=== PATIENT | male | born 1930 | race Caucasian/White ===

== ENCOUNTER 2016-07-05 11:30 | Inpatient (IN) | payer OTHER ==
[~2016-07-05] VITALS: Ht 190.5 cm; Wt 74.8 kg
[~2016-07-05 11:30] MED LIST: AMIODARONE HCL200 M1 PO; AMIODARONE200 MG PO; ASPIRIN EC81 M1 PO; AUGMENTIN 875875 MG PO; CALCIUM/VITAMIN1 TA1 PO; CEFPODOXIME PR200 M2 PO; CIPRO 500MG TA500 MG PO; COUMADIN 2.5 M2.5 MG PO; COUMADIN1 M1 PO; COUMADIN2 M1 PO; FLAG500 PO; FLOMAX0.4 M1 PO; GABAPENTIN300 M2 PO; HYDROXYUREA500 M1 PO; HYDROXYUREA500 MG PO; LIPITOR20 M2 PO; LISINOPRIL10 M1 PO; LISINOPRIL10 MG PO; LISINOPRIL20 MG PO; LISINOPRIL30 MG PO; LOPRESSOR 25MG25 MG PO; LOPRESSOR50 MG PO; METOPROLOL TART25 M1 PO; NORCO 325 MG-51 TAB PO; OXYCODONE5 MG PO; PRINIVIL 5MG5 MG PO; REMERON30 M1 PO; SALINE MIST 4545 ML NAS; SENNA LAX8.6 M1 PO; SIMVASTATIN80 MG PO; SLO NIACIN500 MG PO; VITAMIN B121000 MC2 PO; VITAMIN C100 MG PO
--- NOTE | 2016-07-05 11:42 | NUR ---
PER SON UTI X 2 WEEKS THIS AM SCHEDULED FOR RECHECK WITH DR SEVERINO, BUT THIS AM ALTERED, SHAKY AND WEAK. SIMILIAR TO INFECTION NOT CLEARED.
--- NOTE | 2016-07-05 11:55 | NUR ---
DR LAINEZ AT BEDSIDE FOR EVAL AT THIS TIME.
--- NOTE | 2016-07-05 12:08 | NUR ---
XRAY AT BEDSIDE
--- NOTE | 2016-07-05 12:16 | ED AMS/SEIZURE/WEAK/DIZZY ---
History of Present Illness General Chief Complaint: Altered Mental Status Stated Complaint: AMS, CONFUSED, PER SON Source: patient, family, old records Exam Limitations: clinical condition Vital Signs & Intake/Output Vital Signs & Intake/Output Vital Signs Date Time Temp Pulse Resp B/P Pulse O2 O2 Flow FiO2 Ox Delivery Rate 07/05 1443 97.7 50 18 138/72 92 Room Air 07/05 1400 Room Air 07/05 1145 97.1 52 22 165/71 98 Room Air Allergies Coded Allergies: niacin (EXTREME FLUSHING FROM IMMEDIATE RELEASE 04/18/16) PT TOLERATES SLOW RELEASE Reconcile Medications Amiodarone HCl 200 MG TABLET 1 TAB PO DAILY AFIB (Reported) Aspirin (Ecotrin*) 81 MG TABLET.DR 1 TAB PO DAILY HEART HEALTH (Reported) Atorvastatin Calcium (Lipitor) 20 MG TABLET 1 TAB PO DAILY CHOLESTEROL ( Reported) Cranberry Conc/Ascorbic Acid (Cranberry Plus Vitamin C Sftgl) 4,200 MG-20 MG CAPSULE 1 CAP PO BID SUPPLEMENT (Reported) Gabapentin 300 MG CAPSULE 1 CAP PO QPM NEUROPATHY (Reported) Hydroxyurea 500 MG CAPSULE 2 CAP PO DAILY POLYCYTHEMIA VERA (Reported) Lisinopril 10 MG TABLET 0.5 TAB PO QPM BP (Reported) Metoprolol Tartrate 25 MG TABLET 0.5 TAB PO BID HEART (Reported) Sennosides (Senna Lax) 8.6 MG TABLET 1 TAB PO QPM CONSTIPATION (Reported) Tamsulosin HCl (Flomax) 0.4 MG CAP.ER.24H 1 CAP PO QPM PROSTATE (Reported) Warfarin Sodium (Coumadin) 2 MG TABLET 0.5 TAB PO 1700 BLOOD THINNER ( Reported) Core Measure Meds Pre-Hospital antibiotics, coumadin Triage Note: PER SON UTI X 2 WEEKS THIS AM SCHEDULED FOR RECHECK WITH DR SEVERINO, BUT THIS AM ALTERED, SHAKY AND WEAK. SIMILIAR TO INFECTION NOT CLEARED. Triage Nurses Notes Reviewed? yes Onset: Just prior to arrival Duration: hour(s):, better, intermittent Timing: recent history Injury Environment: home Severity: moderate No Modifying Factors: none HPI: 2 weeks prior to admission patient was treated for urinary tract infection with Cipro. Prior to admission he was noted to have generalized shaking increased weakness and confusion. There has been no fever nausea vomiting diarrhea abdominal pain dysuria rash chest pain cough shortness of breath headache bleeding. Past History Travel History Traveled to [place] past 21 day No Medical History Any Pertinent Medical History? 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 No Review of Systems Review of Systems Constitutional: Reports: see HPI, chills, weakness. EENTM: Reports: no symptoms. Respiratory: Reports: no symptoms. Cardiovascular: Reports: no symptoms. GI: Reports: no symptoms. Genitourinary: Reports: no symptoms. Musculoskeletal: Reports: no symptoms. Skin: Reports: no symptoms. Neurological/Psychological: Reports: see HPI, confusion. Hematologic/Endocrine: Reports: no symptoms. Immunologic/Allergic: Reports: no symptoms. All Other Systems: Reviewed and Negative Physical Exam Physical Exam General Appearance: well developed/nourished, alert, awake, anxious, mild distress Head: atraumatic, normal appearance Eyes: Bilateral: normal appearance, PERRL, EOMI. Ears, Nose, Throat: normal pharynx, normal ENT inspection Neck: normal inspection, supple, full range of motion, no midline tenderness Respiratory: chest non-tender, no respiratory distress, quiet respiration, decreased breath sounds Cardiovascular: regular rate/rhythm, systolic murmur, norml femoral pulses equa Peripheral Pulses: 4+ carotid (R), 4+ carotid (L) Gastrointestinal: normal bowel sounds, soft, non-tender, no organomegaly Back: normal inspection, normal range of motion Extremities: BLE amputations Neurologic/Psych: awake, alert, cvt tech II-XII nml as tested, motor weakness Reflexes: 2+: bicep (R), bicep (L). Skin: intact, normal color Lymphatic: no anterior cervical janessa Core Measures ACS in differential dx? No CVA/TIA Diagnosis: No Severe Sepsis Present: No Septic Shock Present: No Progress Differential Diagnosis: arrythmia, dehydration, electrolyte imbalance, hypoxia, pneumonia, UTI/pyelo Plan of Care: Orders Procedure Date/time Status Regular Diet 07/05 L Active Patient Data 07/05 1437 Active OXYGEN SETUP (GEN) 07/05 1306 Active Saline Lock 07/05 1306 Active Admit to inpatient 07/05 1306 Active Vital Signs 07/05 1306 Active Activity/Ambulation 07/05 1306 Active BLOOD CULTURE 07/05 1306 Active Code Status 07/05 1306 Active URINALYSIS 07/05 1200 Complete TROPONIN LEVEL 07/05 1200 Complete PROTHROMBIN TIME 07/05 1200 Complete COMPREHENSIVE METABOLIC PANEL 07/05 1200 Complete CBC WITHOUT DIFFERENTIAL 07/05 1200 Complete EKG 07/05 1200 Active Laboratory Tests 07/05/16 1430: Urinalysis LIGHT H, Urine Color YEL, Urine Clarity HAZY H, Urine pH 6.0, Ur Specific Stephen 1.025, Urine Protein 100 H, Urine Ketones NEG, Urine Nitrite NEG, Urine Bilirubin NEG, Urine Urobilinogen 1.0, Ur Leukocyte Esterase NEG, Ur Microscopic SEDIMENT EXAMINED, Urine RBC RARE, Urine WBC 10-15 H, Ur Epithelial Cells RARE, Urine Hemoglobin TRACE-INTACT H, Urine Glucose NEG 07/05/16 1230: Anion Gap 7, Estimated GFR > 60, BUN/Creatinine Ratio 15.7, Glucose 86, Calcium 8.5, Total Bilirubin 0.8, AST 24, ALT 27, Alkaline Phosphatase 127 H, Troponin I 0.02, Total Protein 5.7 L, Albumin 2.6 L, Globulin 3.1, Albumin/Globulin Ratio 0.8 L, PT 14.5 H, INR 1.39 H, CBC w Diff NO MAN DIFF REQ, RBC 3.96 L, MCV 101.5 H, MCH 33.0 H, RDW 18.9 H, MPV 8.1, Gran % 84.7 H, Lymphocytes % 9.2 L, Monocytes % 3.9, Eosinophils % 2.1, Basophils % 0.1, Absolute Granulocytes 8.0 H, Absolute Lymphocytes 0.9 L, Absolute Monocytes 0.4, Absolute Eosinophils 0.2, Absolute Basophils 0, PUBS MCHC 32.5 L Microbiology 07/05 1352 BLOOD: Blood Culture - RECD 07/05 1335 BLOOD: Blood Culture - RECD Diagnostic Imaging: Viewed by Me: Radiology Read. Discussed w/RAD: Radiology Read. CXR Impression: Airspace disease in the left lung base which may correspond to aspiration or early pneumonia. There is a probable small left pleural effusion. Initial ED EKG: normal axis, normal intervals, normal p-waves, normal QRS complex, normal sinus rhythm, nonspecific ST T wave chg Prior EKG: unchanged Rhythm Strip: normal sinus rhythm Departure Departure Time of Disposition: 1437 Disposition: STILL A PATIENT Condition: Stable Clinical Impression Primary Impression: Pneumonia Secondary Impressions: Altered mental status, UTI (urinary tract infection) Referrals: MERE APPLE,YUSUF (PCP/Family) Departure Forms: Customer Survey General Discharge Information Admission Note Spoke With: ALAN COYNE MD Documentation of Exam: Documentation of any treatments & extenuating circumstances including Concerns Regarding Discharge (functional status, medication knowledge or non-compliance, living conditions, etc.) that warrant an admission rather than observation: IV antibiotics medication adjustment serial lab exam urology evaluation continuing care discharge planning
--- NOTE | 2016-07-05 12:29 | NUR ---
BLOOD WORK COLLECTED AND SENT TO LAB HAMIDA BLUE LAV PINK NOLEN TUBES SENT TO LAB
--- NOTE | 2016-07-05 12:30 | NUR ---
PT CHANGE INTO HOSPITAL ATTIRE AND FAMILY PLACE PT INTO BED. SON AT BEDSIDE.
[2016-07-05 12:37] LABS: ABSOLUTE BASOPHIL COUNT 0 /CUMM (0.0-0.2); ABSOLUTE EOSINOPHIL COUNT 0.2 /CUMM (0.0-0.7); ABSOLUTE LYMPH COUNT 0.9 /CUMM (1.2-3.4); ABSOLUTE MONOCYTE COUNT 0.4 /CUMM (0.10-0.60); BASOPHIL % 0.1 % (0.0-2.0); EOSINOPHIL % 2.1 % (0-5); GRANULOCYTE % 84.7 % (42.2-75.2); HEMATOCRIT 40.2 % (42-52); MEAN CORPUSCULAR HGB CONC 32.5 G/DL (33.0-37.0); MEAN CORPUSCULAR VOLUME 101.5 FL (80.0-94.0); MEAN PLATELET VOLUME 8.1 FL (7.4-10.4); PLATELET COUNT 291 /CUMM (130-400); RBC DISTRIBUTION WIDTH 18.9 % (11.5-14.5); RED BLOOD CELL CT 3.96 /CUMM (4.70-6.10); WHITE BLOOD CELL COUNT 9.4 /CUMM (4.8-10.8)
[2016-07-05 12:45] LABS: PT 14.5 SEC (9.4-12.5)
--- NOTE | 2016-07-05 13:03 | RADIOLOGY REPORT ---
EXAMINATION: XR PORTABLE CHEST CLINICAL INFORMATION: Chills. Weakness. History of aspiration. COMPARISON: 04/18/2016 TECHNIQUE: AP portable upright view of the chest FINDINGS: Airspace disease in the probable left-sided effusion are present at the left lung base. Examination is somewhat limited by kyphotic patient positioning. The patient's chin overlies the right lung apex. Sternal wires and surgical clips overlie the mediastinum. Cardiac and mediastinal contours are unchanged. Pulmonary vascularity is within normal limits given the technique. No acute osseous findings. IMPRESSION: Airspace disease in the left lung base which may correspond to aspiration or early pneumonia. There is a probable small left pleural effusion. Examination is somewhat limited due to positioning. Consider follow-up nonportable PA and lateral chest radiographs if warranted.
--- NOTE | 2016-07-05 14:02 | NUR ---
PT MEDICATED WITH ROCEPHIN AND VIBRAMYCIN INFUSING PER EMAR.
--- NOTE | 2016-07-05 14:31 | NUR ---
PT STRAIGHT CATH BY MARYAM UREÑA, STERILE TECHNIQUE MAINTAINED, 200ML OF DARK YELLOW URINE OBTAINED AND SENT TO LAB.
[2016-07-05] MEDS ORDERED: CRANBERRY PLUS1 EAC1 PO (15:07)
--- NOTE | 2016-07-05 15:58 | NUR ---
HOUSE STAFF TO BEDSIDE FOR PT EVAL.
--- NOTE | 2016-07-05 17:11 | NUR ---
PT RESTING ON STRETCHER, FAMILY AT BEDSIDE. 02SAT 90% ON RA, PT PLACED ON O2 2.5L NC WITH O2SAT IMPROVEMENT 93% FOOD TRAY ORDERED FOR PT.
--- NOTE | 2016-07-05 18:01 | NUR ---
BED ASSIGNMENT [phone]
--- NOTE | 2016-07-05 18:41 | History & Physical ---
CORKY APPLE,[facility] 07/05/16 0450: General Information and HPI Statement: I have seen and personally examined EDITA ROSARIO and documented this H&P. The patient is a 86 year old M who presented with a patient stated chief complaint of urinary symptoms. Source of Information: patient, family Exam Limitations: no limitations History of Present Illness: This is a 86-year-old pleasant gentleman with past medical history of A. fib on Coumadin, CAD s/p CABG more than 20 years ago, stent placement in 2000, COPD, polycythemia vera treated with hydroxyurea, and a history of multiple UTIs every year, is presented to [facility] by his son and caregiver for evaluation of a possible urinary tract infection. Most of the history was given by his son who is the POA. Patient son reports that for the past 2 days, patient has been experiencing mild chills and his urine has been noticed to be darker than normal and described as iced tea- colored. Patient son reports that he is used to having his father experiencing multiple episodes of UTI to the point where he can recognize early signs, and therefore having seen the urine discoloration and mild chills, he decided that the patient should be seen at the emergency department. Associated symptoms include generalized shaking, confusion, mild decrease in appetite, and some lethargy. Pt denies any shortness of breath, chest pain, palpitation, fever, nausea, vomiting, abdominal pain, dysuria or increased urinary frequency. Of note, patient finished an outpatient antibiotic course of ciprofloxacin for a UTI episode in May. Patient's son also report that in April patient was admitted for UTI and possible pneumonia at [facility] and after deterioration of his condition, based on the advise of the medical staff, was discharged to home hospice. However, patient condition did not deteriorate further and actually improved and home hospice was discontinued and his home medications were restarted. Allergies/Medications Allergies: Coded Allergies: niacin (EXTREME FLUSHING FROM IMMEDIATE RELEASE 04/18/16) PT TOLERATES SLOW RELEASE Home Med list Amiodarone HCl 200 MG TABLET 1 TAB PO DAILY AFIB (Reported) Aspirin (Ecotrin*) 81 MG TABLET.DR 1 TAB PO DAILY HEART HEALTH (Reported) Atorvastatin Calcium (Lipitor) 20 MG TABLET 1 TAB PO DAILY CHOLESTEROL ( Reported) Cranberry Conc/Ascorbic Acid (Cranberry Plus Vitamin C Sftgl) 4,200 MG-20 MG CAPSULE 1 CAP PO BID SUPPLEMENT (Reported) Gabapentin 300 MG CAPSULE 1 CAP PO QPM NEUROPATHY (Reported) Hydroxyurea 500 MG CAPSULE 2 CAP PO DAILY POLYCYTHEMIA VERA (Reported) Lisinopril 10 MG TABLET 0.5 TAB PO QPM BP (Reported) Metoprolol Tartrate 25 MG TABLET 0.5 TAB PO BID HEART (Reported) Sennosides (Senna Lax) 8.6 MG TABLET 1 TAB PO QPM CONSTIPATION (Reported) Tamsulosin HCl (Flomax) 0.4 MG CAP.ER.24H 1 CAP PO QPM PROSTATE (Reported) Warfarin Sodium (Coumadin) 2 MG TABLET 0.5 TAB PO 1700 BLOOD THINNER ( Reported) Past History Travel History Traveled to [place] past 21 day No Medical History Neurological: peripheral neuropathy EENT: NONE Cardiovascular: AFIB, aortic stenosis, CAD, hypertension, hyperlipidemia Respiratory: pulmonary embolism Gastrointestinal: constipation, diverticulitis Hepatic: NONE Renal: benign prost hyperplasia Musculoskeletal: NONE Psychiatric: NONE Endocrine: NONE Blood Disorders: DVT, PE, POLYCYTHEMIA Cancer(s): NONE PSYCHIATRIC NURSE PRACTITIONER/Reproductive: NONE History of MRSA: No History of VRE: No History of CDIFF: No Pneumonia Vaccine: 02/27/10 Influenza Vaccine: 03/21/16 Surgical History Surgical History: non-contributory Past Family/Social History Psychosocial History Who Do You Live With? child Services at Home: Home Health Aide Primary Language: Barbadian Review of Systems Review of Systems Constitutional: Reports: chills. EENTM: Denies: blurred vision, double vision, eye pain. Cardiovascular: Denies: edema, orthopena, palpitations, peripheral edema, syncope. Respiratory: Denies: hemoptysis, orthopnea, short of breath, sputum production. GI: Denies: bloating, constipation, diarrhea, distention, melena, bloody stool, changes in stool, vomiting. Genitourinary: Denies: dysuria, hematuria. Musculoskeletal: Denies: joint pain, joint swelling, muscle pain. Skin: Denies: change in skin color, change in hair/nails, erythema. Neurological/Psychological: Reports: confusion. Denies: anxiety, ataxia, cognitive dysfunction. Hematologic/Endocrine: Reports: no symptoms. Immunologic/Allergic: Reports: no symptoms. All Other Systems: Reviewed and Negative Exam & Diagnostic Data Last 24 Hrs of Vital Signs/I&O Vital Signs Date Time Temp Pulse Resp B/P Pulse O2 O2 Flow FiO2 Ox Delivery Rate 07/05 2101 54 178/54 07/05 2100 54 178/54 07/05 2057 54 178/54 07/05 2040 54 178/58 07/05 1999 Nasal 2.5L Cannula 07/05 1958 97.9 51 20 190/60 96 Nasal 2.5L Cannula 07/05 1827 97.4 55 18 158/67 96 Nasal 2.5L Cannula 07/05 1713 97.3 50 18 186/79 93 Nasal 2.5L Cannula 07/05 1443 97.7 50 18 138/72 92 Room Air 07/05 1400 Room Air 07/05 1145 97.1 52 22 165/71 98 Room Air Intake & Output 07/05 1600 07/05 0800 07/05 0000 Intake Total 110 Output Total 200 Balance -90 Intake, IV 110 Output, Urine 200 Physical Exam General Appearance Alert, Oriented X3, Cooperative Skin No Significant Lesion HEENT EOMI, bilateral indentation noted on the left and right side of scalp ( previous neurosurgical procedure shunt placement) Neck Supple, No thryomegaly Lymphatic Cervical nl Cardiovascular Regular Rate, very mild systolic murmur 1/6. Lungs decreased breath sounds bilaterally Abdomen Soft, No Tenderness, no CVA Neurological Normal Speech, Strength at 5/5 X4 Ext, Sensation Intact Extremities bilateral amputation below the knee Vascular Normal Pulses Last 24 Hrs of Labs/Addy: Laboratory Tests 07/05/162039: Troponin I < 0.01 07/05/16 1430: Urinalysis LIGHT H, Urine Color YEL, Urine Clarity HAZY H, Urine pH 6.0, Ur Specific [place] 1.025, Urine Protein 100 H, Urine Ketones NEG, Urine Nitrite NEG, Urine Bilirubin NEG, Urine Urobilinogen 1.0, Ur Leukocyte Esterase NEG, Ur Microscopic SEDIMENT EXAMINED, Urine RBC RARE, Urine WBC 10-15 H, Ur Epithelial Cells RARE, Urine Hemoglobin TRACE-INTACT H, Urine Glucose NEG 07/05/16 1230: Anion Gap 7, Estimated GFR > 60, BUN/Creatinine Ratio 15.7, Glucose 86, Calcium 8.5, Total Bilirubin 0.8, AST 24, ALT 27, Alkaline Phosphatase 127 H, Troponin I 0.02, Total Protein 5.7 L, Albumin 2.6 L, Globulin 3.1, Albumin/Globulin Ratio 0.8 L, Vitamin B12 884, Folate 5.1, PT 14.5 H, INR 1.39 H, CBC w Diff NO MAN DIFF REQ, RBC 3.96 L, MCV 101.5 H, MCH 33.0 H, RDW 18.9 H, MPV 8.1, Gran % 84.7 H, Lymphocytes % 9.2 L, Monocytes % 3.9, Eosinophils % 2.1, Basophils % 0.1, Absolute Granulocytes 8.0 H, Absolute Lymphocytes 0.9 L, Absolute Monocytes 0.4, Absolute Eosinophils 0.2, Absolute Basophils 0, PUBS MCHC 32.5 L Microbiology 07/05 1352 BLOOD: Blood Culture - RECD 07/05 1335 BLOOD: Blood Culture - RECD Assessment/Plan Assessment: This is a 86-year-old gentleman with a past medical history of recurrent UTIs, including one episode in April 2016 that required hospitalization, and a recent one in May treated on outpatient basis with ciprofloxacin, is presented for evaluation of UTI after developing 2 day onset of urine discoloration,some mild chills and confusion. Assessment and plan #Urinary tract infection Even though UA is not remarkable for UTI, his urine discoloration is concerning and with a history of recurrent UTIs which his son reports to always start with urine discoloration, altered mental status, and with positive chills, patient possibly has a UTI. Plan * Admit to GEN med floor * Will start ceftriaxone IV * Will follow up on urine cultures * if urine cultures are negative and patient remains afebrile with no leukocytosis, we might consider stopping antibiotic treatment. #Acute encephalopathy Patient is reported to be confused within the past few days, which is not his baseline. Likely secondary to urinary tract infection. Plan * Will avoid delirium triggers #Bradycardia Possibly secondary to AV anjali effect of patient's Lopressor medication. Plan * Will monitor heart rate #Subtherapeutic INR Patient A. fib coagulation goal should be 2-3, however his INR is 1.39. Plan * Pt's normal dose is1 mg daily, will dose Coumadin 2 mg today * Will trend INR tomorrow and dose accordingly targeting a goal of 2-3 #History of A. 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 * Continue gabapentin #History of BPH Continue Flomax As Ranked By This Provider Problem List: 1. Urinary tract infection 2. Altered mental status Core Measures/Miscellaneous Acute Coronary Syndrome ACS Diagnosis: No Cerebrovascular Accident CVA/TIA Diagnosis: No Congestive Heart Failure CHF Diagnosis: No Venous Thromboembolism VTE Risk Factors: Acute medical illness, Age > 40 VTE Prophylaxis Ordered Inpt: Pharm- Warfarin No Mech VTE prophylaxis d/t: Amputee No VTE Pharm Prophylaxis d/t: No contraindications VTE Diagnosis: No VTE Type: NONE VTE Confirmed by (Test): NONE Severe Sepsis Severe Sepsis Present: No Septic Shock Septic Shock Present: No Miscellaneous Documentation Attending Case Discussed With: MD EDITA JOSEPH. Primary Care Physician: MERE APPLE,[facility] Patient sees these Specialists SSIS ARCHITECT Level of Patient Care: General Surgical SHASTA MURPHY 07/05/16 6578: Resident Review Statement Resident Statement: examined this patient, discussed with internal corrosion specialist, agreed with internal corrosion specialist, discussed with family, reviewed EMR data (avail), discussed with nursing , reviewed images Other Findings: 86-year-old gentleman with a PMH of A. fib on Coumadin, polycythemia vera on hydroxyzine, COPD and diverticulitis brought in with concerns for UTI. Information obtained from the patient's son who is also POA: The symptoms started 2 days ago with noticeable darker urine (iced tea-colored) along with low temperature last night of 94F and some mild chills. He was initially diagnosed with a UTI and pneumonia around [place], admitted for 6 days at [facility] and discharged on [facility] on home hospice due to progressive deterioration. However, while at home he continued to progressively improve and was started back on his previous medications. Mid-May this year family noticed his urine becoming cloudy again, followed up with his PCP and was prescribed a 10 day course of Cipro for which he completed at the end of May with planned follow up today to repeat his cultures. However, due to the most recent 2 day dark colored urine the family opted to bring him into the ED for evaluation. ROS: (+) slight decrease in appetite, mild lethargy. He denied any fevers, nausea, abdominal pain, discomfort with urination/frequency. VS on admission: BP 165/71, HR 52, RR 22, SPO2 98% on RA, T 97.1 PE: AAO 3, no acute distress. Lungs CTA BL, diminished breath sounds the basal regions. RRR, normal S1/S2. Normal bowel sounds. Lower extremity amputee Pertinent labs: WBC 9.4, H&H 13.1/40.2, MCV 101.5, BUN/CR 11/0.7, glucose 86, potassium 3.9, sodium 139, albumin 2.6, alkaline phosphatase 127 INR: 1.39 CXR: Left lung base airspace disease Problem list: 1. UTI 2. Bradycardia 3. Subtherapeutic INR 4. Delirium Plan: * Admit to general medicine * Follow-up urine cultures and will continue him on ceftriaxone. Will obtain previous cultures from PCP to assess the sensitivities. Current records indicate prior bacteriuria with resistance to amoxicillin. * Patient's son indicates ?? Left lung base pneumonia during his previous admission to [facility] in April. Will obtain records to compare. At this time DDX of pneumonia less likely. Will defer starting azithromycin for now * Will follow urine strep, Legionella. Rapid influenza * Bradycardia: Patient is on Lopressor 12.5 mg BID. Denies any chest pain at this time. Echo 2015: EF 60%. Will check a set of troponin and EKG, hold evening dose of Lopressor if bradycardic. Consider half dose if hypertensive. Orthostatics in the a.m. * Blood sugar 86: Accu-Cheks overnight to rule out hypoglycemic episode * Subtherapeutic INR: Dose 2 mg Coumadin today and follow-up INR in the a.m. * Elevated MCV: Follow-up vitamin B12 and folate levels * PT in the a.m * DVT prophylaxis: Coumadin * Regular diet * CODE STATUS: DNR/DNI EDITA JOSEPH MD 07/05/16 2147: Attending MD Review Statement Attending Statement Attending MD Statement: examined this patient, discuss w/resident/PA/SKIN DIVER, agreed w/resident/PA/SKIN DIVER, discussed with family, reviewed EMR data (avail), discussed with nursing, reviewed images, amended to note Attending Assessment/Plan: The patient is an 86 yo male with h/o afib (on Coumadin), CAD (s/p prior CABG/ stent 2000), polycythemia vera, PVD, and h/o multiple UTI's who presented on the day of admission for evaluation of possible recurrent UTI. The patient was recently treated in May with Cipro for a UTI by his PCP (Dr. Ramos) and was doing better, however last 2 days noted chills, change in urine coloration, increased confusion, decreased appetite and lethargy. He denied any chest pain, dyspnea, palpitations, abdominal or back pain, or dysuria. Details of history as per resident. Physical Exam: VS: T 97.1, P 52, R 22, BP 165/71, PO 98% RA HEENT: Eyes- PERRLA, EOMI [place]- dry mucosa Neck: no JVD or bruits Chest: clear Cor: RRR, nl S1, S2, +1/6 sys murm at LSB Abd: BS+, softly distended, non-tender, - CVAT Ext: s/p bilat amputations Neuro: alert, non-focal exam, + dementia w/o change Labs/Tests- as above Impression/Plan: #UTI- patient notes urine discoloration similar to prior UTI. No fever but describes some chills. Plan: Will admit to gen med floor. Roach culture. Empiric Ceftriaxone- will obtain records regarding prior UTI/culture results. #Altered Mental Status- acute delirium- ? toxic metabolic encephalopathy secondary to infection. Has had this in past. Was on course of Cipro in May which may cause confusion (however had improved post treatment). Neuro exam is non-focal. Plan: Will monitor mental status with above treatment. #Atrial Fibrillation- INR is subtherapeutic. On Amiodarone. Plan: Dose Coumadin as above. Continue Amiodarone. #H/O Polycythemia Vera- on hydroxyurea. Plan: Continue hydroxyurea. #CAD- no c/o chest pain. Plan: Continue ASA, Metoprolol, Atorvastatin. #Hyperlipidemia- on Atorvastatin. Plan: Continue Atorvastatin. #BPH- on Flomax. Plan: Continue Flomax.
--- NOTE | 2016-07-05 18:47 | NUR ---
REPORT GIVEN TO MARYAM HWANG IN [facility], [facility] CALLED FOR TRANSPORTATION.
[2016-07-05 19:59] VITALS: BP 190/60
--- NOTE | 2016-07-05 20:35 | NUR ---
PT ARRIVED TO FLOOR FROM ER WITH [facility]. PT AWAKE, A/OX3, ON 2.5L NC WITH LUNG SOUNDS DIMINISHED, IV SITE INTACT, BLANCHABLE REDNESS NOTED TO COCCYX WITH SMALL AREAS OF SKIN BREAKDOWN ALSO NOTED, WOUND CARE EVAL PLACED, PT HAS L BKA AND R AKA, SMALL INDENTED AREA NOTED TO CHEST WITH BANDAID IN PLACE PER PT "THAT'S WHERE A STITCH NEVER DISSOLVED"; SON AND PT'S LIVE-IN CAREGIVER AT BEDSIDE, PT ORIENTED TO ROOM AND CALL GARCIA WITHIN REACH. WILL CONTINUE TO MONITOR.
[2016-07-05 20:41] VITALS: BP 178/58
--- NOTE | 2016-07-05 22:05 | Admission Certification ---
Admission Certification Certification Statement - As attending physician, I certify that at the time of - admission, based on clinical presentation, severity of - symptoms, need for further diagnostic testing and - therapeutic interventions, and risk of adverse outcomes - without in-hospital treatment, in my clinical assessment, - this patient requires an acute hospital stay for a minimum - of two nights or longer. I have also considered psychsocial - factors such as support system, advanced age, financial - issues, cognitive issues, and failed out-patient treatments, - past re-admission history, safety of patient, and lack of - compliance as applicable. Specific rationale supporting this admission is: The patient presents with UTI and alterered mental status (metabolic encephalopathy). Needs cultures and IV antibiotics (Ceftriaxone).
[2016-07-05 22:49] VITALS: BP 180/60
[2016-07-06] VITALS (7 sets, daily range): BP systolic 144–220; BP diastolic 58–82
[2016-07-06 08:17] LABS: PT 13.4 SEC (9.4-12.5)
[2016-07-06 08:22] LABS: ABSOLUTE BASOPHIL COUNT 0.1 /CUMM (0.0-0.2); ABSOLUTE EOSINOPHIL COUNT 0.3 /CUMM (0.0-0.7); ABSOLUTE GRANULOCYTE CT 7.1 /CUMM (1.4-6.5); ABSOLUTE LYMPH COUNT 0.9 /CUMM (1.2-3.4); ABSOLUTE MONOCYTE COUNT 0.4 /CUMM (0.10-0.60); BASOPHIL % 0.7 % (0.0-2.0); EOSINOPHIL % 3.4 % (0-5); GRANULOCYTE % 80.4 % (42.2-75.2); HEMATOCRIT 38.1 % (42-52); MEAN CORPUSCULAR HGB 33.7 PG (27.0-31.0); MEAN CORPUSCULAR HGB CONC 33.1 G/DL (33.0-37.0); MEAN CORPUSCULAR VOLUME 101.9 FL (80.0-94.0); MEAN PLATELET VOLUME 7.9 FL (7.4-10.4); PLATELET COUNT 230 /CUMM (130-400); RBC DISTRIBUTION WIDTH 19.3 % (11.5-14.5); RED BLOOD CELL CT 3.74 /CUMM (4.70-6.10); WHITE BLOOD CELL COUNT 8.8 /CUMM (4.8-10.8)
--- NOTE | 2016-07-06 12:45 | NUR ---
WOUND CARE: REQUESTED BY [facility] TO EVALUATE PT FOR SKIN ALTERATIONS PRESENT ON ADMISSION - CHART REVIEWED - HX OBTAINED FROM PT AND CAREGIVER WHOM WAS PRESENT AT TIME OF ASSESSMENT - SUPPORT [employer]CH[employer]IS[employer] REPORTS PT HAS HAD BREAKDOWN ONGOING SINCE PRIOR TO ADMISSION, IN WHICH HE WAS "PUTTING A WOUND PATCH" ON IT TO TREAT IT - ALSO REPORTS PT HAS AN AIR MATTRESS HE USES AT HOME UPON ASSESSMENT, PT IS NOTED WITH AN EVOLVING DEEP TISSUE INJURY TO THE BILATERAL BUTTOCKS 7 X 6 CM AND 3X4 CM LIGHT PURPLE DISCOLORED HUE WITH AREAS OF EXCORIATION THROUGHOUT WOUND BASE AND SUPERFICIAL BREAKDOWN - NO DRNG, ALTHOUGH WOUND BED MACERATED - NO EVIDENCE OF INFECTION OR INDURATION - CURRENTLY ON ALTERNATING PRESSURE MATTRESS IMPRESSION: DTI POA RECOMMENDATION: IF FAILURE TO IMPROVE IN 3 DAYS ON SIZE HAN MATTRESS, PLEASE CONSIDER CLINITRON MATTRESS - APPLY DESITIN OINTMENT QS AFTER INC EPISODES TO MONSTER BUTTOCKS - STRICT SIDELYING POSITION WIB (MAY BE ON BACK FOR MEALS) - INITIATE SKIN PROTOCOL PER STAGE 3 GUIDELINES - MONITOR QS
--- NOTE | 2016-07-06 13:23 | PN- Housestaff ---
Subjective Follow-up For: UTI Subjective: Patient is seen and examined bedside. Patient is moderately verbal. He is awake ,alert and oriented. He does not endorse any acute complain of dysuria, abdominal pain, fever, chills, nausea, vomiting, chest pain, palpitation, shortness of breath. No acute overnight event reported by nursing staff Review of Systems Constitutional: Reports: no symptoms. Objective Last 24 Hrs of Vital Signs/I&O Vital Signs Date Time Temp Pulse Resp B/P Pulse O2 O2 Flow FiO2 Ox Delivery Rate 07/06 1344 97.5 56 20 150/60 94 Nasal 2.5L Cannula 07/06 0908 52 122/60 07/06 0834 50 144/80 07/06 0800 Nasal 2.5L Cannula 07/06 0628 97.9 50 20 144/80 94 Nasal Cannula 07/06 0015 54 148/58 07/05 2249 97.5 52 20 180/60 97 Nasal 2.5L Cannula 07/05 2102 54 178/54 07/05 2101 54 178/54 07/05 2058 54 178/54 07/05 2041 54 178/58 07/05 2000 Nasal 2.5L Cannula 07/05 1959 97.9 51 20 190/60 96 Nasal 2.5L Cannula 07/05 1827 97.4 55 18 158/67 96 Nasal 2.5L Cannula 07/05 1713 97.3 50 18 186/79 93 Nasal 2.5L Cannula Intake & Output 07/06 1600 07/06 0800 07/06 0000 Intake Total 600 480 Output Total Balance 600 480 Intake, Oral 600 480 Number 0 0 Bowel Movements Patient 74.843 kg Weight Physical Exam General Appearance: Alert, Cooperative Other Physical Findings: eneral Appearance Alert, Oriented X3, Cooperative Skin No Significant Lesion HEENT EOMI, bilateral indentation noted on the left and right side of scalp ( previous neurosurgical procedure shunt placement) Neck Supple, No thryomegaly Lymphatic Cervical nl Cardiovascular Regular Rate, very mild systolic murmur 1/6. Lungs decreased breath sounds bilaterally Abdomen Soft, No Tenderness, no CVA Neurological Normal Speech, Strength at 5/5 X4 Ext, Sensation Intact Extremities bilateral amputation below the knee Vascular Normal Pulses Current Medications: Current Medications Sig/Caroline Start time Last Medication Dose Route Stop Time Status Admin Acetaminophen 650 MG Q6P PRN 07/05 1900 AC PO Amiodarone HCl 200 MG DAILY 07/06 1000 AC 07/06 PO 0908 Aspirin Buffered 81 MG DAILY 07/06 1000 AC 07/06 PO 0908 Atorvastatin Calcium 20 MG DAILY 07/05 1827 AC 07/06 PO 0908 Ceftriaxone Sodium 1,000 MG DAILY 07/06 1000 AC 07/06 IV 0907 Gabapentin 300 MG QPM 07/05 2200 AC 07/05 PO 2101 Hydroxyurea 1,000 MG DAILY 07/06 1000 AC 07/06 PO 0907 Lisinopril 5 MG QPM 07/05 2200 DC PO Lisinopril 5 MG QPM 07/05 2200 AC 07/05 PO 2058 Metoprolol Tartrate 12.5 MG BID 07/05 2200 DC PO Metoprolol Tartrate 12.5 MG BID 07/05 2200 DC 07/05 PO 2101 Nystatin 1 TUSHAR BID 07/06 1000 AC 07/06 TOP 0908 Oxycodone/ 1 TAB Q6P PRN 07/05 1900 AC Acetaminophen PO Oxycodone/ 2 TAB Q6P PRN 07/05 1900 AC Acetaminophen PO Senna 187 MG AT BEDTIME PRN 07/05 1830 AC PO Tamsulosin HCl 0.4 MG QPM 07/05 2200 AC 07/05 PO 2102 Warfarin Sodium 4 MG COUMADIN 1700 ONE 07/06 1700 AC PO 07/06 1701 Warfarin Sodium 2 MG ONCE ONE 07/05 1900 DC 07/05 PO 07/05 190 2205 Last 24 Hrs of Lab/Addy Results Last 24 Hrs of Labs/Mics: Laboratory Tests 07/06/1615: PT 13.4 H, INR 1.28 H, CBC w Diff NO MAN DIFF REQ, RBC 3.74 L, MCV 101.9 H, MCH 33.7 H, RDW 19.3 H, MPV 7.9, Gran % 80.4 H, Lymphocytes % 10.6 L, Monocytes % 4.9, Eosinophils % 3.4, Basophils % 0.7, Absolute Granulocytes 7.1 H, Absolute Lymphocytes 0.9 L, Absolute Monocytes 0.4, Absolute Eosinophils 0.3 , Absolute Basophils 0.1, PUBS MCHC 33.1 07/05/160: Troponin I < 0.01 Assessment/Plan Assessment: This is a 86-year-old gentleman with a past medical history of recurrent UTIs, including one episode in April 2016 that required hospitalization, and a recent one in May treated on outpatient basis with ciprofloxacin, is presented for evaluation of UTI after developing 2 day onset of urine discoloration,some mild chills and confusion. Assessment and plan #Urinary tract infection Even though UA is not remarkable for UTI, his urine discoloration is concerning and with a history of recurrent UTIs which his son reports to always start with urine discoloration, altered mental status, and with positive chills, patient possibly has a UTI. Plan * Continue ceftriaxone IV * Will follow up on urine cultures #Acute encephalopathy Currently resolving .Patient is reported to be confused within the past few days , which is not his baseline. Likely secondary to urinary tract infection. Plan * Will avoid delirium triggers #Bradycardia Possibly secondary to AV anjali effect of patient's Lopressor medication. Plan * Will monitor heart rate #Subtherapeutic INR Patient A. fib coagulation goal should be 2-3. Plan * Pt's normal dose is1 mg daily, will dose Coumadin 4 mg today * Will trend INR tomorrow and dose accordingly targeting a goal of 2-3 #History of A. 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 * Continue gabapentin Problem List: 1. Urinary tract infection Pain Ratin Pain Location: none Pain Goal: Remain pain free Pain Plan: pain pathway Tomorrow's Labs & Rationales: CBC-UTI
--- NOTE | 2016-07-06 15:07 | PN- Att Addend ---
Attending MD Review Statement Attending Statement Attending MD Statement: examined this patient, discuss w/resident/PA/FUEL MANAGER, agreed w/resident/PA/FUEL MANAGER, reviewed EMR data (avail), discussed w/nursing Attending Assessment/Plan: Laboratory Tests 07/06/16614: PT 13.4 H, INR 1.28 H, CBC w Diff NO MAN DIFF REQ, RBC 3.74 L, MCV 101.9 H, MCH 33.7 H, RDW 19.3 H, MPV 7.9, Gran % 80.4 H, Lymphocytes % 10.6 L, Monocytes % 4.9, Eosinophils % 3.4, Basophils % 0.7, Absolute Granulocytes 7.1 H, Absolute Lymphocytes 0.9 L, Absolute Monocytes 0.4, Absolute Eosinophils 0.3 , Absolute Basophils 0.1, PUBS MCHC 33.1 07/05/160: Troponin I < 0.01 Vital Signs Date Time Temp Pulse Resp B/P Pulse O2 O2 Flow FiO2 Ox Delivery Rate 07/06 1344 97.5 56 20 150/60 94 Nasal 2.5L Cannula 07/06 0908 52 122/60 07/06 0834 50 144/80 07/06 0800 Nasal 2.5L Cannula 07/06 0628 97.9 50 20 144/80 94 Nasal Cannula 07/06 0015 54 148/58 07/05 2249 97.5 52 20 180/60 97 Nasal 2.5L Cannula 07/05 2102 54 178/54 07/05 2101 54 178/54 07/05 2058 54 178/54 07/05 2041 54 178/58 07/05 1999 Nasal 2.5L Cannula 07/05 1958 97.9 51 20 190/60 96 Nasal 2.5L Cannula 07/05 1827 97.4 55 18 158/67 96 Nasal 2.5L Cannula 07/05 1713 97.3 50 18 186/79 93 Nasal 2.5L Cannula Pt seen and examined at bedside 86-yr old male with past medical history of A. fib on Coumadin, CAD s/p CABG more than 20 years ago, stent placement in 2000, COPD, polycythemia vera on hydroxyurea, and a history of recurrent UTIs every year with last being in end of may when he was treated with po cipro presented to [place] for evaluation of a possible urinary tract infection. A/p- Recurrent UTI- cont with ceftriaxone. previous cultures reviewed and bacteria were senstive to ceftriaxone. Bradycardia in pt with h/o afib on metoprolo- HR low 50s and 40s - will dc metoprolol and will f/u on HR. D/w pt the care plan.
--- NOTE | 2016-07-06 17:07 | NUR ---
BP 200/82, PT DENIES CP, SOB, DR MURPHY MADE AWARE AND AT BEDSIDE. NEW ORDER FOR LISINOPRIL 10MG PO PROVIDED. CONTINUE TO CHECK BP Q 3 HOURS PER ORDER. FAMILY AND PT EDUCATED AND VERBALIZED UNDERSTANDING.
--- NOTE | 2016-07-06 22:48 | NUR ---
PT BP STILL HIGH AT 220/80, HR 51. DR HOBBS AWARE AT TO BEDSIDE. NEW MED ORDERS RECEIVED AND PROVIDED PER EMAR. BP RECHECKED 2 HR LATER AT 200/78, HR 56. DR HOBBS MADE AWARE AND TO GO TO BS FOR EVAL. PT ASYMPTOMATIC, DENIES CP, SOB.
[2016-07-07] VITALS (10 sets, daily range): BP systolic 138–180; BP diastolic 70–84
--- NOTE | 2016-07-07 06:23 | Discharge Summary ---
Visit Information Visit Dates Admission Date: 07/05/16 Discharge Date: 07/08/2016 Hospital Course Course Attending Physician: JEAN CLAUDE APPLE,JOSE GUADALUPE Camarena Primary Care Physician: MERE APPLE,[facility] Course: 86-year-old gentleman with PMH A. fib on Coumadin, polycythemia vera on hydroxyzine, COPD and diverticulitis who was brought in to [place] by family members with concerns for UTI. Information was primarily obtained from the patient's son who is also the POA. He reported 2 day duration of noticeable darkened urine (ice tea-colored) cysts along with low-grade temperature 94F and noticeable chills. Recent medical history includes diagnosis of UTI pneumonia mid April 2016 for which she was admitted to [facility] for 6 days, discharged home on home hospice due to progressive decline. However, he progressively improved at home and was restarted on all his previous medications. Most recently in May his urine became cloudy again for which he followed up with his PCP and completed a 10 day course of ciprofloxacin. ROS: (+) slight decrease in appetite, mild lethargy. He denied any fevers, nausea, abdominal pain, discomfort with urination/frequency. VS on admission: BP 165/71, HR 52, RR 22, SPO2 98% on RA, T 97.1 PE: AAO 3, no acute distress. Lungs CTA BL, diminished breath sounds the basal regions. RRR, normal S1/S2. Normal bowel sounds. Lower extremity amputee Pertinent labs: WBC 9.4, H&H 13.1/40.2, MCV 101.5, BUN/CR 11/0.7, glucose 86, potassium 3.9, sodium 139, albumin 2.6, alkaline phosphatase 127 INR: 1.39 CXR: Left lung base airspace disease The patient was admitted to the general medicine floor for management of the following problems. 1. UTI 2. Bradycardia 3. Intermittent episodes of Hypertensive emergency 4. Subtherapeutic INR 5. Delirium Hospital course: 1. UTI * Urine cultures pending at this time * Started the patient on ceftriaxone 1 g IV daily. * Previous Urine culture results from May pending at this time * We'll plan to discharge the patient on ciprofloxacin to complete 14 day therapy * Outpatient referral for urology will be provided at discharge. 2. Bradycardia * Patient's heart rate ranged from the 40s to low 50s throughout the hospital course. Previously on Lopressor 12.5 mg BID. We discontinued this medication, increased his lisinopril and started him on amlodipine with noticeable better control BP * Advised patient to have vitals checked once a day for the next week and contact PCP with results 3. Intermittent episodes of Hypertensive emergency * Once Lopressor was discontinued noticeable increase and SBP into the 200s. The patient remained asymptomatic during this time * Blood pressure was well-controlled with increasing lisinopril dose along with adding Norvasc 4. Subtherapeutic INR * INR on admission: 1.39. Increased dosage of Coumadin for target INR >2.0 5. Delirium * Noticeable improvement in mentation while on ceftriaxone. Stable at this time Allergies: Coded Allergies: amlodipine (Severe, ANAPHYLAXIS 07/29/16) niacin (EXTREME FLUSHING FROM IMMEDIATE RELEASE 07/18/16) PT TOLERATES SLOW RELEASE Disposition Summary Disposition Principal Diagnosis: UTI Additional Diagnosis: Bradycardia Hypertensive emergency Delirium Discharge Disposition: home or self care Discharge Instructions General Discharge Information Code Status: Do Not Resucitate/Intubat Patient's Diet: Heart healthy Patient's Activity: As tolerated Follow-Up Instructions/Appts: Please follow-up with your PCP within 1-2 weeks after discharge. Due to slow heart rate Lopressor was discontinued. Monitor blood pressure daily and if elevated contact PCP. Medications at Discharge Discharge Medications: Stop taking the following medications: Metoprolol Tartrate (Metoprolol Tartrate) 25 MG TABLET ORAL TWICE DAILY Warfarin Sodium (Coumadin) 2 MG TABLET ORAL DAILY Continue taking these medications: Tamsulosin HCl (Flomax) 0.4 MG CAP.ER.24H 1 Capsule ORAL Every night Comments: Last Taken: 07/21/16 Time: 2200 Aspirin (Ecotrin*) 81 MG TABLET.DR 1 Tablet ORAL DAILY Comments: Last Taken: 07/22/16 Time: 1000 Amiodarone HCl (Amiodarone HCl) 200 MG TABLET 1 Tablet ORAL Every Morning Comments: Last Taken: Time:PER PT MED LIST Last Taken: 07/22/16 Time: 1000 Atorvastatin Calcium (Lipitor) 20 MG TABLET 1 Tablet ORAL Every night Comments: PER PT MED LIST Last Taken: 07/08/16 Time: 0900 Sennosides (Senna Lax) 8.6 MG TABLET 2 Tablet ORAL Every night Comments: PER PT MED LIST Last Taken: 07/21/16 Time: 10:00AM Gabapentin (Gabapentin) 300 MG CAPSULE 1 Capsule ORAL Every night Comments: Last Taken: 06/23/16 Time: 9:44PM Hydroxyurea (Hydroxyurea) 500 MG CAPSULE 2 Capsule ORAL Every Morning Comments: PER PT MED LIST Last Taken: 07/22/16 Time: 10:00AM Cranberry Conc/Ascorbic Acid (Cranberry Plus Vitamin C Sftgl) 4,200 MG-20 MG CAPSULE 1 Capsule ORAL TWICE DAILY Comments: NOT GIVEN IN HOSPITAL Copies To: MERE APPLE,YUSUF Attending MD Review Statement Documenting Attending: JOSE GUADALUPE SILVERIO MD Other Findings: Agree with the above discharge plan.
[2016-07-07 08:57] LABS: PT 17.4 SEC (9.4-12.5)
--- NOTE | 2016-07-07 09:10 | PN- Housestaff ---
Subjective Follow-up For: UTI Subjective: Patient is seen and examined at bedside. Overnight event of development blood pressure and episode of nausea vomiting noted. Last night Patient received amlodipine 10 mg in addition to lisinopril 10 which led to normalizing of his blood pressure. Patient personally does not endorse any acute complaints including chest pain, palpitation, shortness of breath, fever, chills, abdominal pain, or dysuria. Review of Systems Constitutional: Denies: see HPI. Objective Last 24 Hrs of Vital Signs/I&O Vital Signs Date Time Temp Pulse Resp B/P Pulse O2 O2 Flow FiO2 Ox Delivery Rate 07/07 1651 55 180/82 07/07 1651 55 180/82 07/07 1620 55 180/80 07/07 1318 97.5 60 18 142/80 97 Nasal 2.5L Cannula 07/07 1034 52 138/70 07/07 0842 97.5 60 20 142/80 97 Nasal 2.5L Cannula 07/07 0800 Nasal 2.5L Cannula 07/07 0623 97.6 52 20 138/70 94 Nasal Cannula 07/07 0256 56 22 146/78 94 Nasal Cannula 07/07 0116 56 20 172/84 95 Nasal Cannula 07/07 0000 98 Nasal 2.5L Cannula 07/06 2242 56 200/78 07/06 2115 51 220/80 07/067 220/80 07/06 2056 80 220/80 07/069 96.0 51 20 220/80 98 Nasal 2.5L Cannula Intake & Output 07/07 1600 07/07 0800 07/07 0000 Intake Total 600 100 450 Output Total Balance 600 100 450 Intake, Oral 600 100 450 Number 0 0 Bowel Movements Physical Exam General Appearance: Alert, Oriented X3, Cooperative Other Physical Findings: General Appearance: Alert, Cooperative Other Physical Findings: eneral Appearance Alert, Oriented X3, Cooperative Skin : Pressure ulcer bilaterally on buttocks, which was present on admission. HEENT EOMI, bilateral indentation noted on the left and right side of scalp ( previous neurosurgical procedure shunt placement) Neck Supple, No thryomegaly Lymphatic Cervical nl Cardiovascular Regular Rate, very mild systolic murmur 1/6. Lungs decreased breath sounds bilaterally Abdomen Soft, No Tenderness, no CVA Neurological Normal Speech, Strength at 5/5 X4 Ext, Sensation Intact Extremities bilateral amputation below the knee Vascular Normal Pulses Current Medications: Current Medications Sig/Caroline Start time Last Medication Dose Route Stop Time Status Admin Acetaminophen 650 MG .STK-MED ONE 07/07 0254 DC PO 07/07 0255 Acetaminophen 650 MG Q6P PRN 07/05 1900 AC 07/07 PO 0258 Amiodarone HCl 200 MG DAILY 07/06 1000 AC 07/07 PO 1034 Amlodipine Besylate 5 MG DAILY 07/08 1000 CAN PO Amlodipine Besylate 5 MG DAILY 07/07 1700 AC 07/07 PO 1651 Amlodipine Besylate 10 MG ONCE ONE 07/06 2100 DC 07/06 PO 07/06 210 205 Amlodipine Besylate 10 MG .STK-MED ONE 07/06 2052 DC PO 07/06 205 Amlodipine Besylate 5 MG .STK-MED ONE 07/06 2043 DC PO 07/06 204 Aspirin Buffered 81 MG DAILY 07/06 1000 AC 07/07 PO 1033 Atorvastatin Calcium 20 MG DAILY 07/05 1827 AC 07/07 PO 1033 Ceftriaxone Sodium 1,000 MG DAILY 07/06 1000 AC 07/07 IV 1034 Docusate Sodium 100 MG DAILY 07/07 1011 AC 07/07 PO 1327 Gabapentin 300 MG QPM 07/05 2200 AC 07/06 PO 2056 Hydroxyurea 1,000 MG DAILY 07/06 1000 AC 07/07 PO 1034 Lisinopril 10 MG DAILY 07/08 1000 CAN PO Lisinopril 10 MG DAILY 07/07 1700 AC 07/07 PO 1651 Lisinopril 5 MG QPM 07/05 2200 DC 07/06 PO 2115 Nystatin 1 TUSHAR BID 07/06 1000 AC 07/07 TOP 1034 Oxycodone/ 1 TAB Q6P PRN 07/05 1900 AC Acetaminophen PO Oxycodone/ 2 TAB Q6P PRN 07/05 1900 AC Acetaminophen PO Patient Medication 1 UNIT ONE NR 07/[address] Teaching ED 07/07 1730 Patient Medication 1 UNIT ONE NR 07/[address] Teaching ED 07/07 1730 Polyethylene Glycol 17 GM ONCE ONE 07/07 1015 DC 07/07 PO 07/07 1016 1328 Senna 187 MG AT BEDTIME PRN 07/05 1830 AC PO Tamsulosin HCl 0.4 MG QPM 07/05 2200 AC 07/06 PO 2057 Warfarin Sodium 3 MG COUMADIN 1700 ONE 07/07 1700 DC 07/07 PO 07/07 1701 1651 Zinc Oxide 1 TUSHAR TID 07/06 1825 AC 07/07 TOP 1651 Last 24 Hrs of Lab/Addy Results Last 24 Hrs of Labs/Mics: Laboratory Tests 07/07/16 0655: PT 17.4 H, INR 1.67 H Assessment/Plan Assessment: This is a 86-year-old gentleman with a past medical history of recurrent UTIs, including one episode in April 2016 that required hospitalization, and a recent one in May treated on outpatient basis with ciprofloxacin, is presented for evaluation of UTI after developing 2 day onset of urine discoloration,some mild chills and confusion. Assessment and plan #Urinary tract infection Even though UA is not remarkable for UTI, his urine discoloration is concerning and with a history of recurrent UTIs which his son reports to always start with urine discoloration, altered mental status, and with positive chills, patient possibly has a UTI. Plan * Continue ceftriaxone IV * Cultures are negative after day 1. #Acute encephalopathy Currently resolving .Patient is reported to be confused within the past few days , which is not his baseline. Likely secondary to urinary tract infection. Plan * Will avoid delirium triggers #Bradycardia Possibly secondary to AV anjali effect of patient's Lopressor medication. Plan * Will monitor heart rate #Subtherapeutic INR Patient A. fib coagulation goal should be 2-3. Plan * Administered 3 mg of Coumadin today/ * Will trend INR tomorrow and dose accordingly targeting a goal of 2-3 #History of A. fib * Continue amiodarone #History of hypertension Elevated pressure levels systolic 200 last evening. 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 * Continue gabapentin Problem List: 1. Urinary tract infection Pain Ratin Pain Location: none Pain Goal: Remain pain free Pain Plan: Pain pathway Tomorrow's Labs & Rationales: INR-Coumadin dose
--- NOTE | 2016-07-07 14:53 | PN- Att Addend ---
Attending MD Review Statement Attending Statement Attending MD Statement: examined this patient, discuss w/resident/PA/LOFT WORKER APPRENTICE, agreed w/resident/PA/LOFT WORKER APPRENTICE, reviewed EMR data (avail), discussed w/nursing, discussed w/ case mgmt Attending Assessment/Plan: Laboratory Tests 07/07/16 0655: PT 17.4 H, INR 1.67 H Vital Signs Date Time Temp Pulse Resp B/P Pulse O2 O2 Flow FiO2 Ox Delivery Rate 07/07 1318 97.5 60 18 142/80 97 Nasal 2.5L Cannula 07/07 1034 52 138/70 07/07 0842 97.5 60 20 142/80 97 Nasal 2.5L Cannula 07/07 0800 Nasal 2.5L Cannula 07/07 0623 97.6 52 20 138/70 94 Nasal Cannula 07/07 0256 56 22 146/78 94 Nasal Cannula 07/07 0116 56 20 172/84 95 Nasal Cannula 07/07 0000 98 Nasal 2.5L Cannula 07/06 2242 56 200/78 07/06 2115 51 220/80 07/06 2057 220/80 07/06 2056 80 220/80 07/06 2039 96.0 51 20 220/80 98 Nasal 2.5L Cannula 07/06 1654 50 200/82 07/06 1646 97.3 50 20 200/82 97 Nasal 2.5L Cannula 07/06 1600 Nasal 2.5L Cannula Pt seen and examined at bedside 86-yr old male with past medical history of A. fib on Coumadin, CAD s/p CABG more than 20 years ago, stent placement in 2000, COPD, polycythemia vera on hydroxyurea, and a history of recurrent UTIs every year with last being in end of may when he was treated with po cipro presented to [place] for evaluation of a possible urinary tract infection. A/p- Recurrent UTI- cont with ceftriaxone. previous cultures reviewed and bacteria were senstive to ceftriaxone. Trying to get urine culture results from PCP office to review . Plan is to dc him on augmentin for 7 more days tomorrow. Bradycardia in pt with h/o afib on metoprolo- HR low 50s and 40s - dced metoprolol on 07/06 and HR is better now. Uncontrolled HTN- pts lisinopril was increased to 10mg and norvasc 5mg was added. F/u on bp . if stable dc tomorrow. D/w pt the care plan.
--- NOTE | 2016-07-07 17:10 | NUR ---
PT BP 180/82, MD RAMON NOTIFIED, ADMINISTERED SCHEDULED LISINOPRIL AND AMLODIPINE. MAINTAIN BP CHECK Q 3 HRS. WILL CONTINUE TO MONITOR.
--- NOTE | 2016-07-07 17:17 | Event Note ---
Event Note Event Note: Situation: Wanted to know patient's previous results of urine culture and sensitivity during his May UTI and results of previous CXR. Contacted Dr. Ramos's office to obtain results. Brief assessment: Received a call back from Dr. Ramos, who communicated that urine cultures in May grew Klebsiella and Escherichia coli that was sensitive to ciprofloxacin and Bactrim. Dr. Ramos initially recommended ciprofloxacin, however I informed her about the new EKG changes of QT prolongation and the fact that the patient is also on amiodarone. Dr. Ramos recommended that we should consider discharging patient on Bactrim DS for 7 day outpatient course and she will follow-up with the patient next week. Regarding the chest x-ray, Dr. Ramos communicated that she did not have the previous chest x-ray at hand. However, she recommended that if the patient does not have any clinical signs of pneumonia, we should continue with our plan of care of no ABX treatment for PNA. Assessment and plan Pending any acute overnight events, will discharge patient on Bactrim DS for 7 days.
[2016-07-08 02:35] VITALS: BP 210/80
[2016-07-08 04:26] VITALS: BP 210/86
[2016-07-08 06:25] VITALS: BP 214/82
[2016-07-08 07:38] VITALS: BP 182/90
--- NOTE | 2016-07-08 07:55 | PN- Housestaff ---
BRIAN APPLE,[facility] 07/08/16 0754: Subjective Follow-up For: UTI elevated BP bradycardia suptherapeutic INR Subjective: Patient is seen and examined at bedside. Patient had elevated BP overnight. Patient does not report any complaints including chest pain, palpitation, shortness of breath, fever, chills, abdominal pain, or dysuria. Review of Systems Constitutional: Denies: chills, fever. Cardiovascular: Reports: no symptoms. Respiratory: Reports: no symptoms. Gastrointestinal: Reports: no symptoms. Genitourinary: Reports: no symptoms. Musculoskeletal: Reports: no symptoms. Skin: Reports: no symptoms. Objective Last 24 Hrs of Vital Signs/I&O Vital Signs Date Time Temp Pulse Resp B/P Pulse O2 O2 Flow FiO2 Ox Delivery Rate 07/08 1041 62 164/64 07/08 0848 62 182/90 07/08 0848 62 182/90 07/08 0847 62 182/90 07/08 0800 Nasal 1.0L Cannula 07/08 0738 96.2 62 20 182/90 92 Nasal 2.5L Cannula 07/08 0655 96.6 20 94 Nasal 1.0L Cannula 07/08 0645 62 214/82 07/08 0625 62 214/82 07/08 0457 60 210/84 07/08 0426 60 210/86 07/08 0307 60 210/80 07/08 0235 60 210/80 07/08 0000 94 Nasal 1.0L Cannula 07/07 2308 55 172/80 07/07 2215 55 170/80 07/07 2203 55 170/80 07/07 2156 97.5 55 18 170/80 94 Nasal 1.0L Cannula 07/07 2010 Nasal 1.0L Cannula 07/07 1930 55 160/80 07/07 1915 55 160/80 Intake & Output 07/08 1600 07/08 0800 07/08 0000 Intake Total 200 120 Output Total Balance 200 120 Intake, Oral 200 120 Number 0 Bowel Movements Physical Exam General Appearance: Alert, Oriented X3, Cooperative, No Acute Distress Skin: pressure ulcer b/l buttocks, present on admission HEENT: scar and indentation noted on the scalp b/l due to a previous shunt placement. Neck: Supple Cardiovascular: Regular Rate, Normal S1, Normal S2 Lungs: decreased breath sounds b/l Abdomen: Normal Bowel Sounds, No Tenderness Neurological: Normal Speech, Strength at 5/5 X4 Ext, Normal Tone, Sensation Intact Extremities: b/l amputation below the knee Vascular: Normal Pulses Current Medications: Current Medications Sig/Caroline Start time Last Medication Dose Route Stop Time Status Admin Acetaminophen 650 MG .STK-MED ONE 07/08 0641 DC PO 07/08 0642 Acetaminophen 650 MG Q6P PRN 07/05 1900 DCD 07/08 PO 0646 Amiodarone HCl 200 MG DAILY 07/06 1000 DCD 07/08 PO 0847 Amlodipine Besylate 5 MG ONCE ONE 07/08 0300 DC 07/08 PO 07/08 0301 0307 Amlodipine Besylate 5 MG ONCE ONE 07/07 2245 DC 07/07 PO 07/07 2246 2308 Amlodipine Besylate 5 MG DAILY 07/07 1700 DCD 07/08 PO 0848 Aspirin Buffered 81 MG DAILY 07/06 1000 DCD 07/08 PO 0847 Atorvastatin Calcium 20 MG DAILY 07/05 1827 DCD 07/08 PO 0847 Ceftriaxone Sodium 1,000 MG DAILY 07/06 1000 DCD 07/08 IV 0848 Docusate Sodium 100 MG DAILY 07/07 1011 DCD 07/08 PO 0847 Gabapentin 300 MG QPM 07/05 2200 DCD 07/07 PO 2128 Hydroxyurea 1,000 MG DAILY 07/06 1000 DCD 07/08 PO 0848 Lisinopril 10 MG DAILY 07/07 1700 DCD 07/08 PO 0848 Metoprolol Tartrate 12.5 MG ONCE ONE 07/08 0630 DC 07/08 PO 07/08 0631 0645 Metoprolol Tartrate 12.5 MG ONCE ONE 07/08 0430 DC 07/08 PO 07/08 0431 0457 Nystatin 1 TUSHAR BID 07/06 1000 DCD 07/08 TOP 0848 Oxycodone/ 1 TAB Q6P PRN 07/05 1900 DCD Acetaminophen PO Oxycodone/ 2 TAB Q6P PRN 07/05 1900 DCD Acetaminophen PO Patient Medication 1 UNIT ONE NR 07/07 1715 [place] Teaching ED 07/07 1730 Patient Medication 1 UNIT ONE NR 07/07 1700 MI Teaching ED 07/07 1730 Senna 187 MG AT BEDTIME PRN 07/05 1830 DCD 07/08 PO 0848 Tamsulosin HCl 0.4 MG QPM 07/05 2200 DCD 07/07 PO 2203 Zinc Oxide 1 TUSHAR TID 07/06 1825 DCD 07/08 TOP 0848 Last 24 Hrs of Lab/Addy Results Last 24 Hrs of Labs/Mics: Laboratory Tests 07/08/16 0620: PT 22.9 H, INR 2.20 H, CBC w Diff NO MAN DIFF REQ, RBC 4.07 L, MCV 102.0 H, MCH 33.3 H, RDW 19.0 H, MPV 8.1, Gran % 81.7 H, Lymphocytes % 8.9 L, Monocytes % 5.0, Eosinophils % 4.1, Basophils % 0.3, Absolute Granulocytes 6.8 H, Absolute Lymphocytes 0.7 L, Absolute Monocytes 0.4, Absolute Eosinophils 0.3 , Absolute Basophils 0, PUBS MCHC 32.7 L Assessment/Plan Assessment: This is a 86-year-old gentleman with a past medical history of recurrent UTIs, including one episode in April 2016 that required hospitalization, and a recent one in May treated on outpatient basis with ciprofloxacin, is presented for evaluation of UTI after developing 2 day onset of urine discoloration,some mild chills and confusion. Assessment and plan #Urinary tract infection Even though UA is not remarkable for UTI, his urine discoloration is concerning and with a history of recurrent UTIs which his son reports to always start with urine discoloration, altered mental status, and with positive chills, patient possibly has a UTI. Plan * switched to oral Bactrim for 1 week and follow up with PCP in a week * Cultures are negative after day 1. #Acute encephalopathy Currently resolving .Patient is reported to be confused within the past few days , which is not his baseline. Likely secondary to urinary tract infection. Plan * Will avoid delirium triggers #Bradycardia Possibly secondary to AV anjali effect of patient's Lopressor medication. Plan * Will monitor heart rate * stopped lopressor for bradycardia #Subtherapeutic INR Patient A. fib coagulation goal should be 2-3. Plan * Administered 2 mg of Coumadin today, will discharge on 2 mg * Will check INR on sunday outpatient and copy PCP #History of A. fib * Continue amiodarone #History of hypertension Elevated pressure levels systolic 200 last evening. 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 * Continue gabapentin Problem List: 1. Fever 2. Altered mental status 3. UTI (urinary tract infection) Pain Ratin Pain Location: no pain Pain Goal: Pain 4 or less Pain Plan: mild pp Tomorrow's Labs & Rationales: none AZEEM RAZA MD 07/08/16 1612: Attending MD Review Statement Attending Statement Attending MD Statement: examined this patient, discuss w/resident/PA/CELL ATTENDANT, agreed w/resident/PA/CELL ATTENDANT, reviewed EMR data (avail) Attending Assessment/Plan: Patient stable for discharge. Will continue Augmentin as outpatient. Discontinue Metoprolol due to bradycardia. Continue Lisinopril 10mg and Amlodipine for hypertension.
[2016-07-08 08:16] LABS: PT 22.9 SEC (9.4-12.5)
[2016-07-08 08:28] LABS: ABSOLUTE BASOPHIL COUNT 0 /CUMM (0.0-0.2); ABSOLUTE EOSINOPHIL COUNT 0.3 /CUMM (0.0-0.7); ABSOLUTE GRANULOCYTE CT 6.8 /CUMM (1.4-6.5); ABSOLUTE LYMPH COUNT 0.7 /CUMM (1.2-3.4); ABSOLUTE MONOCYTE COUNT 0.4 /CUMM (0.10-0.60); BASOPHIL % 0.3 % (0.0-2.0); EOSINOPHIL % 4.1 % (0-5); GRANULOCYTE % 81.7 % (42.2-75.2); HEMATOCRIT 41.5 % (42-52); MEAN CORPUSCULAR HGB 33.3 PG (27.0-31.0); MEAN CORPUSCULAR HGB CONC 32.7 G/DL (33.0-37.0); MEAN PLATELET VOLUME 8.1 FL (7.4-10.4); PLATELET COUNT 229 /CUMM (130-400); RED BLOOD CELL CT 4.07 /CUMM (4.70-6.10); WHITE BLOOD CELL COUNT 8.3 /CUMM (4.8-10.8)
[2016-07-08 10:41] VITALS: BP 164/64
[2016-07-08] MEDS ORDERED: BACTRIM DS TAB1 EACH PO (10:54)
--- NOTE | 2016-07-08 11:22 | Patient Discharge Instructions ---
Discharge Instructions General Discharge Information You were seen/treated for: UTI ACUTE ENCEPHALOPATHY BRADYCARDIA SUBTHERAPEUTIC INR Special Instructions: PLEASE: 1. TAKE 2 MG COUMADIN TODAY AND CONTINUE COUMADIN DAILY 2 MG AFTERWARDS, CHECK INR ON 07/10/16 AND COPY PCP, DR. SEVERINO. FOLLOW UP WITH PCP WITHIN A WEEK. 2. TAKE BACTRIM INSTRUCTED FOR 1 WEEK AND FOLLOW UP WITH PCP WITHIN 1 WEEK 3. FOLLOW UP WITH DR GUAMAN WITHIN 1-2 WEEKS OF DISCHARGE Acute Coronary Syndrome Inclusion Criteria At DC or during hospital stay patient has or had the following: ACS DIAGNOSIS No Discharge Core Measures Meds if any: Prescribed or Continued at Discharge Meds if any: NOT Prescribed or Continued at Discharge Congestive Heart Failure Inclusion Criteria At DC or during hospital stay patient has or had the following: CHF DIAGNOSIS No Discharge Core Measures Meds if any: Prescribed or Continued at Discharge Meds if any: NOT Prescribed or Continued at Discharge Cerebrovascular accident Inclusion Criteria At DC or during hospital stay patient has or had the following: CVA/TIA Diagnosis No Discharge Core Measures Meds if any: Prescribed or Continued at Discharge Meds if any: NOT Prescribed or Continued at Discharge Venous thromboembolism Inclusion Criteria VTE Diagnosis No VTE Type NONE VTE Confirmed by (Test) NONE Discharge Core Measures - Per Current guidelines, there needs to be overlap - treatment for the first 5 days of Warfarin therapy. - If discharged on Warfarin prior to 5 days of - overlap therapy, the patient will need to be - assessed for post discharge needs including - *Post discharge parental anticoagulation - *Warfarin and/or parental anticoagulation education - *Follow up date to check INR post discharge At least 5 days overlap therapy as Inpatient No Meds if any: Prescribed or Continued at Discharge Note: Overlap Therapy is Warfarin and Anticoagulant Meds if any: NOT Prescribed or Continued at Discharge
[2016-07-08] MEDS ORDERED: AMLODIPINE BESYL5 M1 PO ×2 (11:49→12:29)
[2016-07-08] MEDS ORDERED: LISINOPRIL10 M1 PO (11:51)
[2016-07-08] MEDS ORDERED: COUMADIN2 M1 PO ×5 (11:58→12:07)
== END 2016-07-08 13:30 | disposition home health service (06) | DRG 689 ==
LOC: ENRESERVTM → ENRESERVDT → ERH 11:30 → ENPENDDIS 13:06 → 2NA 13:06 → ERHI 13:06 → 2NA 18:57
PROVIDERS: Emergency Medicine; Internal Medicine; Student in an Organized Health Care Education/Training Program; ADMIT Internal Medicine
DX: N39.0 Urinary tract infection, site not specified (principal); G93.40 Encephalopathy, unspecified; L89.320 Pressure ulcer of left buttock, unstageable; L89.310 Pressure ulcer of right buttock, unstageable; J44.9 Chronic obstructive pulmonary disease, unspecified; D45 Polycythemia vera; R00.1 Bradycardia, unspecified; I48.91 Unspecified atrial fibrillation; R41.82 Altered mental status, unspecified; Z95.1 Presence of aortocoronary bypass graft; Z79.01 Long term (current) use of anticoagulants; I35.0 Nonrheumatic aortic (valve) stenosis; I10 Essential (primary) hypertension; E78.5 Hyperlipidemia, unspecified; N40.0 Benign prostatic hyperplasia without lower urinary tract symptoms
CPT/HCPCS: 2NAP; 36415; 81001; 87040; 87086; 93005; 93010; 96374; 96375; J0696

== ENCOUNTER 2016-07-15 13:43 | Emergency (ER) | payer OTHER ==
[~2016-07-15] VITALS: Ht 190.5 cm; Wt 72.6 kg
[~2016-07-15 13:43] MED LIST changes: +AMLODIPINE BESYL5 M1 PO; +BACTRIM DS TAB1 EACH PO; +CRANBERRY PLUS1 EAC1 PO
--- NOTE | 2016-07-15 15:19 | ED GI/GU/ABDOMINAL COMPLAINT ---
History of Present Illness General Chief Complaint: General Adult Stated Complaint: NO BM X 1WEEK Source: patient, family Exam Limitations: dementia Vital Signs & Intake/Output Vital Signs & Intake/Output Vital Signs Date Time Temp Pulse Resp B/P Pulse O2 O2 Flow FiO2 Ox Delivery Rate 07/15 1634 98.3 68 18 115/56 92 Room Air 07/15 1346 98.1 70 22 120/69 94 Room Air Allergies Coded Allergies: niacin (EXTREME FLUSHING FROM IMMEDIATE RELEASE 07/15/16) PT TOLERATES SLOW RELEASE Reconcile Medications Amiodarone HCl 200 MG TABLET 1 TAB PO DAILY AFIB (Reported) Amlodipine Besylate 5 MG TABLET 1 TAB PO DAILY HIGH BLOOD PRESSURE Aspirin (Ecotrin*) 81 MG TABLET.DR 1 TAB PO DAILY HEART HEALTH (Reported) Atorvastatin Calcium (Lipitor) 20 MG TABLET 1 TAB PO DAILY CHOLESTEROL ( Reported) Bisacodyl (Dulcolax) 10 MG SUPP.RECT 1 SUP RC DAILY PRN CONSTIPATION Cranberry Conc/Ascorbic Acid (Cranberry Plus Vitamin C Sftgl) 4,200 MG-20 MG CAPSULE 1 CAP PO BID SUPPLEMENT (Reported) Gabapentin 300 MG CAPSULE 1 CAP PO QPM NEUROPATHY (Reported) Hydroxyurea 500 MG CAPSULE 2 CAP PO DAILY POLYCYTHEMIA VERA (Reported) Lisinopril 10 MG TABLET 1 TAB PO DAILY HIGH BLOOD PRESSURE Sennosides (Senna Lax) 8.6 MG TABLET 1 TAB PO QPM CONSTIPATION (Reported) Sulfamethoxazole/Trimethoprim (Bactrim Ds Tablet) 800 MG-160 MG TABLET 1 TAB PO BID UTI Tamsulosin HCl (Flomax) 0.4 MG CAP.ER.24H 1 CAP PO QPM PROSTATE (Reported) Warfarin Sodium (Coumadin) 2 MG TABLET 1 TAB PO DAILY BLOOD THINNER Triage Note: TRIAGE: PT TO ER WITH SON (WHO IS ALSO POA) C/C CONSTIPATION. STATES HAD VERY SMALL/HARD BM SUNDAY BUT OTHERWISE NOTHING IN A WEEK. STARTED VOMITING LAST NIGHT. HAS TRIED MULTIPLE TREATMENTS INCLUDING MILK OF MAG, DOUBLING DOSE OF SENNA AND ENEMAS WITH NO SUCCESS. PMHX INCLUDES R AKA AND L BKA. PT W/C BOUND AT BASELINE, IN OWN W/C AT TRIAGE. Triage Nurses Notes Reviewed? yes HPI: 86-year-old male with constipation, has not had a bowel movement in one week, has passed very small hard stool a few times over the week but no significant bowel movements. He has mild abdominal distention per family, son is the primary historian as patient has dementia. He was recently admitted here one week ago for altered mental status and fever. He usually has constipation however has never gone longer than 3 days without having a bowel movement. He is on Colace and Senokot and tried an enema at home as well without relief. Son states he vomited once last night and once again this morning after drinking coffee. He was able to tolerate liquids after. He has no change in mental status or worsening confusion or dementia. There is mild abdominal discomfort (LAYNE OVIEDO) Past History Travel History Traveled to [place] past 21 day No Medical History Any Pertinent Medical History? see below for history Neurological: peripheral neuropathy, BRAIN BLEED EENT: NONE Cardiovascular: AFIB, aortic stenosis, CAD, hypertension, hyperlipidemia Respiratory: pulmonary embolism Gastrointestinal: constipation, diverticulitis Hepatic: NONE Renal: benign prost hyperplasia Musculoskeletal: NONE Psychiatric: NONE Endocrine: NONE Blood Disorders: DVT, PE, POLYCYTHEMIA Cancer(s): NONE SUMMER CLERK/Reproductive: NONE History of MRSA: No History of VRE: No History of CDIFF: No Influenza Vaccine: 03/21/16 Surgical History Surgical History: CABG, STENTS PROSTATE SURGERY Psychosocial History Who do you live with Son Services at Home Home Health Aide What is your primary language Nepalese Tobacco Use: Quit >30 days ago ETOH Use: occasional use Illicit Drug Use: denies illicit drug use Family History Hx Contributory? No (LAYNE OVIEDO) Review of Systems Review of Systems Constitutional: Reports: see HPI. EENTM: Reports: no symptoms. Respiratory: Reports: no symptoms. Cardiovascular: Reports: no symptoms. GI: Reports: see HPI. Genitourinary: Reports: no symptoms. Musculoskeletal: Reports: no symptoms. Skin: Reports: no symptoms. Neurological/Psychological: Reports: no symptoms. Hematologic/Endocrine: Reports: no symptoms. Immunologic/Allergic: Reports: no symptoms. All Other Systems: Reviewed and Negative (LAYNE OVIEDO) Physical Exam Physical Exam Respiratory: normal breath sounds, chest non-tender, no respiratory distress Cardiovascular: irregularly irregular Gastrointestinal: OBESE, MILDLY DIFFUSELY DISTENDED, HYPERACTIVE BOWEL SOUNDS. hARD, FIRM STOOL PALPATED IN THE SUPRAPUBIC AND LEFT LOWER QUADRANT REGION. ABDOMEN IS NONTENDER Comments: Well-developed well-nourished no apparent distress. Elderly male looks stated age HEENT: Atraumatic, extraocular motion intact Neck: Supple, no lymphadenopathy Back: Nontender Respiratory: No respiratory distress Extremities: Bilateral lower extremity amputee Neuro: Alert , confused at baseline Psych: At baseline per son . Skin: Warm and dry, no rash on exposed skin Core Measures ACS in differential dx? No Severe Sepsis Present: No Septic Shock Present: No (EULOGIO RAE,LAYNE) Progress Differential Diagnosis: AAA, AMI, appendicitis, biliary colic, bowel obstruction , colon cancer, cholecystitis, diverticulitis, epididymitis, esophageal varices, gastritis, hepatitis, hernia, hemorrhoids, ischemic bowel, inflamm bowel dis, Claudine-Edison tear, orchitis, pancreatitis, prostatitis, peptic ulcer, PUD/GERD, perforated viscous, pyelonephritis, SBO, STD, testicular torsion, ureterolithiasis, urinary retention, urethritis, UTI/pyelo Plan of Care: Orders Procedure Date/time Status [id number] VIEWS 07/15 1502 Active Diagnostic Imaging: Viewed by Me: Radiology Read. Discussed w/RAD: Radiology Read. Radiology Impression: PATIENT: EDITA ROSARIO PRESENT AGE: 86 PATIENT ACCOUNT NO: [id number] : 31 LOCATION: [facility] ORDERING PHYSICIAN: LAYNE RAE SERVICE DATE: 07/15/16-1502 EXAM TYPE : RAD - WON-VXMLABH-BEVAVOEN VIEWS EXAMINATION: XR ABDOMEN MULTIPLE VIEWS CLINICAL INDICATION: No bowel movement in one week. Vomiting. Evaluate for constipation. COMPARISON: CT abdomen and pelvis 05/05/2015. TECHNIQUE: Supine and erect views of the abdomen and pelvis. FINDINGS: Multiple views of the abdomen and pelvis demonstrate retained stool within the rectum which is visualized measuring approximately 7.9 x 8.9 cm in sagittal and transverse dimensions respectively. There is a minimal amount of retained stool within the descending colon. There are multiple air-filled loops of small and large bowel throughout the abdomen and pelvis with air-fluid levels identified on upright view of the abdomen. No free air is identified beneath bilateral hemidiaphragms. IMPRESSION: A moderate amount of retained stool within the rectal vault. Stool is also identified within the descending colon. There are multiple air-filled loops of small and large bowel within the abdomen and pelvis with associated air -fluid levels. This may represent mechanical obstruction secondary to fecal impaction. A CT of the abdomen and pelvis may be obtained for further evaluation , as clinically indicated. DICTATED BY: EUSEBIO DUTTON MD DATE/TIME DICTATED: Initial ED EKG: none Comments: Fleet enema without any relief. Discussed with patient and his son, we'll perform a manual disimpaction due to fecal impaction. Manual disimpaction performed without difficulty. Large amount of moderately soft formed stool was removed from the rectal area. . By the end of the disimpaction patient was passing stool on his own. He tolerated well without complications. Patient is stable for discharge home (LAYNE OVIEDO) Departure Departure Disposition: HOME OR SELF CARE Condition: Stable Clinical Impression Primary Impression: Fecal impaction in rectum Referrals: MERE APPLE,YUSUF (PCP/Family) Additional Instructions: Take Metamucil daily [id number], continue the Senokot stool softener. Use Dulcolax suppositories as needed for constipation. Follow-up with your doctor next week if regular bowel movements do not occur. Return to the ER with worsening abdominal pain nausea vomiting or fever Departure Forms: Customer Survey General Discharge Information Prescriptions: Current Visit Scripts Bisacodyl (Dulcolax) 1 SUP RC DAILY PRN CONSTIPATION #10 SUP (LAYNE OVIEDO) PA/DIRECTOR SCRIPT Co-Sign Statement Statement: ED Attending supervision documentation- [X] I saw and evaluated the patient. I have also reviewed all the pertinent lab results and diagnostic results. I agree with the findings and the plan of care as documented in the PA's/DIRECTOR SCRIPT's documentation. [X] I have reviewed the ED Record and agree with the PA's/DIRECTOR SCRIPT's documentation. [] Additions or exceptions (if any) to the PAs/DIRECTOR SCRIPT's note and plan are summarized below: [] (JAQUELIN APPLE,KIANA Oswald)
--- NOTE | 2016-07-15 15:57 | RADIOLOGY REPORT ---
EXAMINATION: XR ABDOMEN MULTIPLE VIEWS CLINICAL INDICATION: No bowel movement in one week. Vomiting. Evaluate for constipation. COMPARISON: CT abdomen and pelvis 05/05/2015. TECHNIQUE: Supine and erect views of the abdomen and pelvis. FINDINGS: Multiple views of the abdomen and pelvis demonstrate retained stool within the rectum which is visualized measuring approximately 7.9 x 8.9 cm in sagittal and transverse dimensions respectively. There is a minimal amount of retained stool within the descending colon. There are multiple air-filled loops of small and large bowel throughout the abdomen and pelvis with air-fluid levels identified on upright view of the abdomen. No free air is identified beneath bilateral hemidiaphragms. IMPRESSION: A moderate amount of retained stool within the rectal vault. Stool is also identified within the descending colon. There are multiple air-filled loops of small and large bowel within the abdomen and pelvis with associated air-fluid levels. This may represent mechanical obstruction secondary to fecal impaction. A CT of the abdomen and pelvis may be obtained for further evaluation, as clinically indicated.
[2016-07-15 16:34] VITALS: BP 115/56
[2016-07-15] MEDS ORDERED: DULCOLAX10 M1 RC (17:19)
== END 2016-07-15 17:50 ==
LOC: ERH 13:43
DX: K56.41 Fecal impaction (principal)
CPT/HCPCS: 74020

== ENCOUNTER 2016-07-18 17:50 | Inpatient (IN) | payer OTHER ==
[~2016-07-18] VITALS: Ht 190.5 cm; Wt 72.6 kg
[~2016-07-18 17:50] MED LIST changes: +DULCOLAX10 M1 RC
--- NOTE | 2016-07-18 18:00 | NUR ---
TRIAGE: PT TO ER WITH SON C/C AMS. SON STATES HE WAS D/C'D 2 WEEKS AGO FOR TREATMENT OF PNEUMONIA AND ON D/C HAD "HOSPITAL INDUCED DELERIUM", HAD BEEN IMPROVING BUT IN THE LAST 24-36 HOURS HAS WORSENING CONFUSION. STATES HE DOESN'T KNOW WHERE HE IS, THAT HE HAS TRIED TO CLIMB OUT OF BED. REPORTS HE SUSTAINED SOME SCRATCHES TO TRUNK/STOMACH AREA FROM ATTEMPTING TO CLIMB OOB. PT ALERT AT TRIAGE, +TREMORS, ANSWERS SIMPLE QUESTIONS REGARDING PAIN APPROPRIATELY.
--- NOTE | 2016-07-18 18:01 | NUR ---
Informed waiting has been performed.
--- NOTE | 2016-07-18 19:15 | ED GENERAL ADULT ---
History of Present Illness General Chief Complaint: General Adult Stated Complaint: PER SON "HIS MENTAL STATE ISNT RIGHT" Source: patient, family, old records Exam Limitations: no limitations Vital Signs & Intake/Output Vital Signs & Intake/Output Vital Signs Date Time Temp Pulse Resp B/P Pulse O2 O2 Flow FiO2 Ox Delivery Rate 07/18 1935 Room Air 07/18 1754 97.8 82 20 105/46 95 Room Air ED Intake and Output 07/19 0000 07/18 1200 Intake Total Output Total Balance Patient 170 lb Weight Allergies Coded Allergies: niacin (EXTREME FLUSHING FROM IMMEDIATE RELEASE 07/18/16) PT TOLERATES SLOW RELEASE Reconcile Medications Amiodarone HCl 200 MG TABLET 1 TAB PO QAM AFIB (Reported) Amlodipine Besylate 5 MG TABLET 1 TAB PO DAILY BP (Reported) Aspirin (Ecotrin*) 81 MG TABLET.DR 1 TAB PO DAILY HEART HEALTH (Reported) Atorvastatin Calcium (Lipitor) 20 MG TABLET 1 TAB PO QPM CHOLESTEROL ( Reported) Cranberry Conc/Ascorbic Acid (Cranberry Plus Vitamin C Sftgl) 4,200 MG-20 MG CAPSULE 1 CAP PO BID SUPPLEMENT (Reported) Gabapentin 300 MG CAPSULE 1 CAP PO QPM NEUROPATHY (Reported) Hydroxyurea 500 MG CAPSULE 2 CAP PO QAM POLYCYTHEMIA VERA (Reported) Lisinopril (Prinivil) 10 MG TABLET 1 TAB PO QPM BP (Reported) Sennosides (Senna Lax) 8.6 MG TABLET 2 TAB PO QPM CONSTIPATION (Reported) Sulfamethoxazole/Trimethoprim (Bactrim Ds Tablet) 800 MG-160 MG TABLET 1 TAB PO BID UTI Tamsulosin HCl (Flomax) 0.4 MG CAP.ER.24H 1 CAP PO QPM PROSTATE (Reported) Warfarin Sodium 2 MG TABLET 0.5 TAB PO QPM BLOOD THINNER (Reported) Triage Note: TRIAGE: PT TO ER WITH SON C/C AMS. SON STATES HE WAS D/C'D 2 WEEKS AGO FOR TREATMENT OF PNEUMONIA AND ON D/C HAD "HOSPITAL INDUCED DELERIUM", HAD BEEN IMPROVING BUT IN THE LAST 24-36 HOURS HAS WORSENING CONFUSION. STATES HE DOESN'T KNOW WHERE HE IS, THAT HE HAS TRIED TO CLIMB OUT OF BED. REPORTS HE SUSTAINED SOME SCRATCHES TO TRUNK/STOMACH AREA FROM ATTEMPTING TO CLIMB OOB. PT ALERT AT TRIAGE, +TREMORS, ANSWERS SIMPLE QUESTIONS REGARDING PAIN APPROPRIATELY. Triage Nurses Notes Reviewed? yes HPI: Patient brought in by his son for increased confusion. The patient had a recent hospitalization for pneumonia and then came back to the emergency room on Sunday for constipation. Patient was disimpacted in the emergency department and sent home. Patient is having increased episodes of confusion and delirium. Patient did have intermittent wall admitted to the hospital. Patient has had a decreased appetite. There is been no vomiting. Patient denies any pain. Past History Travel History Traveled to [place] past 21 day No Medical History Any Pertinent Medical History? 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 No Review of Systems Review of Systems Constitutional: Reports: no symptoms. EENTM: Reports: no symptoms. Respiratory: Reports: no symptoms. Cardiovascular: Reports: no symptoms. GI: Reports: no symptoms. Genitourinary: Reports: no symptoms. Musculoskeletal: Reports: no symptoms. Skin: Reports: no symptoms. Neurological/Psychological: Reports: see HPI, confusion. Hematologic/Endocrine: Reports: no symptoms. Immunologic/Allergic: Reports: no symptoms. All Other Systems: Reviewed and Negative Physical Exam Physical Exam General Appearance: well developed/nourished, alert, awake Head: atraumatic, normal appearance Eyes: Bilateral: PERRL, EOMI. Ears, Nose, Throat: normal pharynx, normal ENT inspection, DRY MUCOUS MEMBRANES Neck: normal inspection, supple, full range of motion Respiratory: normal breath sounds, chest non-tender, no respiratory distress, lungs clear Cardiovascular: regular rate/rhythm, normal peripheral pulses Gastrointestinal: normal bowel sounds, soft, non-tender, no organomegaly Back: TWO STAGE TO 1 SACRAL DECUBITI, NO EVIDENCE OF INFECTION Extremities: normal inspection Neurologic/Psych: awake, alert, ALERT AND ORIENTED 2 Skin: intact, normal color Lymphatic: no anterior cervical janessa Core Measures ACS in differential dx? No CVA/TIA Diagnosis: No Severe Sepsis Present: No Septic Shock Present: No Progress Differential Diagnoses I considered the following diagnoses in my evaluation of the patient: [UTI, pneumonia, electrolyte abnormality, dehydration] Plan of Care: Orders Procedure Date/time Status Vital Signs 07/18 2345 Active Teach/Educate 07/18 2345 Active Nutritional Intake, Monitor 07/18 2345 Active Isolation 07/18 2345 Active Intake & Output 07/18 2345 Active Patient Care Conference 07/18 2345 Active Activity/Ambulation 07/18 2345 Active Intake & Output 07/18 2325 Active EKG 07/18 2315 Active Patient Data 07/18 2205 Active Admit to inpatient 07/18 2149 Active Add-on Test (ER Only) 07/18 2140 Active CULTURE,URINE 07/18 1999 Active URINALYSIS 07/18 1916 Complete PARTIAL THROMBOPLASTIN TIME 07/18 1916 Complete PROTHROMBIN TIME 07/18 1916 Complete COMPREHENSIVE METABOLIC PANEL 07/18 1916 Complete CBC WITHOUT DIFFERENTIAL 07/18 1916 Complete Laboratory Tests 07/18/162149: PT 27.5 H, INR 2.64 H, APTT 45 H 07/18/161999: Urine Color YEL, Urine Clarity HAZY H, Urine pH 6.5, Ur Specific [place] 1.015, Urine Protein TRACE H, Urine Ketones NEG, Urine Nitrite NEG, Urine Bilirubin NEG, Urine Urobilinogen 0.2, Ur Leukocyte Esterase SMALL H, Ur Microscopic SEDIMENT EXAMINED, Urine RBC 1-3, Urine WBC 15-25 H, Ur Epithelial Cells MOD H , Urine Bacteria FEW H, Urine Mucus FEW, Urine Hemoglobin SMALL H, Urine Glucose NEG 07/18/161924: Anion Gap 12, Estimated GFR 41 L, BUN/Creatinine Ratio 17.5, Glucose 97, Calcium 9.4, Total Bilirubin 0.6, AST 20, ALT 27, Alkaline Phosphatase 146 H, Total Protein 7.1, Albumin 3.7, Globulin 3.4, Albumin/Globulin Ratio 1.1, CBC w Diff NO MAN DIFF REQ, RBC 4.39 L, MCV 101.3 H, MCH 32.3 H, RDW 18.2 H, MPV 7.8, Gran % 86.6 H, Lymphocytes % 5.9 L, Monocytes % 4.5, Eosinophils % 2.2, Basophils % 0.8, Absolute Granulocytes 11.1 H, Absolute Lymphocytes 0.8 L, Absolute Monocytes 0.6, Absolute Eosinophils 0.3, Absolute Basophils 0.1, PUBS MCHC 31.9 L Microbiology 07/18 1999 URINE ROUT: Urine Culture - RECD Diagnostic Imaging: Viewed by Me: Radiology Read. Discussed w/RAD: Radiology Read. CXR Impression: PATIENT: EDITA ROSARIO PRESENT AGE : 86 PATIENT ACCOUNT NO: [id number] : 31 LOCATION: [facility] ORDERING PHYSICIAN: KIANA HAMMER MD SERVICE DATE: 07/18/16 EXAM TYPE: RAD - XRY-PORTABLE CHEST XRAY EXAMINATION: XR PORTABLE CHEST CLINICAL INFORMATION: Pneumonia COMPARISON: 07/05/2016 TECHNIQUE: Portable AP view of the chest was obtained. FINDINGS: Cardiac leads overlie the chest. Median sternotomy wires appear intact. Evaluation of the left base is limited. The left hemidiaphragm is not well visualized. No additional evidence of consolidation, edema, or effusion. No pneumothorax. The cardiomediastinal silhouette is within normal limits. No acute osseous abnormality. IMPRESSION: Limited evaluation at the left lung base which could be secondary to technique or associated with an airspace process. Consider PA and lateral radiographs for complete evaluation. DICTATED BY: SHELIA CAZARES MD DATE/TIME DICTATED:07/18/162002 MARKETING SERVICES SPECIALIST: ELFEGO DATE/TIME TRANSCRIBED:07/18/162002 CONFIDENTIAL, DO NOT COPY WITHOUT APPROPRIATE AUTHORIZATION. <Electronically signed in Other Vendor System> SIGNED BY: SHELIA CAZARES MD 07/18/162010 Initial ED EKG: NSR, nonspecific ST T wave chg Prior EKG: unchanged Departure Departure Disposition: STILL A PATIENT Condition: Guarded Clinical Impression Primary Impression: Acute renal failure Secondary Impressions: Acute delirium, UTI (urinary tract infection) Referrals: MERE APPLE,YUSUF (PCP/Family) Departure Forms: Customer Survey General Discharge Information Admission Note Spoke With: MARY ANNE HULL MD Documentation of Exam: Documentation of any treatments & extenuating circumstances including Concerns Regarding Discharge (functional status, medication knowledge or non-compliance, living conditions, etc.) that warrant an admission rather than observation: [ Patient will require aggressive hydration. He renal failure. IV antibiotics for UTI. Patient may require renal consultation. Follow his INR closely given that he is going on antibiotics.] Critical Care Note Critical Care Note Critical Care Time: non-applicable
--- NOTE | 2016-07-18 19:15 | NUR ---
PT TRANSFERED TO STRETCHER PLACED IN GOWN
--- NOTE | 2016-07-18 19:20 | NUR ---
IV EST #22 RH
--- NOTE | 2016-07-18 19:25 | NUR ---
LABS DRAWN AND SENT TO THE LAB
[2016-07-18] MEDS ORDERED: AMLODIPINE BESYL5 M1 PO (19:32)
[2016-07-18] MEDS ORDERED: PRINIVIL10 M1 PO (19:33)
[2016-07-18] MEDS ORDERED: WARFARIN SODIUM2 M1 PO (19:35)
[2016-07-18 19:40] LABS: ABSOLUTE BASOPHIL COUNT 0.1 /CUMM (0.0-0.2); ABSOLUTE EOSINOPHIL COUNT 0.3 /CUMM (0.0-0.7); ABSOLUTE GRANULOCYTE CT 11.1 /CUMM (1.4-6.5); ABSOLUTE LYMPH COUNT 0.8 /CUMM (1.2-3.4); ABSOLUTE MONOCYTE COUNT 0.6 /CUMM (0.10-0.60); BASOPHIL % 0.8 % (0.0-2.0); EOSINOPHIL % 2.2 % (0-5); HEMATOCRIT 44.5 % (42-52); MEAN CORPUSCULAR HGB 32.3 PG (27.0-31.0); MEAN CORPUSCULAR HGB CONC 31.9 G/DL (33.0-37.0); MEAN CORPUSCULAR VOLUME 101.3 FL (80.0-94.0); MEAN PLATELET VOLUME 7.8 FL (7.4-10.4); PLATELET COUNT 422 /CUMM (130-400); RBC DISTRIBUTION WIDTH 18.2 % (11.5-14.5); RED BLOOD CELL CT 4.39 /CUMM (4.70-6.10); WHITE BLOOD CELL COUNT 12.8 /CUMM (4.8-10.8)
--- NOTE | 2016-07-18 19:40 | NUR ---
FAMILY AT BEDSIDE, PT IS ALERT AND UNDERSTANDS THAT HE IS IN THE ER. P0T IS NOT ORIENTED TO THE TIME AND DATE.. PT WAS PLACED ON MONITOR. PT SKIN IS CLEAN AND INTACT. PT DOES HAVE SCRATCHES TO THE ABD AREA AND BRUISING TO LEFT ARM. PER FAMILY PT TRIED TO GET OUT OF BED TODAY AND THATS WHEN IT HAPPENED. PER PT FAMILY THIS BEHAVIOR IS NOT AT BASELINE FOR THE PT.
--- NOTE | 2016-07-18 19:43 | NUR ---
PT BOTTOM IS RED AND BANDAGED. PER FAMILY IT IS ONLY THE FIRST LAYER OF SKIN. IT IS RED AROUND THE BANDAGE. THIS RN DID NOT TAKE THE BANDAGE OFF FOR EVALUATION
[2016-07-18 20:01] LABS: GRANULOCYTE % 86.6 % (42.2-75.2)
--- NOTE | 2016-07-18 20:09 | NUR ---
URINE TRIO SENT TO THE LAB
--- NOTE | 2016-07-18 20:11 | RADIOLOGY REPORT ---
EXAMINATION: XR PORTABLE CHEST CLINICAL INFORMATION: Pneumonia COMPARISON: 07/05/2016 TECHNIQUE: Portable AP view of the chest was obtained. FINDINGS: Cardiac leads overlie the chest. Median sternotomy wires appear intact. Evaluation of the left base is limited. The left hemidiaphragm is not well visualized. No additional evidence of consolidation, edema, or effusion. No pneumothorax. The cardiomediastinal silhouette is within normal limits. No acute osseous abnormality. IMPRESSION: Limited evaluation at the left lung base which could be secondary to technique or associated with an airspace process. Consider PA and lateral radiographs for complete evaluation.
--- NOTE | 2016-07-18 20:24 | NUR ---
DR HAMMER WITH THIS RN AT BEDSIDE TO EVALUATE PT SORE ON BOTTOM. PT BANDAGE AND CLEAN DRY AND INTACT. LEFT SIDE IS DARK PURPLE AND NON BLANCHABLE. RIGHT SIDE IS BLANCHABLE AND RED. RIGHT SIDE HEALING WELL. BOTH HAS OPEN SORE. PT DOES HAD HOME NURSES TO CARE FOR WOUNDS
--- NOTE | 2016-07-18 21:55 | NUR ---
KRISTOPHER BLUE TOP WITH 23 GA AND SENT TO LAB
[2016-07-18 22:08] LABS: PT 27.5 SEC (9.4-12.5); PTT 45 SEC (25-37)
--- NOTE | 2016-07-19 00:51 | NUR ---
HOUSE STAFF IN TO SEE PATIENT
--- NOTE | 2016-07-19 04:40 | History & Physical ---
SUDHIR PETERSEN 07/19/16 0426: General Information and HPI Source of Information: family, old records Exam Limitations: poor historian History of Present Illness: 86-year-old gentleman with PMH A. fib on Coumadin, polycythemia vera on hydroxyzine, coronary artery disease status post stents, history of recurrent UTIs and pneumonia brought in to [place] ER by son with complaint of worsening dementia, agitation and climbing out of bed. Patient was recently discharged from [facility] on July 08 after getting treatment for UTI. He was discharged on Bactrim. Last urine culture grew Klebsiella. Patient was again here on July 15 for severe constipation and manual fecal disimpaction was done in ER. Currently patient offers no complaints. He has 24 hours caregiver. Lives with his family. According to son since hospital discharge patient has not been at his baseline. Allergies/Medications Allergies: Coded Allergies: niacin (EXTREME FLUSHING FROM IMMEDIATE RELEASE 07/18/16) PT TOLERATES SLOW RELEASE Home Med list Amiodarone HCl 200 MG TABLET 1 TAB PO QAM AFIB (Reported) Amlodipine Besylate 5 MG TABLET 1 TAB PO DAILY BP (Reported) Aspirin (Ecotrin*) 81 MG TABLET.DR 1 TAB PO DAILY HEART HEALTH (Reported) Atorvastatin Calcium (Lipitor) 20 MG TABLET 1 TAB PO QPM CHOLESTEROL ( Reported) Cranberry Conc/Ascorbic Acid (Cranberry Plus Vitamin C Sftgl) 4,200 MG-20 MG CAPSULE 1 CAP PO BID SUPPLEMENT (Reported) Gabapentin 300 MG CAPSULE 1 CAP PO QPM NEUROPATHY (Reported) Hydroxyurea 500 MG CAPSULE 2 CAP PO QAM POLYCYTHEMIA VERA (Reported) Lisinopril (Prinivil) 10 MG TABLET 1 TAB PO QPM BP (Reported) Sennosides (Senna Lax) 8.6 MG TABLET 2 TAB PO QPM CONSTIPATION (Reported) Tamsulosin HCl (Flomax) 0.4 MG CAP.ER.24H 1 CAP PO QPM PROSTATE (Reported) Warfarin Sodium 2 MG TABLET 0.5 TAB PO QPM BLOOD THINNER (Reported) Compliance With Home Meds: GOOD Past History Travel History Traveled to [place] past 21 day No Medical History Blood Transfusion Hx: No Neurological: peripheral neuropathy, BRAIN BLEED EENT: NONE Cardiovascular: AFIB, aortic stenosis, CAD, hypertension, hyperlipidemia Respiratory: pulmonary embolism Gastrointestinal: constipation, diverticulitis Hepatic: NONE Renal: benign prost hyperplasia Musculoskeletal: NONE Psychiatric: NONE Endocrine: NONE Blood Disorders: DVT, PE, POLYCYTHEMIA Cancer(s): NONE 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 Home Who Do You Live With? child Services at Home: Home Health Aide, Nursing Primary Language: Greenlandic Smoking Status: Former Smoker ETOH Use: denies use Illicit Drug Use: denies illicit drug use Review of Systems Review of Systems Constitutional: Reports: see HPI. Exam & Diagnostic Data Last 24 Hrs of Vital Signs/I&O Vital Signs Date Time Temp Pulse Resp B/P Pulse O2 O2 Flow FiO2 Ox Delivery Rate 07/19 0045 97.9 69 18 141/64 94 Room Air 07/18 1935 Room Air 07/18 1754 97.8 82 20 105/46 95 Room Air Intake & Output 07/19 0800 07/19 0000 07/18 1600 Intake Total Output Total Balance Patient 170 lb Weight Physical Exam General Appearance Alert, Cooperative, No Acute Distress Skin bruises on both hands and arms. Scratches to her trunk and stomach area, sacral stage I decubitus ulcers HEENT dry mucous membranes Cardiovascular Regular Rate, No Murmurs Lungs Clear to Auscultation Abdomen Normal Bowel Sounds, Soft, No Tenderness Extremities amputation bilateral lower extremities Last 24 Hrs of Labs/Addy: Laboratory Tests 07/18/160: PT 27.5 H, INR 2.64 H, APTT 45 H 07/18/161999: Urine Color YEL, Urine Clarity HAZY H, Urine pH 6.5, Ur Specific [place] 1.015, Urine Protein TRACE H, Urine Ketones NEG, Urine Nitrite NEG, Urine Bilirubin NEG, Urine Urobilinogen 0.2, Ur Leukocyte Esterase SMALL H, Ur Microscopic SEDIMENT EXAMINED, Urine RBC 1-3, Urine WBC 15-25 H, Ur Epithelial Cells MOD H , Urine Bacteria FEW H, Urine Mucus FEW, Urine Hemoglobin SMALL H, Urine Glucose NEG 07/18/161924: Anion Gap 12, Estimated GFR 41 L, BUN/Creatinine Ratio 17.5, Glucose 97, Calcium 9.4, Total Bilirubin 0.6, AST 20, ALT 27, Alkaline Phosphatase 146 H, Total Protein 7.1, Albumin 3.7, Globulin 3.4, Albumin/Globulin Ratio 1.1, Vitamin B12 Pending, Folate Pending, TSH Pending, Free T4 2.04 H, CBC w Diff NO MAN DIFF REQ, RBC 4.39 L, MCV 101.3 H, MCH 32.3 H, RDW 18.2 H, MPV 7.8, Gran % 86.6 H, Lymphocytes % 5.9 L, Monocytes % 4.5, Eosinophils % 2.2, Basophils % 0.8, Absolute Granulocytes 11.1 H, Absolute Lymphocytes 0.8 L, Absolute Monocytes 0.6, Absolute Eosinophils 0.3, Absolute Basophils 0.1, PUBS MCHC 31.9 L Microbiology 07/18 1999 URINE ROUT: Urine Culture - RECD Diagnostic Data EKG Results Normal sinus rhythm with heart rate 71. No acute ST-T wave changes. QTc 474 CXR Results Cardiac leads overlie the chest. Median sternotomy wires appear intact. Evaluation of the left base is limited. The left hemidiaphragm is not well visualized. No additional evidence of consolidation, edema, or effusion. No pneumothorax. The cardiomediastinal silhouette is within normal limits. No acute osseous abnormality. Assessment/Plan Assessment: 86-year-old gentleman with PMH A. fib on Coumadin, polycythemia vera on hydroxyzine, coronary artery disease status post stents, history of recurrent UTIs and pneumonia. Problem list 1. Worsening confusion and agitation most likely secondary to ongoing urinary infection, dehydration and constipation 2. Severe constipation status post manual fecal disimpaction 4 days ago in ER 3. Acute kidney injury secondary to dehydration and poor oral intake 4. History of A. fib on Coumadin Plan We will admit patient under general medicine floor. Vitals every shift. We will continue IV ceftriaxone for UTI. Continue gentle hydration. Follow-up urine cultures. Repeat kidney functions in a.m. Avoid nephrotoxins. We will do CT abdomen/pelvis with urinary tract stone protocol as patient has history of recurrent UTIs. We will give patient Dulcolax suppository and start him on bowel regimen. We will do CT head per patient's son request. We will check B12 , folate and thyroid function test. Avoid delirium triggers like dehydration, constipation. Frequent reorientations. Pain management pathway. Regular diet. DVT prophylaxis. Patient is on Coumadin. He is DNR/DNI. As Ranked By This Provider Problem List: 1. Altered mental status 2. UTI (urinary tract infection) Core Measures/Miscellaneous Acute Coronary Syndrome ACS Diagnosis: No Cerebrovascular Accident CVA/TIA Diagnosis: No Congestive Heart Failure CHF Diagnosis: No Venous Thromboembolism VTE Risk Factors: Acute medical illness, Age > 40 VTE Prophylaxis Ordered Inpt: Pharm- Warfarin No Mech VTE prophylaxis d/t: Amputee No VTE Pharm Prophylaxis d/t: No contraindications VTE Diagnosis: No VTE Type: NONE VTE Confirmed by (Test): NONE Severe Sepsis Severe Sepsis Present: No Septic Shock Septic Shock Present: No Miscellaneous Documentation Attending Case Discussed With: MARY ANNE HULL MD Primary Care Physician: MERE APPLE,[facility] Patient sees these Specialists Dr. Rosario Level of Patient Care: General Medicine MARY ANNE HULL 07/19/16 0550: Attending Review Statement Attending Statement Attending MD Statement: examined this patient, discuss w/resident/PA/UPHOLSTERER LIMOUSINE AND HEARSE, agreed w/resident/PA/UPHOLSTERER LIMOUSINE AND HEARSE, discussed with family, reviewed EMR data (avail), reviewed images, amended to note Attending Assessment/Plan: CC: Agitation, jerky movements, confusion PMH: A. fib, CAD, HTN, HLD, PE/DVT, BPH, polycythemia vera Patient is brought in by son for worsening confusion since last 4-5 days and more so in last 24 hours patient has been shouting, agitated, more jerky movements. According to son patient is very functional and sharp at baseline but was recently admitted for UTI and pneumonia and hand hospital related delirium and never came to baseline and then progressively worsened as mentioned above. No fever at home, no increased cough or sputum production, patient was not complaining of any pain or any urinary frequency or burning. Vitals: BP max 97.9, pulse, RR, blood pressure, oxygen saturation within acceptable range. 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 Has stage I decubitus bilateral buttocks, noninfected, no obvious rashes or inflammations. CVS: S1-S2, irregular. RS: Clear to auscultate bilaterally. Abdomen: Soft, NT, ND, bowel sounds present, no CVA tenderness. No Ohara's sign. Labs: WBC 12.8 with neutrophils 86%, hemoglobin 14.2, MCV 101.3, platelet 422,, sodium 136, creatinine 1.6 increased from 0.7 from July 05, alkaline phosphatase 146, INR 2.6, UA positive for small leukocyte esterase, 25 WBC but moderate epithelial cells. CXR:Limited evaluation at the left lung base which could be secondary to technique or associated with an airspace process. A and P #1 encephalopathy: probably metabolic secondary to infection, patient has some leukocytosis along with evidence of UTI. Patient does not complain much but is not at his baseline according to family. Previous urine culture had Klebsiella and Enterobacter sensitive to ceftriaxone. At this point I will suggest to continue ceftriaxone, obtain blood culture, urine culture. Given his recurrent UTI, obtain CT-urinary track stone protocol. Also obtain CT head, B12, folic acid, thyroid function test for his worsening encephalopathy. #2 constipation : Dulcolax suppository, enema if that does not work #3 acute kidney injury: Probably secondary to volume contraction and current infection, continue gentle hydration, avoid nephrotoxins hold lisinopril #4 continue on some medications for his chronic stable conditions for A. fib, CAD, HTN, HLD, polycythemia vera: With amiodarone, amlodipine, aspirin, atorvastatin, gabapentin, hydroxyurea, tamsulosin and warfarin. #5 DVT prophylaxis patient is on warfarin. Avoid opiates to avoid delirium. #6 oral thrush: Nystatin swish and swallow.
--- NOTE | 2016-07-19 05:51 | Admission Certification ---
Admission Certification Certification Statement - As attending physician, I certify that at the time of - admission, based on clinical presentation, severity of - symptoms, need for further diagnostic testing and - therapeutic interventions, and risk of adverse outcomes - without in-hospital treatment, in my clinical assessment, - this patient requires an acute hospital stay for a minimum - of two nights or longer. I have also considered psychsocial - factors such as support system, advanced age, financial - issues, cognitive issues, and failed out-patient treatments, - past re-admission history, safety of patient, and lack of - compliance as applicable. Specific rationale supporting this admission is: Metabolic encephalopathy, suspected UTI
--- NOTE | 2016-07-19 06:07 | NUR ---
AM LABS DRAWN AND SENT. URINAL PROPPED IN PLACE--VOIDING VERY SM AMTS FREQ
[2016-07-19 06:12] LABS: ABSOLUTE BASOPHIL COUNT 0.1 /CUMM (0.0-0.2); ABSOLUTE EOSINOPHIL COUNT 0.5 /CUMM (0.0-0.7); ABSOLUTE GRANULOCYTE CT 9.6 /CUMM (1.4-6.5); ABSOLUTE LYMPH COUNT 1.1 /CUMM (1.2-3.4); ABSOLUTE MONOCYTE COUNT 0.6 /CUMM (0.10-0.60); BASOPHIL % 0.8 % (0.0-2.0); EOSINOPHIL % 3.9 % (0-5); GRANULOCYTE % 81.2 % (42.2-75.2); HEMATOCRIT 40.4 % (42-52); MEAN CORPUSCULAR HGB 32.2 PG (27.0-31.0); MEAN CORPUSCULAR HGB CONC 31.8 G/DL (33.0-37.0); MEAN CORPUSCULAR VOLUME 101.1 FL (80.0-94.0); MEAN PLATELET VOLUME 7.6 FL (7.4-10.4); PLATELET COUNT 385 /CUMM (130-400); RBC DISTRIBUTION WIDTH 17.9 % (11.5-14.5); WHITE BLOOD CELL COUNT 11.8 /CUMM (4.8-10.8)
[2016-07-19 06:29] LABS: PT 24.4 SEC (9.4-12.5)
[2016-07-19 06:47] VITALS: BP 136/52
[2016-07-19 08:02] VITALS: BP 130/86
--- NOTE | 2016-07-19 08:05 | NUR ---
PT INC OF URINE. [facility] CARE PROVIDED. URINAL PROPPED IN PLACE BETWEEN LEGS. PT FED BREAKFAST, ONLY ATE SMALL AMOUNT. Informed waiting has been performed. AWAITING BED ASSIGNMENT ON GEN iCharts.
--- NOTE | 2016-07-19 08:35 | NUR ---
PT NOTED WITH CONSTANT TREMORS. APPEARS ANXIOUS, PULLING AT IV LINE. ALERT TO SELF ONLY. RE-ORIENTED TO PLACE AND TIME. MEDICATED WITH IV ATIVAN PER EMAR.
--- NOTE | 2016-07-19 09:37 | NUR ---
HOUSESTAFF AT BEDSIDE.
--- NOTE | 2016-07-19 10:00 | NUR ---
PT STRAIGHT CATHED PER HOUSE STAFF REQUEST. 300ML URINE OUT. PT HAD LARGE BM ALSO, SADIQ CARE PROVIDED. PT CONTINUES TO BE AGITATED AND INVOLUNTARY TWITCHING/THRASHING IN BED. PT NOTED WITH NEW SKIN TEARS TO B/L HANDS FROM CONSTANT MOVEMENT IN BED AND HITTING HANDS ON SIDE RAILS OF BED. HOUSESTAFF ORDERED IM ZYPREXA AND SOFT WRIST RESTRAINTS. PT MEDICATED PER EMAR, PLACED IN SOFT WRIST RESTRAINTS FOR PATIENTS OWN SAFETY. Informed waiting has been performed. FINGERSTICK 97. IVF CHANGED TO D5 1/2 NS @ 75.
[2016-07-19 10:40] VITALS: BP 127/58
--- NOTE | 2016-07-19 11:35 | NUR ---
HOUSESTAFF AT BEDSIDE WITH FAMILY.
--- NOTE | 2016-07-19 12:00 | NUR ---
PT MOVED TO STRETCHER, TAKEN TO CAT SCAN.
--- NOTE | 2016-07-19 12:20 | NUR ---
BACK FROM CAT SCAN. PT INC OF URINE AND STOOL. SADIQ CARE PROVIDED. GAUZE AND COBAN APPLIED TO PT'S SELF INFLICTED SKIN TEARS, RIGHT HAND, LFA. Informed waiting has been performed.
--- NOTE | 2016-07-19 12:39 | CT SCAN REPORT ---
EXAMINATION: CT HEAD WITHOUT CONTRAST CLINICAL INFORMATION: Evaluate for intracranial pathology. Worsening confusion. COMPARISON: None TECHNIQUE: Contiguous axial imaging was performed from the skull base to vertex without intravenous administration of contrast. DLP: 1624.11 mGy-cm FINDINGS: There is no evidence of acute intracranial hemorrhage or territorial infarction. No abnormal mass effect or midline shift is seen. Otero to white matter differentiation is well preserved. No extra-axial fluid collections are identified. There are arnav hole defects and calvarium bilaterally. There is no hydrocephalus. Moderate diffuse parenchymal volume loss is noted. There are chronic lacunar infarcts basal ganglia, external capsules, and thalami. Mild chronic white matter microangiopathic changes are noted. The osseous structures and soft tissues are otherwise normal. The mastoid air cells and visualized portions of the paranasal sinuses are well aerated. IMPRESSION: No acute intracranial hemorrhage or territorial infarction. Mild chronic white matter microangiopathy scattered deep otero matter lacunar infarcts. Moderate parenchymal volume loss.
--- NOTE | 2016-07-19 13:00 | CT SCAN REPORT ---
EXAMINATION: CT ABDOMEN AND PELVIS WITHOUT CONTRAST CLINICAL INFORMATION: Recurrent UTIs. Presumptive diagnosis of kidney stones. Worsening confusion. COMPARISON: Renal ultrasound dated 12/14/2015. CT scan of the abdomen and pelvis dated 05/05/2015 and 11/13/2014. TECHNIQUE: Multidetector volumetric imaging was performed from the superior aspect of the liver through the pubic symphysis. Sagittal and coronal reformatted images were obtained on the technologist workstation. DLP: 1170.17 mGy-cm. FINDINGS: Evaluation is significantly limited due to motion artifact. LUNG BASES: Mild dependent atelectasis is seen in both lower lobes. LIVER, GALLBLADDER, AND BILIARY TREE: The liver is normal in size, shape, and attenuation. No focal hepatic lesion on noncontrast imaging. No biliary ductal dilatation is present. Small amount of pneumobilia is seen within the right and left lobes, likely related to prior papillotomy. Post cholecystectomy angelita are seen in the gallbladder fossa with no focal mass. PANCREAS, SPLEEN, ADRENAL GLANDS: Mild fatty infiltration of the pancreatic head is seen. Pancreas is otherwise unremarkable. Spleen and adrenal glands are unremarkable on noncontrast imaging. KIDNEYS AND URETERS: The kidneys are normal in size, shape, and attenuation. The known bilateral renal cysts are suboptimally assessed due to motion. No hydronephrosis, hydroureter, or calculi seen. No perinephric stranding. BLADDER: Well-distended with small bladder diverticula again seen arising from the posterior lateral left margin. GASTROINTESTINAL TRACT: There is a small hiatal hernia. Moderate colonic diverticulosis is seen with no evidence of acute diverticulitis. Appendix is not visualized. Small bowel loops are decompressed and grossly unremarkable. ABDOMINAL WALL: No significant hernia is appreciated. LYMPH NODES, VASCULAR: Severe atherosclerotic calcifications of the coronary arteries and mild to moderate moderate atherosclerotic calcifications of the visceral arteries noted. PELVIC VISCERA: Unremarkable. OSSEOUS STRUCTURES: Median sternotomy wires are partially included. Moderate vertebral spondylosis is seen throughout the imaged thoracolumbar spine with moderate facet arthropathy in the mid and lower lumbar spine. Moderate degenerative changes are also seen in both hip joints. IMPRESSION: 1. No evidence of nephrolithiasis or obstructive uropathy. 2. Bladder well distended and unremarkable except for 2 left-sided bladder diverticula, unchanged. 3. No focal acute intra-abdominal process seen. 4. Status post cholecystectomy with small amount of pneumobilia seen within the liver, likely reflective of prior papillotomy. 5. Prominent atherosclerotic vascular disease. 6. Renal cysts suboptimally assessed. 7. Colonic diverticulosis with no evidence of acute diverticulitis. 8. Small hiatal hernia.
--- NOTE | 2016-07-19 13:39 | PN- Att Addend ---
Attending Addendum Attending Brief Note Patient seen and examined, he is sleepy and lethargic. Difficult to arouse. He has received diazepam in the emergency room. Family including his son, daughter -in-law as well as a caregiver present at bedside. Vital Signs Date Time Temp Pulse Resp B/P Pulse O2 O2 Flow FiO2 Ox Delivery Rate 07/19 1040 99.4 85 20 127/58 94 Room Air 07/19 1000 99.4 85 20 127/58 07/19 1000 99.4 85 20 127/58 07/19 0802 98.6 84 20 130/86 94 Room Air 07/19 0647 97.6 88 20 136/52 94 Room Air Room Air 07/19 0625 97.6 88 20 136/52 94 Room Air Room Air 07/19 0045 97.9 69 18 141/64 94 Room Air 07/18 1935 Room Air 07/18 1754 97.8 82 20 105/46 95 Room Air on exam; sleepy and lethargic, difficult to arouse. cv; s1,s2, rrr. resp; clear. abd; soft, nt, bs+ ext; b/l amputation. Laboratory Tests 07/19 07/19 07/18 1155 0600 2150 Blood Gas pH (7.35 - 7.45 PH) 7.44 pCO2 (35 - 45 TORR) 28 L pO2 (80 - 100 TORR) 62 L HCO3 (21 - 28 MEQ/L) 18 L ABG O2 Sat (Measured) (>96.0 %) 91.0 L P-50 (Temp Corrected) N Carboxyhemoglobin (1.5 - 5.0 %) 1.4 L O2 Concentration % .21 Temperature (97.0 - 100.0 FARH) 99.4 O2 Delivery Method RA Chemistry Sodium (137 - 145 mmol/L) 136 L Potassium (3.5 - 5.1 mmol/L) 5.0 Chloride (98 - 107 mmol/L) 105 Carbon Dioxide (22 - 30 mmol/L) 22 Anion Gap (5 - 16) 9 BUN (9 - 20 mg/dL) 26 H Creatinine (0.7 - 1.2 mg/dL) 1.4 H Estimated GFR (>60 ml/min) 48 L BUN/Creatinine Ratio (7 - 25 %) 18.6 Coagulation PT (9.4 - 12.5 SEC) 24.4 H 27.5 H INR (0.90 - 1.17) 2.34 H 2.64 H APTT (25 - 37 SEC) 45 H Hematology CBC w Diff NO MAN DIFF REQ WBC (4.8 - 10.8 /CUMM) 11.8 H RBC (4.70 - 6.10 /CUMM) 4.00 L Hgb (14.0 - 18.0 G/DL) 12.9 L Hct (42 - 52 %) 40.4 L MCV (80.0 - 94.0 FL) 101.1 H MCH (27.0 - 31.0 PG) 32.2 H RDW (11.5 - 14.5 %) 17.9 H Plt Count (130 - 400 /CUMM) 385 MPV (7.4 - 10.4 FL) 7.6 Gran % (42.2 - 75.2 %) 81.2 H Lymphocytes % (20.5 - 51.1 %) 9.0 L Monocytes % (1.7 - 9.3 %) 5.1 Eosinophils % (0 - 5 %) 3.9 Basophils % (0.0 - 2.0 %) 0.8 Absolute Granulocytes (1.4 - 6.5 /CUMM) 9.6 H Absolute Lymphocytes (1.2 - 3.4 /CUMM) 1.1 L Absolute Monocytes (0.10 - 0.60 /CUMM) 0.6 Absolute Eosinophils (0.0 - 0.7 /CUMM) 0.5 Absolute Basophils (0.0 - 0.2 /CUMM) 0.1 PUBS MCHC (33.0 - 37.0 G/DL) 31.8 L Miscellaneous Phlebotomy Draw Site LEFT RADIAL 07/18 192 Chemistry Sodium (137 - 145 mmol/L) 136 L Potassium (3.5 - 5.1 mmol/L) 5.1 Chloride (98 - 107 mmol/L) 101 Carbon Dioxide (22 - 30 mmol/L) 23 Anion Gap (5 - 16) 12 BUN (9 - 20 mg/dL) 28 H Creatinine (0.7 - 1.2 mg/dL) 1.6 H Estimated GFR (>60 ml/min) 41 L BUN/Creatinine Ratio (7 - 25 %) 17.5 Glucose (65 - 99 mg/dL) 97 Calcium (8.4 - 10.2 mg/dL) 9.4 Total Bilirubin (0.2 - 1.3 mg/dL) 0.6 AST (17 - 59 U/L) 20 ALT (21 - 72 U/L) 27 Alkaline Phosphatase (< 127 U/L) 146 H Total Protein (6.3 - 8.2 g/dL) 7.1 Albumin (3.5 - 5.0 g/dL) 3.7 Globulin (1.9 - 4.2 gm/dL) 3.4 Albumin/Globulin Ratio (1.1 - 2.2 %) 1.1 Vitamin B12 (239 - 931 pg/mL) 977 H Folate (2.76 - 20.0 ng/mL) 5.2 TSH (0.270 - 4.200 uIU/mL) 1.020 Free T4 (0.85 - 1.93 ng/dL) 2.04 H Hematology CBC w Diff NO MAN DIFF REQ WBC (4.8 - 10.8 /CUMM) 12.8 H RBC (4.70 - 6.10 /CUMM) 4.39 L Hgb (14.0 - 18.0 G/DL) 14.2 Hct (42 - 52 %) 44.5 MCV (80.0 - 94.0 FL) 101.3 H MCH (27.0 - 31.0 PG) 32.3 H RDW (11.5 - 14.5 %) 18.2 H Plt Count (130 - 400 /CUMM) 422 H MPV (7.4 - 10.4 FL) 7.8 Gran % (42.2 - 75.2 %) 86.6 H Lymphocytes % (20.5 - 51.1 %) 5.9 L Monocytes % (1.7 - 9.3 %) 4.5 Eosinophils % (0 - 5 %) 2.2 Basophils % (0.0 - 2.0 %) 0.8 Absolute Granulocytes (1.4 - 6.5 /CUMM) 11.1 H Absolute Lymphocytes (1.2 - 3.4 /CUMM) 0.8 L Absolute Monocytes (0.10 - 0.60 /CUMM) 0.6 Absolute Eosinophils (0.0 - 0.7 /CUMM) 0.3 Absolute Basophils (0.0 - 0.2 /CUMM) 0.1 PUBS MCHC (33.0 - 37.0 G/DL) 31.9 L Urines Urine Color (YEL,AMB,STR) YEL Urine Clarity (CLEAR) HAZY H Urine pH (5.0 - 8.0) 6.5 Ur Specific [place] (1.001 - 1.035) 1.015 Urine Protein (NEG,<30 MG/DL) TRACE H Urine Ketones (NEG) NEG Urine Nitrite (NEG) NEG Urine Bilirubin (NEG) NEG Urine Urobilinogen (0.1 - 1.0 EU/dl) 0.2 Ur Leukocyte Esterase (NEG) SMALL H Ur Microscopic SEDIMENT EXAMINED Urine RBC (0 - 5 /HPF) 1-3 Urine WBC (0 - 2 /HPF) 15-25 H Ur Epithelial Cells (NONE,FEW) MOD H Urine Bacteria (NEG/NONE) FEW H Urine Mucus (FEW,NONE) FEW Urine Hemoglobin (NEG) SMALL H Urine Glucose (N MG/DL) NEG A/P: 86 y/o M with pmh sig for A. fib on Coumadin, polycythemia vera on hydroxyzine, coronary artery disease status post stents, history of recurrent UTIs and pneumonia recent admission for UTI as well as recent ER visit for stool disimpaction who is now admitted with altered mental status likely secondary to her work encephalopathy from a UTI. Currently getting treated with ceftriaxone. Will continue that and follow-up on the cultures. CT head is negative. Please avoid benzodiazepines. Continue on other current medications. INR is therapeutic, please dose Coumadin according to home dose. DVT plexus: INR therapeutic. Discussed with patient's son and other family members at length at bedside.
--- NOTE | 2016-07-19 14:50 | NUR ---
PT'S FAMILY EXPRESSING CONCERNS ABOUT PT'S CONSTANT MOVING,MENTAL STATUS AND POC. HOUSESTAFF IN TO SEE PT'S FAMILY.
--- NOTE | 2016-07-19 15:39 | NUR ---
PT CARE ASSUMED BY THIS RN AT THIS TIME. PT INCONTINENT OF LARGE AMOUNT OF URINE AND SMALL AMOUNT OF STOOL. PERICARE PROVIDED AND BARRIER CREAM APPLIED TO UNSTAGEABLE PRESSURE ULCERS ON COCCYX. PT NOTED TO HAVE A RECTAL TEMPERATURE OF 101.5, LUKE PARKERD AT 372 AT THIS TIME. PT CONTINUES IN BILATERAL UPPER EXTREMETY SOFT RESTRAINTS FOR PT SAFETY WITH SPASTIC MOVEMENTS.
--- NOTE | 2016-07-19 16:27 | NUR ---
PT ASSIGNED TO 216-2
--- NOTE | 2016-07-19 16:34 | NUR ---
UNABLE TO PLACE WALL CATHETER AT THIS TIME. URETHRA CAN NOT BE VISUALIZED FROM CATHETER PLACEMENT. LUKE PAGED AT [phone] AT THIS TIME FOR UPDATE.
--- NOTE | 2016-07-19 17:02 | NUR ---
PT UNABLE TO SWALLOW PO MEDICATIONS AT THIS TIME, PO COUMADIN NOT GIVEN DUE TO PT INABILITY TO SWALLOW SAFETLY OR FOLLOW COMMANDS. ATTEMPT X1 FOR BLOOD CULTURES BUT UNABLE TO OBTAIN DUE TO EXCESSIVE PATIENT MOVEMENT. LUKE PAGED AT [phone] TO REPORT CONCERNS, NO ANSWER FROM PREVIOUS PAGE.
--- NOTE | 2016-07-19 18:16 | NUR ---
GREEN TUBE SENT ON ICE TO LAB
--- NOTE | 2016-07-19 18:19 | NUR ---
BOTH SET OF BLOOD CULTURES AND AMMONIA OBTAINED AND SENT. FAMILY SPEAKING WITH DR. YEH AT THIS TIME REGARDING CONCERNS WITH SEVERE REACTION TO AMLODIPINE. PT NOTED TO EXTREMELY DIAPHORETIC AT THIS TIME. PILLOW CASE CHANGED AND SADIQ CARE PROVIDED WITH LINEN CHANGE. RECTAL TEMP 100.5 AT THIS TIME. D5 1/2 NS CONTINUES TO RUN AT 75ML/HR WITH NO DIFFICULTY PER ORDER.
--- NOTE | 2016-07-19 18:45 | NUR ---
REPORT GIVEN TO MARYAM GUTIERREZ. PT WILL BE TRANSFERRED AFTER 1929 PER FLOOR REQUEST.
--- NOTE | 2016-07-19 19:38 | NUR ---
MEDICATED WITH FORTAZ AND VANCO PER EMAR. PT TRANSFERRED TO [facility] AT THIS TIME.
[2016-07-19 20:16] VITALS: BP 114/62
--- NOTE | 2016-07-20 00:11 | Event Note ---
Event Note Event Note: I was called by house staff that the patient's family was really aggravated as patient's mental condition is not improving. I went to speak to them, I had a long discussion. Patient spiked fever around 3.45 p.m.. He was still in ER at that time, he was aggressive and agitated, and looked uncomfortable according to family. When I went to see the patient patient was on medical floor, more calm according to family. Patient's 2 sons, one of them POA, wanted to know prognosis of patient as he appeared to be deteriorating. Given his fever spike even on ceftriaxone, we changed antibiotics to Vanco and ceftaz. To me patient was cooperative, oriented x2 but having jerky ataxic movements as yesterday. Abdominal examination mild right epigastric tenderness, but no Ohara sign. His alkaline phosphatase was mildly elevated yesterday, so repeated LFT, ordered ultrasound for tomorrow morning (he has history of cholecystectomy just to rule out CBD stone), inserted Holder catheter, patient also had 2 bowel movements. Patient got a dose of Zyprexa in morning, may have had paradoxical reaction or AMS probably secondary to high-grade fever. Suggested to avoid any benzos, antipsychotics, opiates. Family wants to see how he does over 24-48 hours or they will consider comfort measures only.
--- NOTE | 2016-07-20 06:41 | PN- Housestaff ---
ESCOBAR APPLE,CLINTON 07/20/16 0641: Subjective Follow-up For: Altered Mental status Urinary retention Subjective: I saw and examined the patient today morning. He is sitll altered, jerky movements evident. family at bedside explained in detail regarding the plan of care. Review of Systems Constitutional: Reports: see HPI. Comments: ROS cannot be appreciated as per the patients clinical condition. Objective Last 24 Hrs of Vital Signs/I&O Vital Signs Date Time Temp Pulse Resp B/P Pulse O2 O2 Flow FiO2 Ox Delivery Rate 07/20 0000 Nasal 2.0L Cannula 07/19 212 82 114/62 07/20 2015 98.4 82 16 114/62 95 Nasal 2.0L Cannula 07/19 1938 100.0 88 20 110/60 98 Nasal 2.0L Cannula 07/19 1818 100.4 86 20 112/60 95 Nasal 2.0L Cannula 07/19 1615 101.5 07/19 1546 101.5 07/19 1440 99.0 80 20 120/60 95 Room Air 07/19 1230 99.1 78 20 124/64 94 Room Air 07/19 1040 99.4 85 20 127/58 94 Room Air 07/19 1000 99.4 85 20 127/58 03/01 1000 99.4 85 20 127/58 03/ 0802 98.6 84 20 130/86 94 Room Air 07/19 0647 97.6 88 20 136/52 94 Room Air Room Air Intake & Output 07/20 0800 07/20 0000 07/19 1600 Intake Total 570 Output Total 625 Balance -55 Intake, IV 450 Intake, Oral 120 Number 2 Bowel Movements Output, Urine 625 Physical Exam General Appearance: Alert, not oriented Skin: No Rashes, No Breakdown HEENT: Atraumatic, PERRLA Neck: Supple Cardiovascular: Normal S1, Normal S2 Lungs: Clear to Auscultation, Normal Air Movement Abdomen: Normal Bowel Sounds, No Tenderness, tender in the left lower quadrant Neurological: Normal Tone Extremities: No Cyanosis, No Edema, 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 Vascular: Normal Pulses, Pulses Symmetrical Current Medications: Current Medications Sig/Caroline Start time Last Medication Dose Route Stop Time Status Admin Acetaminophen 0 .STK-MED ONE 07/19 1614 DC IV Acetaminophen 1,000 MG ONCE ONE 07/19 1600 DC 07/19 N/A 1 UNIT IV 07/19 1614 1615 Acetaminophen 650 MG Q6P PRN 07/19 0100 AC PO Amiodarone HCl 200 MG QAM 07/19 1000 AC PO Amlodipine Besylate 5 MG DAILY 07/19 1000 DC PO Aspirin Buffered 81 MG DAILY 07/19 1000 AC PO Atorvastatin Calcium 20 MG QPM 07/19 2200 AC 07/19 PO 2125 Ceftazidime 1,000 MG Q24 07/20 1000 AC IV Ceftazidime 0 .STK-MED ONE 07/19 1922 DC .ROUTE Ceftazidime 1,000 MG IQ8 07/19 191 DC 07/19 IV 1937 Ceftriaxone Sodium 1,000 MG 2200 07/19 2200 CAN IV Dextrose/Sodium 1,000 ML Q13H 07/19 1000 AC 07/20 Chloride IV 0050 Diazepam 0 .STK-MED ONE 07/19 1118 DC .ROUTE Diazepam 5 MG ONCE ONE 07/19 1115 DC 07/19 IV 07/19 1116 1120 Gabapentin 300 MG QPM 07/19 2200 DC PO Gabapentin 100 MG QPM 07/19 2200 AC 07/19 PO 2126 Hydroxyurea 1,000 MG QAM 07/19 1000 AC PO Lorazepam 0.5 MG ONCE ONE 07/19 0845 DC 07/19 IV 07/19 0846 0835 Lorazepam 0 .STK-MED ONE 07/19 0835 DC .ROUTE Nystatin 5 ML 4 TIMES/DAY 07/19 1000 AC 07/19 PO 2126 Olanzapine 0 .STK-MED ONE 07/19 1001 DC IM Olanzapine 2.5 MG ONCE ONE 07/19 1000 DC 07/19 IM 07/19 1001 1000 Polyethylene Glycol 17 GM DAILY NEEDED PRN 07/19 0100 AC PO Senna/Docusate Sodium 1 TAB BID PRN 07/19 0100 AC PO Sodium Chloride 1,000 ML .[id number] 07/19 0045 DC 07/19 IV 07/20 0324 0053 Tamsulosin HCl 0.4 MG QPM 07/19 2200 AC 07/19 PO 2125 Vancomycin HCl 1,000 MG ONCE ONE 07/19 191 DC 07/19 Dextrose/Water 250 ML IV 07/19 Warfarin Sodium 1 MG ONCE ONE 07/19 1700 DC PO 07/19 1701 Last 24 Hrs of Lab/Addy Results Last 24 Hrs of Labs/Mics: Laboratory Tests 07/20/16 0700: Anion Gap 9, Estimated GFR 52 L, BUN/Creatinine Ratio 17.7, PT 23.3 H, INR 2.24 H, CBC w Diff NO MAN DIFF REQ, RBC 3.87 L, MCV 101.4 H, MCH 32.9 H, RDW 18.5 H, MPV 7.9, Gran % 78.7 H, Lymphocytes % 8.6 L, Monocytes % 7.5, Eosinophils % 4.3, Basophils % 0.9, Absolute Granulocytes 7.7 H, Absolute Lymphocytes 0.8 L, Absolute Monocytes 0.7 H, Absolute Eosinophils 0.4, Absolute Basophils 0.1, PUBS MCHC 32.4 L 07/20/16 0030: Lactic Acid 1.1 Lines/Diet/Fluids Catheters/Tubes: alexander Lines: peripheral lines Assessment/Plan Assessment: 86-year-old gentleman with PMH A. fib on Coumadin, polycythemia vera on hydroxyzine, coronary artery disease status post stents, history of recurrent UTIs and pneumonia brought in to [facility] ER by son with complaint of worsening dementia, agitation and climbing out of bed. At admission had white count of 12, Cr of 1.6, ALP of 146, UA positive for leukocyte esterase. He was initially placed on IV ceftriaxone and placed in ER for one whole day as no beds are available in general medicine floor, however he was given one dose of IM valium in ER. His course in ER is complicated with agitatation and fever of 101.5 in the evening. He was eventually converted to Ceftaz and received a single dose of vanco. Brought upstairs in the evening on 07/19/16. Plan Delirium in the setting of suspected UTI * On ceftaz for now * follow up with cultures * Avoid benzos and narcotics * Urinary retention secondary to BPH - urology consulted. Advised alexander - inserted. Constipation * CT scan shows stercolitis at admission * He had 2 bowel movements yesterday * resolved. ERICKA * Cr of 1.6 at admission - today Cr 1.3 * on D51/2NS @ 75ml/hr * will recheck BEP Polycytemia vera * On hydroxyurea 1000mg every day * H&H today is 12.7/39.3 Paroxysmal A.fib * On warfarin 1mg dialy and amiodarone 200mg at home * will dose according to INR daily CAD s/p stents * on asprin and atorvastatin - will continue them DVT prophylaxis * on warfarin Code status * DNR/DNI Problem List: 1. CAD (coronary artery disease) 2. Polycythemia vera 3. Fever 4. Urinary tract infection 5. Weakness 6. BPH (benign prostatic hyperplasia) Pain Ratin Pain Location: n/a Pain Goal: Pain 4 or less Pain Plan: Tyelnol PRN Tomorrow's Labs & Rationales: BEP to monitro kidney function in ERICKA patient CBC in polycythemia patient ANGELA APPLE,PJ 07/20/16 1324: Attending MD Review Statement Attending Statement Attending MD Statement: examined this patient, discuss w/resident/PA/PLUMBER MAINTENANCE, agreed w/resident/PA/PLUMBER MAINTENANCE, discussed with family, reviewed EMR data (avail), discussed with nursing, discussed with case mgmt, reviewed images, amended to note Attending Assessment/Plan: patient seen and examined, he was sleepy again this am. Difficult to arouse as he was in deep sleep. Prior to our visit, patient was awake and was getting washed with the nursing staff. There is no fever spike overnight or this morning. [id number] as well as animal caretaker supervisor sitting at the bedside. Vital Signs Date Time Temp Pulse Resp B/P Pulse O2 O2 Flow FiO2 Ox Delivery Rate 07/20 0800 Nasal 2.0L Cannula 07/20 0716 98.9 76 20 112/70 94 Nasal 2.0L Cannula 07/20 0000 Nasal 2.0L Cannula 07/19 2125 82 114/62 07/20 2015 98.4 82 16 114/62 95 Nasal 2.0L Cannula 07/19 1938 100.0 88 20 110/60 98 Nasal 2.0L Cannula 07/19 1818 100.4 86 20 112/60 95 Nasal 2.0L Cannula 07/19 1615 101.5 07/19 1546 101.5 07/19 1440 99.0 80 20 120/60 95 Room Air on exam; sleepy, difficult to arouse. cv; s1,s2, rrr. resp; clear. abd; soft, nt, bs+ ext; b/l amputation. Laboratory Tests 07/20 07/20 07/19 0700 0030 1908 Chemistry Sodium (137 - 145 mmol/L) 136 L Potassium (3.5 - 5.1 mmol/L) 4.9 Chloride (98 - 107 mmol/L) 108 H Carbon Dioxide (22 - 30 mmol/L) 19 L Anion Gap (5 - 16) 9 BUN (9 - 20 mg/dL) 23 H Creatinine (0.7 - 1.2 mg/dL) 1.3 H Estimated GFR (>60 ml/min) 52 L BUN/Creatinine Ratio (7 - 25 %) 17.7 Lactic Acid (0.7 - 2.1 mmol/L) 1.1 Cancelled Coagulation PT (9.4 - 12.5 SEC) 23.3 H INR (0.90 - 1.17) 2.24 H Hematology CBC w Diff NO MAN DIFF REQ WBC (4.8 - 10.8 /CUMM) 9.7 RBC (4.70 - 6.10 /CUMM) 3.87 L Hgb (14.0 - 18.0 G/DL) 12.7 L Hct (42 - 52 %) 39.3 L MCV (80.0 - 94.0 FL) 101.4 H MCH (27.0 - 31.0 PG) 32.9 H RDW (11.5 - 14.5 %) 18.5 H Plt Count (130 - 400 /CUMM) 352 MPV (7.4 - 10.4 FL) 7.9 Gran % (42.2 - 75.2 %) 78.7 H Lymphocytes % (20.5 - 51.1 %) 8.6 L Monocytes % (1.7 - 9.3 %) 7.5 Eosinophils % (0 - 5 %) 4.3 Basophils % (0.0 - 2.0 %) 0.9 Absolute Granulocytes (1.4 - 6.5 /CUMM) 7.7 H Absolute Lymphocytes (1.2 - 3.4 /CUMM) 0.8 L Absolute Monocytes (0.10 - 0.60 /CUMM) 0.7 H Absolute Eosinophils (0.0 - 0.7 /CUMM) 0.4 Absolute Basophils (0.0 - 0.2 /CUMM) 0.1 PUBS MCHC (33.0 - 37.0 G/DL) 32.4 L 03/01 1800 Chemistry Ammonia (9 - 30 umol/L) < 9 L A/P; 86 y/o M with pmh sig for A. fib on Coumadin, polycythemia vera on hydroxyzine, coronary artery disease status post stents, history of recurrent UTIs and pneumonia recent admission for UTI as well as recent ER visit for stool disimpaction who is now admitted with altered mental status likely secondary to metabolic encephalopathy from a UTI. Urine cultures so far has not grown anything. There was some concern about high alkaline phosphatase therefore abdominal ultrasound was obtained which does not show any evidence of obstruction. Patient is asymptomatic and has no abdominal tenderness or Ohara sign. Patient's antibiotic coverage was broadened yesterday secondary to him developing fever. At this point we can continue him on ceftaz and wait for the cultures. We will adjust antibiotics accordingly. Will follow-up on the final cultures of the urine. Patient had a Alexander inserted secondary to developing urinary retention and now his creatinine is slightly improving. Please resume diet and if patient is eating diet well then we'll stop the IV fluids. DVT prophylaxis: INR therapeutic, will dose Coumadin accordingly. Discussed with patient's family at length at bedside.
[2016-07-20 07:16] VITALS: BP 112/70
[2016-07-20 08:05] LABS: ABSOLUTE BASOPHIL COUNT 0.1 /CUMM (0.0-0.2); ABSOLUTE EOSINOPHIL COUNT 0.4 /CUMM (0.0-0.7); ABSOLUTE GRANULOCYTE CT 7.7 /CUMM (1.4-6.5); ABSOLUTE LYMPH COUNT 0.8 /CUMM (1.2-3.4); ABSOLUTE MONOCYTE COUNT 0.7 /CUMM (0.10-0.60); BASOPHIL % 0.9 % (0.0-2.0); EOSINOPHIL % 4.3 % (0-5); GRANULOCYTE % 78.7 % (42.2-75.2); HEMATOCRIT 39.3 % (42-52); MEAN CORPUSCULAR HGB 32.9 PG (27.0-31.0); MEAN CORPUSCULAR HGB CONC 32.4 G/DL (33.0-37.0); MEAN CORPUSCULAR VOLUME 101.4 FL (80.0-94.0); MEAN PLATELET VOLUME 7.9 FL (7.4-10.4); PLATELET COUNT 352 /CUMM (130-400); RBC DISTRIBUTION WIDTH 18.5 % (11.5-14.5); RED BLOOD CELL CT 3.87 /CUMM (4.70-6.10); WHITE BLOOD CELL COUNT 9.7 /CUMM (4.8-10.8)
[2016-07-20 08:19] LABS: PT 23.3 SEC (9.4-12.5)
--- NOTE | 2016-07-20 08:43 | ULTRASOUND REPORT ---
EXAMINATION: US ABDOMEN LIMITED CLINICAL INFORMATION: Right upper quadrant pain and fever. Rule out cholangitis.. COMPARISON: CT abdomen and pelvis without contrast 07/19/2016. TECHNIQUE: Real-time imaging of the right upper quadrant abdominal viscera. FINDINGS: PANCREAS: Normal. LIVER: Normal. The liver demonstrates normal size, contour and echogenicity. No focal lesion or intrahepatic biliary duct dilatation. GALLBLADDER: The gallbladder has been surgically removed COMMON BILE DUCT: Normal in caliber measuring 0.6 cm in diameter. RIGHT KIDNEY: There is anechoic cyst in the upper pole measuring 2.6 x 2.6 x 2.3 cm. Partially exophytic smaller cyst in upper pole measures 1.1 x 1.2 x 0.8 cm. There is no hydronephrosis. No renal calculi or focal parenchymal lesions seen. The kidney measures 11.6 cm in maximum dimension. FREE FLUID: None. IMPRESSION: 2 cysts left kidney. No echogenic stones or hydronephrosis in either kidney. The gallbladder is out. Common bile duct is normal caliber.
[2016-07-20 14:22] VITALS: BP 140/62
--- NOTE | 2016-07-20 15:34 | Cons- Urology ---
General Information and HPI Consulting Request Date of Consult: 07/20/16 Requested By: MARY ANNE HULL MD Reason for Consult: urinary retention with UTI Source of Information: patient, old records Exam Limitations: clinical condition History of Present Illness: 86 year old admitted with MS change and signs of urinary sepsis. Alexander catheter required due to retention. Pt. with long hx of BPH symptoms-now in retention. Allergies/Medications Allergies: Coded Allergies: niacin (EXTREME FLUSHING FROM IMMEDIATE RELEASE 07/18/16) PT TOLERATES SLOW RELEASE Home Med List: Amiodarone HCl 200 MG TABLET 1 TAB PO QAM AFIB (Reported) Amlodipine Besylate 5 MG TABLET 1 TAB PO DAILY BP (Reported) Aspirin (Ecotrin*) 81 MG TABLET.DR 1 TAB PO DAILY HEART HEALTH (Reported) Atorvastatin Calcium (Lipitor) 20 MG TABLET 1 TAB PO QPM CHOLESTEROL ( Reported) Cranberry Conc/Ascorbic Acid (Cranberry Plus Vitamin C Sftgl) 4,200 MG-20 MG CAPSULE 1 CAP PO BID SUPPLEMENT (Reported) Gabapentin 300 MG CAPSULE 1 CAP PO QPM NEUROPATHY (Reported) Hydroxyurea 500 MG CAPSULE 2 CAP PO QAM POLYCYTHEMIA VERA (Reported) Lisinopril (Prinivil) 10 MG TABLET 1 TAB PO QPM BP (Reported) Sennosides (Senna Lax) 8.6 MG TABLET 2 TAB PO QPM CONSTIPATION (Reported) Tamsulosin HCl (Flomax) 0.4 MG CAP.ER.24H 1 CAP PO QPM PROSTATE (Reported) Warfarin Sodium 2 MG TABLET 0.5 TAB PO QPM BLOOD THINNER (Reported) Current Medications: Current Medications Sig/Caroline Start time Last Medication Dose Route Stop Time Status Admin Acetaminophen 0 .STK-MED ONE 07/19 1614 DC IV Acetaminophen 1,000 MG ONCE ONE 07/19 1600 DC 07/19 N/A 1 UNIT IV 07/19 1614 1615 Acetaminophen 650 MG Q6P PRN 07/19 0100 AC PO Amiodarone HCl 200 MG QAM 07/19 1000 AC PO Amlodipine Besylate 5 MG DAILY 07/19 1000 DC PO Aspirin Buffered 81 MG DAILY 07/19 1000 AC PO Atorvastatin Calcium 20 MG QPM 07/19 2200 AC 07/19 PO 2125 Ceftazidime 1,000 MG Q24 07/20 1000 AC 07/20 IV 1228 Ceftazidime 0 .STK-MED ONE 07/19 192 DC .ROUTE Ceftazidime 1,000 MG IQ8 07/19 1915 DC 07/19 IV 1937 Ceftriaxone Sodium 1,000 MG 2200 07/19 2199 CAN IV Dextrose/Sodium 1,000 ML Q13H 07/19 1000 AC 07/20 Chloride IV 1229 Finasteride 5 MG DAILY 07/20 1422 AC PO Gabapentin 300 MG QPM 07/19 2200 DC PO Gabapentin 100 MG QPM 07/19 2200 AC 07/19 PO 2126 Hydroxyurea 1,000 MG QAM 07/19 1000 AC PO Nystatin 5 ML 4 TIMES/DAY 07/19 1000 AC 07/19 PO 2126 Polyethylene Glycol 17 GM DAILY NEEDED PRN 07/19 0100 AC PO Senna/Docusate Sodium 1 TAB BID PRN 07/19 010 AC PO Tamsulosin HCl 0.4 MG QPM 07/19 2200 AC 07/19 PO 2125 Vancomycin HCl 1,000 MG ONCE ONE 07/19 1914 DC 07/19 Dextrose/Water 250 ML IV 07/19 Warfarin Sodium 1 MG ONCE ONE 07/19 170 DC PO 07/19 170 Past History Medical History Blood Transfusion Hx: No Neurological: peripheral neuropathy, BRAIN BLEED EENT: NONE Cardiovascular: AFIB, aortic stenosis, CAD, hypertension, hyperlipidemia Respiratory: pulmonary embolism Gastrointestinal: constipation, diverticulitis Hepatic: NONE Renal: benign prost hyperplasia Musculoskeletal: NONE Psychiatric: NONE Endocrine: NONE Blood Disorders: DVT, PE, POLYCYTHEMIA Cancer(s): NONE ENTERPRISE SYSTEMS ENGINEER/Reproductive: NONE Surgical History Pertinent Surgical History: CABG, STENTS PROSTATE SURGERY R AKA L BKA TRIPLE BIPASS Psychosocial History Where Do You Live? Home Who Do You Live With? child Services at Home: Home Health Aide, Nursing Primary Language: Lao Smoking Status: Former Smoker ETOH Use: denies use Illicit Drug Use: denies illicit drug use Employment History Retired? yes Review of Systems Review of Systems Constitutional: Reports: malaise, weakness. EENTM: Denies: no symptoms. Cardiovascular: Denies: no symptoms. Respiratory: Denies: no symptoms. Genitourinary: Reports: frequency, hesitation. Musculoskeletal: Denies: no symptoms. Skin: Denies: no symptoms. Exam & Diagnostic Data Vital Signs and I&O Vital Signs Date Time Temp Pulse Resp B/P Pulse O2 O2 Flow FiO2 Ox Delivery Rate 07/20 1422 97.5 70 20 140/62 98 Room Air 07/20 0800 Nasal 2.0L Cannula 07/20 0716 98.9 76 20 112/70 94 Nasal 2.0L Cannula 07/20 0000 Nasal 2.0L Cannula 07/19 2125 82 114/62 07/20 2015 98.4 82 16 114/62 95 Nasal 2.0L Cannula 07/19 1938 100.0 88 20 110/60 98 Nasal 2.0L Cannula 07/19 1818 100.4 86 20 112/60 95 Nasal 2.0L Cannula 07/19 1615 101.5 07/19 1546 101.5 Intake & Output 07/20 1600 07/20 0800 07/20 0000 07/19 1600 07/19 0807/19 0000 Intake Total 600 570 300 Output Total 200 300 625 60 Balance -200 300 -55 240 Intake, IV 600 450 300 Intake, Oral 0 120 Number 2 Bowel Movements Output, Urine 200 300 625 60 Patient 170 lb Weight Physical Exam General Appearance: well developed/nourished Head: atraumatic Respiratory: normal breath sounds Cardiovascular: regular rate/rhythm Gastrointestinal: normal bowel sounds, soft, non-tender Rectal: 50 gram prostate Back: no vertebral tenderness Extremities: bilat. BKA Reproductive: Normal male genitalia Last 24 Hours of Labs: Laboratory Tests 07/20 07/20 07/19 0700 0030 1908 Chemistry Sodium (137 - 145 mmol/L) 136 L Potassium (3.5 - 5.1 mmol/L) 4.9 Chloride (98 - 107 mmol/L) 108 H Carbon Dioxide (22 - 30 mmol/L) 19 L Anion Gap (5 - 16) 9 BUN (9 - 20 mg/dL) 23 H Creatinine (0.7 - 1.2 mg/dL) 1.3 H Estimated GFR (>60 ml/min) 52 L BUN/Creatinine Ratio (7 - 25 %) 17.7 Lactic Acid (0.7 - 2.1 mmol/L) 1.1 Cancelled Coagulation PT (9.4 - 12.5 SEC) 23.3 H INR (0.90 - 1.17) 2.24 H Hematology CBC w Diff NO MAN DIFF REQ WBC (4.8 - 10.8 /CUMM) 9.7 RBC (4.70 - 6.10 /CUMM) 3.87 L Hgb (14.0 - 18.0 G/DL) 12.7 L Hct (42 - 52 %) 39.3 L MCV (80.0 - 94.0 FL) 101.4 H MCH (27.0 - 31.0 PG) 32.9 H RDW (11.5 - 14.5 %) 18.5 H Plt Count (130 - 400 /CUMM) 352 MPV (7.4 - 10.4 FL) 7.9 Gran % (42.2 - 75.2 %) 78.7 H Lymphocytes % (20.5 - 51.1 %) 8.6 L Monocytes % (1.7 - 9.3 %) 7.5 Eosinophils % (0 - 5 %) 4.3 Basophils % (0.0 - 2.0 %) 0.9 Absolute Granulocytes (1.4 - 6.5 /CUMM) 7.7 H Absolute Lymphocytes (1.2 - 3.4 /CUMM) 0.8 L Absolute Monocytes (0.10 - 0.60 /CUMM) 0.7 H Absolute Eosinophils (0.0 - 0.7 /CUMM) 0.4 Absolute Basophils (0.0 - 0.2 /CUMM) 0.1 PUBS MCHC (33.0 - 37.0 G/DL) 32.4 L 07/19 1800 Chemistry Ammonia (9 - 30 umol/L) < 9 L Imaging Results: PATIENT: EDITA ROSARIO PRESENT AGE: 86 PATIENT ACCOUNT NO: [id number] : 31 LOCATION: [facility] ORDERING PHYSICIAN: SUDHIR PETERSEN MD SERVICE DATE: 07/19/16 EXAM TYPE: CAT - CT ABD & PELVIS W/O IV CONTRAS EXAMINATION: CT ABDOMEN AND PELVIS WITHOUT CONTRAST CLINICAL INFORMATION: Recurrent UTIs. Presumptive diagnosis of kidney stones. Worsening confusion. COMPARISON: Renal ultrasound dated 12/14/2015. CT scan of the abdomen and pelvis dated 05/05/2015 and 11/13/2014. TECHNIQUE: Multidetector volumetric imaging was performed from the superior aspect of the liver through the pubic symphysis. Sagittal and coronal reformatted images were obtained on the technologist workstation. DLP: 1170.17 mGy-cm. FINDINGS: Evaluation is significantly limited due to motion artifact. LUNG BASES: Mild dependent atelectasis is seen in both lower lobes. LIVER, GALLBLADDER, AND BILIARY TREE: The liver is normal in size, shape, and attenuation. No focal hepatic lesion on noncontrast imaging. No biliary ductal dilatation is present. Small amount of pneumobilia is seen within the right and left lobes, likely related to prior papillotomy. Post cholecystectomy angelita are seen in the gallbladder fossa with no focal mass. PANCREAS, SPLEEN, ADRENAL GLANDS: Mild fatty infiltration of the pancreatic head is seen. Pancreas is otherwise unremarkable. Spleen and adrenal glands are unremarkable on noncontrast imaging. KIDNEYS AND URETERS: The kidneys are normal in size, shape, and attenuation. The known bilateral renal cysts are suboptimally assessed due to motion. No hydronephrosis, hydroureter, or calculi seen. No perinephric stranding. BLADDER: Well-distended with small bladder diverticula again seen arising from the posterior lateral left margin. GASTROINTESTINAL TRACT: There is a small hiatal hernia. Moderate colonic diverticulosis is seen with no evidence of acute diverticulitis. Appendix is not visualized. Small bowel loops are decompressed and grossly unremarkable. ABDOMINAL WALL: No significant hernia is appreciated. LYMPH NODES, VASCULAR: Severe atherosclerotic calcifications of the coronary arteries and mild to moderate moderate atherosclerotic calcifications of the visceral arteries noted. PELVIC VISCERA: Unremarkable. OSSEOUS STRUCTURES: Median sternotomy wires are partially included. Moderate vertebral spondylosis is seen throughout the imaged thoracolumbar spine with moderate facet arthropathy in the mid and lower lumbar spine. Moderate degenerative changes are also seen in both hip joints. IMPRESSION: 1. No evidence of nephrolithiasis or obstructive uropathy. 2. Bladder well distended and unremarkable except for 2 left-sided bladder diverticula, unchanged. 3. No focal acute intra-abdominal process seen. 4. Status post cholecystectomy with small amount of pneumobilia seen within the liver, likely reflective of prior papillotomy. 5. Prominent atherosclerotic vascular disease. 6. Renal cysts suboptimally assessed. 7. Colonic diverticulosis with no evidence of acute diverticulitis. 8. Small hiatal hernia. Assessment/Plan Assessment/Plan urinary retention with uti/keep alexander in place-added proscar 5mg/day to meds. Copies To: HESHAM GUAMAN MD Acknowledgment - Thank you for your consult request. Attending MD Review Statement Attending Statement Attending MD Statement: examined this patient, discuss w/resident/PA/WIRE REPAIRER Attending Assessment/Plan: pt with BPH residential now in retention. keep alexander for drainage. add proscar 5mg/day. will need urodynamics-cystoscopy in office as outpt to determine if TURP may be helpful to pt.
[2016-07-20 22:41] VITALS: BP 140/70
--- NOTE | 2016-07-21 06:57 | PN- Housestaff ---
ESCOBAR APPLE,CLINTON 07/21/16 0657: Subjective Follow-up For: Altered mental status Subjective: I saw and examined the patient today morning. He is lying in the bed. Arousable with sternal rub, not oriented, decreased jerky movements. Alexander in place. Review of Systems Constitutional: Reports: see HPI. EENTM: Reports: see HPI. Comments: ROS cannot be appreciated as per the patient condition Objective Last 24 Hrs of Vital Signs/I&O Vital Signs Date Time Temp Pulse Resp B/P Pulse O2 O2 Flow FiO2 Ox Delivery Rate 07/21 0000 Nasal 2.0L Cannula 07/20 2241 97.9 72 20 140/70 94 07/20 1600 Nasal 2.0L Cannula 07/20 1422 97.5 70 20 140/62 98 Room Air 07/20 0800 Nasal 2.0L Cannula 07/20 0716 98.9 76 20 112/70 94 Nasal 2.0L Cannula Intake & Output 07/21 0800 07/21 0000 07/20 1600 Intake Total 1100 Output Total 300 200 Balance 800 -200 Intake, IV 900 Intake, Oral 200 Output, Urine 300 200 Physical Exam General Appearance: Alert, lethargic Skin: No Rashes, No Breakdown HEENT: Atraumatic, PERRLA, EOMI Neck: Supple, No JVD Cardiovascular: Normal S1, Normal S2, irregular Lungs: Clear to Auscultation, Normal Air Movement Abdomen: Normal Bowel Sounds, Soft, No Tenderness Neurological: Normal Tone Current Medications: Current Medications Sig/Caroline Start time Last Medication Dose Route Stop Time Status Admin Acetaminophen 650 MG Q6P PRN 07/19 0100 AC 07/21 PO 0456 Amiodarone HCl 200 MG QAM 07/19 1000 AC 07/20 PO 1703 Aspirin Buffered 81 MG DAILY 07/19 1000 AC 07/20 PO 1703 Atorvastatin Calcium 20 MG QPM 07/19 2200 AC 07/20 PO 2208 Ceftazidime 1,000 MG Q24 07/20 1000 AC 07/20 IV 1228 Dextrose/Sodium 1,000 ML Q13H 07/19 1000 AC 07/20 Chloride IV 2209 Finasteride 5 MG DAILY 07/20 1422 AC 07/20 PO 2208 Gabapentin 100 MG QPM 07/19 2200 AC 07/19 PO 2126 Hydroxyurea 1,000 MG QAM 07/19 1000 AC 07/20 PO 1703 Nystatin 5 ML 4 TIMES/DAY 07/19 1000 AC 07/19 PO 2126 Polyethylene Glycol 17 GM DAILY NEEDED PRN 07/19 010 AC PO Senna/Docusate Sodium 1 TAB BID PRN 07/19 0100 AC PO Tamsulosin HCl 0.4 MG QPM 07/190 AC 07/20 PO 2208 Warfarin Sodium 1 MG COUMADIN 1700 ONE 07/20 1700 DC 07/20 PO 07/20 1701 1702 Assessment/Plan Assessment: 86-year-old gentleman with PMH A. fib on Coumadin, polycythemia vera on hydroxyzine, coronary artery disease status post stents, history of recurrent UTIs and pneumonia brought in to [place] ER by son with complaint of worsening dementia, agitation and climbing out of bed. At admission had white count of 12, Cr of 1.6, ALP of 146, UA positive for leukocyte esterase. He was initially placed on IV ceftriaxone and placed in ER for one whole day as no beds are available in general medicine floor, however he was given one dose of IM valium in ER. His course in ER is complicated with agitatation and fever of 101.5 in the evening. He was eventually converted to Ceftaz and received a single dose of vanco. Brought upstairs in the evening on 07/19/16. Plan Delirium in the setting of suspected UTI * Discontinued on ceftaz and started on oral ciprofloxacin 500mg BID * Cultures are negative so far. * Avoid benzos and narcotics * Urinary retention secondary to BPH - urology consulted. Advised alexander - inserted. * Needs outpatient follow up for cystoscopy studies, to evaluate for eventual TURP Swallow evaluation * Passed swallow evaluation and started on Pureed & honey thick diet. Constipation * CT scan shows stercolitis at admission * He had 2 bowel movements yesterday * resolved. ERICKA * Cr of 1.6 at admission - today Cr 1.1 * Discontinued on fluids * will recheck BEP Polycytemia vera * On hydroxyurea 1000mg every day * H&H in acceptable range 12.7/39.3 Paroxysmal A.fib * On warfarin 1mg dialy and amiodarone 200mg at home * will dose according to INR daily CAD s/p stents * on asprin and atorvastatin - will continue them DVT prophylaxis * on warfarin Code status * DNR/DNI Problem List: 1. Acute delirium 2. Fecal impaction in rectum 3. UTI (urinary tract infection) 4. Altered mental status Pain Ratin Pain Location: n/a Pain Goal: Pain 4 or less Pain Plan: tylenol prn Tomorrow's Labs & Rationales: bep to monitor renal function and electrolytes in ericka patient PT as on coumadin for A.Dalia MILLER MD,[facility] 07/21/16 1335: Attending MD Review Statement Attending Statement Attending MD Statement: examined this patient, discuss w/resident/PA/U.S. REPRESENTATIVE, agreed w/resident/PA/U.S. REPRESENTATIVE, reviewed EMR data (avail), discussed with nursing, discussed with case mgmt, amended to note Attending Assessment/Plan: Patient seen and examined, he was better today compared to before. He was still sleepy but was arousable on command. He is hemodynamically stable. Leukocytosis has improved. His urine cultures so far remained negative therefore we have switch him to Cipro according to his previous urine culture results. His abdominal ultrasound does not show any evidence of any bile duct obstruction or hydronephrosis. He is awaiting swallow evaluation. His INR is therapeutic. Will dose Coumadin accordingly. He ultimately will be discharged home hopefully within the next 24 hours if his mental state continued to improve and he passes swallow evaluation.
[2016-07-21 07:22] LABS: PT 23.3 SEC (9.4-12.5)
[2016-07-21 07:48] VITALS: BP 130/50
--- NOTE | 2016-07-21 09:14 | Patient Discharge Instructions ---
Discharge Instructions General Discharge Information You were seen/treated for: Altered mental status UTI Special Instructions: Please follow up with in a week Please follow up with your PCP in a week Diet Continue normal diet: Yes Activity Full Activity/No Limits: No Activity Self Limited: Yes Acute Coronary Syndrome Inclusion Criteria At DC or during hospital stay patient has or had the following: ACS DIAGNOSIS No Discharge Core Measures Meds if any: Prescribed or Continued at Discharge Meds if any: NOT Prescribed or Continued at Discharge Congestive Heart Failure Inclusion Criteria At DC or during hospital stay patient has or had the following: CHF DIAGNOSIS No Discharge Core Measures Meds if any: Prescribed or Continued at Discharge Meds if any: NOT Prescribed or Continued at Discharge Cerebrovascular accident Inclusion Criteria At DC or during hospital stay patient has or had the following: CVA/TIA Diagnosis No Discharge Core Measures Meds if any: Prescribed or Continued at Discharge Meds if any: NOT Prescribed or Continued at Discharge Venous thromboembolism Inclusion Criteria VTE Diagnosis No VTE Type NONE VTE Confirmed by (Test) NONE Discharge Core Measures - Per Current guidelines, there needs to be overlap - treatment for the first 5 days of Warfarin therapy. - If discharged on Warfarin prior to 5 days of - overlap therapy, the patient will need to be - assessed for post discharge needs including - *Post discharge parental anticoagulation - *Warfarin and/or parental anticoagulation education - *Follow up date to check INR post discharge At least 5 days overlap therapy as Inpatient No Meds if any: Prescribed or Continued at Discharge Note: Overlap Therapy is Warfarin and Anticoagulant Meds if any: NOT Prescribed or Continued at Discharge
[2016-07-21 14:51] VITALS: BP 122/60
[2016-07-21] MEDS ORDERED: CIPRO500 M1 PO (18:01)
[2016-07-21 22:07] VITALS: BP 128/60
[2016-07-22 06:55] VITALS: BP 134/66
--- NOTE | 2016-07-22 07:48 | PN- Housestaff ---
ESCOBAR APPLE,CLINTON 07/22/16 0747: Subjective Follow-up For: Altered mentation Suspected UTI Subjective: I saw and examined the patient today morning He is feeling much better. Able to communicate well, eating well. He didn't have a bowel movement for the past [address] He received MiraLAX , docusate suppository and senna today morning we will wait for the bowel movement. Review of Systems Constitutional: Reports: see HPI. Comments: ROS negative except the above. Objective Last 24 Hrs of Vital Signs/I&O Vital Signs Date Time Temp Pulse Resp B/P Pulse O2 O2 Flow FiO2 Ox Delivery Rate 07/22 0655 96.2 69 20 134/66 96 07/22 0030 94 Nasal 2.0L Cannula 07/21 2207 97.6 60 16 128/60 94 Nasal Cannula 07/21 2144 60 128/60 07/21 1600 99 Nasal 2.0L Cannula 07/21 1451 62 16 122/60 99 Nasal 2.0L Cannula 07/21 1140 64 108/58 07/21 0800 98 Nasal 2.0L Cannula 07/21 0748 98.7 65 20 130/50 98 Nasal 2.0L Cannula Intake & Output 07/22 0800 / 0000 07/21 1600 Intake Total 440 1050 Output Total 700 375 450 Balance -700 65 600 Intake, IV 450 Intake, Oral 440 600 Number 1 Bowel Movements Output, Urine 700 375 450 Patient 72.575 kg Weight Physical Exam General Appearance: Alert, Oriented X3, Cooperative Skin: No Rashes, No Breakdown HEENT: Atraumatic, PERRLA Neck: Supple Cardiovascular: Normal S1, Normal S2 Lungs: Clear to Auscultation, Normal Air Movement Abdomen: Normal Bowel Sounds, Soft, No Tenderness Neurological: Strength at 5/5 X4 Ext, Normal Tone, Sensation Intact Reproductive (MALE) alexander in place Current Medications: Current Medications Sig/Caroline Start time Last Medication Dose Route Stop Time Status Admin Acetaminophen 650 MG Q6P PRN 07/19 0100 AC 07/21 PO 0456 Amiodarone HCl 200 MG QAM 07/19 1000 AC 07/21 PO 1140 Aspirin Buffered 81 MG DAILY 07/19 1000 AC 07/21 PO 1140 Atorvastatin Calcium 20 MG QPM 07/19 2200 AC 07/21 PO 2143 Ceftazidime 1,000 MG Q24 07/20 1000 DC 07/20 IV 1228 Ciprofloxacin 500 MG BID 07/21 1008 AC 07/21 PO 07/25 1007 2144 Dextrose/Sodium 1,000 ML Q13H 07/19 1000 DC 07/20 Chloride IV 2209 Finasteride 5 MG DAILY 07/20 1422 AC 07/21 PO 1140 Gabapentin 100 MG QPM 07/19 2200 AC 07/21 PO 2144 Hydroxyurea 1,000 MG QAM 07/19 1000 AC 07/21 PO 1140 Nystatin 5 ML 4 TIMES/DAY 07/19 1000 AC 07/21 PO 2144 Patient Medication 1 ED .STK-MED ONE 07/21 1344 DC Teaching ED 07/21 1345 Polyethylene Glycol 17 GM DAILY NEEDED PRN 07/19 0100 AC PO Senna/Docusate Sodium 1 TAB BID PRN 07/19 0100 AC PO Tamsulosin HCl 0.4 MG QPM 07/19 2200 AC 07/21 PO 2144 Warfarin Sodium 1 MG COUMADIN 1700 ONE 07/21 1700 DC 07/21 PO 07/21 1701 1718 Last 24 Hrs of Lab/Addy Results Last 24 Hrs of Labs/Mics: Laboratory Tests 07/22/16 0630: Sodium Pending, Potassium Pending, Chloride Pending, Carbon Dioxide Pending, Anion Gap Pending, BUN Pending, Creatinine Pending, BUN/Creatinine Ratio Pending , PT Pending, INR Pending Lines/Diet/Fluids Lines: peripheral lines Assessment/Plan Assessment: 86-year-old gentleman with PMH A. fib on Coumadin, polycythemia vera on hydroxyzine, coronary artery disease status post stents, history of recurrent UTIs and pneumonia brought in to [place] ER by son with complaint of worsening dementia, agitation and climbing out of bed. At admission had white count of 12, Cr of 1.6, ALP of 146, UA positive for leukocyte esterase. He was initially placed on IV ceftriaxone and placed in ER for one whole day as no beds are available in general medicine floor, however he was given one dose of IM valium in ER. His course in ER is complicated with agitatation and fever of 101.5 in the evening. He was eventually converted to Ceftaz and received a single dose of vanco. Brought upstairs in the evening on 07/19/16. Plan Delirium in the setting of suspected UTI * on oral ciprofloxacin 500mg BID * Cultures are negative so far. * Avoid benzos and narcotics * Urinary retention secondary to BPH - urology consulted. Advised alexander - inserted. * Needs outpatient follow up for cystoscopy studies, to evaluate for eventual TURP * Today patient is discharged on alexander, his son had lot of questions and concern that this was not informed earlier. The care instructions are reinforced - if not able to take care asked to stay one more day for voiding trails * Family is not interested in staying one more day and got disharged with alexander. Swallow evaluation * Passed swallow evaluation and started on Pureed & honey thick diet. Constipation * CT scan shows stercolitis at admission * He had a bowel movement today. * resolved. ERICKA * Cr of 1.6 at admission - today Cr 1.1 * Discontinued on fluids * will recheck BEP Polycytemia vera * On hydroxyurea 1000mg every day * H&H in acceptable range 12.7/39.3 Paroxysmal A.fib * On warfarin 1mg dialy and amiodarone 200mg at home * will dose according to INR daily CAD s/p stents * on asprin and atorvastatin - will continue them DVT prophylaxis * on warfarin Code status * DNR/DNI Problem List: 1. Acute renal failure 2. Fecal impaction in rectum 3. UTI (urinary tract infection) 4. Altered mental status 5. Acute delirium Pain Ratin Pain Location: n/a Pain Goal: Pain 4 or less Pain Plan: tylenol PRN Tomorrow's Labs & Rationales: NONE PJ MILLER MD 07/22/16 1358: Attending MD Review Statement Attending Statement Attending MD Statement: examined this patient, discuss w/resident/PA/WINDOW SHADE RING SEWER, agreed w/resident/PA/WINDOW SHADE RING SEWER, discussed with family, reviewed EMR data (avail), discussed with nursing, discussed with case mgmt, reviewed images, amended to note Attending Assessment/Plan: Patient seen and examined, much improved. He is awake alert and talking. He denies any complaints. Son is concerned about patient developing constipation again. We will give him a suppository and then after the bowel movement he can be discharged home today on oral antibiotics. Via holding his amlodipine and lisinopril. This was discussed with patient's son to keep an eye on the blood pressure. If patient's blood pressure starts to creep up then he should follow- up with the primary care doctor to resume anti-hypertensives.
[2016-07-22 08:42] LABS: PT 26.9 SEC (9.4-12.5)
[2016-07-22] MEDS ORDERED: FINASTERIDE5 M1 PO (11:01)
[2016-07-22] MEDS ORDERED: GABAPENTIN100 M2 PO (11:01)
[2016-07-22] MEDS ORDERED: MIRALAX119 GM PO (11:15)
[2016-07-22] MEDS ORDERED: COLACE100 M1 PO (11:15)
--- NOTE | 2016-07-22 14:11 | Discharge Summary ---
Visit Information Visit Dates Admission Date: 07/18/16 Discharge Date: 07/22/16 Hospital Course Course Attending Physician: KURTIS APPLE,MARY ANNE Primary Care Physician: MERE APPLE,[facility] Hospital Course: 86 YO M with PMH A. fib on Coumadin, polycythemia vera on hydroxyzine, coronary artery disease status post stents, history of recurrent UTIs and pneumonia brought in to [place] ER by son with complaint of worsening dementia, agitation and climbing out of bed. At admission had white count of 12, Cr of 1.6, ALP of 146, UA positive for leukocyte esterase. He was initially placed on IV ceftriaxone and placed in ER for one whole day as no beds are available in general medicine floor, however he was given one dose of IM valium in ER. His course in ER is complicated with agitatation and fever of 101.5 in the evening. He was eventually converted to Ceftaz and received a single dose of vanco. Brought to general medicine floor on 07/19/16 evening and the following issues are addressed Delirium in the setting of urinary retention, constipation and suspected UTI UA is postive but Urine cultures are negative. He had acute retention which is acting as a nidus for recurrent infections, once in floor started on ceftaz and later converted to oral Cipro BID for a total of 14days. He also had a bowel movement in the ER. His mentation improved slowly everyday, by 07/22/16 - he is back to baseline. Urinary retention secondary to BPH appears to be cause of recurrent UTI and he had repeated admissions in apr 2016, may 2016, jun 2016. So urology consulted, Alexander inserted as per their advise and he needs outpatient follow up for cystoscopy studies, to evaluate for eventual TURP On 07/23/16 he is discharged on alexander, his son had lot of questions and concern that this was not informed earlier. The care instructions are reinforced - if not able to take care asked to stay one more day for voiding trails. But apparently Family is not interested in staying one more day and got disharged with alexander. Swallow evaluation * Passed swallow evaluation and started on Pureed & honey thick diet. Constipation CT scan shows stercolitis at admission. He had a bowel movement. ERICKA Cr of 1.6 at admission, started on fluids could be postrenal. Renal ultrasound is negative for nephrolithiasis. He responded well to fluids - stopped fluids. By the time of discharge his Cr is 0.9. Polycytemia vera On hydroxyurea 1000mg every day which was continued during his hospital course. H&H in acceptable range. Paroxysmal A.fib On warfarin 1mg dialy and amiodarone 200mg at home which were continued during his hospital stay and INR is checked every day which is therapeutic. 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 Bed bound. Follow-Up Instructions/Appts: Please follow up with in a week Please follow up with your PCP in a week Medications at Discharge Discharge Medications: Stop taking the following medications: Gabapentin (Gabapentin) 300 MG CAPSULE ORAL Every night Amlodipine Besylate (Amlodipine Besylate) 5 MG TABLET ORAL DAILY Lisinopril (Prinivil) 10 MG TABLET ORAL Every night Continue taking these medications: Tamsulosin HCl (Flomax) 0.4 MG CAP.ER.24H 1 Capsule ORAL Every night Comments: Last Taken: 07/21/16 Time: 2200 Aspirin (Ecotrin*) 81 MG TABLET.DR 1 Tablet ORAL DAILY Comments: Last Taken: 07/22/16 Time: 1000 Amiodarone HCl (Amiodarone HCl) 200 MG TABLET 1 Tablet ORAL Every Morning Comments: Last Taken: Time:PER PT MED LIST Last Taken: 07/22/16 Time: 1000 Atorvastatin Calcium (Lipitor) 20 MG TABLET 1 Tablet ORAL Every night Comments: PER PT MED LIST Last Taken: 07/08/16 Time: 0900 Sennosides (Senna Lax) 8.6 MG TABLET 2 Tablet ORAL Every night Comments: PER PT MED LIST Last Taken: 07/21/16 Time: 10:00AM Hydroxyurea (Hydroxyurea) 500 MG CAPSULE 2 Capsule ORAL Every Morning Comments: PER PT MED LIST Last Taken: 07/22/16 Time: 10:00AM Cranberry Conc/Ascorbic Acid (Cranberry Plus Vitamin C Sftgl) 4,200 MG-20 MG CAPSULE 1 Capsule ORAL TWICE DAILY Comments: NOT GIVEN IN HOSPITAL Warfarin Sodium (Warfarin Sodium) 2 MG TABLET 0.5 Tablet ORAL Every night Comments: Last Taken:07/21/16 Time:5:18PM Start taking the following new medications: Gabapentin (Gabapentin) 100 MG CAPSULE 100 Milligram ORAL Every night Qty = 30 No Refills Finasteride (Finasteride) 5 MG TABLET 5 Milligram ORAL DAILY Qty = 30 No Refills Polyethylene Glycol 3350 (Miralax) 17 GRAM/DOSE POWDER 17 Gram ORAL DAILY NEEDED as needed for CONSTIPATION Qty = 30 No Refills Ciprofloxacin HCl (Cipro) 500 MG TABLET 1 Tablet ORAL TWICE DAILY Qty = 24 No Refills Docusate Sodium (Colace) 100 MG CAPSULE 1 Capsule ORAL TWICE DAILY as needed for CONSTIPATION Qty = 30 No Refills Copies To: MERE APPLE,YUSUF; DENIZ APPLE,HESHAM Dockery MD Review Statement Documenting Attending: ANGELA APPLE,PJ
[2016-07-22 15:15] VITALS: BP 112/70
== END 2016-07-22 17:15 | disposition home health service (06) | DRG 682 ==
LOC: ENRESERVTM → ENRESERVDT → ERH 17:50 → ENPENDDIS 21:50 → 2NB 21:50 → ERHI 21:50 → 2NB 07-19 19:40
PROVIDERS: Emergency Medicine; Internal Medicine; ADMIT Internal Medicine
DX: N17.9 Acute kidney failure, unspecified (principal); G93.41 Metabolic encephalopathy; L89.151 Pressure ulcer of sacral region, stage 1; B37.0 Candidal stomatitis; D45 Polycythemia vera; F03.90 Unspecified dementia, unspecified severity, without behavioral disturbance, psychotic disturbance, mood disturbance, and anxiety; G62.9 Polyneuropathy, unspecified; F05 Delirium due to known physiological condition; I48.0 Paroxysmal atrial fibrillation; N39.0 Urinary tract infection, site not specified; Z79.01 Long term (current) use of anticoagulants; I25.10 Atherosclerotic heart disease of native coronary artery without angina pectoris; I10 Essential (primary) hypertension; Z95.5 Presence of coronary angioplasty implant and graft; E78.5 Hyperlipidemia, unspecified; N40.1 Benign prostatic hyperplasia with lower urinary tract symptoms; R33.8 Other retention of urine; Z95.1 Presence of aortocoronary bypass graft; Z89.512 Acquired absence of left leg below knee; Z89.611 Acquired absence of right leg above knee; Z87.891 Personal history of nicotine dependence
CPT/HCPCS: 2NBSP; ERO; 74176; 81001; 82436; 87040; 87086; 87804; 87804-59; 93005; 93010; J0131; J0696; J0713; J3370; J3490; J7042; J7060

== ENCOUNTER 2016-07-29 07:43 | Emergency (ER) | payer OTHER ==
[~2016-07-29] VITALS: Ht 190.5 cm; Wt 72.6 kg
[~2016-07-29 07:43] MED LIST changes: +CIPRO500 M1 PO; +COLACE100 M1 PO; +FINASTERIDE5 M1 PO; +GABAPENTIN100 M2 PO; +MIRALAX119 GM PO; +PRINIVIL10 M1 PO; +WARFARIN SODIUM2 M1 PO
--- NOTE | 2016-07-29 07:59 | ED GI/GU/ABDOMINAL COMPLAINT ---
History of Present Illness General Chief Complaint: Male Genitourinary Problems Stated Complaint: URINARY RETENTION Source: patient, family, old records Exam Limitations: no limitations Vital Signs & Intake/Output Vital Signs & Intake/Output Vital Signs Date Time Temp Pulse Resp B/P Pulse O2 O2 Flow FiO2 Ox Delivery Rate 07/29 1043 96.0 71 16 163/71 99 Room Air 07/29 0800 74 16 158/74 98 Room Air Allergies Coded Allergies: amlodipine (Severe, ANAPHYLAXIS 07/29/16) niacin (EXTREME FLUSHING FROM IMMEDIATE RELEASE 07/18/16) PT TOLERATES SLOW RELEASE Reconcile Medications Amiodarone HCl 200 MG TABLET 1 TAB PO QAM AFIB (Reported) Aspirin (Ecotrin*) 81 MG TABLET.DR 1 TAB PO DAILY HEART HEALTH (Reported) Atorvastatin Calcium (Lipitor) 20 MG TABLET 1 TAB PO QPM CHOLESTEROL ( Reported) Ciprofloxacin HCl (Cipro) 500 MG TABLET 1 TAB PO BID urine infection Cranberry Conc/Ascorbic Acid (Cranberry Plus Vitamin C Sftgl) 4,200 MG-20 MG CAPSULE 1 CAP PO BID SUPPLEMENT (Reported) Docusate Sodium (Colace) 100 MG CAPSULE 1 CAP PO BID PRN CONSTIPATION Finasteride 5 MG TABLET 5 MG PO DAILY urinary retention Gabapentin 100 MG CAPSULE 100 MG PO QPM nerve pain Hydroxyurea 500 MG CAPSULE 2 CAP PO QAM POLYCYTHEMIA VERA (Reported) Polyethylene Glycol 3350 (Miralax) 17 GRAM/DOSE POWDER 17 GM PO DAILY NEEDED PRN CONSTIPATION Sennosides (Senna Lax) 8.6 MG TABLET 2 TAB PO QPM CONSTIPATION (Reported) Tamsulosin HCl (Flomax) 0.4 MG CAP.ER.24H 1 CAP PO QPM PROSTATE (Reported) Warfarin Sodium 2 MG TABLET 0.5 TAB PO QPM BLOOD THINNER (Reported) Triage Note: PT TO ED FOR LOWER ABD PAIN AND "CLOGGED WALL" PER SON WALL HAS BEEN DRAINING WELL BUT SINCE LAST NIGHT IT HAS NOT BEEN DRAINING. PT C/O PRESSURE AND TIGHTNESS OVER BLADDER. DENIES NAUSEA, VOMITING, FEVER, WORSENING WEAKNESS. Triage Nurses Notes Reviewed? yes Onset: Abrupt Duration: hour(s): (FEW) Timing: single episode today Quality/Severity: fullness, moderate Location: suprapubic Radiation: no radiation No Modifying Factors: none Associated Symptoms: NO URINARY OUTPUT HPI: This is an 86-year-old male with history of multiple medical problems including A. fib on Coumadin, recent hospitalization requiring Wall catheter replacement who presents to the ER with chief complaint of no urine output since this morning from the Wall bag. Patient endroses abdominal pain and distention. According to the son the wall catheter was placed last Sunday while in the hospital and is due to follow up with Dr. Marie this following Sunday. He was told that if the wall catheter stop draining that he needed to come here for evaluation. No fever, chills or vomiting. No blood in the wall bag that they noticed. No previous issues with Wall catheter. Past History Travel History Traveled to [facility] past 21 day No Medical History Any Pertinent Medical History? 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 No Review of Systems Review of Systems Constitutional: Denies: chills, fever. EENTM: Reports: no symptoms. Respiratory: Denies: cough, short of breath. Cardiovascular: Denies: chest pain. GI: Reports: abdominal pain, distention. Denies: nausea, vomiting. Genitourinary: Reports: no symptoms. Musculoskeletal: Reports: no symptoms. Skin: Reports: no symptoms. Neurological/Psychological: Reports: no symptoms. Hematologic/Endocrine: Denies: bruising, bleeding, polyuria, polydipsia. Immunologic/Allergic: Denies: splenectomy. All Other Systems: Reviewed and Negative Physical Exam Physical Exam General Appearance: alert, awake, mild distress Head: atraumatic, normal appearance Eyes: Bilateral: PERRL, EOMI. Ears, Nose, Throat, Mouth: hearing grossly normal, moist mucous membrane Neck: normal inspection, supple, full range of motion Respiratory: normal breath sounds, chest non-tender Cardiovascular: regular rate/rhythm Gastrointestinal: soft, distention (PALPABLE ABOVE UMBILICUS), tenderness Male Genitals: normal genitalia Back: normal inspection, normal range of motion Extremities: normal range of motion Neurologic/Psych: no motor/sensory deficits, awake, alert, oriented x 3 Skin: intact, normal color, warm/dry Core Measures ACS in differential dx? No Severe Sepsis Present: No Septic Shock Present: No Progress Differential Diagnosis: urinary retention, UTI/pyelo, urinary retention, renal failure, anemia, ANEMIA, COAGULOPATHY Plan of Care: Orders Procedure Date/time Status Continuous Bladder Irrigation 07/29 848 Active PARTIAL THROMBOPLASTIN TIME 07/29 848 Complete PROTHROMBIN TIME 07/29 848 Complete COMPREHENSIVE METABOLIC PANEL 07/29 848 Complete CBC WITHOUT DIFFERENTIAL 07/29 848 Complete Wall, Insertion/Removal/Asses 07/29 809 Active CULTURE,URINE 07/29 809 Active URINALYSIS 07/29 08 Complete Laboratory Tests 07/29/16 0948: CBC w Diff MAN DIFF ORDERED, RBC 4.22 L, MCV 99.9 H, MCH 31.6 H, RDW 18.2 H, MPV 8.4, Gran % 88.3 H, Lymphocytes % 5.1 L, Monocytes % 4.2, Eosinophils % 1.6, Basophils % 0.8, Absolute Granulocytes 11.6 H, Absolute Lymphocytes 0.7 L , Absolute Monocytes 0.5, Absolute Eosinophils 0.2, Absolute Basophils 0.1, Platelet Estimate ADEQUATE, Anisocytosis 1+, PUBS MCHC 31.7 L 07/29/16 0911: Anion Gap 11, Estimated GFR > 60, BUN/Creatinine Ratio 16.7, Glucose 110 H, Calcium 9.1, Total Bilirubin 0.6, AST 20, ALT 24, Alkaline Phosphatase 119, Total Protein 6.1 L, Albumin 2.9 L, Globulin 3.2, Albumin/Globulin Ratio 0.9 L 07/29/16 0900: Urine Color BLDY H, Urine Clarity CLDY H, Urine pH 6.5, Ur Specific [place] 1.020, Urine Protein 100 H, Urine Ketones TRACE H, Urine Nitrite POS H, Urine Bilirubin NEG@ICTO, Urine Urobilinogen 0.2, Ur Leukocyte Esterase MOD H, Ur Microscopic SEDIMENT EXAMINED, Urine RBC PACKD H, Urine WBC 50-75 H, Urine Bacteria FEW H, Micro UA Comment , Urine Hemoglobin LARGE H, Urine Glucose NEG 07/29/16 0849: PT 21.4 H, INR 2.05 H, APTT 27 Microbiology 07/29 0900 URINE ROUT: Urine Culture - RECD 11:00 AM Wall catheter unable to be irrigated and was replaced. Urine is starting to drain clear at this time. Still blood-tinged. Hemoglobin and hematocrit is stable. WBC is SLIGHTLY ELEVATED AND URINE APPEARS TO BE INFECTED. CURRENTLY STILL ON CIPROFLOXACIN 500 TWICE A DAY UNTIL SUNDAY. LAST URINE SAMPLE SENT THE CULTURE WAS NEGATIVE. HISTORY OF ORGANISMS THAT ARE RESPONSIVE TO CIPRO. PATIENT FEELING MUCH BETTER AT THIS TIME. HE WILL LIKELY BE STABLE FOR DISCHARGE TO FOLLOW-UP WITH DR. MARIE IN THE OFFICE ON SUNDAY. 11:12 LAB CALLED - INR STILL PENDING (RANGEL APPLE,[place]ARD[place]) Initial ED EKG: none Departure Departure Time of Disposition: 1130 Disposition: HOME OR SELF CARE Condition: Stable Clinical Impression Primary Impression: Urinary retention Secondary Impressions: Hematuria, On warfarin therapy Referrals: MERE APPLE,YUSUF (PCP/Family) HESHAM MARIE MD Additional Instructions: Continue with your Cipro until Sunday and follow-up with Dr. Marie on Sunday. Return for any Wall catheter related problems, fever, chills nausea or vomiting. Departure Forms: Customer Survey General Discharge Information
[2016-07-29 10:05] LABS: ABSOLUTE BASOPHIL COUNT 0.1 /CUMM (0.0-0.2); ABSOLUTE EOSINOPHIL COUNT 0.2 /CUMM (0.0-0.7); ABSOLUTE GRANULOCYTE CT 11.6 /CUMM (1.4-6.5); ABSOLUTE LYMPH COUNT 0.7 /CUMM (1.2-3.4); ABSOLUTE MONOCYTE COUNT 0.5 /CUMM (0.10-0.60); BASOPHIL % 0.8 % (0.0-2.0); EOSINOPHIL % 1.6 % (0-5); GRANULOCYTE % 88.3 % (42.2-75.2); HEMATOCRIT 42.1 % (42-52); MEAN CORPUSCULAR HGB 31.6 PG (27.0-31.0); MEAN CORPUSCULAR HGB CONC 31.7 G/DL (33.0-37.0); MEAN CORPUSCULAR VOLUME 99.9 FL (80.0-94.0); MEAN PLATELET VOLUME 8.4 FL (7.4-10.4); PLATELET COUNT 297 /CUMM (130-400); RBC DISTRIBUTION WIDTH 18.2 % (11.5-14.5); RED BLOOD CELL CT 4.22 /CUMM (4.70-6.10); WHITE BLOOD CELL COUNT 13.1 /CUMM (4.8-10.8)
[2016-07-29 10:17] LABS: PT 21.4 SEC (9.4-12.5); PTT 27 SEC (25-37)
[2016-07-29 10:43] VITALS: BP 163/71
== END 2016-07-29 12:30 ==
LOC: ERH 07:43
PROVIDERS: Emergency Medicine
DX: R33.9 Retention of urine, unspecified (principal); Z79.01 Long term (current) use of anticoagulants
CPT/HCPCS: 81001; 87086

== ENCOUNTER 2016-10-11 13:39 | Inpatient (IN) | payer OTHER ==
[~2016-10-11] VITALS: Ht 172.7 cm; Wt 72.6 kg
--- NOTE | 2016-10-11 13:45 | NUR ---
PT TO ED FOR 2 EPISODES OF BLACK STOOLS LAST NIGHT AND A LOOSE BLACK STOOL THIS AM. FAMILY TOOK PT TO PCP WHO ATTEMPTED TO GET BLOODWORK TO CHECK INR, WAS UNABLE TO DO SO AND FELT PT IS DEHYDRATED SO SENT TO ED FOR FURTHER EVAL. PT DENIES ANY COMPLAINTS CURRENTLY - STATES HE HAD ONE EPISODE OF "SLIGHT" ABDOMINAL PAIN LAST NIGHT. PT HAS WALL IN PLACE, WALL CHANGED BY DENIZ ON SUNDAY.
--- NOTE | 2016-10-11 13:54 | ED GENERAL ADULT ---
History of Present Illness General Chief Complaint: General Adult Stated Complaint: BLACK STOOLS Source: patient, family, old records Exam Limitations: no limitations Allergies Coded Allergies: amlodipine (Severe, ANAPHYLAXIS 07/29/16) niacin (EXTREME FLUSHING FROM IMMEDIATE RELEASE 07/18/16) PT TOLERATES SLOW RELEASE Reconcile Medications Amiodarone HCl 200 MG TABLET 1 TAB PO QAM AFIB (Reported) Aspirin (Ecotrin*) 81 MG TABLET.DR 1 TAB PO DAILY HEART HEALTH (Reported) Atorvastatin Calcium (Lipitor) 20 MG TABLET 1 TAB PO QPM CHOLESTEROL ( Reported) Cranberry Conc/Ascorbic Acid (Cranberry Plus Vitamin C Sftgl) 4,200 MG-20 MG CAPSULE 1 CAP PO BID SUPPLEMENT (Reported) Docusate Sodium (Colace) 100 MG CAPSULE 1 CAP PO BID PRN CONSTIPATION Finasteride 5 MG TABLET 5 MG PO DAILY urinary retention Gabapentin 100 MG CAPSULE 100 MG PO QPM nerve pain Hydroxyurea 500 MG CAPSULE 2 CAP PO QAM POLYCYTHEMIA VERA (Reported) Lisinopril 10 MG TABLET 1 TAB PO DAILY HEART (Reported) Pantoprazole Sodium (Protonix) 40 MG TABLET.DR 1 TAB PO DAILY Acid Polyethylene Glycol 3350 (Miralax) 17 GRAM/DOSE POWDER 17 GM PO DAILY NEEDED PRN CONSTIPATION Sennosides (Senna Lax) 8.6 MG TABLET 2 TAB PO QPM CONSTIPATION (Reported) Sulfamethoxazole/Trimethoprim (Sulfamethoxazole-Tmp Ds Tablet) 800 MG-160 MG TABLET 1 TAB PO BID Urine infection Tamsulosin HCl (Flomax) 0.4 MG CAP.ER.24H 1 CAP PO QPM PROSTATE (Reported) Warfarin Sodium 2 MG TABLET 0.5 TAB PO QPM BLOOD THINNER (Reported) Triage Note: PT TO ED FOR 2 EPISODES OF BLACK STOOLS LAST NIGHT AND A LOOSE BLACK STOOL THIS AM. FAMILY TOOK PT TO PCP WHO ATTEMPTED TO GET BLOODWORK TO CHECK INR, WAS UNABLE TO DO SO AND FELT PT IS DEHYDRATED SO SENT TO ED FOR FURTHER EVAL. PT DENIES ANY COMPLAINTS CURRENTLY - STATES HE HAD ONE EPISODE OF "SLIGHT" ABDOMINAL PAIN LAST NIGHT. PT HAS WALL IN PLACE, WALL CHANGED BY DENIZ ON SUNDAY. Triage Nurses Notes Reviewed? yes HPI: Mr Muñoz is an 86 year old M with PMH A. 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 Son of the patient Gutierrez states that yesterday in the early evening 10/10/2016 Mr. Muñoz had one episode of black stool. He states the stool was well-formed. This morning the patient had another episode of black stool however was loose. Subsequently to above the patient was taken to the office of his primary care physician Dr. Ramos where they attempted to do blood work. His INR was found to be 1.96. Over the last few days the patient endorses no additional complaints. He denies any fever, chills, nausea, vomiting. Patient does not follow up with a GI physician. He has not had a colonoscopy in over 10 years. Patient's who has a chronic Wall recently underwent Wall change under the care of Dr. Marie. This was done on Sunday10/09/2016. Dr. Marie additionally started the patient on ciprofloxacin 500 mg twice a day as prophylaxis Patient normally takes 1 mg of Coumadin on a daily basis. The office of Dr. Ramos helps him manage his INRs. (KAYLEE APPLE,[facility]) Vital Signs & Intake/Output Vital Signs & Intake/Output Vital Signs Date Time Temp Pulse Resp B/P B/P Pulse O2 O2 Flow FiO2 Mean Ox Delivery Rate 10/13 0953 60 124/60 10/13 0618 99.3 60 20 124/60 95 Room Air 10/12 2206 96 126/62 10/12 2142 98.4 63 20 124/60 93 Room Air 10/12 1706 98.1 61 18 166/60 97 Room Air ED Intake and Output 10/13 0000 10/12 1200 Intake Total 300 1000 Output Total 700 1000 Balance -400 0 Intake, IV 300 1000 Output, Urine 700 1000 Patient 72.575 kg Weight Past History Travel History Traveled to [place] past 21 day No Medical History Any Pertinent Medical History? 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 No (YADIRA LAINEZ MD) Review of Systems Review of Systems Constitutional: Denies: chills, diaphoresis, fever, malaise, weakness. Respiratory: Denies: cough, hemoptysis, orthopnea, short of breath. Cardiovascular: Denies: chest pain, edema. GI: Denies: abdominal pain, bloating, constipation, diarrhea, distention, bowel incontinence, melena. Genitourinary: Denies: discharge, dysuria, frequency, hematuria, hesitation. Musculoskeletal: Denies: back pain, gout, joint pain, joint swelling. (SISSY PAGE MD) Review of Systems EENTM: Reports: no symptoms. Skin: Reports: no symptoms. Neurological/Psychological: Reports: no symptoms. Hematologic/Endocrine: Reports: no symptoms. Immunologic/Allergic: Reports: no symptoms. All Other Systems: Reviewed and Negative (YADIRA LAINEZ MD) Physical Exam Physical Exam General Appearance: well developed/nourished, no apparent distress, alert, awake , comfortable Head: atraumatic, normal appearance Ears, Nose, Throat: normal pharynx, Oral Thrush Neck: normal inspection, supple Respiratory: normal breath sounds Cardiovascular: irregularly irregular Gastrointestinal: normal bowel sounds, soft, non-tender Rectal: normal exam, heme positive stool Back: normal inspection Extremities: normal inspection, Bandage in Lumbar Area Neurologic/Psych: awake, alert, oriented x 3 (SISSY PAGE MD) Physical Exam Eyes: Bilateral: normal appearance, PERRL, EOMI. Peripheral Pulses: 4+ carotid (R), 4+ carotid (L) Reflexes: 2+: bicep (R), bicep (L). Skin: intact, normal color, warm/dry Lymphatic: no anterior cervical janessa Core Measures ACS in differential dx? No CVA/TIA Diagnosis: No Severe Sepsis Present: No Septic Shock Present: No (YADIRA LAINEZ MD) Progress Differential Diagnoses I considered the following diagnoses in my evaluation of the patient: Supratherapeutic INR, lower GI bleed, UTI, (KAYLEE APPLE,SISSY) Differential Diagnoses I considered the following diagnoses in my evaluation of the patient: Plan of Care: Orders Procedure Date/time Status Wall, Insertion/Removal/Asses 10/13 0141 Complete Discharge Patient 10/13 UNK Active Wound Care/Dressing 10/13 UNK Active Laboratory Tests 10/13/16 0605: Anion Gap 8, Estimated GFR > 60, BUN/Creatinine Ratio 21.3, PT 25.7 H, INR 2.47 H, CBC w Diff MAN DIFF ORDERED, RBC 3.53 L, MCV 86.8, MCH 27.4, RDW 18.8 H, MPV 7.9, Gran % 88.4 H, Lymphocytes % 5.8 L, Monocytes % 1.8, Eosinophils % 3.4, Basophils % 0.6, Absolute Granulocytes 12.9 H, Absolute Lymphocytes 0.8 L , Absolute Monocytes 0.3, Absolute Eosinophils 0.5, Absolute Basophils 0.1, Platelet Estimate VERIFIED BY SMEAR, Polychromasia 1+, Poikilocytosis 1+, Anisocytosis 1+, Ovalocytes 1+, PUBS MCHC 31.5 L 10/12/16 1855: CBC w Diff NO MAN DIFF REQ, RBC 3.60 L, MCV 86.9, MCH 27.2, RDW 18.3 H, MPV 7.9, Gran % 88.6 H, Lymphocytes % 4.9 L, Monocytes % 2.7, Eosinophils % 3.1, Basophils % 0.7, Absolute Granulocytes 13.9 H, Absolute Lymphocytes 0.8 L, Absolute Monocytes 0.4, Absolute Eosinophils 0.5, Absolute Basophils 0.1, PUBS MCHC 31.3 L Initial ED EKG: AFIB, nonspecific ST T wave chg Prior EKG: unchanged Rhythm Strip: atrial fibrillation (YADIRA LAINEZ MD) Departure Departure Condition: Stable Referrals: MERE APPLE,YUSUF (PCP/Family) Departure Forms: Customer Survey General Discharge Information Prescriptions: Current Visit Scripts Sulfamethoxazole/Trimethoprim (Sulfamethoxazole-Tmp Ds Tablet) 1 TAB PO BID #11 Pantoprazole Sodium (Protonix) 1 TAB PO DAILY #30 TAB Ref 2 Admission Note Documentation of Exam: Documentation of any treatments & extenuating circumstances including Concerns Regarding Discharge (functional status, medication knowledge or non-compliance, living conditions, etc.) that warrant an admission rather than observation: Patient will need to be admitted for serial blood tests to ensure no rapid drop in H&H because. Need to be monitored for an occult occasion from atrial fibrillation. Patient will also need to be started on broad-spectrum antibiotics. He will also need fluid resuscitation owing to being hypotensive. Failure to the above-mentioned result in hemodynamic instability and result in potential arrhythmias and or . (KAYLEE APPLE,SISSY) Departure Time of Disposition: 1516 Disposition: STILL A PATIENT Clinical Impression Primary Impression: Upper GI bleeding Admission Note Spoke With: LUZ MARINA APPLE,AZEEM Resident Co-Sign Statement Statement: ED Attending supervision documentation- x I saw and evaluated the patient. I have also reviewed all the pertinent lab results and diagnostic results. I agree with the findings and the plan of care as documented in the Resident's documentation. [] I have reviewed the ED Record and agree with the Resident's documentation. [] Additions or exceptions (if any) to the Resident's note and plan are summarized below: [] (FATOU APPLE,YADIRA) Critical Care Note Critical Care Note Critical Care Time: non-applicable (YADIRA LAINEZ MD) Laboratory Tests 10/12/16 1855: CBC w Diff NO MAN DIFF REQ, RBC 3.60 L, MCV 86.9, MCH 27.2, RDW 18.3 H, MPV 7.9, Gran % 88.6 H, Lymphocytes % 4.9 L, Monocytes % 2.7, Eosinophils % 3.1, Basophils % 0.7, Absolute Granulocytes 13.9 H, Absolute Lymphocytes 0.8 L, Absolute Monocytes 0.4, Absolute Eosinophils 0.5, Absolute Basophils 0.1, PUBS MCHC 31.3 L 10/12/16 0520: Anion Gap 8, Estimated GFR > 60, BUN/Creatinine Ratio 25.6 H, PT 22.3 H, INR 2.14 H, CBC w Diff NO MAN DIFF REQ, RBC 3.54 L, MCV 87.1, MCH 27.4, RDW 19.1 H, MPV 7.6, Gran % 87.0 H, Lymphocytes % 6.2 L, Monocytes % 2.4, Eosinophils % 3.6, Basophils % 0.8, Absolute Granulocytes 15.0 H, Absolute Lymphocytes 1.1 L , Absolute Monocytes 0.4, Absolute Eosinophils 0.6, Absolute Basophils 0.1, PUBS MCHC 31.5 L 10/11/16 2350: CBC w Diff MAN DIFF ORDERED, RBC 3.51 L, MCV 86.3, MCH 26.9 L, RDW 19.0 H, MPV 7.6, Gran % 85.8 H, Lymphocytes % 7.1 L, Monocytes % 3.4, Eosinophils % 3.1, Basophils % 0.6, Absolute Granulocytes 16.2 H, Segmented Neutrophils 89 H , Absolute Lymphocytes 1.4, Lymphocytes 4 L, Monocytes 4, Absolute Monocytes 0.6, Eosinophils 2, Absolute Eosinophils 0.6, Basophils 1, Absolute Basophils 0.1, Platelet Estimate INCREASED, Polychromasia 1+, Hypochromic-Microcytic 1+, Poikilocytosis 1+, Basophilic Stippling SLIGHT, Ovalocytes 1+, PUBS MCHC 31.1 L , Fld Total RBCs Counted 100 Differential Diagnoses I considered the following diagnoses in my evaluation of the patient: Initial ED EKG: AFIB, nonspecific ST T wave chg Prior EKG: unchanged Rhythm Strip: atrial fibrillation (YADIRA LAINEZ MD) Departure Departure Condition: Stable Referrals: MERE APPLE,YUSUF (PCP/Family) Departure Forms: Customer Survey General Discharge Information Admission Note Documentation of Exam: Documentation of any treatments & extenuating circumstances including Concerns Regarding Discharge (functional status, medication knowledge or non-compliance, living conditions, etc.) that warrant an admission rather than observation: Patient will need to be admitted for serial blood tests to ensure no rapid drop in H&H because. Need to be monitored for an occult occasion from atrial fibrillation. Patient will also need to be started on broad-spectrum antibiotics. He will also need fluid resuscitation owing to being hypotensive. Failure to the above-mentioned result in hemodynamic instability and result in potential arrhythmias and or . (KAYLEE APPLE,SISSY) Departure Time of Disposition: 1516 Disposition: STILL A PATIENT Clinical Impression Primary Impression: Upper GI bleeding Prescriptions: Current Visit Scripts Pantoprazole Sodium (Protonix) 1 TAB PO DAILY #30 TAB Ref 2 Admission Note Spoke With: LUZ MARINA APPLE,AZEEM Resident Co-Sign Statement Statement: ED Attending supervision documentation- x I saw and evaluated the patient. I have also reviewed all the pertinent lab results and diagnostic results. I agree with the findings and the plan of care as documented in the Resident's documentation. [] I have reviewed the ED Record and agree with the Resident's documentation. [] Additions or exceptions (if any) to the Resident's note and plan are summarized below: [] (YADIRA LAINEZ MD) Critical Care Note Critical Care Note Critical Care Time: non-applicable (YADIRA LAINEZ MD)
[2016-10-11 14:29] LABS: ABSOLUTE BASOPHIL COUNT 0.1 /CUMM (0.0-0.2); ABSOLUTE EOSINOPHIL COUNT 0.5 /CUMM (0.0-0.7); ABSOLUTE GRANULOCYTE CT 18.2 /CUMM (1.4-6.5); ABSOLUTE LYMPH COUNT 0.9 /CUMM (1.2-3.4); ABSOLUTE MONOCYTE COUNT 0.9 /CUMM (0.10-0.60); BASOPHIL % 0.5 % (0.0-2.0); EOSINOPHIL % 2.2 % (0-5); GRANULOCYTE % 88.7 % (42.2-75.2); HEMATOCRIT 32.5 % (42-52); MEAN CORPUSCULAR HGB 27.1 PG (27.0-31.0); MEAN CORPUSCULAR HGB CONC 31.4 G/DL (33.0-37.0); MEAN CORPUSCULAR VOLUME 86.4 FL (80.0-94.0); PLATELET COUNT 463 /CUMM (130-400); RBC DISTRIBUTION WIDTH 18.3 % (11.5-14.5); RED BLOOD CELL CT 3.76 /CUMM (4.70-6.10); WHITE BLOOD CELL COUNT 20.5 /CUMM (4.8-10.8)
--- NOTE | 2016-10-11 14:32 | NUR ---
URINE SENT TO LAB
[2016-10-11] MEDS ORDERED: LISINOPRIL10 M1 PO (14:57)
[2016-10-11 15:00] LABS: PT 20.9 SEC (9.4-12.5)
--- NOTE | 2016-10-11 15:31 | RADIOLOGY REPORT ---
EXAMINATION: XR PORTABLE CHEST CLINICAL INFORMATION: Rule out consolidation versus pneumonia. Aspiration risk. Increased white blood cell count. COMPARISON: Chest radiograph 07/10/2016. TECHNIQUE: Portable frontal view of the chest was obtained. FINDINGS: There is an ill-defined retrocardiac opacity that may represent atelectasis or consolidative disease. The right lung is clear and well expanded. There is no large pleural effusion. No pneumothorax. The cardiac silhouette and upper mediastinal contours are normal. No acute osseous finding. IMPRESSION: There is an ill-defined retrocardiac opacity that may represent a manifestation of subsegmental atelectasis or consolidative disease. The possibility of pneumonia cannot be definitively excluded on the basis of this examination.
--- NOTE | 2016-10-11 16:06 | NUR ---
ASSUMED CARE OF PT, PT NOTED TO BE HYPOTENSIVE AT 83/45, DR RAZA AT BEDSIDE TO PRAVEEN MATSON HUNG A BOLUS.
--- NOTE | 2016-10-11 16:11 | NUR ---
PER DR RAZA, NOTIFY HIM ON PAGER #[phone] OF BP AFTER LITER BOLUS
--- NOTE | 2016-10-11 16:22 | NUR ---
PT NOTED TO HAVE A SMALL SKIN TEAR TO LEFT LATERAL ELBOW, PT STATING HE BUMPED IT ON THE STRETCHER RAILING, MINIMAL BLEEDING NOTED, BACITRACIN APPLIED WITH GAUZE AND COBAN.
--- NOTE | 2016-10-11 16:24 | NUR ---
EDU APPLE AT BEDSIDE TO HUYEN
--- NOTE | 2016-10-11 17:14 | NUR ---
PT'S BP IMPROVED TO 140/64, PT TO BE GEN MED ADMIT, GEN MED TEAM AT BEDSIDE FOR EVAL.
--- NOTE | 2016-10-11 17:15 | NUR ---
PT'S SON CALLED THIS RN TO PT'S BEDSIDE AND STATED THAT HE IS EXTREMELY UNCOMFORTABLY WITH THE GEN MED TEAM WHO CAME TO EVALUATE HIS FATHER, PT'S SON REQUESTING NEW TEAM OF DOCTORS. DR RAZA PAGED AND SITUATION EXPLAINED, DR RAZA STATING HE WILL BE IN TO EVAL PATIENT ON FLOOR FIRST THING TOMORROW MORNING AND WILL GET A NEW TEAM ESTABLISHED FOR PATIENT'S CARE. PATIENT AND SON AGREEABLE TO THIS PLAN
--- NOTE | 2016-10-11 18:15 | History & Physical ---
ESCOBAR APPLE,CLINTON 10/11/161813: General Information and HPI MD Statement: I have seen and personally examined EDITA ROSARIO and documented this H&P. The patient is a 86 year old M who presented with a patient stated chief complaint of [black tarry stools]. Source of Information: patient, family Exam Limitations: no limitations History of Present Illness: Patient is a 86 YO M with PMH A. 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 Patient is in his normal health last week then he started being little lethargic. On Sunday he went to Dr. Marie's office via his Holder catheter was changed (usually every 6 weeks), started on Cipro 500 mg twice a day for 5 days. Yesterday evening he had formed black stool preceded by abdominal discomfort. Today morning he had an episode of loose black stool. Eventually went for an appointment with Dr. Severino for INR check (usually once a month), where she found that he is very dehydrated and sent to ER. Initially in the ER patient was very dehydrated with blood pressure of 93/56 mmHg. He was resuscitated with 2 L of [place] [address] [place]. Last colonoscopy 15 years ago and was normal. History of diverticulitis 2 years ago requiring IV antibiotics. He never followed up with any GI doctor after that episode. He is nonambulatory at baseline, had a home health aide. His son is involved in his care. Previously admitted for delirium secondary to UTI, also had previous admissions resulting in hospice evaluation at some point --but eventually changed their mind as patient got better. Of note : Son believes amlodipine has significant effect on patient developing delirium in the past. Allergies/Medications Allergies: Coded Allergies: amlodipine (Severe, ANAPHYLAXIS 07/29/16) niacin (EXTREME FLUSHING FROM IMMEDIATE RELEASE 07/18/16) PT TOLERATES SLOW RELEASE Home Med list Amiodarone HCl 200 MG TABLET 1 TAB PO QAM AFIB (Reported) Aspirin (Ecotrin*) 81 MG TABLET.DR 1 TAB PO DAILY HEART HEALTH (Reported) Atorvastatin Calcium (Lipitor) 20 MG TABLET 1 TAB PO QPM CHOLESTEROL ( Reported) Ciprofloxacin HCl (Cipro) 500 MG TABLET 1 TAB PO BID urine infection Cranberry Conc/Ascorbic Acid (Cranberry Plus Vitamin C Sftgl) 4,200 MG-20 MG CAPSULE 1 CAP PO BID SUPPLEMENT (Reported) Docusate Sodium (Colace) 100 MG CAPSULE 1 CAP PO BID PRN CONSTIPATION Finasteride 5 MG TABLET 5 MG PO DAILY urinary retention Gabapentin 100 MG CAPSULE 100 MG PO QPM nerve pain Hydroxyurea 500 MG CAPSULE 2 CAP PO QAM POLYCYTHEMIA VERA (Reported) Lisinopril 10 MG TABLET 1 TAB PO DAILY HEART (Reported) Polyethylene Glycol 3350 (Miralax) 17 GRAM/DOSE POWDER 17 GM PO DAILY NEEDED PRN CONSTIPATION Sennosides (Senna Lax) 8.6 MG TABLET 2 TAB PO QPM CONSTIPATION (Reported) Tamsulosin HCl (Flomax) 0.4 MG CAP.ER.24H 1 CAP PO QPM PROSTATE (Reported) Warfarin Sodium 2 MG TABLET 0.5 TAB PO QPM BLOOD THINNER (Reported) Compliance With Home Meds: GOOD Past History Travel History Traveled to [place] past 21 day No Medical History Neurological: peripheral neuropathy, BRAIN BLEED EENT: NONE Cardiovascular: AFIB, aortic stenosis, CAD, hypertension, hyperlipidemia Respiratory: pulmonary embolism Gastrointestinal: constipation, diverticulitis Hepatic: NONE Renal: benign prost hyperplasia Musculoskeletal: NONE Psychiatric: NONE Endocrine: NONE Blood Disorders: DVT, PE, POLYCYTHEMIA Cancer(s): NONE HOSPITAL SALES REPRESENTATIVE/Reproductive: NONE History of MRSA: No History of VRE: No History of CDIFF: No Surgical History Surgical History: CABG, STENTS PROSTATE SURGERY R AKA L BKA Past Family/Social History Psychosocial History Where do you live? Home Who Do You Live With? child Services at Home: Home Health Aide, Nursing Primary Language: Estonian ETOH Use: denies use Illicit Drug Use: denies illicit drug use Functional Ability ADLs Needs Assist: dressing, eating, toileting, bathing. Ambulation: non-ambulatory IADLs Needs Assist: shopping, housework, finances, food prep, telephone, transportation, medication admin. Review of Systems Review of Systems Constitutional: Reports: see HPI. Respiratory: Reports: cough. Comments Last colonoscopy 15 years ago - normal Exam & Diagnostic Data Last 24 Hrs of Vital Signs/I&O Vital Signs Date Time Temp Pulse Resp B/P B/P Pulse O2 O2 Flow FiO2 Mean Ox Delivery Rate 10/11 2010 97.3 58 16 127/60 93 Room Air 10/11 1644 140/64 10/11 1607 97.4 80 18 83/45 94 Nasal 2.0L Cannula 10/11 1421 97 Nasal 2.0L Cannula 10/11 1345 98.4 66 15 96/53 100 Room Air Intake & Output 10/11 1600 10/11 0800 10/11 0000 Intake Total Output Total Balance Patient 81.647 kg Weight Weight Reported by Patient Measurement Method Physical Exam General Appearance Alert, Oriented X3, Cooperative, No Acute Distress Skin No Rashes, No Breakdown HEENT Atraumatic, PERRLA, EOMI Neck Supple, No JVD Cardiovascular Normal S1, Normal S2 Lungs Clear to Auscultation, Normal Air Movement Abdomen Normal Bowel Sounds, Soft, No Tenderness Neurological Normal Speech, Normal Tone, Sensation Intact, right leg AKA and left leg BKA Extremities No Clubbing, No Cyanosis Vascular Normal Pulses Rectal guaiac positive, erythema in the anal region Body Front and Back (Adult) 1) Hypogastric discomfort Last 24 Hrs of Labs/Addy: Laboratory Tests 10/11/16 1820: Urine Color YEL, Urine Clarity CLEAR, Urine pH 5.5, Ur Specific [place] 1.025, Urine Protein TRACE H, Urine Ketones NEG, Urine Nitrite NEG, Urine Bilirubin NEG, Urine Urobilinogen 0.2, Ur Leukocyte Esterase SMALL H, Ur Microscopic SEDIMENT EXAMINED, Urine RBC 3-5, Urine WBC 10-15 H, Ur Epithelial Cells FEW, Urine Bacteria FEW H, Urine Mucus FEW, Urine Hemoglobin TRACE-LYSED H, Urine Glucose NEG 10/11/16 1415: Anion Gap 10, Estimated GFR > 60, BUN/Creatinine Ratio 29.0 H, Glucose 86, Calcium 7.9 L, Total Bilirubin 0.4, AST 14 L, ALT 34, Alkaline Phosphatase 116 , Troponin I < 0.01, Total Protein 5.4 L, Albumin 2.6 L, Globulin 2.8, Albumin /Globulin Ratio 0.9 L, PT 20.9 H, INR 2.00 H, CBC w Diff MAN DIFF ORDERED, RBC 3.76 L, MCV 86.4, MCH 27.1, RDW 18.3 H, MPV 8.0, Gran % 88.7 H, Lymphocytes % 4.4 L, Monocytes % 4.2, Eosinophils % 2.2, Basophils % 0.5, Absolute Granulocytes 18.2 H, Absolute Lymphocytes 0.9 L, Absolute Monocytes 0.9 H, Absolute Eosinophils 0.5, Absolute Basophils 0.1, Platelet Estimate VERIFIED BY SMEAR, Polychromasia 1+, Poikilocytosis 1+, Anisocytosis 1+, Ovalocytes 1+, PUBS MCHC 31.4 L Microbiology 10/11 1435 URINE ROUT: Urine Culture - RECD Assessment/Plan Assessment: 86 YO M with PMH A. fib on Coumadin, polycythemia vera on hydroxyzine, coronary artery disease status post stents, history of recurrent UTIs sent to [place] [facility] by for further evaluation of black tarry stools and dehydration. ER course Vital signs Afebrile, blood pressure 96/53 mmHg--> 140/80 mmHg after 2 L normal saline, on room air Significant labs White count of 20, H&H 10.2/32.5 from 13.3/42 (last according to records), platelet count 463 Creatinine 1.0, INR 2.0 Imaging chest x-ray Ill-defined retrocardiac opacity present Assessment and plan Melena in the setting of warfarin and aspirin intake History of diverticulitis 2 years ago, takes aspirin daily. Denies any previous episodes of melena. Currently takes warfarin for atrial fibrillation, hydroxyurea for polycythemia vera. * Stools are guaiac positive in the ER * Start on IV PPI, nothing by mouth after midnight for possible EGD * GI consulted, Dr. Flores. * IV hydration with normal saline * We will hold aspirin/warfarin for now * Holding antihypertensives and symptomatic of hypotension Recurrent UTIs with indwelling Holder catheter Patient had urinary retention secondary to benign prostatic hypertrophy, was placed on indwelling Holder catheter which was renewed every 6 weeks. On 10/09/16 - this Sunday went to Dr. Marie's office, catheter was changed. His UA was positive and he was started on Cipro 500 twice a day for 5 days pending cultures. * White count of 20 with cultures being positive for staph aureus * Has been on Cipro for the past 2 days * Consider Vanco for suspected MRSA * Continue tamsulosin 0.4 mg and finasteride 5 mg Chronic stable conditions Polycythemia vera: Hydroxyurea 500 mg Atrial fibrillation: Amiodarone 200 mg and warfarin 1 mg daily (currently on hold) CAD: Aspirin 81 mg (holding), atorvastatin 20 mg DVT prophylaxis Alps CODE STATUS DNR/DNI As Ranked By This Provider Problem List: 1. UTI (urinary tract infection) 2. Upper GI bleeding 3. On warfarin therapy 4. Polycythemia vera Core Measures/Miscellaneous Acute Coronary Syndrome ACS Diagnosis: No Cerebrovascular Accident CVA/TIA Diagnosis: No Congestive Heart Failure CHF Diagnosis: No Venous Thromboembolism VTE Risk Factors: Immobility, paresis [facility] prophylaxis d/t: No contraindications No VTE Pharm Prophylaxis d/t: No contraindications VTE Diagnosis: No VTE Type: NONE VTE Confirmed by (Test): NONE Severe Sepsis Severe Sepsis Present: No Septic Shock Septic Shock Present: No Miscellaneous Documentation Attending Case Discussed With: AZEEM RAZA MD Primary Care Physician: YUSUF SEVERINO MD Patient sees these Specialists Dr. Marie Level of Patient Care: General Medicine AZEEM RAZA MD 10/11/16 9045: Attending MD Review Statement Attending Statement Attending MD Statement: examined this patient, discuss w/resident/PA/PATIENT SUPPORT SPECIALIST, agreed w/resident/PA/PATIENT SUPPORT SPECIALIST, reviewed EMR data (avail) Attending Assessment/Plan: 86M PMH atrial fibrillation on Coumadin, recurrent UTI with chronic Holder, dementia (which gets easily exacerbated by Amlodipine and UTIs), CAD s/p PCI, polycythemia vera, being admitted for GI bleed. Patient was in usual state of health, had black stool last night and again this morning with some weakness. He is otherwise asymptomatic. Hypotensive 83/45 on admission but went up to 140/64 after 1L normal saline. Hgb was 13 in July, 10.9 today. WBC 20.9. Currently stable however Hgb level drop is concerning. 1. Acute GI bleed 2. Acute blood loss anemia 3. Leukocytosis 4. Chronic atrial fibrillation 5. Chronic Holder catheter 6. Recurrent UTI Plan - Admit to general medicine. If hypotensive or unstable may upgrade to ICU overnight. - CBC q6h - IV Protonix - GI consult - Urology consult - Holder catheter replacement with urine culture - Follow up UA - IV hydration - NPO - Hold Coumadin. If signs of acute bleeding may require reversal with FFP - Send type and screen - Continue home medications - DVT PPx with AYSHA SALEH MD,LUKE 10/11/161928: Resident Review Statement Other Findings: 86-year-old male with past medical history of atrial fibrillation on Coumadin, polycythemia vera on hydroxyurea, CAD status post stents, recurrent UTI with history of urinary retention status post indwelling Holder placement was brought in by his son to the ED after 2 episodes of black stools. Patient has been having regular bowel movements once a day. Son noticed black stools yesterday and also this morning which was soft stools black in color. No blood noticed. He was recently started on ciprofloxacin by Dr. Marie after having a catheter change about 3 days ago. He went to see his primary care physician this morning Dr. main, a blood work was attempted (son felt that his coccyx area was more hyperemic and hence decided to go for blood work) Patient never had endoscopy or colonoscopy in the past. Guaiac was positive in the ED. Denies fever, chills, abdominal pain, nausea, vomiting, diarrhea, NSAID use. On admission patient blood pressure was 90 which improved with IV fluids. On examination patient alert awake oriented 3, no acute distress Pupils equal and reactive to light, mucosa moist Cardiovascular: S1, S2 regular no murmurs Respiratory: Bilateral breath sounds equal, no wheezes Abdomen: Soft, nontender, bowel since present Extremities: Right leg above-knee amputation, left leg below-knee amputation. Stumps clean. Please look into H&P for labs and imaging Assessment and plan 1. Melena with guaiac positive stools secondary to questionable upper GI bleed in the setting of patient on Coumadin and aspirin: - Admit patient to general medical floor -Discussed with GI. We'll start him on IV PPI, keep him nothing by mouth after midnight for EGD in a.m. -Repeat CBCs in morning unless that is no active bleeding seen. - We will hold the Coumadin and follow-up INR in a.m. - Holding of aspirin. - We will hold off lisinopril in the setting of hypertension on admission and GI bleed. If blood pressure remains stable can restart lisinopril in a.m. 2. Leukocytosis secondary to urinary tract infection - Urine culture on 10/09/2016 is positive for staph aureus with sensitivities pending -recently catheter replaced about 3 days ago and started on ciprofloxacin 500 BID - Will hold off on antibiotics until sensitivities are back as patient is not septic - Urology consult in a.m. 3. History of urinary retention with chronic indwelling Holder 4. History of PE/A. fib on Coumadin: INR therapeutic today. Will hold off on Coumadin today. -No need for reversal of INR as per GI -We will repeat INR in a.m. 5. CAD/CABG -We'll hold off aspirin and continue statins - Restart aspirin after GI clearance 6. Polycythemia -We'll continue hydroxyurea 7. BPH continue Flomax DNR/DNI
--- NOTE | 2016-10-11 18:43 | NUR ---
PATIENT RESTING COMFORTABLY. OFFERS NO C/O. SON REMAINS AT BEDSIDE AND IS VERY THANKFUL FOR THE NURSING CARE. PATIENT CONTINUES TO AWAIT BED PLACEMENT.
--- NOTE | 2016-10-11 18:55 | Admission Certification ---
Admission Certification Certification Statement - As attending physician, I certify that at the time of - admission, based on clinical presentation, severity of - symptoms, need for further diagnostic testing and - therapeutic interventions, and risk of adverse outcomes - without in-hospital treatment, in my clinical assessment, - this patient requires an acute hospital stay for a minimum - of two nights or longer. I have also considered psychsocial - factors such as support system, advanced age, financial - issues, cognitive issues, and failed out-patient treatments, - past re-admission history, safety of patient, and lack of - compliance as applicable. Specific rationale supporting this admission is: Acute upper GI bleed
--- NOTE | 2016-10-11 19:14 | NUR ---
PT RESTING COMFORTABLY WITH FAMILY AT BEDSIDE. OFFERING NO COMPLAINTS AT THIS TIME.
--- NOTE | 2016-10-11 20:30 | NUR ---
HOUSE STAFF AT BEDSIDE FOR PT EVAL
--- NOTE | 2016-10-11 20:54 | NUR ---
[facility] [phone]
[2016-10-12 00:13] LABS: ABSOLUTE BASOPHIL COUNT 0.1 /CUMM (0.0-0.2); ABSOLUTE EOSINOPHIL COUNT 0.6 /CUMM (0.0-0.7); ABSOLUTE GRANULOCYTE CT 16.2 /CUMM (1.4-6.5); ABSOLUTE LYMPH COUNT 1.4 /CUMM (1.2-3.4); ABSOLUTE MONOCYTE COUNT 0.6 /CUMM (0.10-0.60); BASOPHIL % 0.6 % (0.0-2.0); EOSINOPHIL % 3.1 % (0-5); GRANULOCYTE % 85.8 % (42.2-75.2); HEMATOCRIT 30.3 % (42-52); MEAN CORPUSCULAR HGB 26.9 PG (27.0-31.0); MEAN CORPUSCULAR HGB CONC 31.1 G/DL (33.0-37.0); MEAN CORPUSCULAR VOLUME 86.3 FL (80.0-94.0); MEAN PLATELET VOLUME 7.6 FL (7.4-10.4); PLATELET COUNT 450 /CUMM (130-400); RED BLOOD CELL CT 3.51 /CUMM (4.70-6.10); WHITE BLOOD CELL COUNT 18.9 /CUMM (4.8-10.8)
[2016-10-12 01:25] VITALS: BP 140/68
--- NOTE | 2016-10-12 02:51 | NUR ---
PT ALERT AND ORIENTED X 3. RA. DUKE IN PLACE. LCTA. NPO. FLUIDS RUNNING. VSS. SKIN TEAR TO LUE, AND OPEN AREA TO BOTTOM. DENIES PAIN. WILL CONTINUE TO MONITOR.
[2016-10-12 05:45] LABS: ABSOLUTE BASOPHIL COUNT 0.1 /CUMM (0.0-0.2); ABSOLUTE EOSINOPHIL COUNT 0.6 /CUMM (0.0-0.7); ABSOLUTE LYMPH COUNT 1.1 /CUMM (1.2-3.4); ABSOLUTE MONOCYTE COUNT 0.4 /CUMM (0.10-0.60); BASOPHIL % 0.8 % (0.0-2.0); EOSINOPHIL % 3.6 % (0-5); HEMATOCRIT 30.9 % (42-52); MEAN CORPUSCULAR HGB 27.4 PG (27.0-31.0); MEAN CORPUSCULAR HGB CONC 31.5 G/DL (33.0-37.0); MEAN CORPUSCULAR VOLUME 87.1 FL (80.0-94.0); MEAN PLATELET VOLUME 7.6 FL (7.4-10.4); PLATELET COUNT 409 /CUMM (130-400); RBC DISTRIBUTION WIDTH 19.1 % (11.5-14.5); RED BLOOD CELL CT 3.54 /CUMM (4.70-6.10); WHITE BLOOD CELL COUNT 17.2 /CUMM (4.8-10.8)
[2016-10-12 05:51] LABS: PT 22.3 SEC (9.4-12.5)
[2016-10-12 08:07] VITALS: BP 177/77
--- NOTE | 2016-10-12 09:37 | PN- Housestaff ---
MILANA SCHULTE 10/12/16 0922: Subjective Follow-up For: Melena Subjective: Offers no complaints. States sleeping well, no appetite. Denies heart burn. Unsure if he has had further episodes of black stools. No abdominal pain, no fevers or chills. Review of Systems Constitutional: Reports: see HPI. Objective Last 24 Hrs of Vital Signs/I&O Vital Signs Date Time Temp Pulse Resp B/P B/P Pulse O2 O2 Flow FiO2 Mean Ox Delivery Rate 10/12 0807 96.3 65 18 177/77 97 Room Air 10/12 0125 97.6 65 20 140/68 96 Room Air 10/11 2343 65 160/68 10/11 2010 97.3 58 16 127/60 93 Room Air 10/11 1644 140/64 10/11 1607 97.4 80 18 83/45 94 Nasal 2.0L Cannula 10/11 1421 97 Nasal 2.0L Cannula 10/11 1345 98.4 66 15 96/53 100 Room Air Intake & Output 10/12 1600 10/12 0800 10/12 0000 Intake Total 1000 Output Total 1000 Balance 0 Intake, IV 1000 Output, Urine 1000 Patient 160 lb Weight Physical Exam General Appearance: Alert, Oriented X3, Cooperative HEENT: Atraumatic Cardiovascular: Regular Rate, Normal S1, Normal S2 Lungs: Clear to Auscultation, Normal Air Movement Abdomen: Normal Bowel Sounds, Soft, No Tenderness Extremities: No Clubbing, No Cyanosis, No Edema Current Medications: Current Medications Sig/Caroline Start time Last Medication Dose Route Stop Time Status Admin Acetaminophen 650 MG Q8P PRN 10/11 1845 AC PO Acetaminophen 1,000 MG Q8P PRN 10/11 1845 AC IV Amiodarone HCl 200 MG QAM 10/12 1000 AC PO Ampicillin Sodium/ 0 .STK-MED ONE 10/11 1502 DC Sulbactam Sodium .ROUTE Ampicillin Sodium/ 3,000 MG ONCE ONE 10/11 1500 DC 10/11 Sulbactam Sodium IV 10/11 1529 1513 Sodium Chloride 100 ML Atorvastatin Calcium 20 MG QPM 10/11 2200 AC 10/11 PO 2343 Ciprofloxacin 500 MG BID 10/11 2199 CAN PO 10/15 2158 Finasteride 5 MG DAILY 10/12 1000 AC PO Gabapentin 100 MG QPM 10/11 2200 AC 10/11 PO 2343 Heparin Sodium 0 .STK-MED ONE 10/12 0646 DC (Porcine) .ROUTE Hydroxyurea 1,000 MG QAM 10/12 1000 AC PO Oxycodone/ 1 TAB Q8P PRN 10/11 1845 AC Acetaminophen PO Pantoprazole Sodium 0 .STK-MED ONE 10/11 1850 DC IV Pantoprazole Sodium 40 MG DAILY 10/11 1845 AC IV Sodium Chloride 1,000 ML BOLUS ONE 10/11 1615 DC 10/11 IV 10/11 1714 1616 Sodium Chloride 1,000 ML ONCE ONE 10/11 1500 DC 10/11 IV 10/11 2139 1513 Tamsulosin HCl 0.4 MG QPM 10/11 2200 AC 10/11 PO 2343 Last 24 Hrs of Lab/Addy Results Last 24 Hrs of Labs/Mics: Laboratory Tests 10/12/16 0520: Anion Gap 8, Estimated GFR > 60, BUN/Creatinine Ratio 25.6 H, PT 22.3 H, INR 2.14 H, CBC w Diff NO MAN DIFF REQ, RBC 3.54 L, MCV 87.1, MCH 27.4, RDW 19.1 H, MPV 7.6, Gran % 87.0 H, Lymphocytes % 6.2 L, Monocytes % 2.4, Eosinophils % 3.6, Basophils % 0.8, Absolute Granulocytes 15.0 H, Absolute Lymphocytes 1.1 L , Absolute Monocytes 0.4, Absolute Eosinophils 0.6, Absolute Basophils 0.1, PUBS MCHC 31.5 L 10/11/16 2350: CBC w Diff MAN DIFF ORDERED, RBC 3.51 L, MCV 86.3, MCH 26.9 L, RDW 19.0 H, MPV 7.6, Gran % 85.8 H, Lymphocytes % 7.1 L, Monocytes % 3.4, Eosinophils % 3.1, Basophils % 0.6, Absolute Granulocytes 16.2 H, Segmented Neutrophils 89 H , Absolute Lymphocytes 1.4, Lymphocytes 4 L, Monocytes 4, Absolute Monocytes 0.6, Eosinophils 2, Absolute Eosinophils 0.6, Basophils 1, Absolute Basophils 0.1, Platelet Estimate INCREASED, Polychromasia 1+, Hypochromic-Microcytic 1+, Poikilocytosis 1+, Basophilic Stippling SLIGHT, Ovalocytes 1+, PUBS MCHC 31.1 L , Fld Total RBCs Counted 100 10/11/16 1820: Urine Color YEL, Urine Clarity CLEAR, Urine pH 5.5, Ur Specific [place] 1.025, Urine Protein TRACE H, Urine Ketones NEG, Urine Nitrite NEG, Urine Bilirubin NEG, Urine Urobilinogen 0.2, Ur Leukocyte Esterase SMALL H, Ur Microscopic SEDIMENT EXAMINED, Urine RBC 3-5, Urine WBC 10-15 H, Ur Epithelial Cells FEW, Urine Bacteria FEW H, Urine Mucus FEW, Urine Hemoglobin TRACE-LYSED H, Urine Glucose NEG 10/11/16 1415: Anion Gap 10, Estimated GFR > 60, BUN/Creatinine Ratio 29.0 H, Glucose 86, Calcium 7.9 L, Total Bilirubin 0.4, AST 14 L, ALT 34, Alkaline Phosphatase 116 , Troponin I < 0.01, Total Protein 5.4 L, Albumin 2.6 L, Globulin 2.8, Albumin /Globulin Ratio 0.9 L, PT 20.9 H, INR 2.00 H, CBC w Diff MAN DIFF ORDERED, RBC 3.76 L, MCV 86.4, MCH 27.1, RDW 18.3 H, MPV 8.0, Gran % 88.7 H, Lymphocytes % 4.4 L, Monocytes % 4.2, Eosinophils % 2.2, Basophils % 0.5, Absolute Granulocytes 18.2 H, Absolute Lymphocytes 0.9 L, Absolute Monocytes 0.9 H, Absolute Eosinophils 0.5, Absolute Basophils 0.1, Platelet Estimate VERIFIED BY SMEAR, Polychromasia 1+, Poikilocytosis 1+, Anisocytosis 1+, Ovalocytes 1+, PUBS MCHC 31.4 L Microbiology 10/11 1435 URINE ROUT: Urine Culture - RECD Assessment/Plan Assessment: 86 year old gentleman with A. Fib on Coumadin, recurrent UTI with chronic alexander, CAD, PV on hydroxyurea, admitted for suspected GI bleed. 1. Suspected GI bleed: On coumadin, therapeutic INR. Scheduled for EGD at 1.30 PM. Close hemodynamic and hemoglobin monitoring. IV protonix started. GI consult placed. NPO till procedure. Coumadin held, check INR tomorrow. 2. Leukocytosis: Recent Alexander placement by urology, culture from 10/09 revealing of Staph Aureus. No other systemic signs of infection. No bandemia, did have high seg neutros. Other possible etiologies being, Generalized bone marrow stimulation from blood loss or Hydroxyurea use. Continue to monitor. Will contact urology. 3. Continue other medications. NPO DVT prophylaxis: therapeutic INR DNR/DNI Problem List: 1. Upper GI bleeding Pain Ratin Pain Location: N/A Pain Goal: Remain pain free Pain Plan: Tylenol Tomorrow's Labs & Rationales: Acute blood loss Kidney function AZEEM RAZA MD 10/12/16 1328: Attending MD Review Statement Attending Statement Attending MD Statement: examined this patient, discuss w/resident/PA/DOOR TO DOOR SELLING AGENT, agreed w/resident/PA/DOOR TO DOOR SELLING AGENT, reviewed EMR data (avail) Attending Assessment/Plan: 86M PMH atrial fibrillation on Coumadin, recurrent UTI with chronic Alexander, dementia (which gets easily exacerbated by Amlodipine and UTIs), CAD s/p PCI, polycythemia vera, being admitted for GI bleed. Patient was in usual state of health, had black stool last night and again this morning with some weakness. He is otherwise asymptomatic. Hypotensive 83/45 on admission but went up to 140/64 after 1L normal saline. Hgb was 13 in July, 10.9 today. WBC 20.9. Currently stable however Hgb level drop is concerning. 1. Acute GI bleed 2. Acute blood loss anemia 3. Leukocytosis 4. Chronic atrial fibrillation 5. Chronic Alexander catheter 6. Recurrent UTI Plan - Continue on general medicine - Recheck CBC post-procedure and again tomorrow morning - IV Protonix - GI consult - Urology consult - Alexander catheter replacement with urine culture - Follow up UA - IV hydration - NPO - Hold Coumadin. If signs of acute bleeding may require reversal with FFP - Send type and screen - Continue home medications - DVT PPx with ALPS - Potential discharge tomorrow pending endoscopy results and stable CBC
[2016-10-12 12:28] VITALS: BP 172/62
--- NOTE | 2016-10-12 12:56 | NUR ---
PT SENT TO GI SUITE. ALL V.S.S.
[2016-10-12] MEDS ORDERED: PROTONIX40 M3 PO (13:02)
--- NOTE | 2016-10-12 13:05 | Patient Discharge Instructions ---
Discharge Instructions General Discharge Information You were seen/treated for: Upper GI bleed Special Instructions: Watch for blood in vomitus or stools. Watch for lightheadness/ dizziness/ falls. Avoid NSAIDs. Follow up with PCP and GI as an outpatient in 1-2 weeks of discharge. Diet Continue normal diet: Yes Activity Full Activity/No Limits: Yes Acute Coronary Syndrome Inclusion Criteria At DC or during hospital stay patient has or had the following: ACS DIAGNOSIS No Discharge Core Measures Meds if any: Prescribed or Continued at Discharge Meds if any: NOT Prescribed or Continued at Discharge Congestive Heart Failure Inclusion Criteria At DC or during hospital stay patient has or had the following: CHF DIAGNOSIS No Discharge Core Measures Meds if any: Prescribed or Continued at Discharge Meds if any: NOT Prescribed or Continued at Discharge Cerebrovascular accident Inclusion Criteria At DC or during hospital stay patient has or had the following: CVA/TIA Diagnosis No Discharge Core Measures Meds if any: Prescribed or Continued at Discharge Meds if any: NOT Prescribed or Continued at Discharge Venous thromboembolism Inclusion Criteria VTE Diagnosis No VTE Type NONE VTE Confirmed by (Test) NONE Discharge Core Measures - Per Current guidelines, there needs to be overlap - treatment for the first 5 days of Warfarin therapy. - If discharged on Warfarin prior to 5 days of - overlap therapy, the patient will need to be - assessed for post discharge needs including - *Post discharge parental anticoagulation - *Warfarin and/or parental anticoagulation education - *Follow up date to check INR post discharge At least 5 days overlap therapy as Inpatient No Meds if any: Prescribed or Continued at Discharge Note: Overlap Therapy is Warfarin and Anticoagulant Meds if any: NOT Prescribed or Continued at Discharge
--- NOTE | 2016-10-12 13:27 | Proc Note Endoscopy ---
Endoscopy Procedure Medical History: unchanged (see [facility] consult ) Mental Status: alert/oriented Heart/Lung Eval Prior to Sedation: within normal limits Candidate for Sedation? Yes Procedure Date: 10/12/16 Procedure Type: EGD w/biopsy Yard Pilot: Damien Flores MD ASA Classification: III Indications: Melena. Instrument: diagnostic gastroscope Meds Received: MAC Patient's Tolerance: good Complications: none Extent Reached: second part of duodenum Procedure: After getting written informed consent the patient was placed in the left lateral decubitus position with pulse oximetry, cardiac monitoring, and supplemental oxygen given. A bite block was inserted and IV sedation was given until the desired effect was achieved. A high definition upper Olympus endoscope was then inserted into the mouth and advanced to the second portion of the duodenum with little difficulty. Retroflexed views and photodocumentation was obtained. Findings: Esophagus: The esophageal mucosa was grossly normal in appearance. There was a nonobstructing Schatzki's ring at the Z line at 45 cm from the incisors which was otherwise normal in appearance. There were no esophageal strictures, ulcers , erosions, or varices appreciated. Stomach: The gastric mucosa was diffusely atrophic in appearance, but there were no ulcers, erosions, or masses appreciated. Distention and peristalsis of the stomach appeared normal. Retroflexed views revealed a small hiatal hernia. Duodenum: The duodenal bulb was minimally erythematous, but there were no ulcers or erosions appreciated. The duodenal sweep and folds are grossly normal in appearance and there was bile appreciated throughout to the second portion of the duodenum. Impression: 1. Atrophic gastritis. 2. Small hiatal hernia. 3. Nonobstructing Schatzki's ring. 4. No active bleeding or stigmata of recent hemorrhage appreciated. Recommendations: 1. His diet should be advanced as tolerated. 2. IV Protonix should be discontinued. 3. There are no absolute GI consultation indications to continuing his anticoagulation. 4. Follow CBCs and transfuse as needed to keep his hemoglobin and 8. 5. If patient remains without evidence of ongoing overt GI bleeding would recommend discharging the patient home to give consideration for an outpatient colonoscopy for the occult blood noted in his stool. CC: MERE APPLE,ANAI Blackwood
--- NOTE | 2016-10-12 13:34 | Cons- Gastroenterology ---
General Information and HPI Consulting Request Date of Consult: 10/12/16 Requested By: AZEEM RAZA MD Reason for Consult: Melena, decreased hemoglobin. Source of Information: patient, old records Exam Limitations: no limitations History of Present Illness: Patient is a 86 YO M with PMH A. 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 The patient notes that he had some black stool for the past two days, but he was unable to quantify how much he has been having. The stools are described as loose, but not necessarily foul smelling or sticky. He also denies any bright red blood per rectum. He has been without any associated abdominal pain, heartburn, dysphagia or vomiting. Prior to the dark stool he had been having normal bowel movements. In the ED he was hemodynamically stable and he was noted to have dark guaiac positive stool. He was kept NPO, and started on IV protonix and his coumadin and hydroxyurea have been held, but his INR was not reversed. He has not had any further bowel movements since presenting to the ER. Allergies/Medications Allergies: Coded Allergies: amlodipine (Severe, ANAPHYLAXIS 07/29/16) niacin (EXTREME FLUSHING FROM IMMEDIATE RELEASE 07/18/16) PT TOLERATES SLOW RELEASE Home Med List: Amiodarone HCl 200 MG TABLET 1 TAB PO QAM AFIB (Reported) Aspirin (Ecotrin*) 81 MG TABLET.DR 1 TAB PO DAILY HEART HEALTH (Reported) Atorvastatin Calcium (Lipitor) 20 MG TABLET 1 TAB PO QPM CHOLESTEROL ( Reported) Cranberry Conc/Ascorbic Acid (Cranberry Plus Vitamin C Sftgl) 4,200 MG-20 MG CAPSULE 1 CAP PO BID SUPPLEMENT (Reported) Docusate Sodium (Colace) 100 MG CAPSULE 1 CAP PO BID PRN CONSTIPATION Finasteride 5 MG TABLET 5 MG PO DAILY urinary retention Gabapentin 100 MG CAPSULE 100 MG PO QPM nerve pain Hydroxyurea 500 MG CAPSULE 2 CAP PO QAM POLYCYTHEMIA VERA (Reported) Lisinopril 10 MG TABLET 1 TAB PO DAILY HEART (Reported) Pantoprazole Sodium (Protonix) 40 MG TABLET.DR 1 TAB PO DAILY Acid Polyethylene Glycol 3350 (Miralax) 17 GRAM/DOSE POWDER 17 GM PO DAILY NEEDED PRN CONSTIPATION Sennosides (Senna Lax) 8.6 MG TABLET 2 TAB PO QPM CONSTIPATION (Reported) Sulfamethoxazole/Trimethoprim (Sulfamethoxazole-Tmp Ds Tablet) 800 MG-160 MG TABLET 1 TAB PO BID Urine infection Tamsulosin HCl (Flomax) 0.4 MG CAP.ER.24H 1 CAP PO QPM PROSTATE (Reported) Warfarin Sodium 2 MG TABLET 0.5 TAB PO QPM BLOOD THINNER (Reported) Current Medications: Current Medications Sig/Caroline Start time Last Medication Dose Route Stop Time Status Admin Acetaminophen 650 MG Q8P PRN 10/11 184 AC PO Acetaminophen 1,000 MG Q8P PRN 10/11 184 AC IV Amiodarone HCl 200 MG QAM 10/12 1000 AC 10/12 PO 1046 Ampicillin Sodium/ 0 .STK-MED ONE 10/11 1502 DC Sulbactam Sodium .ROUTE Ampicillin Sodium/ 3,000 MG ONCE ONE 10/11 1500 DC 10/11 Sulbactam Sodium IV 10/11 1529 1513 Sodium Chloride 100 ML Atorvastatin Calcium 20 MG QPM 10/11 2200 AC 10/11 PO 2343 Ciprofloxacin 500 MG BID 10/11 2200 CAN PO 10/15 2159 Finasteride 5 MG DAILY 10/12 1000 AC 10/12 PO 1046 Gabapentin 100 MG QPM 10/11 2200 AC 10/11 PO 2343 Heparin Sodium 0 .STK-MED ONE 10/12 0646 DC (Porcine) .ROUTE Hydroxyurea 1,000 MG QAM 10/12 1000 AC 10/12 PO 1046 Oxycodone/ 1 TAB Q8P PRN 10/11 184 AC Acetaminophen PO Pantoprazole Sodium 0 .STK-MED ONE 10/11 1850 DC IV Pantoprazole Sodium 40 MG DAILY 10/11 1845 AC 10/12 IV 1046 Sodium Chloride 1,000 ML BOLUS ONE 10/11 1615 DC 10/11 IV 10/11 1714 1616 Sodium Chloride 1,000 ML ONCE ONE 10/11 1500 DC 10/11 IV 10/11 2139 1513 Tamsulosin HCl 0.4 MG QPM 10/11 2200 AC 10/11 PO 2343 Past History Travel History Traveled to [place] past 21 day No Medical History Neurological: peripheral neuropathy, BRAIN BLEED EENT: NONE Cardiovascular: AFIB, aortic stenosis, CAD, hypertension, hyperlipidemia Respiratory: pulmonary embolism Gastrointestinal: constipation, diverticulitis Hepatic: NONE Renal: benign prost hyperplasia Musculoskeletal: NONE Psychiatric: NONE Endocrine: NONE Blood Disorders: DVT, PE, POLYCYTHEMIA Cancer(s): NONE CLOUD OPERATIONS ENGINEER/Reproductive: NONE Surgical History Surgical History: CABG, STENTS PROSTATE SURGERY R AKA L BKA Psychosocial History Where Do You Live? Home Who Do You Live With? child Services at Home: Home Health Aide, Nursing Primary Language: Maltese Smoking Status: Never Smoked ETOH Use: denies use Illicit Drug Use: denies illicit drug use Functional Ability ADLs Needs Assist: dressing, eating, toileting, bathing. Ambulation: non-ambulatory IADLs Needs Assist: shopping, housework, finances, food prep, telephone, transportation, medication admin. Review of Systems Review of Systems Constitutional: Reports: malaise, weakness. Denies: diaphoresis, fever. EENTM: Reports: blurred vision. Cardiovascular: Denies: no symptoms. Respiratory: Denies: no symptoms. Genitourinary: Denies: no symptoms. Musculoskeletal: Reports: joint pain, muscle pain. Skin: Denies: no symptoms. Neurological/Psychological: Denies: no symptoms. Hematologic/Endocrine: Reports: bleeding. Immunologic/Allergic: Denies: no symptoms. All Other Systems: Reviewed and Negative Exam & Diagnostic Data Vital Signs and I&O Vital Signs Date Time Temp Pulse Resp B/P B/P Pulse O2 O2 Flow FiO2 Mean Ox Delivery Rate 10/12 1228 97.3 63 18 172/62 96 Room Air 10/12 1046 65 198/70 10/12 0807 96.3 65 18 177/77 97 Room Air 10/12 0125 97.6 65 20 140/68 96 Room Air 10/11 2343 65 160/68 10/11 2010 97.3 58 16 127/60 93 Room Air 10/11 1644 140/64 10/11 1607 97.4 80 18 83/45 94 Nasal 2.0L Cannula 10/11 1421 97 Nasal 2.0L Cannula 10/11 1345 98.4 66 15 96/53 100 Room Air Intake & Output 10/12 1600 10/12 0400 10/11 1600 10/11 0400 10/10 1600 10/10 0400 Intake Total 1000 Output Total 1000 Balance 0 Intake, IV 1000 Output, Urine 1000 Patient 160 lb 180 lb Weight Weight Reported by Patient Measurement Method Physical Exam General Appearance: no apparent distress, comfortable Head: atraumatic, normal appearance Eyes: Bilateral: normal appearance. Ears, Nose, Throat: normal pharynx, normal ENT inspection Neck: normal inspection, supple, full range of motion Respiratory: normal breath sounds, chest non-tender Cardiovascular: irregularly irregular Gastrointestinal: normal bowel sounds, soft, non-tender, no organomegaly Rectal: deferred Back: normal inspection Extremities: b/l amputations Neurologic/Psych: no motor/sensory deficits, awake, alert, oriented x 3 Skin: intact, normal color, warm/dry Results Pertinent Lab Results: Laboratory Tests 10/12 10/11 0520 2350 Chemistry Sodium (137 - 145 mmol/L) 139 Potassium (3.5 - 5.1 mmol/L) 4.5 Chloride (98 - 107 mmol/L) 110 H Carbon Dioxide (22 - 30 mmol/L) 20 L Anion Gap (5 - 16) 8 BUN (9 - 20 mg/dL) 23 H Creatinine (0.7 - 1.2 mg/dL) 0.9 Estimated GFR (>60 ml/min) > 60 BUN/Creatinine Ratio (7 - 25 %) 25.6 H Coagulation PT (9.4 - 12.5 SEC) 22.3 H INR (0.90 - 1.17) 2.14 H Hematology CBC w Diff NO MAN DIFF REQ MAN DIFF ORDERED WBC (4.8 - 10.8 /CUMM) 17.2 H 18.9 H RBC (4.70 - 6.10 /CUMM) 3.54 L 3.51 L Hgb (14.0 - 18.0 G/DL) 9.7 L 9.4 L Hct (42 - 52 %) 30.9 L 30.3 L MCV (80.0 - 94.0 FL) 87.1 86.3 MCH (27.0 - 31.0 PG) 27.4 26.9 L RDW (11.5 - 14.5 %) 19.1 H 19.0 H Plt Count (130 - 400 /CUMM) 409 H 450 H MPV (7.4 - 10.4 FL) 7.6 7.6 Gran % (42.2 - 75.2 %) 87.0 H 85.8 H Lymphocytes % (20.5 - 51.1 %) 6.2 L 7.1 L Monocytes % (1.7 - 9.3 %) 2.4 3.4 Eosinophils % (0 - 5 %) 3.6 3.1 Basophils % (0.0 - 2.0 %) 0.8 0.6 Absolute Granulocytes (1.4 - 6.5 /CUMM) 15.0 H 16.2 H Segmented Neutrophils (42.2 - 75.2 %) 89 H Absolute Lymphocytes (1.2 - 3.4 /CUMM) 1.1 L 1.4 Lymphocytes (20.5 - 51.1 %) 4 L Monocytes (1.7 - 9.3 %) 4 Absolute Monocytes (0.10 - 0.60 /CUMM) 0.4 0.6 Eosinophils (0 - 5.0 %) 2 Absolute Eosinophils (0.0 - 0.7 /CUMM) 0.6 0.6 Basophils (0.0 - 2.0 %) 1 Absolute Basophils (0.0 - 0.2 /CUMM) 0.1 0.1 Platelet Estimate (ADEQUATE) INCREASED Polychromasia 1+ Hypochromic-Microcytic 1+ Poikilocytosis 1+ Basophilic Stippling SLIGHT Ovalocytes 1+ PUBS MCHC (33.0 - 37.0 G/DL) 31.5 L 31.1 L Other Body Source Fld Total RBCs Counted (%) 100 10/11 1820 Urines Urine Color (YEL,AMB,STR) YEL Urine Clarity (CLEAR) CLEAR Urine pH (5.0 - 8.0) 5.5 Ur Specific [place] (1.001 - 1.035) 1.025 Urine Protein (NEG,<30 MG/DL) TRACE H Urine Ketones (NEG) NEG Urine Nitrite (NEG) NEG Urine Bilirubin (NEG) NEG Urine Urobilinogen (0.1 - 1.0 EU/dl) 0.2 Ur Leukocyte Esterase (NEG) SMALL H Ur Microscopic SEDIMENT EXAMINED Urine RBC (0 - 5 /HPF) 3-5 Urine WBC (0 - 2 /HPF) 10-15 H Ur Epithelial Cells (NONE,FEW) FEW Urine Bacteria (NEG/NONE) FEW H Urine Mucus (FEW,NONE) FEW Urine Hemoglobin (NEG) TRACE-LYSED H Urine Glucose (N MG/DL) NEG 10/11 1415 Chemistry Sodium (137 - 145 mmol/L) 135 L Potassium (3.5 - 5.1 mmol/L) 4.3 Chloride (98 - 107 mmol/L) 105 Carbon Dioxide (22 - 30 mmol/L) 19 L Anion Gap (5 - 16) 10 BUN (9 - 20 mg/dL) 29 H Creatinine (0.7 - 1.2 mg/dL) 1.0 Estimated GFR (>60 ml/min) > 60 BUN/Creatinine Ratio (7 - 25 %) 29.0 H Glucose (65 - 99 mg/dL) 86 Calcium (8.4 - 10.2 mg/dL) 7.9 L Total Bilirubin (0.2 - 1.3 mg/dL) 0.4 AST (17 - 59 U/L) 14 L ALT (21 - 72 U/L) 34 Alkaline Phosphatase (< 127 U/L) 116 Troponin I (<0.11 ng/ml) < 0.01 Total Protein (6.3 - 8.2 g/dL) 5.4 L Albumin (3.5 - 5.0 g/dL) 2.6 L Globulin (1.9 - 4.2 gm/dL) 2.8 Albumin/Globulin Ratio (1.1 - 2.2 %) 0.9 L Coagulation PT (9.4 - 12.5 SEC) 20.9 H INR (0.90 - 1.17) 2.00 H Hematology CBC w Diff MAN DIFF ORDERED WBC (4.8 - 10.8 /CUMM) 20.5 H RBC (4.70 - 6.10 /CUMM) 3.76 L Hgb (14.0 - 18.0 G/DL) 10.2 L Hct (42 - 52 %) 32.5 L MCV (80.0 - 94.0 FL) 86.4 MCH (27.0 - 31.0 PG) 27.1 RDW (11.5 - 14.5 %) 18.3 H Plt Count (130 - 400 /CUMM) 463 H MPV (7.4 - 10.4 FL) 8.0 Gran % (42.2 - 75.2 %) 88.7 H Lymphocytes % (20.5 - 51.1 %) 4.4 L Monocytes % (1.7 - 9.3 %) 4.2 Eosinophils % (0 - 5 %) 2.2 Basophils % (0.0 - 2.0 %) 0.5 Absolute Granulocytes (1.4 - 6.5 /CUMM) 18.2 H Absolute Lymphocytes (1.2 - 3.4 /CUMM) 0.9 L Absolute Monocytes (0.10 - 0.60 /CUMM) 0.9 H Absolute Eosinophils (0.0 - 0.7 /CUMM) 0.5 Absolute Basophils (0.0 - 0.2 /CUMM) 0.1 Platelet Estimate (ADEQUATE) VERIFIED BY SMEAR Polychromasia 1+ Poikilocytosis 1+ Anisocytosis 1+ Ovalocytes 1+ PUBS MCHC (33.0 - 37.0 G/DL) 31.4 L Assessment/Plan Assessment/Recommendations: Assessment: Mr. Muñoz is a 86-year-old male with multiple medical problems including atrial fibrillation on Coumadin and polycythemia vera on hydroxyurea who presented to [facility] yesterday after being sent in by his PCP for reports of melena, but he was only noted to have guaiac positive stool on admission, his BUN/Cr ratio is not significantly elevated and he hasn't continued to have melena so ongoing GI bleeding is less likely. He has had a fall in his hgb of a few grams from blood work done a few monts ago, but his hgb has been stable here since admission. As he is on anticoagulation for afib I will plan to perform a diagnostic/therapeutic upper endoscopy now to assess for any active bleeding, high risk lesions (ie. ulcer with a vissible vessel) or any source of blood loss from his upper GI tractand also to help determime if it will be appropriate to continue his anticoagulation. If this is negative it may then be reasonable to pursue a diagnostic colonoscopy, however this is not urgent and can likely be pursued as an outpatient if the patient and family are willing. Recommendations: 1. Keep nothing by mouth for now. 2. Continue IV Protonix for now. 3. Hold Coumadin and hydroxyurea for now, but I do not feel that his INR needs to be actively reversed. 4. Maintain 2 large-bore IVs at all times. 5. GI should be notified for any signs of hemodynamically significant overt GI bleeding. 6. Will plan for a diagnostic/therapeutic upper endoscopy performed later today. 7. If the EGD is negative will tentatively consider pursuing an outpatient colonoscopy based on the patient's wishes and taking into account his age and other comorbidities. I will continue to follow this patient and make further recommendations based on his clinical course and results of the upper endoscopy performed later today. Problem List: 1. Polycythemia vera 2. Anemia 3. Upper GI bleeding Copies To: MERE APPLE,ANAI Blackwood Consult Acknowledgment - Thank you for your consult request.
--- NOTE | 2016-10-12 13:53 | NUR ---
PT ADMITTED TO ROOM 216-1
--- NOTE | 2016-10-12 15:08 | NUR ---
PT RETURNED TO ROOM FROM GI SUITE.
[2016-10-12 17:06] VITALS: BP 166/60
--- NOTE | 2016-10-12 17:14 | NUR ---
PT ADMITTED TO ROOM # 216-1. ORAL REPORT GIVEN TO ASIF FRANCIS[employer]ION BOOKED THROUGH BEDBOARD
[2016-10-12 19:45] LABS: ABSOLUTE BASOPHIL COUNT 0.1 /CUMM (0.0-0.2); ABSOLUTE EOSINOPHIL COUNT 0.5 /CUMM (0.0-0.7); ABSOLUTE GRANULOCYTE CT 13.9 /CUMM (1.4-6.5); ABSOLUTE LYMPH COUNT 0.8 /CUMM (1.2-3.4); ABSOLUTE MONOCYTE COUNT 0.4 /CUMM (0.10-0.60); BASOPHIL % 0.7 % (0.0-2.0); EOSINOPHIL % 3.1 % (0-5); HEMATOCRIT 31.3 % (42-52); MEAN CORPUSCULAR HGB 27.2 PG (27.0-31.0); MEAN CORPUSCULAR HGB CONC 31.3 G/DL (33.0-37.0); MEAN CORPUSCULAR VOLUME 86.9 FL (80.0-94.0); MEAN PLATELET VOLUME 7.9 FL (7.4-10.4); PLATELET COUNT 458 /CUMM (130-400); RBC DISTRIBUTION WIDTH 18.3 % (11.5-14.5); WHITE BLOOD CELL COUNT 15.7 /CUMM (4.8-10.8)
[2016-10-12 19:47] LABS: GRANULOCYTE % 88.6 % (42.2-75.2)
--- NOTE | 2016-10-12 20:19 | NUR ---
ADMISSION NOTE: PT ARRIVED ON FLOOR AT 1730 FROM ER. PT A&OX3, VSS, AFEBRILE, PT PAIN FREE AT THIS TIME. NO DISTRESS. PT HAS COMPROMISED SKIN INTEGRITY TO BUTTOCKS/COCCYX. NOTED ON SKIN MAN - EDITED BY THIS RN. WOUND CARE CONSULT REQUESTED. BARRIER CREAM APPLIED. PT DENIES ANY PAIN TO AREA. FAMILY AWARE OF SKIN ISSUES. WILL FOLLOW UP WITH WOUND CARE IN AM.
[2016-10-12 21:42] VITALS: BP 124/60
[2016-10-13 06:18] VITALS: BP 124/60
[2016-10-13 07:54] LABS: ABSOLUTE BASOPHIL COUNT 0.1 /CUMM (0.0-0.2); ABSOLUTE EOSINOPHIL COUNT 0.5 /CUMM (0.0-0.7); ABSOLUTE GRANULOCYTE CT 12.9 /CUMM (1.4-6.5); ABSOLUTE LYMPH COUNT 0.8 /CUMM (1.2-3.4); ABSOLUTE MONOCYTE COUNT 0.3 /CUMM (0.10-0.60); BASOPHIL % 0.6 % (0.0-2.0); EOSINOPHIL % 3.4 % (0-5); GRANULOCYTE % 88.4 % (42.2-75.2); HEMATOCRIT 30.6 % (42-52); MEAN CORPUSCULAR HGB 27.4 PG (27.0-31.0); MEAN CORPUSCULAR HGB CONC 31.5 G/DL (33.0-37.0); MEAN CORPUSCULAR VOLUME 86.8 FL (80.0-94.0); MEAN PLATELET VOLUME 7.9 FL (7.4-10.4); PLATELET COUNT 439 /CUMM (130-400); RBC DISTRIBUTION WIDTH 18.8 % (11.5-14.5); RED BLOOD CELL CT 3.53 /CUMM (4.70-6.10); WHITE BLOOD CELL COUNT 14.6 /CUMM (4.8-10.8)
[2016-10-13 08:17] LABS: PT 25.7 SEC (9.4-12.5)
[2016-10-13 09:53] VITALS: BP 124/60
--- NOTE | 2016-10-13 09:59 | PN- Att Addend ---
Attending Addendum Attending Brief Note 86M PMH atrial fibrillation on Coumadin, recurrent UTI with chronic Holder, dementia (which gets easily exacerbated by Amlodipine and UTIs), CAD s/p PCI, polycythemia vera, being admitted for GI bleed. Patient was in usual state of health, had black stool last night and again this morning with some weakness. He is otherwise asymptomatic. Hypotensive 83/45 on admission but went up to 140/64 after 1L normal saline. Hgb was 13 in July, 10.9 on admission. WBC 20.9 initially. Patient feels well today and has had no complaints. No further episodes of melena. Endoscopy performed on 10/12 revealed on atrophic gastritis with no evidence of bleeding. Hgb has been stable. Urine culture drawn by urologist as outpatient growing mRSA. Started on Bactrim yesterday with improvement in leukocytosis. AFVSS NAD NCAT Supple RRR CTAB Soft, NTND No c/c/e Pulses intact A&Ox3 no focal deficits Current Medications Sig/Caroline Start time Last Medication Dose Route Stop Time Status Admin Acetaminophen 650 MG Q8P PRN 10/11 184 AC PO Acetaminophen 1,000 MG Q8P PRN 10/11 184 AC IV Amiodarone HCl 200 MG QAM 10/12 1000 AC 10/13 PO 0953 Atorvastatin Calcium 20 MG QPM 10/11 2199 AC 10/12 PO 220 Chlorhexidine 1 GM .STK-MED ONE 10/12 1414 DC Gluconate TOP 10/12 1415 Finasteride 5 MG DAILY 10/12 1000 AC 10/13 PO 0954 Gabapentin 100 MG QPM 10/11 220 AC 10/12 PO 2207 Hydroxyurea 1,000 MG QAM 10/12 1000 AC 10/12 PO 1046 Oxycodone/ 1 TAB Q8P PRN 10/11 184 AC Acetaminophen PO Pantoprazole Sodium 40 MG DAILY 10/11 184 DC 10/12 IV 1046 Tamsulosin HCl 0.4 MG QPM 10/11 220 AC 10/12 PO 2206 Trimethoprim/ 1 TAB BID 10/12 1431 AC 10/13 Sulfamethoxazole PO 0952 Warfarin Sodium 1 MG COUMADIN 1700 ONE 10/12 1700 CAN PO 10/12 1701 Laboratory Tests 10/13 10/12 0605 1855 Chemistry Sodium (137 - 145 mmol/L) 138 Potassium (3.5 - 5.1 mmol/L) 4.2 Chloride (98 - 107 mmol/L) 112 H Carbon Dioxide (22 - 30 mmol/L) 18 L Anion Gap (5 - 16) 8 BUN (9 - 20 mg/dL) 17 Creatinine (0.7 - 1.2 mg/dL) 0.8 Estimated GFR (>60 ml/min) > 60 BUN/Creatinine Ratio (7 - 25 %) 21.3 Coagulation PT (9.4 - 12.5 SEC) 25.7 H INR (0.90 - 1.17) 2.47 H Hematology CBC w Diff MAN DIFF ORDERED NO MAN DIFF REQ WBC (4.8 - 10.8 /CUMM) 14.6 H 15.7 H RBC (4.70 - 6.10 /CUMM) 3.53 L 3.60 L Hgb (14.0 - 18.0 G/DL) 9.6 L 9.8 L Hct (42 - 52 %) 30.6 L 31.3 L MCV (80.0 - 94.0 FL) 86.8 86.9 MCH (27.0 - 31.0 PG) 27.4 27.2 RDW (11.5 - 14.5 %) 18.8 H 18.3 H Plt Count (130 - 400 /CUMM) 439 H 458 H MPV (7.4 - 10.4 FL) 7.9 7.9 Gran % (42.2 - 75.2 %) 88.4 H 88.6 H Lymphocytes % (20.5 - 51.1 %) 5.8 L 4.9 L Monocytes % (1.7 - 9.3 %) 1.8 2.7 Eosinophils % (0 - 5 %) 3.4 3.1 Basophils % (0.0 - 2.0 %) 0.6 0.7 Absolute Granulocytes (1.4 - 6.5 /CUMM) 12.9 H 13.9 H Absolute Lymphocytes (1.2 - 3.4 /CUMM) 0.8 L 0.8 L Absolute Monocytes (0.10 - 0.60 /CUMM) 0.3 0.4 Absolute Eosinophils (0.0 - 0.7 /CUMM) 0.5 0.5 Absolute Basophils (0.0 - 0.2 /CUMM) 0.1 0.1 Platelet Estimate (ADEQUATE) VERIFIED BY SMEAR Polychromasia 1+ Poikilocytosis 1+ Anisocytosis 1+ Ovalocytes 1+ PUBS MCHC (33.0 - 37.0 G/DL) 31.5 L 31.3 L 1. Acute GI bleed 2. Acute blood loss anemia 3. Leukocytosis 4. Chronic atrial fibrillation 5. Chronic Holder catheter 6. mRSA UTI 7. Atrophic gastritis Plan - Stable for discharge home - Recheck CBC in 1 week - Continue PPI - Follow up with GI as outpatient for possible colonoscopy - Outpatient urology follow up as scheduled - Chronic Holder catheter in place - Complete 7 day course of Bactrim - May continue Coumadin - Continue home medications - If any further signs of bleeding as outpatient should seek immediate GI outpatient follow up, or return to ED if necessary
[2016-10-13] MEDS ORDERED: SULFAMETHOXAZO1 EAC1 PO (10:53)
--- NOTE | 2016-10-13 11:36 | PN- Housestaff ---
Subjective Follow-up For: GI bleed UTI Subjective: Offers no complaints. No further bleeding episodes. No urinary complaints. Review of Systems Constitutional: Reports: see HPI. Objective Last 24 Hrs of Vital Signs/I&O Vital Signs Date Time Temp Pulse Resp B/P B/P Pulse O2 O2 Flow FiO2 Mean Ox Delivery Rate 10/13 0953 60 124/60 10/13 0618 99.3 60 20 124/60 95 Room Air 10/12 2206 96 126/62 10/12 2142 98.4 63 20 124/60 93 Room Air 10/12 1706 98.1 61 18 166/60 97 Room Air 10/12 1228 97.3 63 18 172/62 96 Room Air Intake & Output 10/13 1600 10/13 0800 10/13 0000 Intake Total 120 300 Output Total 600 700 Balance -480 -400 Intake, IV 300 Intake, Oral 120 Number 1 Bowel Movements Output, Urine 600 700 Physical Exam General Appearance: Alert, Oriented X3, Cooperative Cardiovascular: Regular Rate, Normal S1 Lungs: Clear to Auscultation, Normal Air Movement Abdomen: Normal Bowel Sounds, Soft, No Tenderness Extremities: No Clubbing, No Cyanosis, No Edema Assessment/Plan Assessment: 86 year old gentleman with A. Fib on Coumadin, recurrent UTI with chronic alexander, CAD, PV on hydroxyurea, admitted for suspected GI bleed. 1. Suspected GI bleed: On coumadin, therapeutic INR. EGD showed atrophic gastritis. Follow up with GI as an outpatient for colonoscopy. 2. Leukocytosis: UTI due to chronic indwelling alexander (positive cultures - MRSA form 10/09), Basctrim DS for 7 days. Follow up with urology. Stable for discharge with home services. 3. Continue other medications. NPO DVT prophylaxis: therapeutic INR DNR/DNI Problem List: 1. Urinary tract infection Pain Ratin Pain Location: None Pain Goal: Remain pain free Pain Plan: Tylenol PRN Tomorrow's Labs & Rationales: Not needed
--- NOTE | 2016-10-13 12:22 | NUR ---
PT HERE FOR LOWER GI BLEED. PT ASYMPTOMATIC. VSS. ENDOSCOPY YESTERDAY NEGATIVE. WAS GUIAC POSITIVE PER RN REPORT THIS AM. PT TO BE DISCHARGED TODAY. ASA AND COUMADIN TO CONTINUE PER CURRENT CMR. DR. SCHULTE CONTACTED FOR VERIFICATION. PENDING CALL BACK. WILL CONT TO MONITOR.
--- NOTE | 2016-10-13 12:52 | NUR ---
PER DR. SCHULTE, PT TO CONTINUE HOME MEDS LISTED ON CURRENT CMR. WILL UPDATE PT'S FAMILY AND DISCHARGE PT PLANNED.
--- NOTE | 2016-10-13 15:04 | Discharge Summary ---
See Addendum Visit Information Visit Dates Admission Date: 10/11/16 Discharge Date: 10/13/16 Hospital Course Course Attending Physician: AZEEM RAZA MD Primary Care Physician: MERE APPLE,[facility] Course: Mr. Muñoz 86-year-old gentleman with past medical history of atrial fibrillation on Coumadin, polycythemia vera on hydroxyurea, coronary artery disease status post stents, history of recurrent UTIs with chronic indwelling Holder catheter presented to [facility] ED on 10/11/2016 for evaluation of black eye stools. The patient and his family described stools as loose. ED patient remained hemodynamically stable and was noted to have dark guaiac positive stools. Upper GI bleed: The patient was Nothing by mouth, started on IV Protonix and fluid started for suspected upper GI bleed. Upper endoscopy was performed by gastroenterology, patient was found to have atrophic gastritis, small hiatal hernia and nonobstructing Schatzki's ring. There was no active bleeding or stigmata of recent hemorrhage during endoscopy. Patient's Coumadin was held in anticipation of the procedure, which was resumed after the procedure. She will follow-up with GI as an outpatient for colonoscopy. Urinary tract infection in the setting of chronic indwelling Holder: Patient had his Holder catheter replaced recently on 10/09/[address] Marie's office. The urine culture obtained at the time grew MRSA. Subsequently, the patient was started on Bactrim DS to complete a course of 7 days. During the visit patient remained afebrile, and his white count rounded down during the visit. Patient will follow-up with Dr. Marie, his urologist as an outpatient. Patient was deemed stable for discharge on 10/13/2016 with instructions to follow-up with GI, urology and have a CBC rechecked in one week. Allergies: Coded Allergies: amlodipine (Severe, ANAPHYLAXIS 07/29/16) niacin (EXTREME FLUSHING FROM IMMEDIATE RELEASE 07/18/16) PT TOLERATES SLOW RELEASE Disposition Summary Disposition Principal Diagnosis: Acute GI bleed UTI secondary to chronic Holder catheter Additional Diagnosis: Atrophic gastritis Discharge Disposition: home health services Discharge Instructions General Discharge Information Code Status: Do Not Resucitate/Intubat Patient's Diet: Regular Patient's Activity: As tolerated. Follow-Up Instructions/Appts: Follow-up with Gastoenterology in 1 week of discharge. Follow-up with urology in 1-2 weeks of discharge. Follow-up with primary care physician in one weeks of discharge. Medications at Discharge Discharge Medications: Stop taking the following medications: Ciprofloxacin HCl (Cipro) 500 MG TABLET ORAL TWICE DAILY Qty = 24 Continue taking these medications: Tamsulosin HCl (Flomax) 0.4 MG CAP.ER.24H 1 Capsule ORAL Every night Comments: Last Taken: 10/12/16 Time: 10 PM Aspirin (Ecotrin*) 81 MG TABLET.DR 1 Tablet ORAL DAILY Comments: NOT GIVEN Amiodarone HCl (Amiodarone HCl) 200 MG TABLET 1 Tablet ORAL Every Morning Comments: PER PT MED LIST Last Taken: 10/13/16 Time: 1000 Atorvastatin Calcium (Lipitor) 20 MG TABLET 1 Tablet ORAL Every night Comments: PER PT MED LIST Last Taken: 10/12/16 Time: 10 PM Sennosides (Senna Lax) 8.6 MG TABLET 2 Tablet ORAL Every night Comments: PER PT MED LIST NOT GIVEN Hydroxyurea (Hydroxyurea) 500 MG CAPSULE 2 Capsule ORAL Every Morning Comments: PER PT MED LIST Last Taken: 10/13/16 Time: 10 AM Cranberry Conc/Ascorbic Acid (Cranberry Plus Vitamin C Sftgl) 4,200 MG-20 MG CAPSULE 1 Capsule ORAL TWICE DAILY Comments: NOT GIVEN IN HOSPITAL Warfarin Sodium (Warfarin Sodium) 2 MG TABLET 0.5 Tablet ORAL Every night Comments: NOT GIVEN Gabapentin (Gabapentin) 100 MG CAPSULE 100 Milligram ORAL Every night Qty = 30 Comments: Last Taken: 10/12/16 Time: 10 PM Finasteride (Finasteride) 5 MG TABLET 5 Milligram ORAL DAILY Qty = 30 Comments: Last Taken: 10/13/16 Time: 10 AM Polyethylene Glycol 3350 (Miralax) 17 GRAM/DOSE POWDER 17 Gram ORAL DAILY NEEDED as needed for CONSTIPATION Qty = 30 Comments: NOT GIVEN Docusate Sodium (Colace) 100 MG CAPSULE 1 Capsule ORAL TWICE DAILY as needed for CONSTIPATION Qty = 30 Comments: NOT GIVEN Lisinopril (Lisinopril) 10 MG TABLET 1 Tablet ORAL DAILY Comments: NOT GIVEN Start taking the following new medications: Sulfamethoxazole/Trimethoprim (Sulfamethoxazole-Tmp Ds Tablet) 800 MG-160 MG TABLET 1 Tablet ORAL TWICE DAILY Qty = 11 No Refills Comments: Continue till 10/18/2016 Last Taken: 10/13/16 Time: 10 AM Pantoprazole Sodium (Protonix) 40 MG TABLET.DR 1 Tablet ORAL DAILY Qty = 30 Refills = 2 Comments: Last Taken: 10/12/16 Time: 10:45 AM Copies To: AZEEM RAZA MD; MERE APPLE,YUSUF; HESHAM MARIE MD; CRISTOPHER APPLE,XENIA Attending MD Review Statement Documenting Attending: AZEEM RAZA MD
== END 2016-10-13 13:10 | disposition home health service (06) | DRG 378 ==
LOC: ERH 13:39 → ERHI 15:18 → EDBEDREQ 16:25 → ERHI 16:46 → EDBEDREQ 17:00 → ERHI 17:05 → ENRESERV 10-12 13:18 → ENTRNSPT 10-12 17:13 → 2NB 10-12 17:38 → CMPTRNSPT 10-13 07:27 → ENPENDDIS 10-13 11:38 → 2NB 10-13 13:10
PROVIDERS: Internal Medicine; Internal Medicine Hematology & Oncology; Radiology Diagnostic Radiology; Student in an Organized Health Care Education/Training Program; ADMIT Internal Medicine
PROC: 0DJ08ZZ Inspection of Upper Intestinal Tract, Via Natural or Artificial Opening Endoscopic (ICD-10-PCS; principal; 2016-10-11)
DX: K92.2 Gastrointestinal hemorrhage, unspecified (principal); D62 Acute posthemorrhagic anemia; I48.2 Chronic atrial fibrillation; E86.0 Dehydration; D45 Polycythemia vera; Z89.611 Acquired absence of right leg above knee; T83.511A Infection and inflammatory reaction due to indwelling urethral catheter, initial encounter; B95.62 Methicillin resistant Staphylococcus aureus infection as the cause of diseases classified elsewhere; I35.0 Nonrheumatic aortic (valve) stenosis; I10 Essential (primary) hypertension; E78.5 Hyperlipidemia, unspecified; Z79.01 Long term (current) use of anticoagulants; I25.10 Atherosclerotic heart disease of native coronary artery without angina pectoris; Z89.512 Acquired absence of left leg below knee; Y84.6 Urinary catheterization as the cause of abnormal reaction of the patient, or of later complication, without mention of misadventure at the time of the procedure; K29.40 Chronic atrophic gastritis without bleeding; K44.9 Diaphragmatic hernia without obstruction or gangrene; N40.0 Benign prostatic hyperplasia without lower urinary tract symptoms; Z86.718 Personal history of other venous thrombosis and embolism; Z86.711 Personal history of pulmonary embolism
CPT/HCPCS: 2NBSP; ERO; 36415; 81001; 82436; 87086; 93005; 93010; 96365; J1644

== ENCOUNTER 2016-10-24 12:51 | Observation (INO) | payer OTHER ==
[~2016-10-24] VITALS: Ht 190.5 cm; Wt 72.6 kg
[~2016-10-24 12:51] MED LIST changes: +PROTONIX40 M3 PO; +SULFAMETHOXAZO1 EAC1 PO
--- NOTE | 2016-10-24 13:31 | NUR ---
PT TO ER WITH HIS SON , PT ALERT AND ORIENTED , SON STATES THAT PT WAS ADMITTED HERE LAST MONTH X 3 DAYS FOR POSSIBLE GI BLEED, PT HAD ENDOCOPY AND THEY FOUND NOTHING, PT AT THAT TIME ALSO HAD DARK STOOL THAT GUIAC POSITIVE , THEY WERE TOLD TO KEEP AN EYE ON IT, PT HAS BEEN HAVING INCREASED WEAKNESS , DENIES SOB. PT ALSO HAS HAD WALL IN PLACE FOR THE PAST 90 DAYS AND THAT TODAY THAT HE STARTED WITH LOW ABD PAIN THAT RADIATES INTO HIS GROIN, WALL HAS BEEN DRAINING FINE
--- NOTE | 2016-10-24 13:48 | ED GI/GU/ABDOMINAL COMPLAINT ---
History of Present Illness General Chief Complaint: General Adult Stated Complaint: DARK STOOL, CHILLS, WEAKNESS Source: patient, family, old records Exam Limitations: clinical condition, confusion Vital Signs & Intake/Output Vital Signs & Intake/Output Vital Signs Date Time Temp Pulse Resp B/P B/P Pulse O2 O2 Flow FiO2 Mean Ox Delivery Rate 10/24 1324 97.5 64 18 125/57 97 Room Air Allergies Coded Allergies: amlodipine (Severe, ANAPHYLAXIS 07/29/16) niacin (EXTREME FLUSHING FROM IMMEDIATE RELEASE 07/18/16) PT TOLERATES SLOW RELEASE Reconcile Medications Amiodarone HCl 200 MG TABLET 1 TAB PO QAM AFIB (Reported) Aspirin (Ecotrin*) 81 MG TABLET.DR 1 TAB PO QPM HEART HEALTH (Reported) Atorvastatin Calcium (Lipitor) 20 MG TABLET 1 TAB PO QPM CHOLESTEROL ( Reported) Cranberry Conc/Ascorbic Acid (Cranberry Plus Vitamin C Sftgl) 4,200 MG-20 MG CAPSULE 1 CAP PO BID SUPPLEMENT (Reported) Finasteride 5 MG TABLET 5 MG PO DAILY urinary retention Gabapentin 100 MG CAPSULE 100 MG PO QPM nerve pain Hydroxyurea 500 MG CAPSULE 2 CAP PO QAM POLYCYTHEMIA VERA (Reported) Lactobacillus Acidophilus (Probiotic) 10 BILLION CELL CAPSULE 1 CAP PO DAILY GI (Reported) Lisinopril 10 MG TABLET 1 TAB PO DAILY HEART (Reported) Pantoprazole Sodium (Protonix) 40 MG TABLET.DR 1 TAB PO DAILY Acid Polyethylene Glycol 3350 (Miralax) 17 GRAM/DOSE POWDER 17 GM PO DAILY NEEDED PRN CONSTIPATION Sennosides (Senna Lax) 8.6 MG TABLET 2 TAB PO QPM CONSTIPATION (Reported) Tamsulosin HCl (Flomax) 0.4 MG CAP.ER.24H 1 CAP PO QPM PROSTATE (Reported) Warfarin Sodium 2 MG TABLET 0.5 TAB PO QPM BLOOD THINNER (Reported) Triage Note: PT TO ER WITH HIS SON , PT ALERT AND ORIENTED , SON STATES THAT PT WAS ADMITTED HERE LAST MONTH X 3 DAYS FOR POSSIBLE GI BLEED, PT HAD ENDOCOPY AND THEY FOUND NOTHING, PT AT THAT TIME ALSO HAD DARK STOOL THAT GUIAC POSITIVE , THEY WERE TOLD TO KEEP AN EYE ON IT, PT HAS BEEN HAVING INCREASED WEAKNESS , DENIES SOB. PT ALSO HAS HAD WALL IN PLACE FOR THE PAST 90 DAYS AND THAT TODAY THAT HE STARTED WITH LOW ABD PAIN THAT RADIATES INTO HIS GROIN, WALL HAS BEEN DRAINING FINE Triage Nurses Notes Reviewed? yes Onset: Abrupt Duration: day(s):, getting worse Timing: recent history No Modifying Factors: none HPI: 86-year-old male comes into emergency room for further evaluation of increased confusion. Son reports that the patient was admitted here on 10/09 and discharged on 10/13 for a possible upper GI bleed. Patient had dark black stools. Patient is on Coumadin. Patient had an upper endoscopy performed that showed no signs of bleeding. Patient was discharged and the dark stools persistent since discharge. Son reports acute confusion over last 24 hours. Patient is usually alert and oriented. Persistent black stools. He is also complaining of some lower abdominal pain today. Denies any chest pain shortness of breath cough fever chills. Son reports that this is a change from his normal baseline. (AYESHA BARTHOLOMEW) Past History Travel History Traveled to [place] past 21 day No Medical History Any Pertinent Medical History? 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 No (AYESHA BARTHOLOMEW) Review of Systems Review of Systems Constitutional: Reports: see HPI. EENTM: Reports: no symptoms. Respiratory: Reports: no symptoms. Cardiovascular: Reports: no symptoms. GI: Reports: see HPI. Genitourinary: Reports: no symptoms. Musculoskeletal: Reports: no symptoms. Skin: Reports: no symptoms. Neurological/Psychological: Reports: no symptoms. Hematologic/Endocrine: Reports: see HPI. Immunologic/Allergic: Reports: no symptoms. All Other Systems: Reviewed and Negative (AYESHA BARTHOLOMEW) Physical Exam Physical Exam General Appearance: alert Head: atraumatic Eyes: Bilateral: normal appearance, EOMI. Ears, Nose, Throat, Mouth: hearing grossly normal, moist mucous membrane Neck: normal inspection, full range of motion Respiratory: normal breath sounds, no respiratory distress Cardiovascular: regular rate/rhythm Gastrointestinal: soft, tenderness Rectal: heme positive stool, brown stool Back: normal inspection Extremities: normal range of motion Neurologic/Psych: awake, alert, oriented x 3, normal gait, normal mood/affect Skin: intact, normal color Core Measures ACS in differential dx? No Severe Sepsis Present: No Septic Shock Present: No (CHUCK RAE,AYESHA) Progress Differential Diagnosis: AMI, appendicitis, biliary colic, bowel obstruction, colon cancer, cholecystitis, diverticulitis, epididymitis, gastritis, hepatitis, hemorrhoids, ischemic bowel, inflamm bowel dis, pancreatitis, PUD/GERD, urinary retention, urethritis, UTI/pyelo Plan of Care: Orders Procedure Date/time Status Add-on Test (ER Only) 10/24 1645 Active LACTIC ACID 10/24 1432 Active URINALYSIS 10/24 1348 Complete TROPONIN LEVEL 10/24 1348 Active PARTIAL THROMBOPLASTIN TIME 10/24 1348 Complete PROTHROMBIN TIME 10/24 1348 Complete COMPREHENSIVE METABOLIC PANEL 10/24 1348 Active CBC WITHOUT DIFFERENTIAL 10/24 1348 Complete EKG 10/24 1348 Active TYPE & SCREEN (NOT X-MATCH) 10/24 1348 Complete Laboratory Tests 10/24/16 1442: Urine Color YEL, Urine Clarity HAZY H, Urine pH 6.0, Ur Specific [place] 1.020, Urine Protein TRACE H, Urine Ketones NEG, Urine Nitrite NEG, Urine Bilirubin NEG, Urine Urobilinogen 0.2, Ur Leukocyte Esterase MOD H, Ur Microscopic SEDIMENT EXAMINED, Urine RBC 1-3, Urine WBC 25-50 H, Ur Epithelial Cells FEW, Urine Bacteria FEW H, Urine Mucus FEW, Micro UA Comment BUDDING YEAST H, Urine Hemoglobin TRACE-INTACT H, Urine Glucose NEG 10/24/16 1432: Anion Gap 9, Estimated GFR > 60, BUN/Creatinine Ratio 20.0, Glucose 82, Lactic Acid Pending, Calcium 8.4, Total Bilirubin 0.4, AST 24, ALT 44, Alkaline Phosphatase 127 H, Troponin I < 0.01, Total Protein 6.2 L, Albumin 3.0 L, Globulin 3.2, Albumin/Globulin Ratio 0.9 L, PT 26.2 H, INR 2.52 H, APTT 39 H , CBC w Diff MAN DIFF ORDERED, RBC 3.87 L, MCV 84.7, MCH 26.6 L, RDW 18.5 H, MPV 7.9, Gran % 85.8 H, Lymphocytes % 7.8 L, Monocytes % 1.9, Eosinophils % 3.6, Basophils % 0.9, Absolute Granulocytes 10.9 H, Segmented Neutrophils 81 H , Band Neutrophils 4, Absolute Lymphocytes 1.0 L, Lymphocytes 12 L, Monocytes 1 L, Absolute Monocytes 0.2, Eosinophils 2, Absolute Eosinophils 0.5, Absolute Basophils 0.1, Platelet Estimate INCREASED, Polychromasia 1+, Hypochromic- Microcytic 2+, Poikilocytosis 1+, Anisocytosis 1+, [place] Cells RARE, PUBS MCHC 31.4 L, Fld Total RBCs Counted 100 Diagnostic Imaging: Viewed by Me: CT Scan. Discussed w/RAD: CT Scan. Radiology Impression: SERVICE DATE: 10/24/16 EXAM TYPE: CAT - CT ABD & PELVIS W/O IV CONTRAS EXAMINATION: CT ABDOMEN AND PELVIS WITHOUT CONTRAST CLINICAL INFORMATION: Lower abdominal pain. COMPARISON: CT abdomen and pelvis without contrast 07/19/2016. TECHNIQUE: Multidetector volumetric imaging was performed from the superior aspect of the liver through the pubic symphysis. Sagittal and coronal reformatted images were obtained on the technologist's workstation. DLP: 602 mGy-cm FINDINGS: Limited evaluation of the solid abdominal viscera in the absence of intravenous contrast. LUNG BASES: Evaluation of the included lung bases is notable for a 1.1 cm rounded opacity along the periphery of the right lower lobe (series 2, image 13). No pleural or pericardial effusions are identified. There are scattered coronary artery calcifications and scattered atherosclerosis of the imaged descending thoracic aorta. LIVER, GALLBLADDER, AND BILIARY TREE: The liver is normal in size, shape, and attenuation. No contour deforming hepatic lesions are identified. There is a moderate amount of pneumobilia within the intrahepatic bile ducts, notably within the left hepatic lobe, slightly increased relative to the prior exam. Pneumobilia is not unexpected following cholecystectomy. The gallbladder is surgically absent. The distal common bile duct is normal in caliber. PANCREAS: Unremarkable. SPLEEN: Unremarkable. ADRENAL GLANDS: Unremarkable. KIDNEYS AND URETERS: Redemonstrated are bilateral simple renal cortical cysts visualized measuring approximately 4.5 cm within the mid to lower pole of the left kidney and 2.1 cm along the lower pole of the right kidney. There are additional simple renal cortical cysts within the right kidney including a 3.0 cm cyst within the midpole of the right kidney as well as a 1.1 cm cyst within the upper to midpole of the right kidney. No renal or ureteral stones are identified and there is no hydroureteronephrosis of either kidney or renal collecting system. BLADDER: The urinary bladder is decompressed by an indwelling Wall catheter, limiting evaluation. GASTROINTESTINAL TRACT: Evaluation of the gastrointestinal system is again notable for extensive pancolonic diverticulosis, notably involving the descending and rectosigmoid colon. There are very subtle pericolonic inflammatory changes surrounding a short segment of the descending colon at the level of the junction between the descending and sigmoid colon. This may represent a developing acute diverticulitis. No extraluminal foci of air to suggest perforation and no pericolonic fluid collections. Normal anatomic orientation of the stomach relative to the duodenum. Normal caliber of abdominal and pelvic bowel loops, without evidence of obstruction or ileus. No circumferential bowel wall thickening with surrounding inflammatory changes to suggest an underlying infectious or inflammatory enterocolitis. Normal-appearing appendix within the right lower quadrant of the abdomen. No organizing intra- abdominal fluid collections or free intraperitoneal air. ABDOMINAL WALL: No significant hernia is appreciated. LYMPH NODES: No significant abdominal or pelvic adenopathy. VASCULAR: Extensive atherosclerosis of the imaged abdominal aorta and its branching vessels, without aneurysmal dilatation. Limited evaluation for vascular patency in the absence of intravenous contrast. PELVIC VISCERA: Unremarkable. OSSEOUS STRUCTURES: No acute osseous abnormality. Mild degenerative changes of the bilateral hip joints. No visible destructive osseous lesions. IMPRESSION: 1. Extensive pancolonic diverticulosis, notably involving the descending and rectosigmoid colon. Subtle pericolonic inflammatory changes surrounding a short segment of the descending colon at the level of the junction between the descending and sigmoid colon. This could reflect a developing acute diverticulitis. No extraluminal foci of air and no pericolonic fluid collections. 2. Bilateral simple renal cortical cysts. 3. A moderate amount of pneumobilia within the left hepatic lobe as well as within the distal common bile duct, not unexpected following cholecystectomy. 4. A 1.1 cm rounded opacity within the right lung base, corresponding to a previously identified region of focal atelectasis within the right lung base. 5. The urinary bladder is decompressed by an indwelling Wall catheter, which limits evaluation. DICTATED BY: EUSEBIO DUTTON MD DATE/TIME DICTATED:10/24/161452 SALES BRANCH MANAGER: ELFEGO DATE/TIME TRANSCRIBED:10/24/161452 Initial ED EKG: normal intervals, normal p-waves, normal sinus rhythm, rate (59) (AYESHA BARTHOLOMEW) Departure Departure Disposition: STILL A PATIENT Condition: Stable Clinical Impression Primary Impression: Diverticulitis large intestine Secondary Impressions: Altered mental status, Lower GI bleed Referrals: YUSUF SEVERINO MD (PCP/Family) Departure Forms: Customer Survey General Discharge Information Observation Note Spoke With: AZEEM RAZA MD Physician Advisor Notified: EVELIA APPLE,GAMALIEL Oswald Place Patient In: Non-ED OBS Care Area Rationale for Observation: My rational for observation is as follows . Patient will require IV antibiotics. GI consultation. Serial blood work. Frequent vital sign checks. Patient would do poorly as an outpatient. Patient will need to be further observed here in the hospital. (AYESHA BARTHOLOMEW) PA/REGIONAL CLINICAL RESEARCH ASSOCIATE Co-Sign Statement Statement: ED Attending supervision documentation- x I saw and evaluated the patient. I have also reviewed all the pertinent lab results and diagnostic results. I agree with the findings and the plan of care as documented in the PA's/REGIONAL CLINICAL RESEARCH ASSOCIATE's documentation. [] I have reviewed the ED Record and agree with the PA's/REGIONAL CLINICAL RESEARCH ASSOCIATE's documentation. [] Additions or exceptions (if any) to the PAs/REGIONAL CLINICAL RESEARCH ASSOCIATE's note and plan are summarized below: [] (YADIRA LAINEZ MD)
--- NOTE | 2016-10-24 14:15 | NUR ---
PT TO CT SCAN NOW. PER SON, LAST AND ONLY TIME PT HAS HAD THESE SYMPTOMS WAS WHEN HE HAD DIVERTICULITIS.
[2016-10-24] MEDS ORDERED: PROBIOTIC1 EACH PO (14:45)
[2016-10-24 14:46] LABS: ABSOLUTE BASOPHIL COUNT 0.1 /CUMM (0.0-0.2); ABSOLUTE EOSINOPHIL COUNT 0.5 /CUMM (0.0-0.7); ABSOLUTE GRANULOCYTE CT 10.9 /CUMM (1.4-6.5); ABSOLUTE MONOCYTE COUNT 0.2 /CUMM (0.10-0.60); BASOPHIL % 0.9 % (0.0-2.0); EOSINOPHIL % 3.6 % (0-5); GRANULOCYTE % 85.8 % (42.2-75.2); HEMATOCRIT 32.8 % (42-52); MEAN CORPUSCULAR HGB 26.6 PG (27.0-31.0); MEAN CORPUSCULAR HGB CONC 31.4 G/DL (33.0-37.0); MEAN CORPUSCULAR VOLUME 84.7 FL (80.0-94.0); MEAN PLATELET VOLUME 7.9 FL (7.4-10.4); PLATELET COUNT 453 /CUMM (130-400); RBC DISTRIBUTION WIDTH 18.5 % (11.5-14.5); RED BLOOD CELL CT 3.87 /CUMM (4.70-6.10); WHITE BLOOD CELL COUNT 12.7 /CUMM (4.8-10.8)
[2016-10-24 14:52] LABS: PT 26.2 SEC (9.4-12.5); PTT 39 SEC (25-37)
--- NOTE | 2016-10-24 15:15 | CT SCAN REPORT ---
EXAMINATION: CT ABDOMEN AND PELVIS WITHOUT CONTRAST CLINICAL INFORMATION: Lower abdominal pain. COMPARISON: CT abdomen and pelvis without contrast 07/19/2016. TECHNIQUE: Multidetector volumetric imaging was performed from the superior aspect of the liver through the pubic symphysis. Sagittal and coronal reformatted images were obtained on the technologist's workstation. DLP: 602 mGy-cm FINDINGS: Limited evaluation of the solid abdominal viscera in the absence of intravenous contrast. LUNG BASES: Evaluation of the included lung bases is notable for a 1.1 cm rounded opacity along the periphery of the right lower lobe (series 2, image 13). No pleural or pericardial effusions are identified. There are scattered coronary artery calcifications and scattered atherosclerosis of the imaged descending thoracic aorta. LIVER, GALLBLADDER, AND BILIARY TREE: The liver is normal in size, shape, and attenuation. No contour deforming hepatic lesions are identified. There is a moderate amount of pneumobilia within the intrahepatic bile ducts, notably within the left hepatic lobe, slightly increased relative to the prior exam. Pneumobilia is not unexpected following cholecystectomy. The gallbladder is surgically absent. The distal common bile duct is normal in caliber. PANCREAS: Unremarkable. SPLEEN: Unremarkable. ADRENAL GLANDS: Unremarkable. KIDNEYS AND URETERS: Redemonstrated are bilateral simple renal cortical cysts visualized measuring approximately 4.5 cm within the mid to lower pole of the left kidney and 2.1 cm along the lower pole of the right kidney. There are additional simple renal cortical cysts within the right kidney including a 3.0 cm cyst within the midpole of the right kidney as well as a 1.1 cm cyst within the upper to midpole of the right kidney. No renal or ureteral stones are identified and there is no hydroureteronephrosis of either kidney or renal collecting system. BLADDER: The urinary bladder is decompressed by an indwelling Holder catheter, limiting evaluation. GASTROINTESTINAL TRACT: Evaluation of the gastrointestinal system is again notable for extensive pancolonic diverticulosis, notably involving the descending and rectosigmoid colon. There are very subtle pericolonic inflammatory changes surrounding a short segment of the descending colon at the level of the junction between the descending and sigmoid colon. This may represent a developing acute diverticulitis. No extraluminal foci of air to suggest perforation and no pericolonic fluid collections. Normal anatomic orientation of the stomach relative to the duodenum. Normal caliber of abdominal and pelvic bowel loops, without evidence of obstruction or ileus. No circumferential bowel wall thickening with surrounding inflammatory changes to suggest an underlying infectious or inflammatory enterocolitis. Normal-appearing appendix within the right lower quadrant of the abdomen. No organizing intra-abdominal fluid collections or free intraperitoneal air. ABDOMINAL WALL: No significant hernia is appreciated. LYMPH NODES: No significant abdominal or pelvic adenopathy. VASCULAR: Extensive atherosclerosis of the imaged abdominal aorta and its branching vessels, without aneurysmal dilatation. Limited evaluation for vascular patency in the absence of intravenous contrast. PELVIC VISCERA: Unremarkable. OSSEOUS STRUCTURES: No acute osseous abnormality. Mild degenerative changes of the bilateral hip joints. No visible destructive osseous lesions. IMPRESSION: 1. Extensive pancolonic diverticulosis, notably involving the descending and rectosigmoid colon. Subtle pericolonic inflammatory changes surrounding a short segment of the descending colon at the level of the junction between the descending and sigmoid colon. This could reflect a developing acute diverticulitis. No extraluminal foci of air and no pericolonic fluid collections. 2. Bilateral simple renal cortical cysts. 3. A moderate amount of pneumobilia within the left hepatic lobe as well as within the distal common bile duct, not unexpected following cholecystectomy. 4. A 1.1 cm rounded opacity within the right lung base, corresponding to a previously identified region of focal atelectasis within the right lung base. 5. The urinary bladder is decompressed by an indwelling Holder catheter, which limits evaluation.
--- NOTE | 2016-10-24 16:00 | NUR ---
PT INFORMED OF CT RESULTS BY PA AND OF PLAN FOR ADMIT. SON AND CAREGIVER REMAIN REMAIN AT BEDSIDE AND IN AGREEMENT. PT STATING ABD PAIN HAS IMPROVED AND HE HAS NO COMPLAINTS AT THIS TIME, FAMILY/CAREGIVER VERY ATTENTIVE TO LONG-TERM CARE NEEDS.
--- NOTE | 2016-10-24 17:30 | NUR ---
UNASYN INFUSING (IV PLACEMENT/LAB DRAWS VERY DIFFICULT). PT PROVIDED WITH PO FLUIDS PER REGULAR DIET ORDER, MEAL TRAY ORDERED TO HOLD ALTHOUGH PT REPORTS NO APPETITE. NO OTHER CONCERNS.
--- NOTE | 2016-10-24 18:45 | NUR ---
PT SEEN BY HOUSE STAFF AND PT/FAMILY INFORMED PT IS NOW NPO. PT/FAMILY COOPERATIVE, PT HAS ONLY HAD 1 CUP JUICE HE HAS NO APPETITE. CONTS TO REPORT MINIMAL ABD PAIN AND NO OTHER COMPLAINTS.
--- NOTE | 2016-10-24 18:47 | History & Physical ---
SERGIOMARTINEZ 10/24/16 1846: General Information and HPI MD Statement: I have seen and personally examined EDITA ROSARIO and documented this H&P. The patient is a 86 year old M who presented with a patient stated chief complaint of [Lethargy, abdominal pain, dark stool]. Source of Information: patient, family, old records Exam Limitations: no limitations History of Present Illness: 86-year-old male with PMH of A. fib on Coumadin, polycythemia vera on hydroxyzine, coronary artery disease status post stents, history of recurrent UTIs, AKA on right leg and BKA left legcomes into emergency room for further evaluation of increased confusion. Patient recently admitted to hospital for special care on 10/09 and discharged on 10/13 for UTI and a possible upper GI bleed. History was obtained from family at bedside and patient himself. Patient report that today in the morning she developed lower abdominal pain, severe nectar 7/10 in severity, no radiation, not related to food, constant pain , no aggravating or relieving factor. Caregiver noticed that the patient had dark black stools with no vinny blood or clots. Per patient's son the dark stools persistent since his recent discharge. Son reports acute confusion over last 24 hours. Persistent black stools. Denies any chest pain shortness of breath cough fever chills. Son reports that this is a change from his normal baseline. Allergies/Medications Allergies: Coded Allergies: amlodipine (Severe, ANAPHYLAXIS 07/29/16) niacin (EXTREME FLUSHING FROM IMMEDIATE RELEASE 07/18/16) PT TOLERATES SLOW RELEASE Home Med list Amiodarone HCl 200 MG TABLET 1 TAB PO QAM AFIB (Reported) Aspirin (Ecotrin*) 81 MG TABLET.DR 1 TAB PO QPM HEART HEALTH (Reported) Atorvastatin Calcium (Lipitor) 20 MG TABLET 1 TAB PO QPM CHOLESTEROL ( Reported) Cranberry Conc/Ascorbic Acid (Cranberry Plus Vitamin C Sftgl) 4,200 MG-20 MG CAPSULE 1 CAP PO BID SUPPLEMENT (Reported) Finasteride 5 MG TABLET 5 MG PO DAILY urinary retention Gabapentin 100 MG CAPSULE 100 MG PO QPM nerve pain Hydroxyurea 500 MG CAPSULE 2 CAP PO QAM POLYCYTHEMIA VERA (Reported) Lactobacillus Acidophilus (Probiotic) 10 BILLION CELL CAPSULE 1 CAP PO DAILY GI (Reported) Lisinopril 10 MG TABLET 1 TAB PO DAILY HEART (Reported) Pantoprazole Sodium (Protonix) 40 MG TABLET.DR 1 TAB PO DAILY Acid Polyethylene Glycol 3350 (Miralax) 17 GRAM/DOSE POWDER 17 GM PO DAILY NEEDED PRN CONSTIPATION Sennosides (Senna Lax) 8.6 MG TABLET 2 TAB PO QPM CONSTIPATION (Reported) Tamsulosin HCl (Flomax) 0.4 MG CAP.ER.24H 1 CAP PO QPM PROSTATE (Reported) Warfarin Sodium 2 MG TABLET 0.5 TAB PO QPM BLOOD THINNER (Reported) Past History Travel History Traveled to [place] past 21 day No Medical History Neurological: peripheral neuropathy, BRAIN BLEED EENT: NONE Cardiovascular: AFIB, aortic stenosis, CAD, hypertension, hyperlipidemia Respiratory: pulmonary embolism Gastrointestinal: constipation, diverticulitis Hepatic: NONE Renal: benign prost hyperplasia Musculoskeletal: NONE Psychiatric: NONE Endocrine: NONE Blood Disorders: DVT, PE, POLYCYTHEMIA Cancer(s): NONE 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 child Services at Home: Home Health Aide, Nursing Primary Language: Jordanian ETOH Use: denies use Illicit Drug Use: denies illicit drug use Functional Ability ADLs Needs Assist: dressing, eating, toileting, bathing. Ambulation: non-ambulatory IADLs Needs Assist: shopping, housework, finances, food prep, telephone, transportation, medication admin. Review of Systems Review of Systems Constitutional: Reports: no symptoms. EENTM: Reports: no symptoms. Cardiovascular: Reports: no symptoms. Respiratory: Reports: no symptoms. GI: Reports: abdominal pain. Genitourinary: Reports: see HPI. Musculoskeletal: Reports: no symptoms. Skin: Reports: no symptoms. Neurological/Psychological: Reports: confusion. Hematologic/Endocrine: Reports: no symptoms. All Other Systems: Reviewed and Negative Exam & Diagnostic Data Last 24 Hrs of Vital Signs/I&O Vital Signs Date Time Temp Pulse Resp B/P B/P Pulse O2 O2 Flow FiO2 Mean Ox Delivery Rate 10/24 1740 96.8 55 16 122/58 98 Room Air 10/24 1700 98 10/24 1545 97.5 61 16 108/56 98 Room Air 10/24 1324 97.5 64 18 125/57 97 Room Air Intake & Output 10/24 1600 10/24 0800 10/24 0000 Intake Total Output Total Balance Patient 160 lb Weight Physical Exam General Appearance Alert, Oriented X3, Cooperative, No Acute Distress Skin No Rashes, No Breakdown, No Significant Lesion Cardiovascular Normal S1, Normal S2, No Murmurs Lungs Clear to Auscultation, Normal Air Movement Abdomen Tenderness mainly on the rt. lower quadrant Last 24 Hrs of Labs/Addy: Laboratory Tests 10/24/16 1442: Urine Color YEL, Urine Clarity HAZY H, Urine pH 6.0, Ur Specific [place] 1.020, Urine Protein TRACE H, Urine Ketones NEG, Urine Nitrite NEG, Urine Bilirubin NEG, Urine Urobilinogen 0.2, Ur Leukocyte Esterase MOD H, Ur Microscopic SEDIMENT EXAMINED, Urine RBC 1-3, Urine WBC 25-50 H, Ur Epithelial Cells FEW, Urine Bacteria FEW H, Urine Mucus FEW, Micro UA Comment BUDDING YEAST H, Urine Hemoglobin TRACE-INTACT H, Urine Glucose NEG 10/24/16 1432: Anion Gap 9, Estimated GFR > 60, BUN/Creatinine Ratio 20.0, Glucose 82, Lactic Acid 1.6, Calcium 8.4, Total Bilirubin 0.4, AST 24, ALT 44, Alkaline Phosphatase 127 H, Troponin I < 0.01, Total Protein 6.2 L, Albumin 3.0 L, Globulin 3.2, Albumin/Globulin Ratio 0.9 L, PT 26.2 H, INR 2.52 H, APTT 39 H, CBC w Diff MAN DIFF ORDERED, RBC 3.87 L, MCV 84.7, MCH 26.6 L, RDW 18.5 H, MPV 7.9, Gran % 85.8 H, Lymphocytes % 7.8 L, Monocytes % 1.9, Eosinophils % 3.6, Basophils % 0.9, Absolute Granulocytes 10.9 H, Segmented Neutrophils 81 H, Band Neutrophils 4, Absolute Lymphocytes 1.0 L, Lymphocytes 12 L, Monocytes 1 L, Absolute Monocytes 0.2, Eosinophils 2, Absolute Eosinophils 0.5, Absolute Basophils 0.1, Platelet Estimate INCREASED, Polychromasia 1+, Hypochromic- Microcytic 2+, Poikilocytosis 1+, Anisocytosis 1+, Pettigrew Cells RARE, PUBS MCHC 31.4 L, Fld Total RBCs Counted 100 Microbiology 10/25 2039 URINE ROUT: Urine Culture - RECD 10/24 1852 BLOOD: Blood Culture - COLB 10/24 1852 BLOOD: Blood Culture - COLB Diagnostic Data EKG Results Sinus rhythm, 59, no changes from the previous EKG Other Results Abdomen/pelvis CT: IMPRESSION: 1. Extensive pancolonic diverticulosis, notably involving the descending and rectosigmoid colon. Subtle pericolonic inflammatory changes surrounding a short segment of the descending colon at the level of the junction between the descending and sigmoid colon. This could reflect a developing acute diverticulitis. No extraluminal foci of air and no pericolonic fluid collections. 2. Bilateral simple renal cortical cysts. 3. A moderate amount of pneumobilia within the left hepatic lobe as well as within the distal common bile duct, not unexpected following cholecystectomy. 4. A 1.1 cm rounded opacity within the right lung base, corresponding to a previously identified region of focal atelectasis within the right lung base. 5. The urinary bladder is decompressed by an indwelling Holdre catheter, which limits evaluation. Assessment/Plan Assessment: is a 86 YO M with PMH A. 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 Assessment #Acute Diverticulitis #Lower GI bleed #Recurrent UTI in the setting of chronic indwelling Holder #History of polycythemia vera Plan: -Patient is going to be placed under observation at general medicine floor -He was giving IV Unasyn at ED, WILL continue IV Unasyn -Non urgent GI consult for ?lower GI bleed -IV Protonix -Urology consult with Dr. Marie -We'll keep the patient nothing by mouth for now -We'll hydrate with IV normal saline at 75 per hour -We'll continue all of his home medications, except for Coumadin -We'll check CBC, BEP and INR tomorrow at am -Blood type and screen -Close monitoring for any GI bleed, or hemodynamic instability -Stool guaiac -Blood culture and urine culture was sent please follow-up. DVT prophylaxis: Alps DNR/DNI As Ranked By This Provider Problem List: 1. Urinary tract infection 2. Lower GI bleed Core Measures/Miscellaneous Acute Coronary Syndrome ACS Diagnosis: No Cerebrovascular Accident CVA/TIA Diagnosis: No Congestive Heart Failure CHF Diagnosis: No VTE (View Protocol) VTE Risk Factors: Acute medical illness, Age > 40 No Mech VTE prophylaxis d/t: No contraindications No VTE Pharm Prophylaxis d/t: Active bleeding VTE Diagnosis: No VTE Type: NONE VTE Confirmed by (Test): NONE Sepsis (View Protocol) Severe Sepsis Present: No Septic Shock Septic Shock Present: No Miscellaneous Documentation Attending Case Discussed With: AZEEM RAZA MD Primary Care Physician: MERE APPLE,YUSUF Patient sees these Specialists - Level of Patient Care: General Medicine AZEEM RAZA MD 10/24/16 7665: Attending MD Review Statement Attending Statement Attending MD Statement: examined this patient, discuss w/resident/PA/PANEL EDGE SEALER, agreed w/resident/PA/PANEL EDGE SEALER, reviewed EMR data (avail) Attending Assessment/Plan: 86M PMH atrial fibrillation on Coumadin, recurrent UTI with chronic Holder, dementia (which gets easily exacerbated by Amlodipine and UTIs), CAD s/p PCI, polycythemia vera, presenting with 3 days of lethargy, generalized weakness, 1 day of dark stools, and 1 day of suprapubic pain. UA suggestive of UTI. Recently treated with 7 day course of Bactrim for mRSA UTI. Patient reports pain is improved since coming to ED, though he is weak and tired. Rectal exam in ED shows brown hemoccult positive stool. Hgb stable since last admission. WBC 12.4 but on discharge 2 weeks ago was 14. Afebrile, stable vitals, exam benign. CT abdomen shows diverticulosis with possible diverticulitis. 1. Acute GI bleed 2. Acute blood loss anemia 3. Leukocytosis 4. Chronic atrial fibrillation 5. Chronic Holder catheter 6. mRSA UTI 7. Atrophic gastritis Plan - Observation in general medicine - Continue PPI - GI and urology consults - Follow urine cultures - May start Vancomycin for history of mRSA UTI - Start Unasyn for possible diverticulitis - Chronic Holder catheter in place - May continue Coumadin - Monitor CBC
--- NOTE | 2016-10-24 19:30 | NUR ---
IVF INFUSING. NO COMPLAINTS AT THIS TIME.
--- NOTE | 2016-10-24 20:00 | NUR ---
SEEN BY HOUSE STAFF
--- NOTE | 2016-10-24 20:30 | NUR ---
TRANSFERRED TO HOSPITAL BED, TURNED/REPOSITIONED/CLEANED/CHANGED. 2 ALLEVYN DRESSINGS TO BUTTOCKS IN PLACE FROM PRIOR TO ADMIT; PEELED BACK WITH AQUACEL AQ NOTED OVER EXCORIATED AREAS WITH MULTIPLE OPENINGS; PER SON THESE ARE CHRONIC. PT C/O PAIN TO PENIS; WALL IN PLACE AND DRAINING WELL, WHILE CLEANING PT AN APPROX 0.7CM ROUND ULCERATION NOTED IN RIGHT SIDE OF PENIS APPROX 2INCHES FROM MEATUS; WALL VISIBLE THROUGH ULCER; EDGES WITHOUT SIGNS OF INFECTION. MINOR FUNGAL RASH NOTED TO INNER THIGHS; SMALL AMOUNTS PURULENT DISCHARGE WITH SCANT STREAKS BLOOD FROM MEATUS. HOUSE STAFF ON UNIT AND NOTIFIED, ALSO NOTIFIED OF BUTTOCK WOUNDS WITH NNO AT THIS TIME
--- NOTE | 2016-10-24 21:00 | NUR ---
ASLEEP; ASKING TO REST UNDISTURBED LONG POSSIBLE.
--- NOTE | 2016-10-24 23:32 | NUR ---
MEDICATED WITH NIGHT MEDS, REFUSED REPOSITION, WALL EMPTIED, CALL LIGHT IN REACH, POSITION FOR COMFORT. AWARE OF POC AND NEXT MEDS/LABS DUE AT 0600. MULTIPLE ATTEMPTS BY TOTAL 5 STAFF TO DRAW BLOOD CX SINCE REQUESTED BY HOUSE STAFF; UNSUCCESSFUL. 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
--- NOTE | 2016-10-24 23:58 | NUR ---
SOFTWARE TEST MANAGER AND RESIDENT PAGED RE:BLOOD CX WITH NO RESPONSE. REPORT GIVEN TO ONCOMING SHIFT AT THIS TIME.
--- NOTE | 2016-10-25 00:34 | NUR ---
MOD PAGED AND RESPONDED; HOUSE STAFF INFO IN CHART IS TIMED OUT. NIGHT FLOAT AWARE THAT MULTIPLE ATTEMPTS FOR BLD CX BY MULTIPLE STAFF HAVE BEEN UNSUCCESSUL (NO BLD OBTAINED OR QNS). PER INSTRUCTIONS FROM NIGHT FLOAT 2ND DOSE OF UNASYN UP AND INFUSING NOW; NIGHT STAFF INFORMED OF MD REQUEST TO CONTINUE TO ATTEMPT BLOOD CX COLLECTION AFTER 2ND DOSE UNASYN HAS COMPLETED. PT REMAINS AFEBRILE, NO COMPLAINTS EXCEPT FOR MEDS/CARE/LAB DRAWS PREVENTING GOOD NIGHT'S SLEEP. CALL LIGHT REMAINS IN REACH.
[2016-10-25 05:59] LABS: ABSOLUTE BASOPHIL COUNT 0.1 /CUMM (0.0-0.2); ABSOLUTE EOSINOPHIL COUNT 0.4 /CUMM (0.0-0.7); ABSOLUTE GRANULOCYTE CT 9.8 /CUMM (1.4-6.5); ABSOLUTE MONOCYTE COUNT 0.2 /CUMM (0.10-0.60); BASOPHIL % 1.1 % (0.0-2.0); EOSINOPHIL % 3.6 % (0-5); HEMATOCRIT 33.2 % (42-52); MEAN CORPUSCULAR HGB 26.3 PG (27.0-31.0); MEAN CORPUSCULAR HGB CONC 30.7 G/DL (33.0-37.0); MEAN CORPUSCULAR VOLUME 85.5 FL (80.0-94.0); MEAN PLATELET VOLUME 7.9 FL (7.4-10.4); RBC DISTRIBUTION WIDTH 18.8 % (11.5-14.5); RED BLOOD CELL CT 3.89 /CUMM (4.70-6.10); WHITE BLOOD CELL COUNT 11.6 /CUMM (4.8-10.8)
[2016-10-25 06:33] LABS: GRANULOCYTE % 84.2 % (42.2-75.2); PLATELET COUNT 390 /CUMM (130-400)
[2016-10-25 08:06] VITALS: BP 151/69
--- NOTE | 2016-10-25 09:00 | NUR ---
DR GUAMAN IN TO SEE PATIENT. EXCHANGED CHRONIC WALL BY DR GUAMAN.
--- NOTE | 2016-10-25 11:17 | PN- Student ---
Subjective Subjective: Medical Student Daily Progress Note: Mr. Muñoz was placed in observation yesterday, 10/24/16, for increasing confusion, possible UTI, and ?GI bleed. There were no overnight events. The patient denies pain, N/V, change in bowel habits, fever, and shortness of breath. His only complaint is "there is burning in my crotch." He is additionally upset that his Coumadin has been held pending further evaluation. He is worried that he will develop blood clots. Current Medications Sig/Caroline Start time Last Medication Dose Route Stop Time Status Admin Amiodarone HCl 200 MG QAM 10/25 1000 AC PO Ampicillin Sodium/ 0 .STK-MED ONE 10/25 0550 DC Sulbactam Sodium .ROUTE Ampicillin Sodium/ 0 .STK-MED ONE 10/25 0023 DC Sulbactam Sodium .ROUTE Ampicillin Sodium/ 1,500 MG Q6 10/24 2359 AC 10/25 Sulbactam Sodium IV 0556 Sodium Chloride 100 ML Ampicillin Sodium/ 0 .STK-MED ONE 10/24 1723 DC Sulbactam Sodium .ROUTE Ampicillin Sodium/ 3,000 MG ONCE ONE 10/24 1645 DC 10/24 Sulbactam Sodium IV 10/24 1714 1733 Sodium Chloride 100 ML Atorvastatin Calcium 20 MG QPM 10/24 2200 AC 10/24 PO 2332 Finasteride 5 MG DAILY 10/25 1000 AC PO Gabapentin 100 MG QPM 10/24 2200 AC 10/24 PO 2332 Hydroxyurea 1,000 MG QAM 10/25 1000 AC PO Lactobacillus 1 CAP DAILY 10/25 1000 AC Acidophilus PO Lisinopril 10 MG DAILY 10/25 1000 AC PO Nystatin 1 TUSHAR BID 10/25 1000 AC TOP Pantoprazole Sodium 40 MG DAILY 10/25 1000 AC IV Polyethylene Glycol 17 GM DAILY NEEDED PRN 10/24 2100 AC PO Senna/Docusate Sodium 2 TAB DAILY 10/25 1000 AC PO Sodium Chloride 1,000 ML .[Q13] 10/24 1900 AC 10/24 IV 1913 Tamsulosin HCl 0.4 MG QPM 10/24 2200 AC 10/24 PO 2332 Objective Objective: Vital Signs Date Time Temp Pulse Resp B/P B/P Pulse O2 O2 Flow FiO2 Mean Ox Delivery Rate 10/25 805 98.8 54 20 151/69 95 Room Air 10/25 0805 98.8 54 16 151/69 95 Room Air 10/24 2332 98.9 55 16 153/68 06/06 2331 98.9 55 16 153/68 99 Room Air 10/24 1740 96.8 55 16 122/58 98 Room Air 10/24 1700 98 10/24 1545 97.5 61 16 108/56 98 Room Air 10/24 1324 97.5 64 18 125/57 97 Room Air Intake & Output 10/25 1600 10/25 0800 06 0000 Intake Total 130 200 Output Total 400 700 Balance -270 -500 Intake, IV 130 Intake, Oral 200 Output, Urine 400 700 Patient 160 lb Weight General: A&Ox3, no acute distress HEENT: large hole noted just superior to right ear, ?dilated pore of seble. Oral mucosa is dry. Neck: supple without adenopathy CV: irregular, no murmurs, rubs, or gallops Pulmonary: CTA with normal air movement GI: abdomen soft, non-tender. bowel sounds present : alexander catheter in place with clear yellow urine. No penile discharge. Ulceration noted on penis. Extremities: bilateral AKAs noted. No clubbing or cyanosis. No edema Psych: cooperative with exam. Expresses some anxiety over current state. Results Results: Laboratory Tests 10/25/16 0600: Anion Gap 10, Estimated GFR > 60, BUN/Creatinine Ratio 16.3, CBC w Diff NO MAN DIFF REQ, RBC 3.89 L, MCV 85.5, MCH 26.3 L, RDW 18.8 H, MPV 7.9, Gran % 84.2 H, Lymphocytes % 9.0 L, Monocytes % 2.1, Eosinophils % 3.6, Basophils % 1.1, Absolute Granulocytes 9.8 H, Absolute Lymphocytes 1.0 L, Absolute Monocytes 0.2, Absolute Eosinophils 0.4, Absolute Basophils 0.1, PUBS MCHC 30.7 L 10/24/16 1442: Urine Color YEL, Urine Clarity HAZY H, Urine pH 6.0, Ur Specific [place] 1.020, Urine Protein TRACE H, Urine Ketones NEG, Urine Nitrite NEG, Urine Bilirubin NEG, Urine Urobilinogen 0.2, Ur Leukocyte Esterase MOD H, Ur Microscopic SEDIMENT EXAMINED, Urine RBC 1-3, Urine WBC 25-50 H, Ur Epithelial Cells FEW, Urine Bacteria FEW H, Urine Mucus FEW, Micro UA Comment BUDDING YEAST H, Urine Hemoglobin TRACE-INTACT H, Urine Glucose NEG Microbiology 10/25 06 BLOOD: Blood Culture - RECD 10/25 599 BLOOD: Blood Culture - RECD 10/25 2039 URINE ROUT: Urine Culture - PRELIMINARY, no growth after 1 day 10/24/16 CT abdomen/pelvis: IMPRESSION: 1. Extensive pancolonic diverticulosis, notably involving the descending and rectosigmoid colon. Subtle pericolonic inflammatory changes surrounding a short segment of the descending colon at the level of the junction between the descending and sigmoid colon. This could reflect a developing acute diverticulitis. No extraluminal foci of air and no pericolonic fluid collections. 2. Bilateral simple renal cortical cysts. 3. A moderate amount of pneumobilia within the left hepatic lobe as well as within the distal common bile duct, not unexpected following cholecystectomy. 4. A 1.1 cm rounded opacity within the right lung base, corresponding to a previously identified region of focal atelectasis within the right lung base. 5. The urinary bladder is decompressed by an indwelling Alexander catheter, which limits evaluation. Assessment/Plan Assessment: Mr. Muñoz is an 86yo M with extensive PMH significant for CAD, atrial fibrillation, polycythemia vera, multiple DVTs, and recurrent UTIs with chronic indwelling alexander, who was placed in observation on 10/24/16 for increasing confusion, possible UTI, diverticulitis, and possible GI bleed. Problem List: 1. Diverticulitis 2. ?GI bleed 3. Recurrent UTI with chronic indwelling alexander 4. Atrial Fibrillation 5. Polycythemia vera 6. History of DVTs/PE 7. HTN 8. HLD Plan: Diverticulitis: has a history of diverticulosis. CT on admission showed extensive pancolonic diverticulosis and subtle pericolonic inflammatory changes suggestive of possible acute developing diverticulitis. WBC on admission was 12.7. Received Unasyn 3gm IV in ED. Could be source of GIB, although no bright red blood has been noted. * Continue Unasyn 1.5 gm q6h IV, switch to Augmentin po on discharge * Monitor for s/s of worsening infection, including fever and leukocytosis * Start clear liquid diet, advance as tolerated * D/C IVF if patient tolerating diet * Consult GI - recommends continuing antibiotics, will followup as outpatient ?GI bleed: was suspected on last admission in September 2016. Guiac positive on this admission. Anemia noted on this admission, but H&H is stable * Monitor CBC while inpatient for anemia * Will recommend follow up with GI upon discharge for full evaluation * If H&H remains stable, continue Coumadin and Aspirin Recurrent UTI with chronic indwelling alexander catheter: patient recently admitted in September 2016 for UTI. Has had multiple episodes requiring antibiotic treatment. Has chronic indwelling alexander. * Followup urine culture results * Continue anitbiotic coverage as is, tailor as culture results * Consult urology Atrial fibrillation: controlled with Amiodarone 200mg. Coumadin 1mg daily for anticoagulation. Aspirin 81mg daily. * Continue Amiodarone * Continue Coumadin and Aspirin if H&H stable Polycythemia vera: on Hydroxyurea 1000mg daily. * Continue hydroxyurea History of DVTs/PE: on Coumadin as previously described. * Restart Coumadin if H&H remains stable HTN: on Lisinopril 10mg. Slightly hypertensive this morning. * Continue Lisinopril HLD: on Atorvastatin 20mg daily. * Continue Atorvastatin Disposition: If H&H stable, tolerating diet, tolerating antibiotics, and Coumadin is tolerated without issue, will be able to discharge home Code status: DNR/DNI Diet: clear liquid DVT prophylaxis: Coumadin, hold for cystoscopy
--- NOTE | 2016-10-25 11:23 | PN- Housestaff ---
Subjective Follow-up For: Acute diverticulitis Current UTI with chronic indwelling Holder catheter Dysuria Subjective: Patient was seen and examined this morning, like comfortably in bed, reporting penile pain, denied any discharge or dysuria, denied fever or chills, abdominal pain, nausea or vomiting. No overnight events reported by the nurse. Review of Systems Constitutional: Reports: see HPI. Objective Last 24 Hrs of Vital Signs/I&O Vital Signs Date Time Temp Pulse Resp B/P B/P Pulse O2 O2 Flow FiO2 Mean Ox Delivery Rate 10/25 1222 64 162/103 / 0806 98.8 54 20 151/69 95 Room Air /07 0805 98.8 54 16 151/69 95 Room Air 06/06 2332 98.9 55 16 153/68 06/06 2331 98.9 55 16 153/68 99 Room Air 06/ 1740 96.8 55 16 122/58 98 Room Air / 1700 98 06/06 1545 97.5 61 16 108/56 98 Room Air Intake & Output 10/25 1600 07 0800 06/ 0000 Intake Total 130 200 Output Total 600 400 700 Balance -600 -270 -500 Intake, IV 130 Intake, Oral 200 Output, Urine 600 400 700 Patient 72.575 kg Weight Physical Exam General Appearance: Alert, Oriented X3, Cooperative, No Acute Distress Skin: No Rashes, No Breakdown, No Significant Lesion Skin Temp/Moisture Exam: Warm/Dry HEENT: Atraumatic, PERRLA, EOMI, Mucous Membr. moist/pink Neck: Supple Cardiovascular: Normal S1, Normal S2, No Murmurs Lungs: Clear to Auscultation, Normal Air Movement Abdomen: Normal Bowel Sounds, Soft, No Tenderness Neurological: Normal Speech, Strength at 5/5 X4 Ext, Normal Tone, Sensation Intact, Cranial Nerves 3-12 NL, Reflexes 2+ Extremities: No Clubbing, No Cyanosis, No Edema, Normal Pulses, No Tenderness/ Swelling Assessment/Plan Assessment: Mr. 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 Assessment #Acute Diverticulitis #Recurrent UTI in the setting of chronic indwelling Holder #Atrial fibrillation on Coumadin #Acute Diverticulitis -Mild leukocytosis, afebrile -CT abdomen revealed possible signs of acute pancreatitis with chronic extensive doty colonic diverticulosis CT abdomen and pelvis 10/24/16 IMPRESSION: 1. Extensive pancolonic diverticulosis, notably involving the descending and rectosigmoid colon. Subtle pericolonic inflammatory changes surrounding a short segment of the descending colon at the level of the junction between the descending and sigmoid colon. This could reflect a developing acute diverticulitis. No extraluminal foci of air and no pericolonic fluid collections. 2. Bilateral simple renal cortical cysts. 3. A moderate amount of pneumobilia within the left hepatic lobe as well as within the distal common bile duct, not unexpected following cholecystectomy. 4. A 1.1 cm rounded opacity within the right lung base, corresponding to a previously identified region of focal atelectasis within the right lung base. 5. The urinary bladder is decompressed by an indwelling Holder catheter, which limits evaluation. -GI consultation was obtained -Continue Unasyn IV Day#2 -Guaiac stool positive in ED, note that patient used to have positive guaiac stool with stable H&H #Recurrent UTI in the setting of chronic indwelling Holder -Complain of penile pain, denied dysuria -Urology consultation was obtained -Continue Flomax and finasteride -Plan for cystoscopy tomorrow morning #Atrial fibrillation on Coumadin -INR 2.5 -Continue Coumadin at home dose 0.5 mg daily -INR daily DVT prophylaxis: warfarin DNR/DNI Diet clear liquid, nothing by mouth at midnight Problem List: 1. On warfarin therapy 2. Diverticulitis large intestine 3. Confusion Pain Ratin Pain Location: NONE Pain Goal: Pain 4 or less Pain Plan: mild pain pathway Tomorrow's Labs & Rationales: CBC, BMP, INR
--- NOTE | 2016-10-25 13:30 | PN- Att Addend ---
Attending Addendum Attending Brief Note Patient seen and examined, feels overall better. Abd pain is improving. Pt afebrile and WBX slightly beter today. Feels hungry, denies any N/V. Vital Signs Date Time Temp Pulse Resp B/P B/P Pulse O2 O2 Flow FiO2 Mean Ox Delivery Rate 10/25 1222 64 162/103 06/07 0806 98.8 54 20 151/69 95 Room Air 06/07 0805 98.8 54 16 151/69 95 Room Air 06/06 2332 98.9 55 16 153/68 06/06 2331 98.9 55 16 153/68 99 Room Air 06/06 1740 96.8 55 16 122/58 98 Room Air 06/06 1700 98 06/06 1545 97.5 61 16 108/56 98 Room Air on exam; aox3, nad. cv; s1,s2, rrr resp; clear abd; soft, nt, bs+ ext; amputations on both side. Laboratory Tests 10/25 10/24 0600 1442 Chemistry Sodium (137 - 145 mmol/L) 137 Potassium (3.5 - 5.1 mmol/L) 4.3 Chloride (98 - 107 mmol/L) 106 Carbon Dioxide (22 - 30 mmol/L) 21 L Anion Gap (5 - 16) 10 BUN (9 - 20 mg/dL) 13 Creatinine (0.7 - 1.2 mg/dL) 0.8 Estimated GFR (>60 ml/min) > 60 BUN/Creatinine Ratio (7 - 25 %) 16.3 Hematology CBC w Diff NO MAN DIFF REQ WBC (4.8 - 10.8 /CUMM) 11.6 H RBC (4.70 - 6.10 /CUMM) 3.89 L Hgb (14.0 - 18.0 G/DL) 10.2 L Hct (42 - 52 %) 33.2 L MCV (80.0 - 94.0 FL) 85.5 MCH (27.0 - 31.0 PG) 26.3 L RDW (11.5 - 14.5 %) 18.8 H Plt Count (130 - 400 /CUMM) 390 MPV (7.4 - 10.4 FL) 7.9 Gran % (42.2 - 75.2 %) 84.2 H Lymphocytes % (20.5 - 51.1 %) 9.0 L Monocytes % (1.7 - 9.3 %) 2.1 Eosinophils % (0 - 5 %) 3.6 Basophils % (0.0 - 2.0 %) 1.1 Absolute Granulocytes (1.4 - 6.5 /CUMM) 9.8 H Absolute Lymphocytes (1.2 - 3.4 /CUMM) 1.0 L Absolute Monocytes (0.10 - 0.60 /CUMM) 0.2 Absolute Eosinophils (0.0 - 0.7 /CUMM) 0.4 Absolute Basophils (0.0 - 0.2 /CUMM) 0.1 PUBS MCHC (33.0 - 37.0 G/DL) 30.7 L Urines Urine Color (YEL,AMB,STR) YEL Urine Clarity (CLEAR) HAZY H Urine pH (5.0 - 8.0) 6.0 Ur Specific [place] (1.001 - 1.035) 1.020 Urine Protein (NEG,<30 MG/DL) TRACE H Urine Ketones (NEG) NEG Urine Nitrite (NEG) NEG Urine Bilirubin (NEG) NEG Urine Urobilinogen (0.1 - 1.0 EU/dl) 0.2 Ur Leukocyte Esterase (NEG) MOD H Ur Microscopic SEDIMENT EXAMINED Urine RBC (0 - 5 /HPF) 1-3 Urine WBC (0 - 2 /HPF) 25-50 H Ur Epithelial Cells (NONE,FEW) FEW Urine Bacteria (NEG/NONE) FEW H Urine Mucus (FEW,NONE) FEW Micro UA Comment BUDDING YEAST H Urine Hemoglobin (NEG) TRACE-INTACT H Urine Glucose (N MG/DL) NEG 10/24 1432 Chemistry Sodium (137 - 145 mmol/L) 134 L Potassium (3.5 - 5.1 mmol/L) 4.5 Chloride (98 - 107 mmol/L) 104 Carbon Dioxide (22 - 30 mmol/L) 22 Anion Gap (5 - 16) 9 BUN (9 - 20 mg/dL) 16 Creatinine (0.7 - 1.2 mg/dL) 0.8 Estimated GFR (>60 ml/min) > 60 BUN/Creatinine Ratio (7 - 25 %) 20.0 Glucose (65 - 99 mg/dL) 82 Lactic Acid (0.7 - 2.1 mmol/L) 1.6 Calcium (8.4 - 10.2 mg/dL) 8.4 Total Bilirubin (0.2 - 1.3 mg/dL) 0.4 AST (17 - 59 U/L) 24 ALT (21 - 72 U/L) 44 Alkaline Phosphatase (< 127 U/L) 127 H Troponin I (<0.11 ng/ml) < 0.01 Total Protein (6.3 - 8.2 g/dL) 6.2 L Albumin (3.5 - 5.0 g/dL) 3.0 L Globulin (1.9 - 4.2 gm/dL) 3.2 Albumin/Globulin Ratio (1.1 - 2.2 %) 0.9 L Coagulation PT (9.4 - 12.5 SEC) 26.2 H INR (0.90 - 1.17) 2.52 H APTT (25 - 37 SEC) 39 H Hematology CBC w Diff MAN DIFF ORDERED WBC (4.8 - 10.8 /CUMM) 12.7 H RBC (4.70 - 6.10 /CUMM) 3.87 L Hgb (14.0 - 18.0 G/DL) 10.3 L Hct (42 - 52 %) 32.8 L MCV (80.0 - 94.0 FL) 84.7 MCH (27.0 - 31.0 PG) 26.6 L RDW (11.5 - 14.5 %) 18.5 H Plt Count (130 - 400 /CUMM) 453 H MPV (7.4 - 10.4 FL) 7.9 Gran % (42.2 - 75.2 %) 85.8 H Lymphocytes % (20.5 - 51.1 %) 7.8 L Monocytes % (1.7 - 9.3 %) 1.9 Eosinophils % (0 - 5 %) 3.6 Basophils % (0.0 - 2.0 %) 0.9 Absolute Granulocytes (1.4 - 6.5 /CUMM) 10.9 H Segmented Neutrophils (42.2 - 75.2 %) 81 H Band Neutrophils (0.0 - 5.0 %) 4 Absolute Lymphocytes (1.2 - 3.4 /CUMM) 1.0 L Lymphocytes (20.5 - 51.1 %) 12 L Monocytes (1.7 - 9.3 %) 1 L Absolute Monocytes (0.10 - 0.60 /CUMM) 0.2 Eosinophils (0 - 5.0 %) 2 Absolute Eosinophils (0.0 - 0.7 /CUMM) 0.5 Absolute Basophils (0.0 - 0.2 /CUMM) 0.1 Platelet Estimate (ADEQUATE) INCREASED Polychromasia 1+ Hypochromic-Microcytic 2+ Poikilocytosis 1+ Anisocytosis 1+ Reading Cells RARE PUBS MCHC (33.0 - 37.0 G/DL) 31.4 L Other Body Source Fld Total RBCs Counted (%) 100 A/P; 86 y/o F with pmh sig for A. 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 At this point H&H remained stable., Leukocytosis has improved slightly. Patient has been seen by Dr. Marie as he reports. I will discuss with him about his evaluation. I was told that his Holder catheter was changed by Dr. Marie. Patient will be started on clear liquid diets and has had kidney advanced slowly as he tolerates. Once tolerating diet, IV fluids can be discontinued. His INR is therapeutic, please dose Coumadin at home dose. Will monitor H&H. If H&H remained stable, patient tolerates diet likely can be discharged home tomorrow. Continue all other current meds. D/W family at bedside.
--- NOTE | 2016-10-25 14:41 | Cons- Gastroenterology ---
General Information and HPI Consulting Request Date of Consult: 10/25/16 Requested By: ANGELA APPLE, PJ Reason for Consult: I was just called me today by the hospitalist service to assess diverticulitis, brown OB+ stool & questionable abdominal pain. Source of Information: patient, old records Exam Limitations: poor historian (Ox 2 (+/- time)) History of Present Illness: 86-year-old male, DNR/DNI with living will, afib on Coumadin, P.Vera on hydroxyzine, ASHD post stents, history of recurrent UTI, PVD, right AKA, left BKA, B/L arnav holes for SDH, reportedly with history DVT/PE (details unclear), presenting to ER 10/24/16 for confusion & burning in crotch. Upon arrival, 10/24/2016 at 12:51 PM, the patient was hemodynamically stable and afebrile. He has a chronic indwelling Holder. He was recently admitted to [facility] 10/09/2016 to 10/13/2016 for UTI and questionable upper GI bleed. His baseline Hgb over the past few weeks is 10+ range. A few months prior, Hgb was in the 12-13 range, dating back a year. At first, the patient denied abdominal pain, then later claimed he had lower abdominal pain, which he could not quantify or quantify. His symptoms were unrelated to eating. There were no aggravating or relieving factors. There was a question of dark stools, although digital exam by the internal consultant showed brown OB-positive stool. He is awaiting cystoscopy tomorrow for chronic indwelling Holder and recurrent UTI. He had a remote colonoscopy many years ago, whereabouts and results unknown. The patient denied any UGI symptoms and specifically denied any nausea, vomiting, hematemesis, dysphagia, odynophagia, or early satiety. He had questionable chills. He was uncertain if he had a fever. He denied any dysuria, frequency, pneumaturia, or feces in the urine. There is no definite family history of colon cancer or IBD, although this is limited. His appetite is fair. He denies any weight loss or jaundice. He denied any diarrhea, constipation, obstipation, tenesmus, change in stool caliber, or BRBPR. The patient was recently seen in GI consultation 10/12/[address] Flores during his last admission for questionable dark stools. He was maintained on PPI. 10/12/2016: EGD to D2 per Dr. Flores- atrophic gastritis, small hiatal hernia, non-obstructing Schatzki ring, Z line at 45 cm, no active peptic ulcer disease, AVMs, masses, or varices. Normal duodenal folds. No biopsies were obtained. Anticoagulation therapy was continued, as there was no active UGI bleeding, along with PPI. Suggestions were for outpatient colonoscopy for the OB+ stool if the patient & his family were agreeable. The patient is currently tolerating clears po. He was started on IV Unasyn for diverticulitis seen on CT (see imaging studies), but blood cultures were obtained afterwards. 10/24/2016: Admission labs- WBC 12.7 (81S/4B/12L/1M/2E), H/H 10.3/32.8, MCV 84.7 , PLT 453, PT 26.2, INR 2.52, PTT 39, glu 82, BUN/Cr 16/0.8, GFR > 60, Na 134, K 4.5, HCO3 22, AG 9, lactate 1.6, Ca2+ 8.4, albumin 3.0, globulin 3.2, TBil 0.4, alk phos 127, AST 24, ALT 44, troponin < .01; U/A- hazy yellow, 1.020, 6.0, 1-3 RBC, 25-50 WBC, few bact, tr Hgb, tr prot, neg nitrite, mod esterase. 10/24/2016: EKG- SB @ 59, RBBB/LAHB, PRWP, without change. 10/24/2016: CT ABDOMEN AND PELVIS WITHOUT IV CONTRAST- 1. Extensive pancolonic diverticulosis, notably involving the descending and rectosigmoid colon. Subtle pericolonic inflammatory changes surrounding a short segment of the descending colon at the level of the junction between the descending and sigmoid colon. This could reflect a developing acute diverticulitis. No extraluminal foci of air and no pericolonic fluid collections. 2. Bilateral simple renal cortical cysts. 3. A moderate amount of pneumobilia within the left hepatic lobe as well as within the distal common bile duct, not unexpected following cholecystectomy. Normal caliber CBD. Normal liver. 4. A 1.1 cm rounded opacity within the right lung base, corresponding to a previously identified region of focal atelectasis within the right lung base. 5. The urinary bladder is decompressed by an indwelling Holder catheter, which limits evaluation. 6. ASHD of aorta without AAA. 7. DJD. Allergies/Medications Allergies: Coded Allergies: amlodipine (Severe, ANAPHYLAXIS 07/29/16) niacin (EXTREME FLUSHING FROM IMMEDIATE RELEASE 07/18/16) PT TOLERATES SLOW RELEASE Home Med List: Amiodarone HCl 200 MG TABLET 1 TAB PO QAM AFIB (Reported) Aspirin (Ecotrin*) 81 MG TABLET.DR 1 TAB PO QPM HEART HEALTH (Reported) Atorvastatin Calcium (Lipitor) 20 MG TABLET 1 TAB PO QPM CHOLESTEROL ( Reported) Cranberry Conc/Ascorbic Acid (Cranberry Plus Vitamin C Sftgl) 4,200 MG-20 MG CAPSULE 1 CAP PO BID SUPPLEMENT (Reported) Finasteride 5 MG TABLET 5 MG PO DAILY urinary retention Gabapentin 100 MG CAPSULE 100 MG PO QPM nerve pain Hydroxyurea 500 MG CAPSULE 2 CAP PO QAM POLYCYTHEMIA VERA (Reported) Lactobacillus Acidophilus (Probiotic) 10 BILLION CELL CAPSULE 1 CAP PO DAILY GI (Reported) Lisinopril 10 MG TABLET 1 TAB PO DAILY HEART (Reported) Pantoprazole Sodium (Protonix) 40 MG TABLET.DR 1 TAB PO DAILY Acid Polyethylene Glycol 3350 (Miralax) 17 GRAM/DOSE POWDER 17 GM PO DAILY NEEDED PRN CONSTIPATION Sennosides (Senna Lax) 8.6 MG TABLET 2 TAB PO QPM CONSTIPATION (Reported) Tamsulosin HCl (Flomax) 0.4 MG CAP.ER.24H 1 CAP PO QPM PROSTATE (Reported) Warfarin Sodium 2 MG TABLET 0.5 TAB PO QPM BLOOD THINNER (Reported) Current Medications: Current Medications Sig/Caroline Start time Last Medication Dose Route Stop Time Status Admin Amiodarone HCl 200 MG QAM 10/25 1000 AC 10/25 PO 1222 Ampicillin Sodium/ 0 .STK-MED ONE 10/25 0550 DC Sulbactam Sodium .ROUTE Ampicillin Sodium/ 0 .STK-MED ONE 10/25 0023 DC Sulbactam Sodium .ROUTE Ampicillin Sodium/ 1,500 MG Q6 10/24 2359 AC 10/25 Sulbactam Sodium IV 1223 Sodium Chloride 100 ML Ampicillin Sodium/ 0 .STK-MED ONE 10/24 1723 DC Sulbactam Sodium .ROUTE Ampicillin Sodium/ 3,000 MG ONCE ONE 10/24 1645 DC 10/24 Sulbactam Sodium IV 10/24 1714 1733 Sodium Chloride 100 ML Atorvastatin Calcium 20 MG QPM / 2200 AC 10/24 PO 2332 Finasteride 5 MG DAILY 10/25 1000 AC 10/25 PO 1223 Gabapentin 100 MG QPM 10/24 2200 AC 10/24 PO 2332 Hydroxyurea 1,000 MG QAM 10/25 1000 AC 10/25 PO 1337 Lactobacillus 1 CAP DAILY 10/25 1000 AC 10/25 Acidophilus PO 1222 Lisinopril 10 MG DAILY 10/25 1000 AC 10/25 PO 1222 Nystatin 1 TUSHAR BID 10/25 1000 AC 10/25 TOP 1223 Pantoprazole Sodium 40 MG DAILY 10/25 1000 AC 10/25 IV 1223 Polyethylene Glycol 17 GM DAILY NEEDED PRN 10/24 2100 AC PO Senna/Docusate Sodium 2 TAB DAILY 10/25 1000 AC 10/25 PO 1223 Sodium Chloride 1,000 ML .[Q13] 10/24 1900 AC 10/24 IV 1913 Tamsulosin HCl 0.4 MG QPM 10/24 2200 AC 10/24 PO 2332 Warfarin Sodium 0.5 MG COUMADIN 1700 ONE 10/25 1700 AC PO 10/25 1701 Past History Travel History Traveled to [place] past 21 day No Medical History Blood Transfusion Hx: No (unknown) Neurological: peripheral neuropathy, BRAIN BLEED/SDH EENT: NONE Cardiovascular: AFIB, aortic stenosis, CAD, hypertension, hyperlipidemia Respiratory: pulmonary embolism Gastrointestinal: constipation, diverticulitis Hepatic: NONE Renal: benign prost hyperplasia, recurrent UTI Musculoskeletal: degen joint disease Psychiatric: NONE Endocrine: NONE Blood Disorders: DVT, PE, POLYCYTHEMIA Cancer(s): NONE 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 Home Who Do You Live With? spouse (Gutierrez Muñoz (son/POA)), child Services at Home: Home Health Aide, Nursing Primary Language: Puerto Rican Smoking Status: Former Smoker ETOH Use: denies use Illicit Drug Use: denies illicit drug use Living Will? yes Power of Signal Tower Director/HCP? yes Name of POA/HCP: Gutierrez Muñoz (son/POA)[phone] Other Social History: . 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 2 sons- [employer] (only 1 of them, Gutierrez Muñoz, is POA). ? remote smoker. No significant EtOH except rare beer. No drugs. Lives withGutierrez guzman. Functional Ability ADLs Needs Assist: dressing, eating, toileting, bathing. Ambulation: non-ambulatory IADLs Needs Assist: shopping, housework, finances, food prep, telephone, transportation, medication admin. 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 Review of Systems Constitutional: Reports: chills, weakness. Denies: no symptoms, see HPI, diaphoresis, fever, malaise, unexplained weight loss. EENTM: Denies: blurred vision, double vision, visual changes, eye pain, eye drainage, eye tearing, icterus, ear discharge, ear pain, ear redness, hearing changes, nasal congestion, epistaxis, nasal pain, throat pain, throat swelling, mouth pain, tooth pain. Cardiovascular: Denies: chest pain, edema, orthopena, palpitations, peripheral edema, syncope. Respiratory: Denies: cough, hemoptysis, orthopnea, short of breath, sputum production, stridor, wheezing. GI: Reports: abdominal pain. Denies: bloating, constipation, diarrhea, distention, bowel incontinence, melena, nausea, bloody stool, changes in stool, vomiting, steatorrhea. Genitourinary: Denies: no symptoms (indwelling Holder), discharge, dysuria, frequency, hematuria , hesitation, nocturia, pain, urgency. Musculoskeletal: Denies: back pain, gout, joint pain, joint swelling, muscle pain, muscle stiffness, neck pain. Skin: Denies: cysts, change in skin color, change in hair/nails, dryness, erythema, jaundice, lesions, lymphangitis, lumps, moles, rash. Neurological/Psychological: Reports: confusion. Denies: anxiety, ataxia, cognitive dysfunction, depressed, dementia, emotional problems, headache, numbness, paresthesia, pre-existing deficit, petit mal seizures, tingling, tremors, tonic-clonic seizures, unable to move lower ext, unable to move upper ext, weakness. Hematologic/Endocrine: Denies: bruising, bleeding, polyuria, polydipsia. Immunologic/Allergic: Denies: splenectomy, HIV/AIDS, lymphadenopathy. All Other Systems: Reviewed and Negative Exam & Diagnostic Data Vital Signs and I&O Vital Signs Date Time Temp Pulse Resp B/P B/P Pulse O2 O2 Flow FiO2 Mean Ox Delivery Rate 10/25 1222 64 162/103 10/25 0806 98.8 54 20 151/69 95 Room Air 10/25 0805 98.8 54 16 151/69 95 Room Air 10/24 2332 98.9 55 16 153/68 06/06 2331 98.9 55 16 153/68 99 Room Air 10/24 1740 96.8 55 16 122/58 98 Room Air 10/24 1700 98 Intake & Output 10/25 1600 10/25 0400 10/24 1600 06 0400 /05 1600 / 0400 Intake Total 130 200 Output Total 1000 700 Balance -870 -500 Intake, IV 130 Intake, Oral 200 Output, Urine 1000 700 Patient 160 lb 160 lb Weight Physical Exam: Well-developed, well-nourished, thin eldelry debilitated male, in no apparent distress. Sclera anicteric. Conjunctiva pink. Oropharynx clear. Poor dentiton. No upper teeth. No oral thrush. Slightly dry mucus membranes. No apthous ulcers. B/L arnav hole scars. There is no adenopathy, thyromegaly, or JVD. No peripheral stigmata of inflammatory bowel disease or chronic liver disease on exam. No spiders on the anterior chest wall. No CVA tenderness. Lungs: clear to A&P, with slight decreased breath sounds at the bases B/L. Heart exam: regular rate rhythm, S1 and S2, with I/ systolic murmur. Abdominal exam: normal bowel sounds, soft belly, mild RLQ tenderness on deep palpation, without guarding or rebound. No definite hernia appreciated. No mass. No organomegaly. No fluid shift. No pulsatile mass. Repeat digital rectal exam: deferred (just done API- brown, OB+ stool). Excoriated area in gluteal region. Indwelling Holder. Small ulceration on right side of penis 2' from meatus. Small amount of purulent discharge with slight streaks of blood from meatus. Extremities: post R AKA & L BKA, without cyanosis or clubbing. Mild dependent edema. Scattered ecchymoses on etremities. Fungal rash on inner thighs. No palpable cords. Distal pulses < 1+ bilaterally. DTRs 2+ bilaterally. Alert and oriented x 2 (+/- time, "2016"). Right handed. CN intact. A detailed exam for peripheral neuropathy was deferred. Results Pertinent Lab Results: Laboratory Tests 10/25 10/24 0600 1442 Chemistry Sodium (137 - 145 mmol/L) 137 Potassium (3.5 - 5.1 mmol/L) 4.3 Chloride (98 - 107 mmol/L) 106 Carbon Dioxide (22 - 30 mmol/L) 21 L Anion Gap (5 - 16) 10 BUN (9 - 20 mg/dL) 13 Creatinine (0.7 - 1.2 mg/dL) 0.8 Estimated GFR (>60 ml/min) > 60 BUN/Creatinine Ratio (7 - 25 %) 16.3 Hematology CBC w Diff NO MAN DIFF REQ WBC (4.8 - 10.8 /CUMM) 11.6 H RBC (4.70 - 6.10 /CUMM) 3.89 L Hgb (14.0 - 18.0 G/DL) 10.2 L Hct (42 - 52 %) 33.2 L MCV (80.0 - 94.0 FL) 85.5 MCH (27.0 - 31.0 PG) 26.3 L RDW (11.5 - 14.5 %) 18.8 H Plt Count (130 - 400 /CUMM) 390 MPV (7.4 - 10.4 FL) 7.9 Gran % (42.2 - 75.2 %) 84.2 H Lymphocytes % (20.5 - 51.1 %) 9.0 L Monocytes % (1.7 - 9.3 %) 2.1 Eosinophils % (0 - 5 %) 3.6 Basophils % (0.0 - 2.0 %) 1.1 Absolute Granulocytes (1.4 - 6.5 /CUMM) 9.8 H Absolute Lymphocytes (1.2 - 3.4 /CUMM) 1.0 L Absolute Monocytes (0.10 - 0.60 /CUMM) 0.2 Absolute Eosinophils (0.0 - 0.7 /CUMM) 0.4 Absolute Basophils (0.0 - 0.2 /CUMM) 0.1 PUBS MCHC (33.0 - 37.0 G/DL) 30.7 L Urines Urine Color (YEL,AMB,STR) YEL Urine Clarity (CLEAR) HAZY H Urine pH (5.0 - 8.0) 6.0 Ur Specific [place] (1.001 - 1.035) 1.020 Urine Protein (NEG,<30 MG/DL) TRACE H Urine Ketones (NEG) NEG Urine Nitrite (NEG) NEG Urine Bilirubin (NEG) NEG Urine Urobilinogen (0.1 - 1.0 EU/dl) 0.2 Ur Leukocyte Esterase (NEG) MOD H Ur Microscopic SEDIMENT EXAMINED Urine RBC (0 - 5 /HPF) 1-3 Urine WBC (0 - 2 /HPF) 25-50 H Ur Epithelial Cells (NONE,FEW) FEW Urine Bacteria (NEG/NONE) FEW H Urine Mucus (FEW,NONE) FEW Micro UA Comment BUDDING YEAST H Urine Hemoglobin (NEG) TRACE-INTACT H Urine Glucose (N MG/DL) NEG 10/24 1432 Chemistry Sodium (137 - 145 mmol/L) 134 L Potassium (3.5 - 5.1 mmol/L) 4.5 Chloride (98 - 107 mmol/L) 104 Carbon Dioxide (22 - 30 mmol/L) 22 Anion Gap (5 - 16) 9 BUN (9 - 20 mg/dL) 16 Creatinine (0.7 - 1.2 mg/dL) 0.8 Estimated GFR (>60 ml/min) > 60 BUN/Creatinine Ratio (7 - 25 %) 20.0 Glucose (65 - 99 mg/dL) 82 Lactic Acid (0.7 - 2.1 mmol/L) 1.6 Calcium (8.4 - 10.2 mg/dL) 8.4 Total Bilirubin (0.2 - 1.3 mg/dL) 0.4 AST (17 - 59 U/L) 24 ALT (21 - 72 U/L) 44 Alkaline Phosphatase (< 127 U/L) 127 H Troponin I (<0.11 ng/ml) < 0.01 Total Protein (6.3 - 8.2 g/dL) 6.2 L Albumin (3.5 - 5.0 g/dL) 3.0 L Globulin (1.9 - 4.2 gm/dL) 3.2 Albumin/Globulin Ratio (1.1 - 2.2 %) 0.9 L Coagulation PT (9.4 - 12.5 SEC) 26.2 H INR (0.90 - 1.17) 2.52 H APTT (25 - 37 SEC) 39 H Hematology CBC w Diff MAN DIFF ORDERED WBC (4.8 - 10.8 /CUMM) 12.7 H RBC (4.70 - 6.10 /CUMM) 3.87 L Hgb (14.0 - 18.0 G/DL) 10.3 L Hct (42 - 52 %) 32.8 L MCV (80.0 - 94.0 FL) 84.7 MCH (27.0 - 31.0 PG) 26.6 L RDW (11.5 - 14.5 %) 18.5 H Plt Count (130 - 400 /CUMM) 453 H MPV (7.4 - 10.4 FL) 7.9 Gran % (42.2 - 75.2 %) 85.8 H Lymphocytes % (20.5 - 51.1 %) 7.8 L Monocytes % (1.7 - 9.3 %) 1.9 Eosinophils % (0 - 5 %) 3.6 Basophils % (0.0 - 2.0 %) 0.9 Absolute Granulocytes (1.4 - 6.5 /CUMM) 10.9 H Segmented Neutrophils (42.2 - 75.2 %) 81 H Band Neutrophils (0.0 - 5.0 %) 4 Absolute Lymphocytes (1.2 - 3.4 /CUMM) 1.0 L Lymphocytes (20.5 - 51.1 %) 12 L Monocytes (1.7 - 9.3 %) 1 L Absolute Monocytes (0.10 - 0.60 /CUMM) 0.2 Eosinophils (0 - 5.0 %) 2 Absolute Eosinophils (0.0 - 0.7 /CUMM) 0.5 Absolute Basophils (0.0 - 0.2 /CUMM) 0.1 Platelet Estimate (ADEQUATE) INCREASED Polychromasia 1+ Hypochromic-Microcytic 2+ Poikilocytosis 1+ Anisocytosis 1+ Arnav Cells RARE PUBS MCHC (33.0 - 37.0 G/DL) 31.4 L Other Body Source Fld Total RBCs Counted (%) 100 Imaging/Other Studies: 10/24/2016: EKG- SB @ 59, RBBB/LAHB, PRWP, without change. 10/24/2016: CT ABDOMEN AND PELVIS WITHOUT IV CONTRAST- 1. Extensive pancolonic diverticulosis, notably involving the descending and rectosigmoid colon. Subtle pericolonic inflammatory changes surrounding a short segment of the descending colon at the level of the junction between the descending and sigmoid colon. This could reflect a developing acute diverticulitis. No extraluminal foci of air and no pericolonic fluid collections. Normal AP. No hernia. No RLQ pathology. 2. Bilateral simple renal cortical cysts. 3. A moderate amount of pneumobilia within the left hepatic lobe as well as within the distal common bile duct, not unexpected following cholecystectomy. Normal caliber CBD. Normal liver. 4. A 1.1 cm rounded opacity within the right lung base, corresponding to a previously identified region of focal atelectasis within the right lung base. 5. The urinary bladder is decompressed by an indwelling Holder catheter, which limits evaluation. 6. ASHD of aorta without AAA. 7. DJD. Assessment/Plan Assessment/Recommendations: 86-year-old male, DNR/DNI with living will, afib on Coumadin, P.Vera on hydroxyzine, ASHD post stents, history of recurrent UTI, PVD, right AKA, left BKA, B/L arnav holes for SDH, reportedly with history DVT/PE (details unclear), presenting to ER 10/24/16 for confusion & burning in crotch. Upon arrival, 10/24/2016 at 12:51 PM, the patient was hemodynamically stable and afebrile. He has a chronic indwelling Holder. He was recently admitted to [facility] 10/09/2016 to 10/13/2016 for UTI and questionable upper GI bleed. His baseline Hgb over the past few weeks is 10+ range. A few months prior, Hgb was in the 12-13 range, dating back a year. At first, the patient denied abdominal pain, then later claimed he had lower abdominal pain, which he could not quantify or quantify. His symptoms were unrelated to eating. There were no aggravating or relieving factors. There was a question of dark stools, although digital exam by the internal consultant showed brown OB-positive stool. He is awaiting cystoscopy tomorrow for chronic indwelling Holder and recurrent UTI. He had a remote colonoscopy many years ago, whereabouts and results unknown. The patient denied any UGI symptoms and specifically denied any nausea, vomiting, hematemesis, dysphagia, odynophagia, or early satiety. He had questionable chills. He was uncertain if he had a fever. He denied any dysuria, frequency, pneumaturia, or feces in the urine. There is no definite family history of colon cancer or IBD, although this is limited. His appetite is fair. He denies any weight loss or jaundice. He denied any diarrhea, constipation, obstipation, tenesmus, change in stool caliber, or BRBPR. The patient was recently seen in GI consultation 10/12/[address] Flores during his last admission for questionable dark stools. He was maintained on PPI. 10/12/2016: EGD to D2 per Dr. Flores- atrophic gastritis, small hiatal hernia, non-obstructing Schatzki ring, Z line at 45 cm, no active peptic ulcer disease, AVMs, masses, or varices. Normal duodenal folds. No biopsies were obtained. Anticoagulation therapy was continued, as there was no active UGI bleeding, along with PPI. Suggestions were for outpatient colonoscopy for the OB+ stool if the patient & his family were agreeable. The patient is currently tolerating clears po. He was started on IV Unasyn for diverticulitis seen on CT (see imaging studies), but blood cultures were obtained afterwards. 10/24/2016: Admission labs- WBC 12.7 (81S/4B/12L/1M/2E), H/H 10.3/32.8, MCV 84.7 , PLT 453, PT 26.2, INR 2.52, PTT 39, glu 82, BUN/Cr 16/0.8, GFR > 60, Na 134, K 4.5, HCO3 22, AG 9, lactate 1.6, Ca2+ 8.4, albumin 3.0, globulin 3.2, TBil 0.4, alk phos 127, AST 24, ALT 44, troponin < .01; U/A- hazy yellow, 1.020, 6.0, 1-3 RBC, 25-50 WBC, few bact, tr Hgb, tr prot, neg nitrite, mod esterase. 10/24/2016: EKG- SB @ 59, RBBB/LAHB, PRWP, without change. 10/24/2016: CT ABDOMEN AND PELVIS WITHOUT IV CONTRAST- 1. Extensive pancolonic diverticulosis, notably involving the descending and rectosigmoid colon. Subtle pericolonic inflammatory changes surrounding a short segment of the descending colon at the level of the junction between the descending and sigmoid colon. This could reflect a developing acute diverticulitis. No extraluminal foci of air and no pericolonic fluid collections. 2. Bilateral simple renal cortical cysts. 3. A moderate amount of pneumobilia within the left hepatic lobe as well as within the distal common bile duct, not unexpected following cholecystectomy. Normal caliber CBD. Normal liver. 4. A 1.1 cm rounded opacity within the right lung base, corresponding to a previously identified region of focal atelectasis within the right lung base. 5. The urinary bladder is decompressed by an indwelling Holder catheter, which limits evaluation. 6. ASHD of aorta without AAA. 7. DJD. The patient has RLQ tenderness without guarding or rebound on exam. He had brown OB-positive stool API. Recent EGD is as above. The patient is maintained on Coumadin. His Hgb has been in the 10+ range for the past few weeks, although it was in the 12-13 range a few months prior. *The CT findings of questionable diverticulitis are contralateral to his physical findings. If one were to be aggressive, keeping in mind his advanced age and numerous comorbidities, this would require a colonoscopy in 6-8 weeks, to clear the colonic mucosa, after the current diverticulitis is treated with antibiotics. Performing a colonoscopy at present would be contraindicated. Having stated that, the patient adamantly refused a colonoscopy, as he knows of someone that had a perforation post colonoscopy, later succumbing to septic shock. He remotely had a colonoscopy years ago, whereabouts and results unknown. He is aware that there could be an underlying colonic malignancy, and he accepts these risks. No gross pathology was seen in the RLQ on CT (normal AP, no lesion, no hernia, etc.). The patient is a vasculopath. It is possible he could have intestinal angina, although his symptoms do not appear to be related to eating. CT is somewhat limited without IV contrast. His INR was therapeutic, doubt SMA embolus (currently NSR). SUGGEST: IV Unasyn 1.5g Q6h & eventually switch to po Augmentin vs. Cipro/Flagyl in 2-3 days if clinically stable, antibiotics to be continued for a total of 7-10 days. Clears po & advance to low residue diet as tolerated. Carefully continue A/C therapy for now (coordinate with urology, regarding upcoming cystoscopy). Continue PPI for gastritis. Check CBC daily for now as inpatient. May carefully continue Miralax 17g daily. Serial abdominal exams. *The above was discussed with the patient, Dr. Nazario, & with the patient's son/POA, Gutierrez Muñoz, at [phone]. Gutierrez is aware that his father is refusing a definitive colonoscopy, which would be advised in 6-8 weeks, & would have to be coordinated off of A/C therapy. The possibility of malignancy was discussed with him. Gutierrez has my office number, and will contact me for further outpatient GI workup , if his father changes his mind. Further inpatient GI follow up will be on an as-needed basis. Problem List: 1. Anemia 2. Occult blood positive stool 3. Diverticulitis large intestine 4. Abdominal pain Copies To: LUZ MARINA APPLE,AZEEM; ANGELA APPLE,PJ; MERE APPLE,YUSUF; JOSE APPLE,HUGH; DENIZ APPLE,HESHAM; RYLEY APPLE,GAMALIEL Figueroa Consult Acknowledgment - Thank you for your consult request.
[2016-10-25 16:55] VITALS: BP 150/66
[2016-10-25 18:15] LABS: PT 25.2 SEC (9.4-12.5)
--- NOTE | 2016-10-25 19:19 | NUR ---
PT HAS A BED 214-
--- NOTE | 2016-10-25 20:51 | NUR ---
REPORT CALLED TO [facility] ON [facility] UN[facility]
--- NOTE | 2016-10-25 21:00 | NUR ---
PT ARRIVED FROM ER IN HOSPTIAL BED. A&OX3, VSS, HX BILAT AMPUTEE, BED ALARM IN PLACE. PENILE EDEMA NOTED WELL SMALL ULCERATION TO RT SIDE OF PENIS, BILATERAL BUTTOCKS DISCOLORED WITH 3 SMALL OPEN AREAS EACH SIDE, XEROFORM AND DRY DRESSING PLACED.
[2016-10-25 22:29] VITALS: BP 110/52
[2016-10-26 06:13] VITALS: BP 154/60
--- NOTE | 2016-10-26 07:16 | PN- Housestaff ---
[place],[facility] 10/26/16 0716: Subjective Follow-up For: Acute diverticulitis Current UTI with chronic indwelling Holder catheter Subjective: Patient was seen and examined this morning, lying comfortably in bed, awake and alert, offered no complaints. Patient is nothing by mouth for cystoscopy this morning. Vital signs are stable, no overnight events reported by the nurse. Review of Systems Constitutional: Reports: see HPI. Objective Last 24 Hrs of Vital Signs/I&O Vital Signs Date Time Temp Pulse Resp B/P B/P Pulse O2 O2 Flow FiO2 Mean Ox Delivery Rate 10/26 825 62 156/64 10/26 0826 62 156/64 10/26 0613 97.8 56 22 154/60 95 10/25 2229 98.4 61 20 110/52 94 Room Air 10/25 1655 99.1 69 20 150/66 95 Room Air Intake & Output 10/26 1600 08 0800 /08 0000 Intake Total 960 600 360 Output Total 350 300 350 Balance 610 300 10 Intake, IV 600 600 Intake, Oral 360 360 Number 1 Bowel Movements Output, Urine 350 300 350 Patient 72.575 kg Weight Physical Exam General Appearance: Alert, Oriented X3, Cooperative, No Acute Distress Skin: No Rashes, No Breakdown, No Significant Lesion Skin Temp/Moisture Exam: Warm/Dry HEENT: Atraumatic, PERRLA, EOMI, Mucous Membr. moist/pink Neck: Supple Cardiovascular: Regular Rate, Normal S1, Normal S2, No Murmurs Lungs: Clear to Auscultation, Normal Air Movement Abdomen: Normal Bowel Sounds, Soft, No Tenderness, No Hepatospenomegaly, No Masses Neurological: Normal Speech, Strength at 5/5 X4 Ext, Normal Tone, Sensation Intact, Cranial Nerves 3-12 NL, Reflexes 2+ Extremities: No Clubbing, No Cyanosis, No Edema, Normal Pulses, No Tenderness/ Swelling Assessment/Plan Assessment: Mr. 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 Assessment #Acute Diverticulitis #Recurrent UTI in the setting of chronic indwelling Holder #Atrial fibrillation on Coumadin #Acute Diverticulitis -Mild leukocytosis, afebrile -Guaiac stool positive in ED, note that patient used to have positive guaiac stool -CT abdomen revealed possible signs of acute pancreatitis with chronic extensive doty colonic diverticulosis CT abdomen and pelvis 10/24/16 IMPRESSION: 1. Extensive pancolonic diverticulosis, notably involving the descending and rectosigmoid colon. Subtle pericolonic inflammatory changes surrounding a short segment of the descending colon at the level of the junction between the descending and sigmoid colon. This could reflect a developing acute diverticulitis. No extraluminal foci of air and no pericolonic fluid collections. 2. Bilateral simple renal cortical cysts. 3. A moderate amount of pneumobilia within the left hepatic lobe as well as within the distal common bile duct, not unexpected following cholecystectomy. 4. A 1.1 cm rounded opacity within the right lung base, corresponding to a previously identified region of focal atelectasis within the right lung base. 5. The urinary bladder is decompressed by an indwelling Holder catheter, which limits evaluation. -GI consultation was obtained -Switched to Augmentin 875 mg twice a day to finish total of 7 days of antibiotic -Low fiber diet -Condition to follow up as an outpatient after discharge #Recurrent UTI in the setting of chronic indwelling Holder -Complain of penile pain, denied dysuria -Urology consultation was obtained -Plans for cystoscopy this a.m., because patient's INR is elevated (therapeutic range), cystoscopy was canceled, to be obtained as an outpatient -Continue Flomax and finasteride #Atrial fibrillation on Coumadin -INR 2.5 -Continue Coumadin at home dose 0.5 mg daily -INR daily DVT prophylaxis: warfarin DNR/DNI Diet low fiber diet Patient is for discharge today to home with home medical services Problem List: 1. Occult blood positive stool 2. Anemia 3. Diverticulitis large intestine Pain Ratin Pain Location: None Pain Goal: Pain 4 or less Pain Plan: Mild pain pathway Tomorrow's Labs & Rationales: NONE PJ MILLER MD 10/26/16 1206: Attending Review Statement Attending Statement Attending MD Statement: examined this patient, discuss w/resident/PA/REGISTERED ACCOUNT ADMINISTRATOR, agreed w/resident/PA/REGISTERED ACCOUNT ADMINISTRATOR, discussed with family, reviewed EMR data (avail), discussed with nursing, discussed with case mgmt, reviewed images, amended to note Attending Assessment/Plan: Patient seen and examined, history denies any complaints. He denies any dominant pain. His white cell count has improved. Patient was initially scheduled for cystoscopy per Dr. aMrie but because his INR is 2.4, procedure got canceled. Vital Signs Date Time Temp Pulse Resp B/P B/P Pulse O2 O2 Flow FiO2 Mean Ox Delivery Rate 10/26 825 62 156/64 10/26 825 62 156/64 10/26 612 97.8 56 22 154/60 95 10/25 2229 98.4 61 20 110/52 94 Room Air 10/25 1655 99.1 69 20 150/66 95 Room Air 10/25 1222 64 162/103 on exam; aox3, nad. cv; s1,s2, rrr resp; clear abd; soft, nt, bs+ ext; no edema. Laboratory Tests 10/26 10/25 0719 1755 Chemistry Sodium (137 - 145 mmol/L) 137 Potassium (3.5 - 5.1 mmol/L) 4.2 Chloride (98 - 107 mmol/L) 107 Carbon Dioxide (22 - 30 mmol/L) 22 Anion Gap (5 - 16) 8 BUN (9 - 20 mg/dL) 15 Creatinine (0.7 - 1.2 mg/dL) 0.8 Estimated GFR (>60 ml/min) > 60 BUN/Creatinine Ratio (7 - 25 %) 18.8 Coagulation PT (9.4 - 12.5 SEC) 25.7 H 25.2 H INR (0.90 - 1.17) 2.47 H 2.42 H Hematology CBC w Diff NO MAN DIFF REQ WBC (4.8 - 10.8 /CUMM) 9.5 RBC (4.70 - 6.10 /CUMM) 3.73 L Hgb (14.0 - 18.0 G/DL) 9.8 L Hct (42 - 52 %) 31.8 L MCV (80.0 - 94.0 FL) 85.2 MCH (27.0 - 31.0 PG) 26.3 L RDW (11.5 - 14.5 %) 18.5 H Plt Count (130 - 400 /CUMM) 321 MPV (7.4 - 10.4 FL) 8.5 Gran % (42.2 - 75.2 %) 84.6 H Lymphocytes % (20.5 - 51.1 %) 8.4 L Monocytes % (1.7 - 9.3 %) 2.1 Eosinophils % (0 - 5 %) 4.0 Basophils % (0.0 - 2.0 %) 0.9 Absolute Granulocytes (1.4 - 6.5 /CUMM) 8.0 H Absolute Lymphocytes (1.2 - 3.4 /CUMM) 0.8 L Absolute Monocytes (0.10 - 0.60 /CUMM) 0.2 Absolute Eosinophils (0.0 - 0.7 /CUMM) 0.4 Absolute Basophils (0.0 - 0.2 /CUMM) 0.1 PUBS MCHC (33.0 - 37.0 G/DL) 30.8 L A/P; 86 y/o F with pmh sig for A. 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 Patient remains afebrile, symptoms have improved and leukocytosis has improved. We advanced his diet to low residue diet. Patient has been seen by Dr. Urbano from GI, recommend colonoscopy in 6-8 weeks if patient and family agrees. They can follow-up with Dr. Urbano as an outpatient. Patient will be started on oral Augmentin to complete a total of seven-day course. Initially was scheduled for cystoscopy today but after finding out that his INR is 2.4, seizure has been canceled as per Dr. Marie. Patient to follow Dr. Marie as an outpatient. His INR/Coumadin will need to be addressed by his primary care doctor as well as Dr. Marie. Patient will be started on low residue diet and if he tolerates diet and he will be discharged home today. The rest of his home meds will be continued. He will follow with his primary care doctor, Dr. Marie from urology, wound care Dr. Bates as well as GI Dr. Urbano as out patient. D/W patient's daughter at bedside.
--- NOTE | 2016-10-26 08:07 | PN- Student ---
Subjective Subjective: Medical Student Daily Progress Note: Mr. Muñoz was placed in observation on 10/24/16 for confusion, possible UTI, and diverticulitis. There were no overnight events. The patient states he feels well this morning. He denies pain, CP, SOB, dysuria, N/V/D. He is resting comfortably in his bed. He has been NPO since midnight and his last dose of Coumadin was on 10/25/16 at 20 :16. He is scheduled for cystoscopy today. Current Medications Sig/Caroline Start time Last Medication Dose Route Stop Time Status Admin Amiodarone HCl 200 MG QAM 10/25 1000 AC 10/25 PO 1222 Ampicillin Sodium/ 1,500 MG Q6 10/24 2359 AC 10/26 Sulbactam Sodium IV 0557 Sodium Chloride 100 ML Atorvastatin Calcium 20 MG QPM 10/24 2200 AC 10/25 PO 2221 Finasteride 5 MG DAILY 10/25 1000 AC 10/25 PO 1223 Gabapentin 100 MG QPM 10/24 2200 AC 10/25 PO 2221 Hydroxyurea 1,000 MG QAM 10/25 1000 AC 10/25 PO 1337 Lactobacillus 1 CAP DAILY 10/25 1000 AC 10/25 Acidophilus PO 1222 Lisinopril 10 MG DAILY 10/25 1000 AC 10/25 PO 1222 Nystatin 1 TUSHAR BID 10/25 1000 AC 10/25 TOP 1223 Pantoprazole Sodium 40 MG DAILY 10/25 1000 AC 10/25 IV 1223 Polyethylene Glycol 17 GM DAILY NEEDED PRN 10/24 2100 AC PO Senna/Docusate Sodium 2 TAB DAILY 10/25 1000 AC 10/25 PO 1223 Sodium Chloride 1,000 ML .[Q13] 10/24 1900 DC 10/25 IV 2224 Tamsulosin HCl 0.4 MG QPM 10/24 2200 AC 10/25 PO 2311 Warfarin Sodium 0.5 MG COUMADIN 1700 ONE 10/25 1700 DC 10/25 PO 10/25 1702015 Objective Objective: Vital Signs Date Time Temp Pulse Resp B/P B/P Pulse O2 O2 Flow FiO2 Mean Ox Delivery Rate 10/26 612 97.8 56 22 154/60 95 / 2229 98.4 61 20 110/52 94 Room Air / 1655 99.1 69 20 150/66 95 Room Air /07 1222 64 162/103 Intake & Output 10/26 1600 08 0800 06/08 0000 Intake Total 600 360 Output Total 300 350 Balance 300 10 Intake, IV 600 Intake, Oral 360 Number 1 Bowel Movements Output, Urine 300 350 General: resting comfortably in bed, no acute distress HEENT: oral mucosa dry. sclera are anicteric. CV: RRR, no murmurs or rubs Pulmonary: CTA GI: abdomen soft, non-tender, bowel sounds positive : alexander catheter in place, draining clear yellow urine. Ulceration noted on penis. Extremities: bilateral AKAs. No clubbing, cyanosis, or edema Results Results: Laboratory Tests Microbiology 10/25 614 BLOOD: Blood Culture - RECD 10/25 599 BLOOD: Blood Culture - RECD 10/25 2039 URINE ROUT: Urine Culture - PRELIMINARY. no growth after 1 day Assessment/Plan Assessment: Mr. Muñoz is an 86yo M with extensive PMH significant for CAD, atrial fibrillation, polycythemia vera, multiple DVTs, and recurrent UTIs with chronic indwelling alexander, who was placed in observation on 10/24/16 for increasing confusion, possible UTI, diverticulitis, and possible GI bleed. Problem List: 1. Diverticulitis 2. ?GI bleed 3. Recurrent UTI with chronic indwelling alexander 4. Atrial Fibrillation 5. Polycythemia vera 6. History of DVTs/PE 7. HTN 8. HLD Plan: Diverticulitis: Has history of diverticulosis, with CT evidence of developing diverticulitis. Is currently on Unasyn 1.5g IV q6h. Is being monitored closely for s/s of increasing infection, including fever and leukocytosis. * Continue IV Unasyn as described * Switch to PO Augmentin vs Ciprofloxacin/Flagyl before discharge, for a total of 7 - 10 days * NPO for cystoscopy, will start clear liquid after * Advance to Low Residue diet when able to tolerate PO * GI saw yesterday - recommended colonscopy in 6 - 8 weeks for definitive management, discussed with son/POA, but POA/patient are reluctant to undergo colonscopy GI Bleeding: FOBT positive on presentation. H&H is lower than previous baseline, but is remaining stable. No obvious BRBPR on this admission. * Continue daily CBC while in hospital * GI recommends continuing anticoagulation with caution, continue PPI for previous EGD findings of atrophic gastritis Recurrent UTIs with chronic indwelling alexander catheter: urine culture on this hospital stay shows no growth after 1 day. Is scheduled for cystoscopy today. * Couamdin on hold for cystoscopy, will resume when okay'd by Urologist * Followup urine culture results Atrial Fibrillation: on Amiodarone, Coumadin as outpatient. * Continue Amiodarone * Resume Coumadin when cleared by urology Polycythemia vera: on Hydroxyzine as outpatient * Continue Hydorxyzine History of DVTs/PE: on Coumadin as outpatient. Being held for cystoscopy * Resume when cleared by urology HTN: on Lisinopril as outpatient. Has been slightly hypertensive on this stay * Continue Lisinopril HLD: on Atorvastatin as outpatient * Continue Atorvastatin Code Status: DNR/DNI Diet: NPO for cystoscopy DVT prophylaxis: Coumadin, hold for cystoscopy
[2016-10-26 08:39] LABS: PT 25.7 SEC (9.4-12.5)
[2016-10-26 09:04] LABS: ABSOLUTE BASOPHIL COUNT 0.1 /CUMM (0.0-0.2); ABSOLUTE EOSINOPHIL COUNT 0.4 /CUMM (0.0-0.7); ABSOLUTE LYMPH COUNT 0.8 /CUMM (1.2-3.4); ABSOLUTE MONOCYTE COUNT 0.2 /CUMM (0.10-0.60); BASOPHIL % 0.9 % (0.0-2.0); HEMATOCRIT 31.8 % (42-52); MEAN CORPUSCULAR HGB 26.3 PG (27.0-31.0); MEAN CORPUSCULAR HGB CONC 30.8 G/DL (33.0-37.0); MEAN CORPUSCULAR VOLUME 85.2 FL (80.0-94.0); MEAN PLATELET VOLUME 8.5 FL (7.4-10.4); PLATELET COUNT 321 /CUMM (130-400); RBC DISTRIBUTION WIDTH 18.5 % (11.5-14.5); RED BLOOD CELL CT 3.73 /CUMM (4.70-6.10); WHITE BLOOD CELL COUNT 9.5 /CUMM (4.8-10.8)
[2016-10-26 09:37] LABS: GRANULOCYTE % 84.6 % (42.2-75.2)
--- NOTE | 2016-10-26 09:38 | NUR ---
NURSING NOTE: DR. MILLER NOTIFIED OF INR OF 2.47. PER DR. MILLER SHE NOTIFIED DR. GUAMAN OF INR AND IS WAITING TO HEAR BACK FROM HIM.
[2016-10-26] MEDS ORDERED: AUGMENTIN 875-1 EACH PO ×2 (11:34→14:15)
[2016-10-26] MEDS ORDERED: MIRALAX17 G1 PO (11:34)
--- NOTE | 2016-10-26 11:38 | Patient Discharge Instructions ---
Discharge Instructions General Discharge Information You were seen/treated for: Abdominal pain The current UTI with chronic Holder catheter Special Instructions: -Please follow-up with your primary care physician within 1 week after discharge. -Please follow up with Dr. Marie urologist after discharge. -There is a plan for cystoscopy next week on Sunday10/31/69, please coordinate with Dr. Marie. -Continue taking Coumadin, recheck INR daily. -Recommendation from Dr. Marie regarding Coumadin dose prior to cystoscopy should be obtained. -Please follow up with GI specialist Dr. Villareal after dischagre. -Please follow up with Dr. Goodson for wound care after discharge. -Wound care recommendation: use of thin duoderm applied every 2-3 days, avoiding friction and shear. Patient should be on a low air loss mattress and offloading cushion for his wheelchair. Acute Coronary Syndrome Inclusion Criteria At DC or during hospital stay patient has or had the following: ACS DIAGNOSIS No Discharge Core Measures Meds if any: Prescribed or Continued at Discharge Meds if any: NOT Prescribed or Continued at Discharge Congestive Heart Failure Inclusion Criteria At DC or during hospital stay patient has or had the following: CHF DIAGNOSIS No Discharge Core Measures Meds if any: Prescribed or Continued at Discharge Meds if any: NOT Prescribed or Continued at Discharge Cerebrovascular accident Inclusion Criteria At DC or during hospital stay patient has or had the following: CVA/TIA Diagnosis No Discharge Core Measures Meds if any: Prescribed or Continued at Discharge Meds if any: NOT Prescribed or Continued at Discharge Venous thromboembolism Inclusion Criteria VTE Diagnosis No VTE Type NONE VTE Confirmed by (Test) NONE Discharge Core Measures - Per Current guidelines, there needs to be overlap - treatment for the first 5 days of Warfarin therapy. - If discharged on Warfarin prior to 5 days of - overlap therapy, the patient will need to be - assessed for post discharge needs including - *Post discharge parental anticoagulation - *Warfarin and/or parental anticoagulation education - *Follow up date to check INR post discharge At least 5 days overlap therapy as Inpatient Yes Meds if any: Prescribed or Continued at Discharge Note: Overlap Therapy is Warfarin and Anticoagulant Meds if any: NOT Prescribed or Continued at Discharge
--- NOTE | 2016-10-26 11:55 | Cons- Wound Care ---
General Information and HPI Consulting Request Date of Consult: 10/26/16 Requested By: AZEEM RAZA MD Reason for Consult: Buttock ulcers present on admission History of Present Illness: Patient is a 86-year-old admitted with acute diverticulitis and GI bleed he was found to have bilateral pressure ulcers which had been present on admission and cared for by his aide at home. Allergies/Medications Allergies: Coded Allergies: amlodipine (Severe, ANAPHYLAXIS 07/29/16) niacin (EXTREME FLUSHING FROM IMMEDIATE RELEASE 07/18/16) PT TOLERATES SLOW RELEASE Home Med List: Amiodarone HCl 200 MG TABLET 1 TAB PO QAM AFIB (Reported) Amoxicillin/Potassium Clav (Augmentin 875-125 Tablet) 875 MG-125 MG TABLET 1 TAB PO BID uti Aspirin (Ecotrin*) 81 MG TABLET.DR 1 TAB PO QPM HEART HEALTH (Reported) Atorvastatin Calcium (Lipitor) 20 MG TABLET 1 TAB PO QPM CHOLESTEROL ( Reported) Cranberry Conc/Ascorbic Acid (Cranberry Plus Vitamin C Sftgl) 4,200 MG-20 MG CAPSULE 1 CAP PO BID SUPPLEMENT (Reported) Finasteride 5 MG TABLET 5 MG PO DAILY urinary retention Gabapentin 100 MG CAPSULE 100 MG PO QPM nerve pain Hydroxyurea 500 MG CAPSULE 2 CAP PO QAM POLYCYTHEMIA VERA (Reported) Lactobacillus Acidophilus (Probiotic) 10 BILLION CELL CAPSULE 1 CAP PO DAILY GI (Reported) Lisinopril 10 MG TABLET 1 TAB PO DAILY HEART (Reported) Pantoprazole Sodium (Protonix) 40 MG TABLET.DR 1 TAB PO DAILY Acid Polyethylene Glycol 3350 (Miralax) 17 GRAM POWD.PACK 1 PAC PO DAILY CONSTIPATION dissolve in water Polyethylene Glycol 3350 (Miralax) 17 GRAM/DOSE POWDER 17 GM PO DAILY NEEDED PRN CONSTIPATION Sennosides (Senna Lax) 8.6 MG TABLET 2 TAB PO QPM CONSTIPATION (Reported) Tamsulosin HCl (Flomax) 0.4 MG CAP.ER.24H 1 CAP PO QPM PROSTATE (Reported) Warfarin Sodium 2 MG TABLET 0.5 TAB PO QPM BLOOD THINNER (Reported) Review of Systems Review of Systems: Noncontributory Past History Travel History Traveled to [place] past 21 day No Medical History Blood Transfusion Hx: No (unknown) Neurological: peripheral neuropathy, BRAIN BLEED/SDH EENT: NONE Cardiovascular: AFIB, aortic stenosis, CAD, hypertension, hyperlipidemia Respiratory: pulmonary embolism Gastrointestinal: constipation, diverticulitis Hepatic: NONE Renal: benign prost hyperplasia, recurrent UTI Musculoskeletal: degen joint disease Psychiatric: NONE Endocrine: NONE Blood Disorders: DVT, PE, POLYCYTHEMIA Cancer(s): NONE MAKEUP EDITOR/Reproductive: NONE Surgical History Surgical History: CABG, STENTS PROSTATE SURGERY R AKA L BKA B/L arnav holes for SDH 2007 R AKA, L BKA Family History Relations & Conditions If Any: Relation not specified for: Family history unobtainable due to patient's condition Psychosocial History Where Do You Live? Home Who Do You Live With? spouse (Gutierrez Muñoz (son/POA)), child Services at Home: Home Health Aide, Nursing Primary Language: Ukrainian Smoking Status: Former Smoker ETOH Use: denies use Illicit Drug Use: denies illicit drug use Living Will? yes Power of Outsole Tacker/HCP? yes Name of POA/HCP: Gutierrez Muñoz (son/POA)[phone] Other Social History: . 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 2 sons- [employer] (only 1 of them, Gutierrez Muñoz, is POA). ? remote smoker. No significant EtOH except rare beer. No drugs. Lives withGutierrez guzman. Functional Ability ADLs Needs Assist: dressing, eating, toileting, bathing. Ambulation: non-ambulatory IADLs Needs Assist: shopping, housework, finances, food prep, telephone, transportation, medication admin. 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 ECHO Results (as available) Date of last Echo 08/27/14 EF% 60 Exam & Diagnostic Data Vital Signs and I&O Vital Signs Result Date Time B/P 156/64 10/26 825 Pulse 62 10/26 825 Pulse Ox 95 10/26 06 Temp 97.8 10/26 06 Resp 22 10/26 06 O2 Delivery Room Air 10/25 2229 Intake & Output 10/26 0000 10/25 1600 10/25 0800 Intake Total 360 130 Output Total 350 600 400 Balance 10 -600 -270 Intake, IV 130 Intake, Oral 360 Number 1 Bowel Movements Output, Urine 350 600 400 Patient 160 lb Weight Exam of the left buttock shows there to be a 1.5 x 1 cm and 0.8 x 0.5 cm full- thickness stage III pressure ulcers with red fill is no significant undermining or sinus tracking or periwound erythema over the right buttock is a 2 x 0.5 cm ulcer in the 1 x 1 cm ulcer also stage III present on admission without undermining sinus tracking exposed bone or periwound erythema Assessment/Plan Impression/Plan: 86-year-old minimally mobile bilateral lower extremity amputations has had chronic stage III nonhealing pressure ulcers present on admission. She is scheduled for discharge today. Recommend use of thin do a term applied every 2- 3 days avoiding friction and shear he should be on a low air loss mattress and offloading cushion for his wheelchair he can be seen in follow-up in the wound care center following discharge Consult Acknowledgment - Thank you for your consult request.
[2016-10-26 14:19] VITALS: BP 130/74
== END 2016-10-26 14:31 | disposition home health service (06) ==
LOC: ERH 12:51 → ERHI 17:40 → 2NB 17:40 → ENRESERV 23:52 → ENTRNSPT 10-25 20:51 → 2NB 10-25 21:00 → CMPTRNSPT 10-26 07:09 → ENPENDDIS 10-26 14:21 → 2NB 10-26 14:31
PROVIDERS: Physician Assistant Medical; Student in an Organized Health Care Education/Training Program; ADMIT Internal Medicine
DX: K57.92 Diverticulitis of intestine, part unspecified, without perforation or abscess without bleeding (principal); N39.0 Urinary tract infection, site not specified; I48.91 Unspecified atrial fibrillation; Z79.01 Long term (current) use of anticoagulants
CPT/HCPCS: 36415; 74176; 81001; 82436; 87040; 87071; 87086; 87088; 93005; 93010; 96374; 96376; G0378

== ENCOUNTER → 2016-11-02 | Day surgery (SDC) | payer OTHER ==
[~2016-11-02] VITALS: Ht 190.5 cm; Wt 72.6 kg
[~2016-11-02] MED LIST changes: +AUGMENTIN 875-1 EACH PO; +MIRALAX17 G1 PO; +PROBIOTIC1 EACH PO
--- NOTE | 2016-11-02 11:24 | Operative Report ---
Operative/Inv Procedure Report Surgery Date: 11/02/16 Name of Procedure: cystoscopy Pre-Operative Diagnosis: hematuria Post-Operative Diagnosis: same Estimated Blood Loss: scant Surgeon/Sales And Marketing Assistant: HESHAM GUAMAN MD Anesthesia: moderate sedation Complications: none Operative/Procedure Note Note: The patient was taken to the operative room and placed on the OR table in supine position. Timeout was performed in order to confirm the patient's identity, procedure, anesthesia, antibiotics, as well as any other pertinent information. After adequate anesthesia, and antibiotics, the patient was then placed lithotomy stirrups draped and prepped in the usual surgical fashion. A 22 Arabic cystoscope sheath with a 30 angle lens was inserted into the urethra and advanced into the bladder without difficulty. The bladder was noted to have the findings as discussed above. The bladder was then hydrodistended 2 with the irrigation fluid at 40 cm above the symphysis pubis. No evidence of tumor, increased petechiae, nor Hunner's ulceration was noted. Both ureteral orifices had clear reflux in their orthotopic position. No terminal bleed with drainage. Bladder capacity was normal. The bladder was then drained and the cystoscope was removed under direct visualization. The patient tolerated procedure well and was taken to recovery room in satisfactory condition. Discharge Disposition: Same Day Admissions CC: HESHAM GUAMAN MD
== END ==
LOC: STS 10-31 07:00
DX: R31.9 Hematuria, unspecified (principal); I10 Essential (primary) hypertension; I25.10 Atherosclerotic heart disease of native coronary artery without angina pectoris; Z95.1 Presence of aortocoronary bypass graft; E11.9 Type 2 diabetes mellitus without complications; Z79.84 Long term (current) use of oral hypoglycemic drugs; Z79.01 Long term (current) use of anticoagulants; Z79.82 Long term (current) use of aspirin

== ENCOUNTER 2017-07-04 10:52 | Emergency (ER) | payer OTHER ==
[~2017-07-04] VITALS: Ht 182.9 cm; Wt 72.6 kg
[~2017-07-04 10:52] MED LIST changes: +AMOX-CLAV 875-1 EACH PO; +CEPHALEXIN500 M3 PO; +LISINOPRIL20 M1 PO; +PANTOPRAZOLE SO40 M1 PO
--- NOTE | 2017-07-04 10:57 | ED GENERAL ADULT ---
History of Present Illness General Chief Complaint: General Adult Stated Complaint: BLEDING FROM BIOPSY SITE ON HEAD, ON COUMADIN Source: patient, family, old records, EMS Exam Limitations: no limitations Vital Signs & Intake/Output Vital Signs & Intake/Output Vital Signs Date Time Temp Pulse Resp B/P B/P Pulse O2 O2 Flow FiO2 Mean Ox Delivery Rate 07/04 1430 77 148/84 07/04 1301 98.6 76 18 162/84 98 Room Air ED Intake and Output 07/05 0000 07/04 1200 Intake Total 0 Output Total Balance 0 Intake, Oral 0 Patient 160 lb Weight Weight Reported by Patient Measurement Method Allergies Coded Allergies: amlodipine (Severe, ANAPHYLAXIS 07/29/16) niacin (EXTREME FLUSHING FROM IMMEDIATE RELEASE 07/18/16) PT TOLERATES SLOW RELEASE Reconcile Medications Amiodarone (Cordarone) 200 MG TABLET 1 TAB PO QAM AFIB (Reported) Aspirin (Ecotrin*) 81 MG TABLET.DR 1 TAB PO QPM HEART HEALTH (Reported) Atorvastatin Calcium (Lipitor) 20 MG TABLET 1 TAB PO QPM CHOLESTEROL ( Reported) Ciprofloxacin HCl 250 MG TABLET 1 TAB PO BID ANTIBIOTIC, INFECTION (Reported) Cranberry 400 MG CAPSULE 1 CAP PO BID SUPPLEMENT (Reported) Finasteride 5 MG TABLET 5 MG PO DAILY urinary retention Gabapentin 100 MG CAPSULE 100 MG PO QPM nerve pain Hydroxyurea 500 MG CAPSULE 2 CAP PO QAM POLYCYTHEMIA VERA (Reported) Lactobacillus Acidophilus (Probiotic) 10 BILLION CELL CAPSULE 1 CAP PO DAILY GI (Reported) Lisinopril (Prinivil) 20 MG TABLET 1 TAB PO DAILY HTN (Reported) Polyethylene Glycol 3350 (Miralax) 17 GRAM/DOSE POWDER 17 GM PO DAILY NEEDED PRN CONSTIPATION Sennosides (Senna Lax) 8.6 MG TABLET 2 TAB PO QPM CONSTIPATION (Reported) Tamsulosin HCl (Flomax) 0.4 MG CAP.ER.24H 1 CAP PO QPM PROSTATE (Reported) Warfarin Sodium (Coumadin) 1 MG TABLET 1 TAB PO 1700 BLOOD THINNER (Reported) Triage Nurses Notes Reviewed? yes Onset: Abrupt Duration: day(s): (1), better, constant Timing: recent history Injury Environment: home Severity: moderate Severity Numbers: 4 No Modifying Factors: none Associated Symptoms: denies HPI: 87-year-old male with history of A. fib on Coumadin presents with persistent bleeding from wound from his right scalp. Patient had skin cancer lesion removed by Dr. Werner yesterday. He went home nurse no active bleeding when his assistant toddler teacher put him down for sleep when they found him this morning his pillow was covered in blood and there is active bleeding from the wound after the patient had picked the scab off. On arrival patient is without any complaints there is no trauma or fall no other injury. There is no other active bleeding no gingival bleeding no chest pain shortness of breath (Stanley Conway) Past History Travel History Traveled to [place] past 21 day No Medical History Any Pertinent Medical History? see below for history Neurological: peripheral neuropathy, subdural hematoma EENT: NONE Cardiovascular: AFIB, aortic stenosis, CAD, hypertension, hyperlipidemia, PVD Respiratory: pulmonary embolism Gastrointestinal: constipation, diverticulitis Hepatic: NONE Renal: benign prost hyperplasia, recurrent UTI Musculoskeletal: degen joint disease Psychiatric: NONE Endocrine: NONE Blood Disorders: DVT, PE, POLYCYTHEMIA Cancer(s): NONE WAREHOUSE DRIVER/Reproductive: NONE History of MRSA: Yes History of VRE: No History of CDIFF: No Influenza Vaccine: 03/09/17 Surgical History Surgical History: CABG, cholecystectomy, 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 No (Stanley Conway) Review of Systems Review of Systems Constitutional: Reports: see HPI. Comments Review of systems: See HPI, All other systems negative. Constitutional, no chills no fever, HEENT: no sore throat no congestion Cardiovascular: No chest pain , Skin: no rashes, no change in skin Respiratory: No dyspnea no cough no sputum GI: No nausea no vomiting Muscle skeletal: No joint pain, no back pain Neurologic: , no headache Heme/endocrine: No bruising (+) bleeding Immunology: No lymphadenopathy (Stanley Conway) Physical Exam Physical Exam General Appearance: well developed/nourished, alert, awake Comments: Well-developed well-nourished patient in no apparent distress. HEENT: There is a large scab noted to the right frontal scalp there is minimal active bleeding at this time the rest of the scalp is atraumatic and nontender extraocular motion intact Neck: Supple, FROM Back: FROM Cardiovascular: Irregular rate and rhythm Respiratory: No respiratory distress. Patient speaking in full complete sentences. Breath sounds clear to auscultation bilaterally: NO W/R/R Extremities: full range of motion Neuro: awake, alert, and oriented to person, place and time. There were no obvious focal neurologic abnormalities. Skin: Warm & dry;No appreciable rash on exposed skin Psych: Mood affect normal, normal memory normal judgment. Core Measures ACS in differential dx? No CVA/TIA Diagnosis: No Sepsis Present: No Sepsis Focused Exam Completed? No (Stanley Conway) Progress Differential Diagnoses I considered the following diagnoses in my evaluation of the patient: Hypercoaguable state, elevated inr Initial ED EKG: none (Stanley Conway) Plan of Care: Orders Procedure Date/time Status PARTIAL THROMBOPLASTIN TIME 07/04 1055 Complete PROTHROMBIN TIME 07/04 1055 Complete CBC WITHOUT DIFFERENTIAL 07/04 1055 Complete Laboratory Tests 07/04/17 1110: PT 22.1 H, INR 2.12 H, APTT 34, CBC w Diff MAN DIFF ORDERED, RBC 4.23 L, MCV 79.5 L, MCH 24.0 L, MCHC 30.1 L, RDW 19.5 H, MPV 8.2, Gran % 87.6 H, Lymphocytes % 6.8 L, Monocytes % 1.4 L, Eosinophils % 3.8, Basophils % 0.4, Absolute Granulocytes 14.4 H, Segmented Neutrophils 81 H, Band Neutrophils 2, Absolute Lymphocytes 1.1 L, Lymphocytes 8 L, Monocytes 3, Absolute Monocytes 0.2, Eosinophils 6 H, Absolute Eosinophils 0.6, Absolute Basophils 0.1, Platelet Estimate ADEQUATE, Polychromasia 1+, Hypochromic-Microcytic 2+, Poikilocytosis 2+, Basophilic Stippling RARE, Anisocytosis 2+, Microcytic Cells 2+, Elliptocytes 1+, Fld Total RBCs Counted 100 Surgicel soaked in thrombin, kalostt dressnigs applied. labs ordered. case d/w dr collins agrees with plan on repeat eval d/w family lab results to date. no active bleeding noted 07/04/2017 1:16:36 PM the bleeding through the dressing at this time patient resting comfortably family feels comfortable with plan and discharge I discussed with him plan of care return precautions were discussed at least 07/04/2017 2:02:23 PM no bleeding through the dressing they will take him home at this time (Stanley Conway) (Tamanna Collins MD) Departure Departure Time of Disposition: 1402 Disposition: HOME OR SELF CARE Condition: Stable Clinical Impression Primary Impression: Bleeding from wound Referrals: Rachel APPLE,Elanie (PCP/Family) Saad APPLE,Ayaan Dubose Additional Instructions: Follow up with dr villarreal and his primary care physciian. return with any concerns or if bleeding redevelops Departure Forms: Customer Survey General Discharge Information (Stanley Conway) PA/FELLER BUNCHER OPERATOR Co-Sign Statement Statement: ED Attending supervision documentation- [X] I saw and evaluated the patient. I have also reviewed all the pertinent lab results and diagnostic results. I agree with the findings and the plan of care as documented in the PA's/FELLER BUNCHER OPERATOR's documentation. [X] I have reviewed the ED Record and agree with the PA's/FELLER BUNCHER OPERATOR's documentation. [] Additions or exceptions (if any) to the PAs/FELLER BUNCHER OPERATOR's note and plan are summarized below: [] (Dennis APPLE,Tamanna) Critical Care Note Critical Care Note Critical Care Time: non-applicable (Stanley Conway)
[2017-07-04 11:24] LABS: ABSOLUTE BASOPHIL COUNT 0.1 /CUMM (0.0-0.2); ABSOLUTE EOSINOPHIL COUNT 0.6 /CUMM (0.0-0.7); ABSOLUTE GRANULOCYTE CT 14.4 /CUMM (1.4-6.5); ABSOLUTE LYMPH COUNT 1.1 /CUMM (1.2-3.4); ABSOLUTE MONOCYTE COUNT 0.2 /CUMM (0.10-0.60); BASOPHIL % 0.4 % (0.0-2.0); EOSINOPHIL % 3.8 % (0-5); GRANULOCYTE % 87.6 % (42.2-75.2); HEMATOCRIT 33.6 % (42-52); MEAN CORPUSCULAR HGB CONC 30.1 G/DL (33.0-37.0); MEAN CORPUSCULAR VOLUME 79.5 FL (80.0-94.0); MEAN PLATELET VOLUME 8.2 FL (7.4-10.4); PLATELET COUNT 330 /CUMM (130-400); RBC DISTRIBUTION WIDTH 19.5 % (11.5-14.5); RED BLOOD CELL CT 4.23 /CUMM (4.70-6.10); WHITE BLOOD CELL COUNT 16.4 /CUMM (4.8-10.8)
[2017-07-04 11:36] LABS: PT 22.1 SEC (9.4-12.5); PTT 34 SEC (25-37)
[2017-07-04] MEDS ORDERED: COUMADIN1 M1 PO (11:42)
[2017-07-04] MEDS ORDERED: CRANBERRY400 M2 PO (11:43)
[2017-07-04] MEDS ORDERED: PRINIVIL20 M1 PO (11:43)
[2017-07-04] MEDS ORDERED: CIPROFLOXACIN250 M1 PO (11:44)
[2017-07-04 14:30] VITALS: BP 148/84
== END 2017-07-04 14:59 ==
LOC: ERH 10:52
PROVIDERS: Physician Assistant Medical
DX: L76.21 Postprocedural hemorrhage of skin and subcutaneous tissue following a dermatologic procedure (principal)

== ENCOUNTER → 2017-08-16 | Day surgery (SDC) | payer OTHER ==
[~2017-08-16] MED LIST changes: +CIPROFLOXACIN250 M1 PO; +CRANBERRY400 M2 PO; +PRINIVIL20 M1 PO
--- NOTE | 2017-08-16 14:43 | Operative Report ---
Operative/Inv Procedure Report Surgery Date: 08/16/17 Name of Procedure: Excision skin malignancy scalp 2.9 cm Complex closure 2.9 cm scalp Excision skin malignancy scalp 1.2 cm 2 layer closure scalp 1.3 cm Surgeon skin malignancy right parietal scalp 3 cm Complex closure scalp 3 cm Curettage and desiccation scalp 1.2 cm 's excision skin malignancy left cheek 1.4 cm 2 layer closure left cheek 1.7 cm Curettage desiccation left cheek skin malignancy 1.2 cm Pre-Operative Diagnosis: The skin malignancies Post-Operative Diagnosis: Same Estimated Blood Loss: scant Surgeon/Throat Cutter: Ayaan Nash MD Anesthesia: moderate sedation Operative/Procedure Note Note: The patient and family were counseled in regards to the procedure the alternatives the risks and expected outcomes as relates to biopsy-proven skin malignancies of the skin. The patient has other clinically malignant lesions and we will treat those today and less than standard fashion. They will either be treated with curettage and desiccation or complete excision of dictation found to be ulcerated below the scabs. Stable would not be treating according to textbook treatment parameters that there is a chance of infection bleeding pain numbness and recurrence. Once agreed informed consent was signed today. Was taken to the operating room placed supine on the table intravenous sedation antibiotics were given in the scalp and face were prepped and draped in usual sterile fashion. Ends were carried around the lesions that were excised for the dimensions above. Extensive undermining was done were outlined as a complex closure and intermediate layer closures were outlined elsewhere. Curettage and desiccation was done with a 15 blade followed by electrocautery for the dimensions described above.bacitracin and Band-Aids were placed on the wounds.
== END ==
LOC: STS 01:03
DX: C44.42 Squamous cell carcinoma of skin of scalp and neck (principal); C44.329 Squamous cell carcinoma of skin of other parts of face; I10 Essential (primary) hypertension; I25.10 Atherosclerotic heart disease of native coronary artery without angina pectoris; I26.99 Other pulmonary embolism without acute cor pulmonale; Z79.01 Long term (current) use of anticoagulants; I73.9 Peripheral vascular disease, unspecified
CPT/HCPCS: 88305; C9399; J0690

== ENCOUNTER 2017-09-09 11:39 | Inpatient (IN) | payer OTHER ==
[~2017-09-09] VITALS: Ht 190.5 cm; Wt 72.4 kg
--- NOTE | 2017-09-09 12:34 | ED GENERAL ADULT ---
See Addendum History of Present Illness General Chief Complaint: General Adult Stated Complaint: SENT BY DR POST FOR ? INFECTION Source: patient, family, old records Exam Limitations: no limitations Vital Signs & Intake/Output Vital Signs & Intake/Output Vital Signs Date Time Temp Pulse Resp B/P B/P Pulse O2 O2 Flow FiO2 Mean Ox Delivery Rate 09/09 1815 208/76 09/09 1736 54 222/98 09/09 1712 97.6 55 18 222/74 96 Room Air 09/09 1510 97.8 55 18 212/78 96 Room Air 09/09 1202 98.7 90 20 157/89 97 Room Air Allergies Coded Allergies: amlodipine (Severe, ANAPHYLAXIS 07/29/16) niacin (EXTREME FLUSHING FROM IMMEDIATE RELEASE 07/18/16) PT TOLERATES SLOW RELEASE Reconcile Medications Amiodarone (Cordarone) 200 MG TABLET 1 TAB PO QAM AFIB (Reported) Aspirin (Ecotrin*) 81 MG TABLET.DR 1 TAB PO QPM HEART HEALTH (Reported) Atorvastatin Calcium (Lipitor) 20 MG TABLET 1 TAB PO QPM CHOLESTEROL ( Reported) Clindamycin HCl (Cleocin HCl) 300 MG CAPSULE 1 CAP PO 4XDAILY ABX (Reported) Cranberry 400 MG CAPSULE 1 CAP PO DAILY SUPPLEMENT (Reported) Finasteride 5 MG TABLET 5 MG PO DAILY urinary retention Gabapentin 100 MG CAPSULE 100 MG PO QPM nerve pain Hydroxyurea 500 MG CAPSULE 2 CAP PO QAM POLYCYTHEMIA VERA (Reported) Lactobacillus Acidophilus (Probiotic) 10 BILLION CELL CAPSULE 1 CAP PO DAILY GI (Reported) Lisinopril (Prinivil) 20 MG TABLET 1 TAB PO DAILY HTN (Reported) Polyethylene Glycol 3350 (Miralax) 17 GRAM/DOSE POWDER 17 GM PO DAILY NEEDED PRN CONSTIPATION Sennosides (Senna Lax) 8.6 MG TABLET 2 TAB PO QPM CONSTIPATION (Reported) Tamsulosin HCl (Flomax) 0.4 MG CAP.ER.24H 1 CAP PO QPM PROSTATE (Reported) Warfarin Sodium (Coumadin) 1 MG TABLET 1 TAB PO 1700 BLOOD THINNER (Reported) Triage Note: 87M TO ED WITH FAMILY REPORTING CONCERN FOR UTI AND INFECTION TO SKIN ON TOP OF HEAD S/P SURGERY FOR SKIN CA. AREA ON HEAD IS ERYTHEMATOUS AND HAS PURULENT DISCHARGE. FAMILY REPORTS RAPIDLY INCREASING WEAKNESS AND CONFUSION. ABLE TO ANSWER SIMPLE QUESTIONS AND FOLLOW COMMANDS IN TRIAGE. AFEBRILE. INCONTINENT AT BASELINE. PT DENIES PAIN. DENIES CP/PALPITATIONS/HEADACHE/N/V/D. Triage Nurses Notes Reviewed? yes Onset: Abrupt Duration: day(s): (3), changing over time, continues in ED, getting worse Timing: single episode today Injury Environment: home Severity: mild, moderate No Modifying Factors: none HPI: 87-year-old male past medical history of atrial fibrillation, aortic stenosis, coronary artery disease, hypertension, pulmonary embolism, recurrent UTI presents for evaluation of weakness, increasing confusion and possible scalp infection or urine infection. According the patient's son patient had skin cancer removed from his scalp 3 weeks ago. During a follow-up with Dr. Werner a few days ago it was noted that there is purulent discharge coming from the surgical site. This was cultured and grew MRSA patient was started on clindamycin 2 days ago which he's been taking as directed. Family reports that over the past 3-4 days he has gradually become more weak and more confused and at baseline. This behavior has been seen with previous UTIs. There's been no fevers patient denies any chest pain shortness of breath headache nausea vomiting diarrhea abdominal pain no rashes anywhere else. He is a bilateral lower extremity amputee. Patient is incontinent of urine at baseline. He does not walk at baseline but is usually able to help transfer however has been so weak and HAS BEEN UNable to do this. (To RAE,John) Past History Travel History Traveled to [place] past 21 day No Medical History Any Pertinent Medical History? see below for history Neurological: peripheral neuropathy, subdural hematoma EENT: NONE Cardiovascular: AFIB, aortic stenosis, CAD, hypertension, hyperlipidemia, PVD Respiratory: pulmonary embolism Gastrointestinal: constipation, diverticulitis Hepatic: NONE Renal: benign prost hyperplasia, recurrent UTI Musculoskeletal: degen joint disease Psychiatric: NONE Endocrine: NONE Blood Disorders: DVT, PE, POLYCYTHEMIA Cancer(s): NONE REAL ESTATE SERVICES ADMINISTRATOR/Reproductive: NONE History of MRSA: Yes History of VRE: No History of CDIFF: No Surgical History Surgical History: CABG, cholecystectomy, 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 No (John Norris) Review of Systems Review of Systems Constitutional: Reports: malaise, weakness. EENTM: Reports: no symptoms. Respiratory: Reports: no symptoms. Cardiovascular: Reports: no symptoms. GI: Reports: no symptoms. Genitourinary: Reports: no symptoms. Musculoskeletal: Reports: no symptoms. Skin: Reports: see HPI, lesions (scalp). Neurological/Psychological: Reports: confusion. Hematologic/Endocrine: Reports: no symptoms. Immunologic/Allergic: Reports: no symptoms. All Other Systems: Reviewed and Negative (John Norris) Physical Exam Physical Exam General Appearance: well developed/nourished, no apparent distress, alert, awake Head: there are 2 SMALL surgical incisions located on the parietal scalp.there is a small amount of surrounding erythema and purulent dischargE located around both. No induration no focal fluctuant areas no tenderness to palpation Eyes: Bilateral: normal appearance, PERRL, EOMI. Ears, Nose, Throat: normal pharynx, normal ENT inspection, hearing grossly normal Neck: normal inspection, supple, full range of motion Respiratory: normal breath sounds, chest non-tender, no respiratory distress, lungs clear Cardiovascular: regular rate/rhythm, normal peripheral pulses Peripheral Pulses: 2+ radial (R), 2+ radial (L) Gastrointestinal: normal bowel sounds, soft, non-tender, no organomegaly Back: normal inspection, normal range of motion, no vertebral tenderness Extremities: bilateral lower extremity amputations left [id number] right [id number] Neurologic/Psych: no motor/sensory deficits, awake, alert, patient is alert and oriented to place and person only not oriented to time this is baseline Skin: intact, normal color, warm/dry Lymphatic: no anterior cervical janessa Core Measures ACS in differential dx? No CVA/TIA Diagnosis: No Sepsis Present: No Sepsis Focused Exam Completed? No (John Norris) Progress Differential Diagnoses I considered the following diagnoses in my evaluation of the patient: [UTI, sepsis, cellulitis, abscess, electrolyte abnormality, pyelonephritis, prostatitis] Plan of Care: Orders Procedure Date/time Status Heart Healthy Diet 09/10 B Active ED Holding Orders 09/09 1621 Active Admit to inpatient 09/09 1621 Active Vital Signs 04/22 1622 Active Code Status 09/09 1622 Active Add-on Test (ER Only) 09/09 1546 Active Straight Cath 09/09 1501 Active Add-on Test (ER Only) 09/09 1312 Active Add-on Test (ER Only) 09/09 1234 Active BLOOD CULTURE 09/09 1234 Active CULTURE,URINE 09/09 1201 Active URINALYSIS 09/09 1201 Complete TROPONIN LEVEL 09/09 1201 Complete PARTIAL THROMBOPLASTIN TIME 09/09 1201 Complete PROTHROMBIN TIME 09/09 1201 Complete LACTIC ACID 09/09 1201 Complete COMPREHENSIVE METABOLIC PANEL 09/09 1201 Complete CBC WITHOUT DIFFERENTIAL 09/09 1201 Complete EKG 09/09 1201 Active Current Medications Sig/Caroline Start time Last Medication Dose Stop Time Status Admin Enalaprilat 1.25 MG ONCE ONE 09/09 1830 AC (Vasotec I.V.. 2ML 09/09 183 Inj.(2.5MG/2ML)) Laboratory Tests 09/09/17 1517: Urine Color YEL, Urine Clarity CLDY H, Urine pH 6.0, Ur Specific [place] >= 1.030, Urine Protein 100 H, Urine Ketones NEG, Urine Nitrite POS H, Urine Bilirubin NEG, Urine Urobilinogen 0.2, Ur Leukocyte Esterase MOD H, Ur Microscopic SEDIMENT EXAMINED, Urine RBC 1-3, Urine WBC 50-75 H, Ur Epithelial Cells RARE, Urine Bacteria MANY H, Urine Hemoglobin MOD H, Urine Glucose NEG 09/09/17 1300: Anion Gap 9, Estimated GFR > 60, BUN/Creatinine Ratio 18.8, Glucose 89, Lactic Acid 1.0, Calcium 8.6, Total Bilirubin 0.8, AST 12 L, ALT 18 L, Alkaline Phosphatase 133 H, Troponin I < 0.01, Total Protein 6.3, Albumin 3.2 L, Globulin 3.1, Albumin/Globulin Ratio 1.0 L, CBC w Diff MAN DIFF ORDERED, RBC 4.20 L, MCV 77.1 L, MCH 23.1 L, MCHC 30.0 L, RDW 19.5 H, MPV 8.3, Gran % 89.5 H, Lymphocytes % 5.9 L, Monocytes % 1.3 L, Eosinophils % 3.0, Basophils % 0.3, Absolute Granulocytes 18.6 H, Absolute Lymphocytes 1.2, Absolute Monocytes 0.3, Absolute Eosinophils 0.6, Absolute Basophils 0.1, Platelet Estimate VERIFIED BY SMEAR, Polychromasia 1+, Hypochromic-Microcytic 2+, Poikilocytosis 2+, Anisocytosis 2+, Microcytic Cells 1+, Ovalocytes 1+ 09/09/17 1201: PT 22.2 H, INR 2.02 H, APTT 35 Microbiology 09/09 1517 URINE ROUT: Urine Culture - RECD 09/09 1325 BLOOD: Blood Culture - RECD 09/09 1300 BLOOD: Blood Culture - RECD Patient seen and evaluated. He is here for increasing weakness and lethargy and increasing confusion. He does have evidence of a surgical site infection to his scalp however there is no surrounding erythema. No focal fluctuant areas. There is some purulent discharge. Patient had a culture done which revealed MRSA susceptible to Clinda. He has been taking the clindamycin for 2 days. However starting a few days before taking the Clinda he began having the confusion lethargy and weakness which is typical when he gets UTIs. Patient is incontinent at baseline and has a history of recurrent UTIs. Basic blood work reveals an elevated white blood cell count of 20,000. Patient has a history of polycythemia however his white count is usually not greater than 15,000. Urine is showing signs of infection A culture was sent blood cultures were also sent. Patient was started on ceftriaxone 1 g IV. He was also given IV fluids. It was noted that patient's blood pressure was elevated after the IV fluids and he was given 10 mg of IV hydralazine. Patient will be admitted to the hospital for further evaluation and treatment. Case discussed with Dr. Aquino he agrees. Patient's blood pressure was 206/86 after hydralazine. He takes lisinopril daily which he took this morning. He was given a another 1.25 mg of IV Vasotec. WILL continue to monitor blood pressure. Diagnostic Imaging: Viewed by Me: Radiology Read. Discussed w/RAD: Radiology Read. CXR Impression: PATIENT: EDITA ROSARIO PRESENT AGE : 87 PATIENT ACCOUNT NO: [id number] : 31 LOCATION: [facility] ORDERING PHYSICIAN: John RAE SERVICE DATE: 09/09/17 EXAM TYPE: RAD - XRY- PORTABLE CHEST XRAY EXAMINATION: XR PORTABLE CHEST CLINICAL INFORMATION: Weakness. Mental status. Question pneumonia. COMPARISON: Chest radiograph 2016. TECHNIQUE: Portable frontal view of the chest was obtained. FINDINGS: Lungs are well-expanded. There is no focal consolidative disease, pleural effusion, or pneumothorax. The cardiac silhouette and upper mediastinal contours are normal. No acute osseous finding. Chronic changes of a median sternotomy are noted. IMPRESSION: Unremarkable chest radiograph. No consolidative disease or effusion. DICTATED BY: Aidan APPLE,Vishal Lopez DATE/TIME DICTATED:09/09/171416 INSTRUMENT WORKER:ELFEGO DATE/TIME TRANSCRIBED:09/09/171416 CONFIDENTIAL, DO NOT COPY WITHOUT APPROPRIATE AUTHORIZATION. Initial ED EKG: normal sinus rhythm, RBBB, nonspecific ST T wave chg, LVH with intraventricular conduction delay (John Norris) Departure Departure Disposition: STILL A PATIENT Condition: Stable Clinical Impression Primary Impression: Acute cystitis Qualifiers: Hematuria presence: without hematuria Qualified Code: N30.00 - Acute cystitis without hematuria Secondary Impressions: Leukocytosis Qualifiers: Leukocytosis type: unspecified Qualified Code: D72.829 - Elevated white blood cell count, unspecified Referrals: Rachel APPLE,Elaine (PCP/Family) Departure Forms: Customer Survey General Discharge Information Admission Note Spoke With: Escobar Gottlieb MDconnor Documentation of Exam: Documentation of any treatments & extenuating circumstances including Concerns Regarding Discharge (functional status, medication knowledge or non-compliance, living conditions, etc.) that warrant an admission rather than observation: [IV antibiotics, IV fluids, serial labs, follow up cultures, monitor vital signs, IV antihypertensives] (John Norris) PA/HEEL SPLITTER Co-Sign Statement Statement: ED Attending supervision documentation- [X] I saw and evaluated the patient. I have also reviewed all the pertinent lab results and diagnostic results. I agree with the findings and the plan of care as documented in the PA's/HEEL SPLITTER's documentation. [X] I have reviewed the ED Record and agree with the PA's/HEEL SPLITTER's documentation. [] Additions or exceptions (if any) to the PAs/HEEL SPLITTER's note and plan are summarized below: [Acute delirium in the setting of acute cystitis. Patient will require IV antibiotics, follow-up urine culture] (Kenia APPLE,Farooq Oswald) Critical Care Note Critical Care Note Critical Care Time: non-applicable (To RAE,John)
[2017-09-09 13:13] LABS: ABSOLUTE BASOPHIL COUNT 0.1 /CUMM (0.0-0.2); ABSOLUTE EOSINOPHIL COUNT 0.6 /CUMM (0.0-0.7); ABSOLUTE GRANULOCYTE CT 18.6 /CUMM (1.4-6.5); ABSOLUTE LYMPH COUNT 1.2 /CUMM (1.2-3.4); ABSOLUTE MONOCYTE COUNT 0.3 /CUMM (0.10-0.60); BASOPHIL % 0.3 % (0.0-2.0); GRANULOCYTE % 89.5 % (42.2-75.2); HEMATOCRIT 32.3 % (42-52); MEAN CORPUSCULAR HGB 23.1 PG (27.0-31.0); MEAN CORPUSCULAR VOLUME 77.1 FL (80.0-94.0); MEAN PLATELET VOLUME 8.3 FL (7.4-10.4); PLATELET COUNT 448 /CUMM (130-400); RBC DISTRIBUTION WIDTH 19.5 % (11.5-14.5); WHITE BLOOD CELL COUNT 20.8 /CUMM (4.8-10.8)
[2017-09-09] MEDS ORDERED: CLEOCIN HCL300 M1 PO (13:25)
[2017-09-09 13:37] LABS: PT 22.2 SEC (9.4-12.5); PTT 35 SEC (25-37)
--- NOTE | 2017-09-09 14:21 | RADIOLOGY REPORT ---
EXAMINATION: XR PORTABLE CHEST CLINICAL INFORMATION: Weakness. Mental status. Question pneumonia. COMPARISON: Chest radiograph 10/11/2016. TECHNIQUE: Portable frontal view of the chest was obtained. FINDINGS: Lungs are well-expanded. There is no focal consolidative disease, pleural effusion, or pneumothorax. The cardiac silhouette and upper mediastinal contours are normal. No acute osseous finding. Chronic changes of a median sternotomy are noted. IMPRESSION: Unremarkable chest radiograph. No consolidative disease or effusion.
--- NOTE | 2017-09-09 19:45 | History & Physical ---
General Information and HPI Allergies/Medications Allergies: Coded Allergies: amlodipine (Severe, ANAPHYLAXIS 07/29/16) niacin (EXTREME FLUSHING FROM IMMEDIATE RELEASE 07/18/16) PT TOLERATES SLOW RELEASE Home Med list Amiodarone (Cordarone) 200 MG TABLET 1 TAB PO QAM AFIB (Reported) Aspirin (Ecotrin*) 81 MG TABLET.DR 1 TAB PO QPM HEART HEALTH (Reported) Atorvastatin Calcium (Lipitor) 20 MG TABLET 1 TAB PO QPM CHOLESTEROL ( Reported) Clindamycin HCl (Cleocin HCl) 300 MG CAPSULE 1 CAP PO 4XDAILY ABX (Reported) Cranberry 400 MG CAPSULE 1 CAP PO DAILY SUPPLEMENT (Reported) Finasteride 5 MG TABLET 5 MG PO DAILY urinary retention Gabapentin 100 MG CAPSULE 100 MG PO QPM nerve pain Hydroxyurea 500 MG CAPSULE 2 CAP PO QAM POLYCYTHEMIA VERA (Reported) Lactobacillus Acidophilus (Probiotic) 10 BILLION CELL CAPSULE 1 CAP PO DAILY GI (Reported) Lisinopril (Prinivil) 20 MG TABLET 1 TAB PO DAILY HTN (Reported) Polyethylene Glycol 3350 (Miralax) 17 GRAM/DOSE POWDER 17 GM PO DAILY NEEDED PRN CONSTIPATION Sennosides (Senna Lax) 8.6 MG TABLET 2 TAB PO QPM CONSTIPATION (Reported) Tamsulosin HCl (Flomax) 0.4 MG CAP.ER.24H 1 CAP PO QPM PROSTATE (Reported) Warfarin Sodium (Coumadin) 1 MG TABLET 1 TAB PO 1700 BLOOD THINNER (Reported) Past History Travel History Traveled to [place] past 21 day No Medical History Neurological: peripheral neuropathy, subdural hematoma EENT: NONE Cardiovascular: AFIB, aortic stenosis, CAD, hypertension, hyperlipidemia, PVD Respiratory: pulmonary embolism Gastrointestinal: constipation, diverticulitis Hepatic: NONE Renal: benign prost hyperplasia, recurrent UTI Musculoskeletal: degen joint disease Psychiatric: NONE Endocrine: NONE Blood Disorders: DVT, PE, POLYCYTHEMIA Cancer(s): NONE 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 spouse (Gutierrez Muñoz (son/POA)), child Services at Home: Home Health Aide, Nursing Primary Language: Kazakh Living Will? yes Power of Wastewater Supervisor/HCP? yes Name of POA/HCP: Gutierrez Muñoz (son/POA)[phone] Functional Ability ADLs Needs Assist: dressing, eating, toileting, bathing. Ambulation: non-ambulatory IADLs Needs Assist: shopping, housework, finances, food prep, telephone, transportation, medication admin. Review of Systems Review of Systems Constitutional: Reports: see HPI. Exam & Diagnostic Data Last 24 Hrs of Vital Signs/I&O Vital Signs Date Time Temp Pulse Resp B/P B/P Pulse O2 O2 Flow FiO2 Mean Ox Delivery Rate 09/09 1923 180/70 09/09 1850 212/78 09/09 1829 54 14 208/76 09/09 1815 208/76 09/09 1736 54 222/98 09/09 1712 97.6 55 18 222/74 96 Room Air 09/09 1510 97.8 55 18 212/78 96 Room Air 09/09 1202 98.7 90 20 157/89 97 Room Air Intake & Output 09/09 1600 09/09 0800 09/09 0000 Intake Total Output Total Balance Patient 180 lb Weight Last 24 Hrs of Labs/Addy: Laboratory Tests 09/09/17 1517: Urine Color YEL, Urine Clarity CLDY H, Urine pH 6.0, Ur Specific [place] >= 1.030, Urine Protein 100 H, Urine Ketones NEG, Urine Nitrite POS H, Urine Bilirubin NEG, Urine Urobilinogen 0.2, Ur Leukocyte Esterase MOD H, Ur Microscopic SEDIMENT EXAMINED, Urine RBC 1-3, Urine WBC 50-75 H, Ur Epithelial Cells RARE, Urine Bacteria MANY H, Urine Hemoglobin MOD H, Urine Glucose NEG 09/09/17 1300: Anion Gap 9, Estimated GFR > 60, BUN/Creatinine Ratio 18.8, Glucose 89, Lactic Acid 1.0, Calcium 8.6, Total Bilirubin 0.8, AST 12 L, ALT 18 L, Alkaline Phosphatase 133 H, Troponin I < 0.01, Total Protein 6.3, Albumin 3.2 L, Globulin 3.1, Albumin/Globulin Ratio 1.0 L, CBC w Diff MAN DIFF ORDERED, RBC 4.20 L, MCV 77.1 L, MCH 23.1 L, MCHC 30.0 L, RDW 19.5 H, MPV 8.3, Gran % 89.5 H, Lymphocytes % 5.9 L, Monocytes % 1.3 L, Eosinophils % 3.0, Basophils % 0.3, Absolute Granulocytes 18.6 H, Absolute Lymphocytes 1.2, Absolute Monocytes 0.3, Absolute Eosinophils 0.6, Absolute Basophils 0.1, Platelet Estimate VERIFIED BY SMEAR, Polychromasia 1+, Hypochromic-Microcytic 2+, Poikilocytosis 2+, Anisocytosis 2+, Microcytic Cells 1+, Ovalocytes 1+ 09/09/17 1201: PT 22.2 H, INR 2.02 H, APTT 35 Microbiology 09/09 1517 URINE ROUT: Urine Culture - RECD 09/09 1325 BLOOD: Blood Culture - RECD 09/09 1300 BLOOD: Blood Culture - RECD Diagnostic Data CXR Results FINDINGS: Lungs are well-expanded. There is no focal consolidative disease, pleural effusion, or pneumothorax. The cardiac silhouette and upper mediastinal contours are normal. No acute osseous finding. Chronic changes of a median sternotomy are noted. IMPRESSION: Unremarkable chest radiograph. No consolidative disease or effusion. Core Measures/Misc (02/04) Cerebrovascular Accident CVA/TIA Diagnosis: No Sepsis (View protocol) Sepsis Present: No
--- NOTE | 2017-09-09 20:05 | Admission Certification ---
Admission Certification Certification Statement - As attending physician, I certify that at the time of - admission, based on clinical presentation, severity of - symptoms, need for further diagnostic testing and - therapeutic interventions, and risk of adverse outcomes - without in-hospital treatment, in my clinical assessment, - this patient requires an acute hospital stay for a minimum - of two nights or longer. I have also considered psychsocial - factors such as support system, advanced age, financial - issues, cognitive issues, and failed out-patient treatments, - past re-admission history, safety of patient, and lack of - compliance as applicable. Specific rationale supporting this admission is: Lethargy, recurrent UTI, hypertensive urgency.
--- NOTE | 2017-09-09 20:35 | History & Physical ---
See Addendum Avery Rae MD 09/09/172034: General Information and HPI MD Statement: I have seen and personally examined EDITA MUÑOZ and documented this H&P. The patient is a 87 year old M who presented with a patient stated chief complaint of [burning with urination, less alert than usual]. Source of Information: patient, family Exam Limitations: no limitations History of Present Illness: 87-year-old male past medical history of hypertension, atrial fibrillation with previous DVT and PE, on Coumadin for anticoagulation, CAD s/p CABG, recurrent UTI and urinary incontinence, severe peripheral vascular disease s/p left BKA and right AKA, hyperlipidemia and polycythemia vera [on hydroxyurea] was brought to the ED by family members for evaluation of weakness, decreased alertness and scalp/urine infection. Most of the history has been obtained from the son. The son states that the patient had removal of a skin tumor from the scalp around 3 weeks ago. He had a follow up with Dr Nash, a few days ago due to discharge from the scalp site. On , the son noted that his father was a little ' off' and mentally slower with decreased appetite. On Sunday they got a call from Dr Nash asking them to start the patient on Clindamycin which the patient has been receiving without any side effects. However, over the course of next few days the patient was noted to be more lethargic and not mentally sharp compared to his baseline along with decreased appetite. Hence, they brought the patient today for further evaluation. Today the patient also complained of burning sensation with urination. The son states that every time the patient receives IV fluids his blood pressure goes up. His heart rate generally tends to be in the 60s. Allergies/Medications Allergies: Coded Allergies: amlodipine (Severe, ANAPHYLAXIS 07/29/16) niacin (EXTREME FLUSHING FROM IMMEDIATE RELEASE 07/18/16) PT TOLERATES SLOW RELEASE Home Med list Amiodarone (Cordarone) 200 MG TABLET 1 TAB PO QAM AFIB (Reported) Aspirin (Ecotrin*) 81 MG TABLET. 1 TAB PO QPM HEART HEALTH (Reported) Atorvastatin Calcium (Lipitor) 20 MG TABLET 1 TAB PO QPM CHOLESTEROL ( Reported) Clindamycin HCl (Cleocin HCl) 300 MG CAPSULE 1 CAP PO 4XDAILY ABX (Reported) Cranberry 400 MG CAPSULE 1 CAP PO DAILY SUPPLEMENT (Reported) Finasteride 5 MG TABLET 5 MG PO DAILY urinary retention Gabapentin 100 MG CAPSULE 100 MG PO QPM nerve pain Hydroxyurea 500 MG CAPSULE 2 CAP PO QAM POLYCYTHEMIA VERA (Reported) Lactobacillus Acidophilus (Probiotic) 10 BILLION CELL CAPSULE 1 CAP PO DAILY GI (Reported) Lisinopril (Prinivil) 20 MG TABLET 1 TAB PO DAILY HTN (Reported) Polyethylene Glycol 3350 (Miralax) 17 GRAM/DOSE POWDER 17 GM PO DAILY NEEDED PRN CONSTIPATION Sennosides (Senna Lax) 8.6 MG TABLET 2 TAB PO QPM CONSTIPATION (Reported) Tamsulosin HCl (Flomax) 0.4 MG CAP.ER.24H 1 CAP PO QPM PROSTATE (Reported) Warfarin Sodium (Coumadin) 1 MG TABLET 1 TAB PO 1700 BLOOD THINNER (Reported) Past History Travel History Traveled to [place] past 21 day No Medical History Neurological: peripheral neuropathy, subdural hematoma EENT: NONE Cardiovascular: AFIB, aortic stenosis, CAD, hypertension, hyperlipidemia, PVD Respiratory: pulmonary embolism Gastrointestinal: constipation, diverticulitis Hepatic: NONE Renal: benign prost hyperplasia, recurrent UTI Musculoskeletal: degen joint disease Psychiatric: NONE Endocrine: NONE Blood Disorders: DVT, PE, POLYCYTHEMIA Cancer(s): NONE 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 spouse (Gutierrez Muñoz (son/POA)), child Services at Home: Home Health Aide, Nursing Primary Language: Puerto Rican Living Will? yes Power of Windows Migration Technician/HCP? yes Name of POA/HCP: Gutierrez Muñoz (son/POA)[phone] Functional Ability ADLs Needs Assist: dressing, eating, toileting, bathing. Ambulation: non-ambulatory IADLs Needs Assist: shopping, housework, finances, food prep, telephone, transportation, medication admin. Review of Systems Review of Systems Constitutional: Reports: weakness. Denies: chills, fever. EENTM: Reports: no symptoms. Cardiovascular: Denies: chest pain, palpitations. Respiratory: Denies: cough, short of breath. GI: Denies: abdominal pain, constipation, diarrhea. Genitourinary: Reports: dysuria. Musculoskeletal: Denies: joint pain. Skin: Reports: change in skin color. Neurological/Psychological: Reports: no symptoms. Exam & Diagnostic Data Last 24 Hrs of Vital Signs/I&O Vital Signs Date Time Temp Pulse Resp B/P B/P Pulse O2 O2 Flow FiO2 Mean Ox Delivery Rate 09/09 2137 190/70 09/09 2054 60 16 210/80 09/09 2054 60 16 210/80 09/09 1923 180/70 09/09 1850 212/78 09/09 1829 54 14 208/76 09/09 1815 208/76 09/09 1736 54 222/98 09/09 1712 97.6 55 18 222/74 96 Room Air 09/09 1510 97.8 55 18 212/78 96 Room Air 09/09 1202 98.7 90 20 157/89 97 Room Air Intake & Output 09/09 1600 09/09 0800 09/09 0000 Intake Total Output Total Balance Patient 180 lb Weight Physical Exam General Appearance Alert, Oriented X3, Cooperative, No Acute Distress Skin pus drainage from left frontal scalp Skin Temp/Moisture Exam: Warm/Dry Sepsis Skin Exam (color): Normal for Ethnicity HEENT Atraumatic Cardiovascular Normal S1, Normal S2, LEONIDAS Lungs Clear to Auscultation, Normal Air Movement Abdomen Soft, No Tenderness Neurological Normal Speech Extremities No Edema Last 24 Hrs of Labs/Addy: Laboratory Tests 09/09/17 1517: Urine Color YEL, Urine Clarity CLDY H, Urine pH 6.0, Ur Specific [place] >= 1.030, Urine Protein 100 H, Urine Ketones NEG, Urine Nitrite POS H, Urine Bilirubin NEG, Urine Urobilinogen 0.2, Ur Leukocyte Esterase MOD H, Ur Microscopic SEDIMENT EXAMINED, Urine RBC 1-3, Urine WBC 50-75 H, Ur Epithelial Cells RARE, Urine Bacteria MANY H, Urine Hemoglobin MOD H, Urine Glucose NEG 09/09/17 1300: Anion Gap 9, Estimated GFR > 60, BUN/Creatinine Ratio 18.8, Glucose 89, Lactic Acid 1.0, Calcium 8.6, Iron 25 L, TIBC 402, Ferritin 7.7 L, Total Bilirubin 0.8, AST 12 L, ALT 18 L, Alkaline Phosphatase 133 H, Troponin I < 0.01, Total Protein 6.3, Albumin 3.2 L, Globulin 3.1, Albumin/Globulin Ratio 1.0 L, CBC w Diff MAN DIFF ORDERED, RBC 4.20 L, MCV 77.1 L, MCH 23.1 L, MCHC 30.0 L, RDW 19.5 H, MPV 8.3, Gran % 89.5 H, Lymphocytes % 5.9 L, Monocytes % 1.3 L, Eosinophils % 3.0, Basophils % 0.3, Absolute Granulocytes 18.6 H, Absolute Lymphocytes 1.2, Absolute Monocytes 0.3, Absolute Eosinophils 0.6, Absolute Basophils 0.1, Platelet Estimate VERIFIED BY SMEAR, Polychromasia 1+, Hypochromic-Microcytic 2+, Poikilocytosis 2+, Anisocytosis 2+, Microcytic Cells 1+, Ovalocytes 1+ 09/09/17 1201: PT 22.2 H, INR 2.02 H, APTT 35 Microbiology 09/09 1517 URINE ROUT: Urine Culture - RECD 09/09 1325 BLOOD: Blood Culture - RECD 09/09 1300 BLOOD: Blood Culture - RECD Diagnostic Data CXR Results FINDINGS: Lungs are well-expanded. There is no focal consolidative disease, pleural effusion, or pneumothorax. The cardiac silhouette and upper mediastinal contours are normal. No acute osseous finding. Chronic changes of a median sternotomy are noted. IMPRESSION: Unremarkable chest radiograph. No consolidative disease or effusion. Assessment/Plan Assessment: 87-year-old male past medical history of hypertension, atrial fibrillation with previous DVT and PE, on Coumadin for anticoagulation, CAD s/p CABG, recurrent UTI and urinary incontinence, severe peripheral vascular disease s/p left BKA and right AKA, hyperlipidemia and polycythemia vera [on hydroxyurea] was brought to the ED by family members for evaluation of weakness, decreased alertness and scalp/urine infection. Assessment: 1. Hypertensive Urgency 2. UTI 3. Scalp Infection 4. Microcytic Anemia 5. Prolonged QTc with EKG changes Plan: * Admit patient to telemetry * Goal blood pressure to reduce by 25% in 24-48 hours. Will try and achieve this with IV hydralazine push as needed. His Lisinopril can be restarted from tomorrow morning at a higher dose of 30mg. * Cardiology consult in am. * No need for IVF hydration at this time * His UA shows evidence of infection. He does have a white count but that is unreliable due to his history of PCV. His baseline appears to be anywhere from 18K - 20K. He has grown several different bacteria in his urine. He has grown Pseudomonas thrice. He is symptomatic so prudent to treat it. He has already received one dose of IV Ceftriaxone in the ED. Will start him on Ceftazidime. * ID consult in am. * Follow up blood cultures and urine culture. * His scalp shows pus discharge but can be likely treated with local wound care and topical bacitracin. * His CBC shows low H&H and MCV. Iron studies show low ferritin and iron. Will guiac all stools. * Avoid QTc prolonging agents. * Chronic medical conditions: Continue all other home meds. * Diet: Heart Healthy Diet * DVT Prophylaxis: On Coumadin * Code: DNR/DNI As Ranked By This Provider Problem List: 1. Leukocytosis Qualifiers Leukocytosis type: unspecified Qualified Code: D72.829 - Elevated white blood cell count, unspecified Core Measures/Misc (02/04) Acute Coronary Syndrome ACS Diagnosis: No Congestive Heart Failure Congestive Heart Failure Diagnosis No Cerebrovascular Accident CVA/TIA Diagnosis: No VTE (View Protocol) VTE Risk Factors Age>40 No Mechanical VTE Prophylaxis d/t N/A MechProphylax Ordered No VTE Pharm Prophylaxis d/t NA PharmProphylax ordered Sepsis (View protocol) Sepsis Present: No Duane Barbour 09/09/178: Resident Review Statement Resident Statement: examined this patient, discussed with internet network specialist, agreed with internet network specialist, discussed with family, reviewed EMR data (avail), discussed with nursing , discussed with case mgmt, reviewed images Other Findings: is an 87 man with PMhx. of hypertension, hyperlipidemia, CAD status post CABG and stent placement, severe PVD status post left BKA and right AKA, history of DVT and PE and paroxysmal A. fib on Coumadin, history of polycythemia vera on hydroxyurea, hx of recurrent UTI who was have chronic indwelling catheter which was removed about one year ago, he was last time seen at [facility] on April 2017 at that time he was treated for UTI (he grew Citrobacter at that time), who was brought in by his son with chief complaint of altered mental status. Per son patient was seen by his decorating equipment setter about 3 weeks ago at that time he had an excision of skull basal cell carcinoma culture was taken from the sites and he had a call on that culture grows a bug and he was started on clindamycin, his son noted that today he is not sharp mentally and he is more slow so the family decided to bring him for more evaluation, patient himself reports burning sensation with urination. He denies any pain. He uses wheelchair at his baseline, he has a caregiver at home. Son reports that the patient has an allergy to amlodipine (generalized body rash) On systematic review: No chest pain, lightheadedness, palpitation, chills, sore throat, cough, abdominal pain, headache, vision changes, and there is no change in bowel habits. At ED patient found to be hypertensive initially his blood pressure was 222/98 mmHg then improved to 180/70 mmHg however prior to our encounter he had his blood pressure checked which was 210/70mmgh. Pulse 64, MAXIMUM TEMPERATURE 98.7 he is 96% on room air On examination: He is awake, alert, oriented 3 HEENT: PERRLA Heart: Regular pulse, S1, S2 Lungs: Clear Abdomen: Positive bowel sounds, soft, no tenderness Lower extremity status post left side below knee amputation, and right side above-knee amputation. Skin: Multiple permanent bruise in bilateral upper extremity, also there is a big bruise reported by his son on his buttock, no pressure ulcer reported or seen during the examination Scalp: 2 open wound on the scalp with purulent discharge on the larger one at the left parietal bone covered with clean band aid (At the site of BCC excision) EKG showed sinus rhythm rate of 60, right bundle branch block which is similar to previous EKG, no acute ST or T-wave changes, he has some T-wave inversion which is not new, QTC 576 Labs pertinent to WBC 20.8, platelet 448, potassium 3.5, normal BUN and creatinine, alk phosphatase 133, troponin was negative, INR 2.02, PT 22.2. UA pertinent to rule out DVT, positive nitrate, moderate esterase, WBC 50-75, postoperative hemoglobin Chest x-ray: Unremarkable chest radiograph. No consolidative disease or effusion. Assessment and plan 1. Recurrent UTI: -Admit the patient to telemetry floor - Sent blood cultures 2 -Sent urine culture -We'll continue ceftriaxone, patient had grown Escherichia coli and Citrobacter in the past which both sensitive to first generation cephalosporin, he received 1 dose of ceftriaxone IV at ED we'll continue with that -ID consult -Urology consult with Dr. Winn 2. Hypertensive urgency: -Patient receive a total of 20 mg IV hydralazine -We will manage his blood pressure with labetalol 100 mg twice a day as his pulse tolerate -Enalaprilate injection 1.25 mg once -We'll continue his home medications lisinopril 20 mg daily from tomorrow 3. 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 4. Polycythemia: -Per son has WBC usually runs at 15, currently he is on hydroxyurea and he is following with Dr. Moreno is supposed to had an appointment next week -Courtesy call for Dr. Moreno if he needs to see the patient while he is here 5. Paroxysmal A. fib -Continue amiodarone - Dose Coumadin according to INR 6. History of CAD status post CABG and stenting - Continue aspirin, statin and beta chuyita 7. Hypertension - Continue metoprolol and lisinopril 8. BPH: -We'll continue tamsulosin 0.4 mg every afternoon, finasteride 5 mg every morning, DVT prophylaxis - On Coumadin DNR/DN Bull APPLE, [facility] 09/10/17 0011: Attending MD Review Statement Attending Statement Attending MD Statement: examined this patient, discuss w/resident/PA/INSPECTOR SCALES, agreed w/resident/PA/INSPECTOR SCALES, discussed with family, discussed with nursing, reviewed images , amended to note Attending Assessment/Plan: 87 yo M with h/o Afib and DVT/PE on coumadin, CAD s/p CABG, polycythemia vera maintained on hydroxyurea, PVD s/p left BKA and right AKA, wheelchair bound, recurrent UTIs previously in the setting of indwelling alexander, last admitted to [facility] (Mar-Apr 2017) for Citrobacter UTI, is brought in by family for increasing lethargy, weakness and decrease in alertness for past 3 days. Patient's son at bedside provides history. About 3 weeks ago (August 16), patient underwent excision of scalp cancer by Dr. Nash. At follow up visit on September 05 - Dr. Nash did scalp culture which grew MRSA and clindamycin was initiated on SundaySeptember 07. Since Sunday, patient was not himself, he was less alert, lethargic and c/o weakness. He was not confused. Appetite was ok. Over the next 2 days patient did not seem to get better. Son feels that this is how patient presents when he has a UTI, so she brought him to the ER. Patient c/o dysuria today. He is incontinent at baseline and denies urinary frequency or foul smelling urine. No fever or chills. No headache, vision changes, palpitations, lightheadedness, chest pain or dyspnea. On ER arrival, patient's BP was 157/89, he received 1 L fluid bolus. Vitals: afebrile, HR 50-60's, BP 222/74 --> 208/76 --> 178/70 after IV hydralazine and enalaprilat, sats 95% RA. Exam: AAO, in no distress, mucosa dry, scalp incision sites noted frontoparietal site has a pus point but no drainage, other scalp incision sites are clean and dry. Labs: WBC 20.8 (baseline 15-20), H/H 9.7/32.3, microcytic anemia, Plt 448, INR 2.02, lactic acid 1.0, trop neg. Urine cloudy, proteinuria, positive nitrite, moderate leukocyte esterase, WBC 50-75, many bacteria. CXR: no consolidation or effusion. EKG: sinus rhythm, RBBB, LVH, nonspecific T wave changes V2-V3, Qtc 528. Echo (2014): EF 60%, impaired LV relaxation. Scalp superficial wound culture (September 05) light growth of MRSA Scalp pathology (September 05) shows squamous cell carcinoma. Urine cultures have grown Ecoli, Citrobacter, Pseudomonas, Klebsiella, staph aureus and MRSA. Assessment and plan: 1. Hypertensive urgency 2. Lethargy, weakness in the setting of recurrent UTI 3. 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 Chronic microcytic anemia 5. Polycythemia vera on hydroxyurea 6. Afib on coumadin - Admit to Telemetry - Monitor BP to keep SBP ~ 150-160 mmHg - Son reports patient's BP runs on the higher side at 150 systolic at home - Patient received vasotec and 2 doses of hydralazine in ER - Will increase lisinopril to 30 mg daily from AM - Given borderline heart rate in 50-60's, will hold off beta blockers - Serial EKG and troponin - Cardio consult (Dr. 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 Holding off on clindamycin. - Obtain ID consult to help with antibiotics. - Plastic surgery Dr. Nash to follow up. - Monitor H/H, guaiac all stools. - Type and crossmatch - Check iron studies, TSH, B12, folic acid. - Dose coumadin per INR - Resume home meds aspirin, amiodarone, statin, flomax, finasteride, hydroxyurea, gabapentin and probiotic. DVT ppx therapeutic INR. DNR/I (patient has a living will).
[2017-09-09 22:40] VITALS: BP 178/70
[2017-09-10 08:10] LABS: ABSOLUTE BASOPHIL COUNT 0.1 /CUMM (0.0-0.2); ABSOLUTE EOSINOPHIL COUNT 0.6 /CUMM (0.0-0.7); ABSOLUTE GRANULOCYTE CT 16.8 /CUMM (1.4-6.5); ABSOLUTE LYMPH COUNT 0.8 /CUMM (1.2-3.4); ABSOLUTE MONOCYTE COUNT 0.3 /CUMM (0.10-0.60); BASOPHIL % 0.7 % (0.0-2.0); GRANULOCYTE % 90.5 % (42.2-75.2); HEMATOCRIT 30.5 % (42-52); MEAN CORPUSCULAR HGB 23.3 PG (27.0-31.0); MEAN CORPUSCULAR HGB CONC 29.9 G/DL (33.0-37.0); MEAN PLATELET VOLUME 8.5 FL (7.4-10.4); PLATELET COUNT 417 /CUMM (130-400); RBC DISTRIBUTION WIDTH 19.7 % (11.5-14.5); RED BLOOD CELL CT 3.91 /CUMM (4.70-6.10); WHITE BLOOD CELL COUNT 18.5 /CUMM (4.8-10.8)
[2017-09-10 08:29] LABS: PT 23.9 SEC (9.4-12.5)
--- NOTE | 2017-09-10 11:18 | PN- Housestaff ---
See Addendum Subjective Follow-up For: 1. Hypertensive Urgency 2. UTI 3. Scalp Infection 4. Microcytic Anemia 5. Prolonged QTc with EKG changes Complaints: no complaints Tele-Events Since Last Visit: Normal sinus rhythm 58-70 with PVCs Subjective: Patient notes continued weakness. He is more slow and confused compared to his baseline. Admits to very very mild dysuria. Denies any shortness of breath or chest pain. Review of Systems Constitutional: Reports: no symptoms. EENTM: Reports: no symptoms. Cardiovascular: Reports: no symptoms. Respiratory: Reports: no symptoms. Gastrointestinal: Reports: no symptoms. Genitourinary: Reports: dysuria. Denies: discharge, frequency, hematuria, pain. Musculoskeletal: Reports: no symptoms. Skin: Reports: lesions. Neurological/Psychological: Reports: cognitive dysfunction. Objective Last 24 Hrs of Vital Signs/I&O Vital Signs Date Time Temp Pulse Resp B/P B/P Pulse O2 O2 Flow FiO2 Mean Ox Delivery Rate 09/10 1433 98.3 67 20 200/82 95 Room Air 09/10 0933 97.5 62 20 200/70 09/10 0831 97.5 62 20 200/70 09/10 0621 62 200/70 09/09 2240 97.5 64 20 178/70 95 Room Air 09/09 2138 190/70 09/09 2055 60 16 210/80 09/09 2055 60 16 210/80 09/09 1923 180/70 09/09 1850 212/78 09/09 1829 54 14 208/76 09/09 1815 208/76 09/09 1736 54 222/98 09/09 1712 97.6 55 18 222/74 96 Room Air 09/09 1510 97.8 55 18 212/78 96 Room Air Intake & Output 09/10 1600 09/10 0800 09/10 0000 Intake Total 25 130 Output Total Balance 25 130 Intake, IV 25 10 Intake, Oral 120 Number 1 Bowel Movements Patient 163 lb Weight Weight Bed scale Measurement Method Physical Exam General Appearance: Alert, Cooperative, No Acute Distress Skin: No Rashes, patient has left scalp bandage with open wound. He also has lesion on right side of head. Skin Temp/Moisture Exam: Warm/Dry Sepsis Skin Exam (color): Normal for Ethnicity HEENT: Atraumatic, PERRLA, EOMI, Mucous Membr. moist/pink Neck: Supple, No JVD Cardiovascular: Regular Rate, Normal S1, Normal S2 Lungs: Clear to Auscultation Abdomen: Normal Bowel Sounds, Soft, No Tenderness Neurological: Normal Speech Extremities: No Clubbing, No Cyanosis, No Edema, Normal Pulses Vascular: Pulses Symmetrical Current Medications: Current Medications Sig/Caroline Start time Last Medication Dose Route Stop Time Status Admin Amiodarone HCl 200 MG QAM 09/10 0900 AC 09/10 PO 0831 Amlodipine Besylate 10 MG DAILY 09/10 0900 CAN PO Aspirin 0 .STK-MED ONE 09/09 2045 DC PO Aspirin Buffered 81 MG QPM 09/10 2100 AC PO Aspirin Buffered 81 MG ONCE ONE 09/09 2014 DC 09/09 PO 09/09 Atorvastatin Calcium 20 MG QPM 09/10 2100 AC PO Atorvastatin Calcium 20 MG ONCE ONE 09/09 2014 DC 09/09 PO 09/09 Bacitracin 1 TUSHAR BID 09/09 2308 AC 09/10 TOP 0834 Ceftazidime 1,000 MG Q8H 09/10 0900 DC IV Ceftazidime 1,000 MG Q8 09/10 0600 DC 09/10 IV 0658 Ceftazidime 1,000 MG Q12 09/10 0000 DC IV Ceftriaxone Sodium 0 .STK-MED ONE 09/09 1606 DC .ROUTE Ceftriaxone Sodium 1,000 MG ONCE ONE 09/09 1600 DC 09/09 IV 09/09 1601 1604 Enalaprilat 1.25 MG ONCE ONE 09/09 1830 DC 09/09 IV 09/09 1831 1829 Enalaprilat 0 .STK-MED ONE 09/09 1826 DC IV Finasteride 5 MG DAILY 09/10 0900 AC 09/10 PO 0831 Gabapentin 100 MG QPM 09/10 2100 AC PO Hydralazine HCl 10 MG ONCE ONE 09/10 0615 DC 09/10 IV 09/10 0616 0621 Hydralazine HCl 0 .STK-MED ONE 09/09 2053 DC .ROUTE Hydralazine HCl 10 MG ONCE ONE 09/09 2044 DC 09/09 IV 09/09 Hydralazine HCl 0 .STK-MED ONE 09/09 173 DC .ROUTE Hydralazine HCl 10 MG ONCE ONE 09/09 1730 DC 09/09 IV 04/22 1731 1736 Hydrochlorothiazide 25 MG 7:30 AM, & 4:30 PM 09/10 1630 AC PO Hydroxyurea 1,000 MG QAM 09/10 0900 AC 09/10 PO 0831 Labetalol HCl 100 MG .STK-MED ONE 09/10 0612 DC IV 09/10 0613 Lisinopril 20 MG DAILY 09/10 0900 DC PO Lisinopril 30 MG DAILY 09/10 0900 DC PO Lisinopril 40 MG DAILY 09/10 0900 AC 09/10 PO 0933 Potassium Chloride 40 MEQ Q1H 09/10 1130 DC 09/10 PO 09/10 1231 1322 Sodium Chloride 1,000 ML Q13H 09/09 2100 DC IV 09/10 225 Tamsulosin HCl 0.4 MG QPM 09/10 2100 AC PO Tamsulosin HCl 0.4 MG ONCE ONE 09/09 2014 DC 09/09 PO 09/09 Warfarin Sodium 1 MG 1700 09/10 1700 AC PO 09/10 2359 Warfarin Sodium 1 MG ONCE ONE 09/09 2014 DC 09/09 PO 09/09 Last 24 Hrs of Lab/Addy Results Last 24 Hrs of Labs/Mics: Laboratory Tests 09/10/17 0638: Anion Gap 12, Estimated GFR > 60, BUN/Creatinine Ratio 15.7, PT 23.9 H, INR 2.18 H, CBC w Diff MAN DIFF ORDERED, RBC 3.91 L, MCV 78.0 L, MCH 23.3 L, MCHC 29.9 L, RDW 19.7 H, MPV 8.5, Gran % 90.5 H, Lymphocytes % 4.3 L, Monocytes % 1.5 L, Eosinophils % 3.0, Basophils % 0.7, Absolute Granulocytes 16.8 H, Absolute Lymphocytes 0.8 L, Absolute Monocytes 0.3, Absolute Eosinophils 0.6, Absolute Basophils 0.1, Platelet Estimate VERIFIED BY SMEAR, Polychromasia 1+, Hypochromic-Microcytic 1+, Poikilocytosis 2+, Anisocytosis 1+, Microcytic Cells 1+, Ovalocytes 1+ 09/10/17 0204: Troponin I < 0.01 09/09/172057: Troponin I Cancelled 09/09/17 1517: Urine Color YEL, Urine Clarity CLDY H, Urine pH 6.0, Ur Specific [place] >= 1.030, Urine Protein 100 H, Urine Ketones NEG, Urine Nitrite POS H, Urine Bilirubin NEG, Urine Urobilinogen 0.2, Ur Leukocyte Esterase MOD H, Ur Microscopic SEDIMENT EXAMINED, Urine RBC 1-3, Urine WBC 50-75 H, Ur Epithelial Cells RARE, Urine Bacteria MANY H, Urine Hemoglobin MOD H, Urine Glucose NEG Microbiology 09/09 1517 URINE ROUT: Urine Culture - RES GRAM NEGATIVE RODS Assessment/Plan Assessment: 87-year-old male past medical history of hypertension, atrial fibrillation with previous DVT and PE, on Coumadin for anticoagulation, CAD s/p CABG, recurrent UTI and urinary incontinence, severe peripheral vascular disease s/p left BKA and right AKA, hyperlipidemia and polycythemia vera [on hydroxyurea] was brought to the ED by family members for evaluation of weakness, decreased alertness and scalp/urine infection. Assessment: 1. Hypertensive Urgency 2. UTI 3. Scalp Infection 4. Microcytic Anemia 5. Prolonged QTc with EKG changes Plan: Hypertensive urgency: * Continue to monitor patient on telemetry * Goal blood pressure was to reduce by 25% in 24-48 hours. He is currently receiving hydrochlorothiazide 25 mg and lisinopril 40 mg. He did receive hydralazine acutely in the ED. Overnight his blood pressure is 170s systolic however now is 200/70. * We will give 10 mg hydralazine and then we can increase lisinopril to bid 40mg * Appreciate cardiac consult UTI * His UA shows evidence of infection. He does have a white count but that is unreliable due to his history of PCV. His baseline appears to be anywhere from 18K - 20K. He has grown several different bacteria in his urine. He has grown Pseudomonas thrice. He states that he has some dysuria. Urine culture grew gram-negative rods. He has already received one dose of IV Ceftriaxone in the ED. Will start him on Ceftazidime 1g q8h. Scalp Infection * His scalp shows pus discharge but can be treated with local wound care and topical bacitracin. Anemia * His CBC shows low H&H and MCV. Iron studies show low ferritin and iron. Will guiac all stools. Afib with history of PE and DVT * Patient on warfarin * INR and dose prn Diet: Heart Healthy Diet DVT Prophylaxis: On Coumadin Code: DNR/DNI Problem List: 1. Leukocytosis 2. Anemia 3. UTI (urinary tract infection) 4. Polycythemia vera 5. Skin infection 6. Hypertension Pain Ratin Pain Location: Left scalp Pain Goal: Pain 4 or less Pain Plan: Pathway Tomorrow's Labs & Rationales: cbc bep inr
[2017-09-10 14:33] VITALS: BP 200/82
[2017-09-10 14:55] VITALS: BP 208/78
[2017-09-10 15:45] VITALS: BP 180/78
[2017-09-10 18:41] VITALS: BP 160/68
[2017-09-10 22:41] VITALS: BP 140/90
[2017-09-11] VITALS (7 sets, daily range): BP systolic 112–230; BP diastolic 40–80
[2017-09-11 08:09] LABS: ABSOLUTE BASOPHIL COUNT 0 /CUMM (0.0-0.2); ABSOLUTE EOSINOPHIL COUNT 0.7 /CUMM (0.0-0.7); ABSOLUTE GRANULOCYTE CT 17.6 /CUMM (1.4-6.5); ABSOLUTE LYMPH COUNT 1.2 /CUMM (1.2-3.4); ABSOLUTE MONOCYTE COUNT 0.2 /CUMM (0.10-0.60); BASOPHIL % 0 % (0.0-2.0); EOSINOPHIL % 3.4 % (0-5); GRANULOCYTE % 89.2 % (42.2-75.2); HEMATOCRIT 30.3 % (42-52); MEAN CORPUSCULAR HGB 23.9 PG (27.0-31.0); MEAN CORPUSCULAR HGB CONC 30.7 G/DL (33.0-37.0); MEAN CORPUSCULAR VOLUME 77.8 FL (80.0-94.0); MEAN PLATELET VOLUME 8.3 FL (7.4-10.4); PLATELET COUNT 378 /CUMM (130-400); RBC DISTRIBUTION WIDTH 19.6 % (11.5-14.5)
--- NOTE | 2017-09-11 08:37 | PN- Housestaff ---
Bryan APPLE,Chhaya 09/11/17 0837: Subjective Follow-up For: 1. Hypertensive Urgency 2. UTI 3. Scalp Infection 4. Microcytic Anemia 5. Prolonged QTc with EKG changes Assessment/Plan Assessment: 87-year-old male past medical history of hypertension, atrial fibrillation with previous DVT and PE, on Coumadin for anticoagulation, CAD s/p CABG, recurrent UTI and urinary incontinence, severe peripheral vascular disease s/p left BKA and right AKA, hyperlipidemia and polycythemia vera [on hydroxyurea] was brought to the ED by family members for evaluation of weakness, decreased alertness and scalp/urine infection. Assessment: 1. Hypertensive Urgency 2. UTI 3. Scalp Infection 4. Microcytic Anemia 5. Prolonged QTc with EKG changes Plan: Hypertensive urgency: * Continue to monitor patient on telemetry * Goal blood pressure was to reduce by 25% in 24-48 hours. He is currently receiving hydrochlorothiazide 25 mg and lisinopril 40 mg. He did receive hydralazine acutely in the ED. Overnight his blood pressure is 170s systolic however now is 200/70. * We will give 10 mg hydralazine and then we can increase lisinopril to bid 40mg * Appreciate cardiac consult UTI * His UA shows evidence of infection. He does have a white count but that is unreliable due to his history of PCV. His baseline appears to be anywhere from 18K - 20K. He has grown several different bacteria in his urine. He has grown Pseudomonas thrice. He states that he has some dysuria. Urine culture grew gram-negative rods. He has already received one dose of IV Ceftriaxone in the ED. Will start him on Ceftazidime 1g q8h. Scalp Infection * His scalp shows pus discharge but can be treated with local wound care and topical bacitracin. Anemia * His CBC shows low H&H and MCV. Iron studies show low ferritin and iron. Will guiac all stools. Afib with history of PE and DVT * Patient on warfarin * INR and dose prn Diet: Heart Healthy Diet DVT Prophylaxis: On Coumadin Code: DNR/DNI Carmine Villalobos 09/11/17 1208: Attending Review Statement Attending Statement Attending MD Statement: examined this patient, discuss w/resident/PA/AVIONICS REPAIR TECHNICIAN, agreed w/resident/PA/AVIONICS REPAIR TECHNICIAN, discussed with family, reviewed EMR data (avail), discussed with nursing, discussed with case mgmt, reviewed images, amended to note Attending Assessment/Plan: Patient admitted with confusion, dysuria and hypertensive urgency. No focal deficit. Patient also found to have UTI gram negative rods culture growing kleibsella. Patient is more alert awake and he fells better since admission. Titrate abx as per C/S. continue bp meds as tolerated. Afib on coumadin: HR controlled continue coumadin, mointor INR. Amiodarone. PCV on hydroxyurea. Outpatient follow up hematology. 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 no signs of cellulitis. dc planning in next 24 hrs to home with home health services. inform family.
[2017-09-11 08:45] LABS: WHITE BLOOD CELL COUNT 19.7 /CUMM (4.8-10.8)
[2017-09-11 08:57] LABS: PT 31.5 SEC (9.4-12.5)
[2017-09-12 06:49] VITALS: BP 128/60
--- NOTE | 2017-09-12 07:39 | PN- Housestaff ---
Bryan APPLE,Chhaya 09/12/17 0739: Subjective Follow-up For: 1. Hypertensive Urgency 2. UTI 3. Scalp Infection 4. Microcytic Anemia 5. Prolonged QTc with EKG changes Tele-Events Since Last Visit: 59-60 nsr no events Subjective: Patient feels similar to yesterday, feels "ok". Notes that his dysuria is getting better. He denies any back pain around the area of his ulcer. Review of Systems Constitutional: Reports: no symptoms. EENTM: Reports: no symptoms. Cardiovascular: Reports: no symptoms. Respiratory: Reports: no symptoms. Gastrointestinal: Reports: no symptoms. Genitourinary: Reports: dysuria. Musculoskeletal: Reports: no symptoms. Skin: Reports: lesions. Neurological/Psychological: Reports: cognitive dysfunction. Objective Last 24 Hrs of Vital Signs/I&O Vital Signs Date Time Temp Pulse Resp B/P B/P Pulse O2 O2 Flow FiO2 Mean Ox Delivery Rate 09/12 0809 18 142/70 09/12 0809 61 142/70 09/12 0649 98.0 61 18 128/60 93 Room Air 09/11 2232 98.6 60 18 120/80 94 09/11 2037 58 172/70 09/11 2038 58 172/70 09/11 1448 97.5 58 22 172/70 94 Room Air Intake & Output 09/12 1600 09/12 0800 09/12 0000 Intake Total 110 400 Output Total Balance 110 400 Intake, IV 10 Intake, Oral 100 400 Patient 160 lb Weight Physical Exam General Appearance: Alert, Cooperative, No Acute Distress Skin: No Rashes Skin Temp/Moisture Exam: Warm/Dry Neck: Supple, No JVD Cardiovascular: Regular Rate, Normal S1, Normal S2 Lungs: Clear to Auscultation, Normal Air Movement Abdomen: Normal Bowel Sounds, Soft, minor suprapubic tenderness Neurological: Normal Speech Extremities: double amputee, upper extremities fine no abnormalities Vascular: Normal Pulses, Pulses Symmetrical Sepsis Peripheral Pulse Location: Radial Current Medications: Current Medications Sig/Caroline Start time Last Medication Dose Route Stop Time Status Admin Amiodarone HCl 200 MG QAM 09/10 0900 AC 09/12 PO 08 Aspirin Buffered 81 MG QPM 09/10 2100 AC 09/11 PO 2039 Atorvastatin Calcium 20 MG QPM 09/10 2099 AC 09/11 PO 2038 Bacitracin 1 TUSHAR BID 09/10 2307 AC 09/12 TOP 0811 Ceftazidime 1,000 MG Q8H 09/10 1515 DC 09/11 IV 0540 Ceftriaxone Sodium 1,000 MG Q24H 09/11 1400 DC 09/11 IV 1454 Cephalexin 250 MG Q6 09/12 1200 AC PO Finasteride 5 MG DAILY 09/10 0900 AC 09/12 PO 0809 Gabapentin 100 MG QPM 09/10 2100 AC 09/11 PO 203 Hydrochlorothiazide 25 MG 7:30 AM, & 4:30 PM 09/10 1630 AC 09/12 PO 0809 Hydroxyurea 1,000 MG QAM 09/10 0900 AC 09/12 PO 0809 Lisinopril 40 MG BID 09/10 2100 AC 09/12 PO 0809 Tamsulosin HCl 0.4 MG QPM 09/10 2100 AC 09/11 PO 203 Vitamin A/Vitamin D 1 TUSHAR BID 09/11 0900 AC 09/12 TOP 0810 Warfarin Sodium 1 MG COUMADIN 1700 ONE 09/11 1700 DC 09/11 PO 09/11 1701 1742 Zinc Oxide 1 TUSHAR BID 09/11 0900 AC 09/12 TOP 0810 Last 24 Hrs of Lab/Addy Results Last 24 Hrs of Labs/Mics: Laboratory Tests 09/12/17 0725: Anion Gap 12, Estimated GFR > 60, BUN/Creatinine Ratio 16.3, PT 32.4 H, INR 2.94 H, CBC w Diff NO MAN DIFF REQ, RBC 4.11 L, MCV 77.5 L, MCH 23.4 L, MCHC 30.2 L, RDW 19.0 H, MPV 8.5, Gran % 87.5 H, Lymphocytes % 5.8 L, Monocytes % 1.6 L, Eosinophils % 3.9, Basophils % 1.2, Absolute Granulocytes 17.0 H, Absolute Lymphocytes 1.1 L, Absolute Monocytes 0.3, Absolute Eosinophils 0.8, Absolute Basophils 0.2 Assessment/Plan Assessment: 87-year-old male past medical history of hypertension, atrial fibrillation with previous DVT and PE, on Coumadin for anticoagulation, CAD s/p CABG, recurrent UTI and urinary incontinence, severe peripheral vascular disease s/p left BKA and right AKA, hyperlipidemia and polycythemia vera [on hydroxyurea] was brought to the ED by family members for evaluation of weakness, decreased alertness and scalp/urine infection. Assessment: 1. Hypertensive Urgency 2. UTI 3. Scalp Infection 4. Microcytic Anemia 5. Prolonged QTc with EKG changes Plan: Hypertensive urgency: * Continue to monitor patient on telemetry * Blood pressure overnight was well controlled and 128/60 currently. Receiving hydrochlorothiazide 25 mg bid and lisinopril 40 mg bid. UTI * His UA shows evidence of infection. He does have a white count but that is unreliable due to his history of PCV. His baseline appears to be anywhere from 18K - 20K. He has grown several different bacteria in his urine. He has grown Pseudomonas thrice. He states that he has some dysuria. Urine culture grew gram-negative rods. He has already received one dose of IV Ceftriaxone in the ED. He received Ceftazidime 1g q8h but was switched to ceftriaxone 1g q24h for growth of GNRs. Today growth showed klebsiella sensitive to cephalosporins so we will discharge on Keflex. Scalp Infection * His scalp shows pus discharge but can be treated with local wound care and topical bacitracin. Afib with history of PE and DVT * Patient on warfarin * INR and dose prn Sacral decubitus ulcer * Patient had ulcer on arrival * Local wound care * Frequent turning Disposition * Patient will have 24 hour cold roll operator but we will discharge him home with home nursing. Diet: Heart Healthy Diet DVT Prophylaxis: On Coumadin Code: DNR/DNI Problem List: 1. Polycythemia vera 2. Skin infection 3. Hypertension 4. Acute cystitis Pain Ratin Pain Location: dysuria Pain Goal: Pain 4 or less Pain Plan: pathway Tomorrow's Labs & Rationales: patient to be discharged Carmine Villalobos 09/12/17 1132: Attending MD Review Statement Attending Statement Attending MD Statement: examined this patient, discuss w/resident/PA/ENTERPRISE APPLICATIONS MANAGER, agreed w/resident/PA/ENTERPRISE APPLICATIONS MANAGER, discussed with family, reviewed EMR data (avail), discussed with nursing, discussed with case mgmt, reviewed images, amended to note Attending Assessment/Plan: Patient admitted with confusion, dysuria and hypertensive urgency. No focal deficit. Patient also found to have UTI gram negative rods culture growing kleibsella. Patient is more alert awake and he fells better since admission. His BP better this am. Titrate abx as per C/S change to PO abx keflex. Continue bp meds as tolerated. Added lactobacillus. Afib on coumadin: HR controlled continue coumadin, mointor INR. Amiodarone. PCV on hydroxyurea. Outpatient follow up hematology. Scalp squamous cell carcinoma with non healing wound. Routine care. Decubiti ulcer present on admission. dc planning soon to home with home health services. f/u family.
[2017-09-12 08:47] LABS: ABSOLUTE BASOPHIL COUNT 0.2 /CUMM (0.0-0.2); ABSOLUTE EOSINOPHIL COUNT 0.8 /CUMM (0.0-0.7); ABSOLUTE LYMPH COUNT 1.1 /CUMM (1.2-3.4); ABSOLUTE MONOCYTE COUNT 0.3 /CUMM (0.10-0.60); BASOPHIL % 1.2 % (0.0-2.0); EOSINOPHIL % 3.9 % (0-5); HEMATOCRIT 31.9 % (42-52); MEAN CORPUSCULAR HGB 23.4 PG (27.0-31.0); MEAN CORPUSCULAR HGB CONC 30.2 G/DL (33.0-37.0); MEAN CORPUSCULAR VOLUME 77.5 FL (80.0-94.0); MEAN PLATELET VOLUME 8.5 FL (7.4-10.4); PT 32.4 SEC (9.4-12.5); RED BLOOD CELL CT 4.11 /CUMM (4.70-6.10); WHITE BLOOD CELL COUNT 19.4 /CUMM (4.8-10.8)
[2017-09-12] MEDS ORDERED: CEPHALEXIN250 M2 PO ×3 (10:07→16:30)
--- NOTE | 2017-09-12 10:08 | Patient Discharge Instructions ---
Discharge Instructions General Discharge Information You were seen/treated for: urinary tract infection hypertensive urgency Special Instructions: 1. please follow up with your primary care physician in one week 2. please take all meds as directed 3. please take blood pressures every day 4. please continue antibiotics and take FULL dose Diet Continue normal diet: Yes Activity Full Activity/No Limits: Yes (as tolerated) Acute Coronary Syndrome Inclusion Criteria At DC or during hospital stay patient has or had the following: ACS DIAGNOSIS No Discharge Core Measures Meds if any: Prescribed or Continued at Discharge Meds if any: NOT Prescribed or Continued at Discharge Congestive Heart Failure Inclusion Criteria At DC or during hospital stay patient has or had the following: CHF DIAGNOSIS No Discharge Core Measures Meds if any: Prescribed or Continued at Discharge Meds if any: NOT Prescribed or Continued at Discharge Cerebrovascular accident Inclusion Criteria At DC or during hospital stay patient has or had the following: CVA/TIA Diagnosis No Discharge Core Measures Meds if any: Prescribed or Continued at Discharge Meds if any: NOT Prescribed or Continued at Discharge Venous thromboembolism Inclusion Criteria VTE Diagnosis No VTE Type NONE VTE Confirmed by (Test) NONE Discharge Core Measures - Per Current guidelines, there needs to be overlap - treatment for the first 5 days of Warfarin therapy. - If discharged on Warfarin prior to 5 days of - overlap therapy, the patient will need to be - assessed for post discharge needs including - *Post discharge parental anticoagulation - *Warfarin and/or parental anticoagulation education - *Follow up date to check INR post discharge At least 5 days overlap therapy as Inpatient No Meds if any: Prescribed or Continued at Discharge Note: Overlap Therapy is Warfarin and Anticoagulant Meds if any: NOT Prescribed or Continued at Discharge
[2017-09-12 10:24] LABS: GRANULOCYTE % 87.5 % (42.2-75.2); PLATELET COUNT 357 /CUMM (130-400)
[2017-09-12] MEDS ORDERED: HYDROCHLOROTHIA25 M1 PO (13:57)
[2017-09-12] MEDS ORDERED: LISINOPRIL20 M1 PO (13:57)
[2017-09-12 14:30] VITALS: BP 154/70
--- NOTE | 2017-09-12 19:33 | Discharge Summary ---
Hospital Course Allergies: Coded Allergies: amlodipine (Severe, ANAPHYLAXIS 07/29/16) niacin (EXTREME FLUSHING FROM IMMEDIATE RELEASE 07/18/16) PT TOLERATES SLOW RELEASE Discharge Instructions Medications at Discharge Discharge Medications: Stop taking the following medications: Cranberry (Cranberry) 400 MG CAPSULE ORAL DAILY Lisinopril (Prinivil) 20 MG TABLET ORAL DAILY Clindamycin HCl (Cleocin HCl) 300 MG CAPSULE ORAL 4XDAILY Continue taking these medications: Tamsulosin HCl (Flomax) 0.4 MG CAP.ER.24H 1 Capsule ORAL Every night Comments: Last Taken: 09/11/17 Time: 8:40P.M Aspirin (Ecotrin*) 81 MG TABLET.DR 1 Tablet ORAL Every night Comments: Last Taken: 09/11/17 Time: 8:40P.M Amiodarone (Cordarone) 200 MG TABLET 1 Tablet ORAL Every Morning Comments: Last Taken: 09/12/17 Time: 8:09A.M Atorvastatin Calcium (Lipitor) 20 MG TABLET 1 Tablet ORAL Every night Comments: Last Taken:09/11/17 Time:8:40P.M Sennosides (Senna Lax) 8.6 MG TABLET 2 Tablet ORAL Every night Comments: NOT GIVEN THIS ADMISSION Hydroxyurea (Hydroxyurea) 500 MG CAPSULE 2 Capsule ORAL Every Morning Comments: Last Taken: 09/12/17 Time: 8:04A.M Gabapentin (Gabapentin) 100 MG CAPSULE 100 Milligram ORAL Every night Qty = 30 Comments: Last Taken:09/11/17 Time:8:40P.M Finasteride (Finasteride) 5 MG TABLET 5 Milligram ORAL DAILY Qty = 30 Comments: Last Taken: 09/12/17 Time: 8:04A.M Polyethylene Glycol 3350 (Miralax) 17 GRAM/DOSE POWDER 17 Gram ORAL DAILY NEEDED as needed for CONSTIPATION Qty = 30 Comments: NOT GIVEN Lactobacillus Acidophilus (Probiotic) 10 BILLION CELL CAPSULE 1 Capsule ORAL DAILY Comments: NOT GIVEN THIS ADMISSION Warfarin Sodium (Coumadin) 1 MG TABLET 1 Tablet ORAL 5 PM Comments: Last Taken:09/11/17 Time: 5:40P.M Start taking the following new medications: Cephalexin (Cephalexin) 250 MG CAPSULE 1 Tablet ORAL EVERY SIX HOURS Qty = 16 No Refills Instructions: . Comments: Last Taken:09/12/17 Time:2:09P.M Lisinopril (Lisinopril) 20 MG TABLET 2 Tablet ORAL TWICE DAILY Qty = 90 No Refills Comments: Last Taken:09/12/17 Time:8:09A.M Hydrochlorothiazide (Hydrochlorothiazide) 25 MG TABLET 1 Tablet ORAL TWICE DAILY Qty = 60 No Refills Comments: Last Taken:09/12/17 Time:8:09A.M
== END 2017-09-12 15:30 | disposition home health service (06) | DRG 690 ==
LOC: ERH 11:39 → 1NO 16:22 → ERHI 16:22 → ENRESERV 19:37 → CANRESERV 19:37 → EDBEDREQ 20:37 → ENRESERV 20:39 → 1NO 21:29 → ENTRNSPT 21:33 → EDTRNSPTSTS 21:39 → CMPTRNSPT 22:07 → 1NO 22:11 → ENPENDDIS 09-12 15:19 → 1NO 09-12 15:30
PROVIDERS: Emergency Medicine; Internal Medicine; Student in an Organized Health Care Education/Training Program
DX: N39.0 Urinary tract infection, site not specified (principal); L89.159 Pressure ulcer of sacral region, unspecified stage; I48.0 Paroxysmal atrial fibrillation; B96.1 Klebsiella pneumoniae [K. pneumoniae] as the cause of diseases classified elsewhere; I45.81 Long QT syndrome; D45 Polycythemia vera; I16.0 Hypertensive urgency; Z79.01 Long term (current) use of anticoagulants; L08.9 Local infection of the skin and subcutaneous tissue, unspecified; B95.62 Methicillin resistant Staphylococcus aureus infection as the cause of diseases classified elsewhere; Z86.718 Personal history of other venous thrombosis and embolism; I25.10 Atherosclerotic heart disease of native coronary artery without angina pectoris; Z95.1 Presence of aortocoronary bypass graft; Z87.440 Personal history of urinary (tract) infections; Z89.611 Acquired absence of right leg above knee; Z89.512 Acquired absence of left leg below knee; E78.5 Hyperlipidemia, unspecified; Z88.6 Allergy status to analgesic agent; Z88.8 Allergy status to other drugs, medicaments and biological substances; Z90.49 Acquired absence of other specified parts of digestive tract; D64.9 Anemia, unspecified; Z99.3 Dependence on wheelchair; Z66 Do not resuscitate
CPT/HCPCS: 1NP; 36592; 71045; 81001; 82436; 87040; 87086; 93005; 93010; 96374; J0360; J0696; J0713; J3490

== ENCOUNTER 2017-12-28 11:08 | Inpatient (IN) | payer OTHER ==
[~2017-12-28] VITALS: Ht 190.5 cm; Wt 66.7 kg
[~2017-12-28 11:08] MED LIST changes: +CEPHALEXIN250 M2 PO; +CLEOCIN HCL300 M1 PO; +CRANBERRY425 MG PO; +HYDROCHLOROTHIA25 M1 PO
[2017-12-28 12:11] LABS: ABSOLUTE BASOPHIL COUNT 0.1 /CUMM (0.0-0.2); ABSOLUTE EOSINOPHIL COUNT 0.1 /CUMM (0.0-0.7); ABSOLUTE GRANULOCYTE CT 8.4 /CUMM (1.4-6.5); ABSOLUTE LYMPH COUNT 0.6 /CUMM (1.2-3.4); ABSOLUTE MONOCYTE COUNT 0.3 /CUMM (0.10-0.60); BASOPHIL % 0.8 % (0.0-2.0); EOSINOPHIL % 1.5 % (0-5); GRANULOCYTE % 88.7 % (42.2-75.2); HEMATOCRIT 35.4 % (42-52); MEAN CORPUSCULAR HGB 31.1 PG (27.0-31.0); MEAN CORPUSCULAR HGB CONC 31.5 G/DL (33.0-37.0); MEAN CORPUSCULAR VOLUME 98.6 FL (80.0-94.0); MEAN PLATELET VOLUME 8.4 FL (7.4-10.4); PLATELET COUNT 267 /CUMM (130-400); RBC DISTRIBUTION WIDTH 27.4 % (11.5-14.5); RED BLOOD CELL CT 3.59 /CUMM (4.70-6.10); WHITE BLOOD CELL COUNT 9.5 /CUMM (4.8-10.8)
[2017-12-28 12:21] LABS: PT 30.5 SEC (9.4-12.5); PTT 32 SEC (25-37)
--- NOTE | 2017-12-28 13:29 | ED GENERAL ADULT ---
See Addendum History of Present Illness General Chief Complaint: Abdominal Pain/Flank Pain Stated Complaint: LOWER ABD PAIN THIS AM Source: patient, family, old records Exam Limitations: no limitations Vital Signs & Intake/Output Vital Signs & Intake/Output Vital Signs Date Time Temp Pulse Resp B/P B/P Pulse O2 O2 Flow FiO2 Mean Ox Delivery Rate 12/28 1532 178/78 12/28 1345 102.1 68 18 178/78 98 Room Air Room Air 12/28 1340 102.1 12/28 1218 102.5 12/28 1214 102.5 18 12/28 1112 98.6 71 18 187/80 98 Room Air Allergies Coded Allergies: amlodipine (Severe, ANAPHYLAXIS 07/29/16) hydrochlorothiazide (DELERIUM 11/30/17) niacin (EXTREME FLUSHING FROM IMMEDIATE RELEASE 07/18/16) PT TOLERATES SLOW RELEASE Triage Note: 87 YO MALE TO TRIAGE WITH FAMILY FOR EVAL OF L SIDED ABD PAIN AND +PAIN WITH URIANTION. REPORTS SAW DR GAR ON SUNDAY WHO ORDERED AN US OF KIDNEYS AND BLADDER TODAY AT NOON BUT WAS UNABLE TO GO D/T INCREASE IN [place]. Triage Nurses Notes Reviewed? yes Onset: Abrupt Duration: day(s): (2), constant, continues in ED, getting worse Timing: single episode today Injury Environment: home Severity: mild, moderate Severity Numbers: 6 No Modifying Factors: none HPI: 87-year-old male history of atrial fibrillation, hypertension, hyperlipidemia, pulmonary embolism, aortic stenosis, recurrent UTIs, diverticulosis presents for evaluation of confusion, dysuria and abdominal pain. Family reports symptoms started 2 days ago and has been persistent. Patient saw his primary yesterday where they did a urinalysis which showed signs of infection. Patient has a history of recurrent UTIs and has been treated multiple times in the past month with Cipro. The primary care doctor neurologist wanted to hold off starting antibiotics until patient completed an ultrasound of his kidneys and bladder which is post be done today. Family reports that today patient became more confused than usual and began complaining of worsening pain in his left lower belly. No nausea vomiting or diarrhea. Patient is incontinent of urine. No fevers at home no back pain chest pain or shortness of breath. (To RAE,John) Reconcile Medications Amiodarone (Cordarone) 200 MG TABLET 1 TAB PO QAM AFIB (Reported) Aspirin (Ecotrin*) 81 MG TABLET.DR 1 TAB PO QPM HEART HEALTH (Reported) Atorvastatin Calcium (Lipitor) 20 MG TABLET 1 TAB PO QPM CHOLESTEROL ( Reported) Cranberry Extract (Cranberry) 425 MG CAPSULE 1 TAB PO BID SUPPLEMENT ( Reported) Finasteride 5 MG TABLET 5 MG PO DAILY urinary retention Gabapentin 100 MG CAPSULE 100 MG PO QPM nerve pain Hydrochlorothiazide 25 MG TABLET 1 TAB PO BID high blood pressure Hydroxyurea 500 MG CAPSULE 2 CAP PO QAM POLYCYTHEMIA VERA (Reported) Lactobacillus Acidophilus (Probiotic) 10 BILLION CELL CAPSULE 1 CAP PO DAILY GI (Reported) Lisinopril (Prinivil) 10 MG TABLET 1 TAB PO DAILY BP (Reported) Polyethylene Glycol 3350 (Miralax) 17 GRAM/DOSE POWDER 17 GM PO DAILY NEEDED PRN CONSTIPATION Sennosides (Senna Lax) 8.6 MG TABLET 2 TAB PO QPM CONSTIPATION (Reported) Tamsulosin HCl (Flomax) 0.4 MG CAP.ER.24H 1 CAP PO QPM PROSTATE (Reported) Warfarin Sodium (Coumadin) 1 MG TABLET 1 TAB PO 1700 BLOOD THINNER (Reported) (Kenia APPLE,Farooq Oswald) Past History Travel History Traveled to [place] past 21 day No Medical History Any Pertinent Medical History? see below for history Neurological: peripheral neuropathy, subdural hematoma EENT: NONE Cardiovascular: AFIB, aortic stenosis, CAD, hypertension, hyperlipidemia, PVD Respiratory: pulmonary embolism Gastrointestinal: constipation, diverticulitis Hepatic: NONE Renal: benign prost hyperplasia, recurrent UTI Musculoskeletal: degen joint disease Psychiatric: NONE Endocrine: NONE Blood Disorders: DVT, PE, POLYCYTHEMIA Cancer(s): NONE ANTHROPOMETRIST/Reproductive: NONE History of MRSA: Yes History of VRE: No History of CDIFF: No Surgical History Surgical History: CABG, cholecystectomy, R AKA L BKA B/L arnav holes for SDH 2008 Psychosocial History Who do you live with Son Services at Home Home Health Aide, Nursing What is your primary language South [place] Tobacco Use: Never used Family History Family History, If Any: Relation not specified for: *No pertinent family history Family history unobtainable due to patient's condition Hx Contributory? No (John Norris) Review of Systems Review of Systems Constitutional: Reports: no symptoms. EENTM: Reports: no symptoms. Respiratory: Reports: no symptoms. Cardiovascular: Reports: no symptoms. GI: Reports: see HPI, abdominal pain. Genitourinary: Reports: see HPI, dysuria. Musculoskeletal: Reports: no symptoms. Skin: Reports: no symptoms. Neurological/Psychological: Reports: confusion. Hematologic/Endocrine: Reports: no symptoms. Immunologic/Allergic: Reports: no symptoms. All Other Systems: Reviewed and Negative (John Norris) Physical Exam Physical Exam General Appearance: well developed/nourished, no apparent distress, alert, awake , thin Head: atraumatic, normal appearance Eyes: Bilateral: normal appearance, PERRL, EOMI. Ears, Nose, Throat: normal pharynx, normal ENT inspection, hearing grossly normal Neck: normal inspection, supple, full range of motion Respiratory: normal breath sounds, chest non-tender, no respiratory distress, lungs clear Cardiovascular: regular rate/rhythm, normal peripheral pulses Peripheral Pulses: 2+ radial (R), 2+ radial (L) Gastrointestinal: normal bowel sounds, soft, no organomegaly, tenderness (LLQ) Back: normal inspection, normal range of motion, THERE ARE 2 GRADE 2 SACRAL PRESSURE ULCERS PRESENT. NO PURULENT DISCHARGE OR STREAKING.NO TENDERNESS Extremities: BILATERAL LOWER EXTREMITY AMPUTATIONS Neurologic/Psych: no motor/sensory deficits, awake, alert, oriented x 3 Skin: intact, normal color, warm/dry Lymphatic: no anterior cervical jaenssa Core Measures ACS in differential dx? No CVA/TIA Diagnosis: No Sepsis Present: No Sepsis Focused Exam Completed? Yes (John Norris) Progress Differential Diagnoses I considered the following diagnoses in my evaluation of the patient: [UTI, sepsis, pneumonia, diverticulitis, small bowel obstruction, malignancy, cellulitis pyelonephritis, kidney stone] Plan of Care: Orders Procedure Date/time Status PROTHROMBIN TIME 12/29 06 Active CBC WITHOUT DIFFERENTIAL 12/29 599 Active BASIC ELECTROLYTES PLUS BUN&CR 12/29 599 Active Regular Diet 12/28 D Active Saline Lock 12/28 1545 Active Pathway - chart 12/28 1545 Active Code Status 12/28 1545 Active Patient Data 12/28 1409 Active ED Holding Orders 12/28 1336 Active Admit to inpatient 12/28 1336 Active Vital Signs 12/28 1336 Active Code Status 12/28 1336 Complete BLOOD CULTURE 12/28 1213 Active PARTIAL THROMBOPLASTIN TIME 12/28 1203 Complete PROTHROMBIN TIME 12/28 1203 Complete Add-on Test (ER Only) 12/28 1140 Active Straight Cath 12/28 1139 Active CULTURE,URINE 12/28 1139 Active URINALYSIS 12/28 1132 Complete TROPONIN LEVEL 12/28 1132 Complete LIPASE 12/28 1132 Complete LACTIC ACID 12/28 1132 Complete COMPREHENSIVE METABOLIC PANEL 12/28 1132 Complete CBC WITHOUT DIFFERENTIAL 12/28 1132 Complete EKG 12/28 1132 Active Intake & Output 12/28 1120 Active House Staff 12/28 UNK Active VTE Mechanical Prophylaxis 12/28 UNK Active Vital Signs 12/28 UNK Active Intake & Output 12/28 UNK Active Activity/Ambulation 12/28 UNK Active Current Medications Sig/Caroline Start time Last Medication Dose Stop Time Status Admin Ceftazidime 1,000 MG 0400,1600 12/28 1600 UNVr (Fortaz) Vancomycin HCl 1,000 MG 0400,1600 12/28 1600 UNir Sodium Chloride 250 ML (Normal Saline 0.9%) Acetaminophen 650 MG Q8P PRN 12/28 1545 UNVr (Tylenol) Lisinopril 10 MG DAILY 12/28 1524 AC 12/28 (Prinivil) 1532 Laboratory Tests 12/28/17 1432: Lactic Acid Cancelled 12/28/17 1212: Urinalysis LIGHT H, Urine Color YEL, Urine Clarity HAZY H, Urine pH 6.0, Ur Specific [place] 1.020, Urine Protein 100 H, Urine Ketones NEG, Urine Nitrite NEG, Urine Bilirubin NEG, Urine Urobilinogen 1.0, Ur Leukocyte Esterase LARGE H , Ur Microscopic SEDIMENT EXAMINED, Urine RBC 5-10 H, Urine WBC PACKD H, Ur Epithelial Cells RARE, Urine Bacteria MOD H, Urine Hemoglobin MOD H, Urine Glucose NEG 12/28/17 1200: Anion Gap 8, Estimated GFR > 60, BUN/Creatinine Ratio 17.1, Glucose 96, Lactic Acid 1.4, Calcium 8.6, Total Bilirubin 1.1, AST 18, ALT 29, Alkaline Phosphatase 123, Troponin I 0.01, Total Protein 6.3, Albumin 3.1 L, Globulin 3.2, Albumin/ Globulin Ratio 1.0 L, Lipase 64, PT 30.5 H, INR 2.77 H, APTT 32, CBC w Diff MAN DIFF ORDERED, RBC 3.59 L, MCV 98.6 H, MCH 31.1 H, MCHC 31.5 L, RDW 27.4 H, MPV 8.4, Gran % 88.7 H, Lymphocytes % 5.9 L, Monocytes % 3.1, Eosinophils % 1.5, Basophils % 0.8, Absolute Granulocytes 8.4 H, Segmented Neutrophils 88 H, Band Neutrophils 1, Absolute Lymphocytes 0.6 L, Lymphocytes 6 L, Monocytes 5, Absolute Monocytes 0.3, Absolute Eosinophils 0.1, Absolute Basophils 0.1, Polychromasia 1+, Poikilocytosis 1+, Anisocytosis 1+, Ovalocytes FEW Microbiology 12/28 1254 BLOOD: Blood Culture - RECD 12/28 1250 BLOOD: Blood Culture - RECD 12/28 1139 URINE ROUT: Urine Culture - ORD Patient is here for evaluation of abdominal pain confusion and dysuria. He has a history of recurrent UTIs. On initial evaluation vital signs are stable he is afebrile borderline hypertensive. Labs CT scan ordered. Patient spiked a temp of 102. IV Tylenol IV fluids ordered blood cultures ordered. Urine is showing signs of infection he had a urinalysis done yesterday and a urine culture that is already growing 100,000 colonies of gram-negative bacteria. Patient was started on Rocephin. He has no elevated white blood cell count negative lactic acid remaining labs unremarkable. Chest x-ray shows a possible retrocardiac pneumonia. Patient has no symptoms. No cough no shortness of breath no chest pain. Patient will also be covered with Zithromax. Patient will be admitted to hospital for further evaluation and treatment. He will require IV antibiotics follow-up cultures serial labs. Patient will be admitted to [facility]. He initially he was hypertensive but did not take his blood pressure medicine today. Repeat blood pressure is 170s over 80s. Case discussed with Dr. Aquino he agrees. Diagnostic Imaging: Viewed by Me: Radiology Read, CT Scan. Discussed w/RAD: Radiology Read, CT Scan. CXR Impression: PATIENT: EDITA ROSARIO PRESENT AGE: 87 PATIENT ACCOUNT NO: [id number] : 31 LOCATION: [facility] ORDERING PHYSICIAN: John RAE SERVICE DATE: 12/28/17 EXAM TYPE: RAD - XRY- PORTABLE CHEST XRAY EXAMINATION: XR PORTABLE CHEST CLINICAL INFORMATION: Fever. Confusion. Presumptive diagnosis of pneumonia. COMPARISON: Several prior chest x -rays, most recent of which is dated 11/30/2017. TECHNIQUE: Portable AP semierect view of the chest was obtained. FINDINGS: The patient is status post median sternotomy and CABG surgery. The cardiomediastinal silhouette is within normal limits in size. Calcification of the aortic arch is seen. There is streaky opacity in the retrocardiac left lung base, suspicious for pneumonia in the clinical setting provided. The left CP angle is not fully included on this exam. The remainder of the lungs is clear. Underlying obstructive lung disease is seen with coarsening of bronchovascular lung markings and slight thickening of the central airways. No pneumothorax is seen. Diffuse osteopenia is noted. Mild degenerative changes in both glenohumeral joints and acromioclavicular joints and mild convex right thoracolumbar scoliosis. IMPRESSION: Findings are consistent with obstructive lung disease with suspicion of superimposed retrocardiac left lung base pneumonia. Close clinical correlation and follow-up PA and lateral views of the chest post treatment are recommended to document resolution of findings. DICTATED BY: Mami Jordan MD DATE/TIME DICTATED:03/07 LIFE EDUCATOR:ELFEGO DATE/TIME TRANSCRIBED:12/28/171328 CONFIDENTIAL, DO NOT COPY WITHOUT APPROPRIATE AUTHORIZATION. <Electronically signed in Other Vendor System> SIGNED BY: Mami Jordan MD 12/28/17 1337 Initial ED EKG: normal sinus rhythm, RBBB, LAFB Prior EKG: unchanged (John Norris) ED Sepsis Exam Date of Focused Sepsis Exam: 12/28/17 Time of Focused Sepsis Exam: 1419 Sepsis Cardiac Exam: Regular Rate/Rhythm Sepsis Resp Exam: Rales Sepsis Cap Refill Exam: <2 Sec Sepsis Peripheral Pulse Exam: Normal Sepsis Peripheral Pulse Location: Radial Sepsis Skin Color Exam: Pale Skin Temp/Moisture Exam: Hot/Dry (John Norris) Departure Departure Disposition: STILL A PATIENT Condition: Stable Clinical Impression Primary Impression: Cystitis Referrals: Elaine Ramos MD (PCP/Family) Departure Forms: Customer Survey General Discharge Information Admission Note Spoke With: Carmine Villalobos MD Documentation of Exam: Documentation of any treatments & extenuating circumstances including Concerns Regarding Discharge (functional status, medication knowledge or non-compliance, living conditions, etc.) that warrant an admission rather than observation: [ Serial labs, IV antibiotics, IV fluids, follow-up cultures, urology consult, follow-up CAT scan, ultrasound of the kidneys] (John Norris) PA/MANAGER OF SECURITY Co-Sign Statement Statement: ED Attending supervision documentation- [X] I saw and evaluated the patient. I have also reviewed all the pertinent lab results and diagnostic results. I agree with the findings and the plan of care as documented in the PA's/MANAGER OF SECURITY's documentation. [X] I have reviewed the ED Record and agree with the PA's/MANAGER OF SECURITY's documentation. [] Additions or exceptions (if any) to the PAs/MANAGER OF SECURITY's note and plan are summarized below: [Patient being admitted for fever and recurrent UTI, failed outpatient antibiotics, needs urology consultation, IV antibiotics, IV consultation] (Kenia APPLE,Farooq Oswald) Critical Care Note Critical Care Note Critical Care Time: 30-74 min (John Norris)
--- NOTE | 2017-12-28 13:37 | RADIOLOGY REPORT ---
EXAMINATION: XR PORTABLE CHEST CLINICAL INFORMATION: Fever. Confusion. Presumptive diagnosis of pneumonia. COMPARISON: Several prior chest x-rays, most recent of which is dated 11/30/2017. TECHNIQUE: Portable AP semierect view of the chest was obtained. FINDINGS: The patient is status post median sternotomy and CABG surgery. The cardiomediastinal silhouette is within normal limits in size. Calcification of the aortic arch is seen. There is streaky opacity in the retrocardiac left lung base, suspicious for pneumonia in the clinical setting provided. The left CP angle is not fully included on this exam. The remainder of the lungs is clear. Underlying obstructive lung disease is seen with coarsening of bronchovascular lung markings and slight thickening of the central airways. No pneumothorax is seen. Diffuse osteopenia is noted. Mild degenerative changes in both glenohumeral joints and acromioclavicular joints and mild convex right thoracolumbar scoliosis. IMPRESSION: Findings are consistent with obstructive lung disease with suspicion of superimposed retrocardiac left lung base pneumonia. Close clinical correlation and follow-up PA and lateral views of the chest post treatment are recommended to document resolution of findings.
--- NOTE | 2017-12-28 14:46 | Admission Certification ---
Admission Certification Certification Statement - As attending physician, I certify that at the time of - admission, based on clinical presentation, severity of - symptoms, need for further diagnostic testing and - therapeutic interventions, and risk of adverse outcomes - without in-hospital treatment, in my clinical assessment, - this patient requires an acute hospital stay for a minimum - of two nights or longer. I have also considered psychsocial - factors such as support system, advanced age, financial - issues, cognitive issues, and failed out-patient treatments, - past re-admission history, safety of patient, and lack of - compliance as applicable. Specific rationale supporting this admission is: Patient with UTI, fever of 102 and grown MRSA and Pseudomonas in the past
--- NOTE | 2017-12-28 15:13 | History & Physical ---
Estela Wisdom 12/28/17 1513: General Information and HPI MD Statement: I have seen and personally examined BERNARDINO MUÑOZ and documented this H&P. The patient is a 87 year old M who presented with a patient stated chief complaint of dysuria, increasing lethargy, fever associated with chills. Source of Information: patient, family, old records Exam Limitations: no limitations History of Present Illness: Mr. Muñoz is an 87 gentleman with PMHx of HTN, HLD, CAD status post CABG(20 yrs ago) and stent placement(>10 yrs ago), severe PVD status post left BKA and right AKA, history of PE and paroxysmal A. fib on Coumadin, PCV (dx'ed 30 yrs ago tx w/ hydroxyurea), recurrent UTI who had chronic indwelling catheter removed one year ago, last admission to 09/09/17-09/12/17 for tx of UTI and HTN urgency who was brought to the hospital w/ chief concerns of increasing lethargy , associated w/ chills x 1 day. He was in his usual stated of health until one month ago, and he has been increasingly lethargic, and had several episodes of AMS when he was tx'ed w/ TMP -SMX and Ciprofloxacin x 2, with last course one week ago for the treatment of Pseudomonas in urine. In the last one week, he had dysurea w/ hematurea, mild abdominal discomfort not associated w/ diarrhea. There was a plan to get a renal US on the day of admission, but Bernardino couldnt get out of the bed to go to the clinic, after which he was brought to the office. No changes in apetitie. No chest pain, palpitations. BP has been relatively stable, and is complaiant w/ his medications. He is being taken care of his caregiver, and did not report any recent AMS or decrease in apetite, vomiting, episodes of aspiration. Allergies/Medications Allergies: Coded Allergies: amlodipine (Severe, ANAPHYLAXIS 07/29/16) hydrochlorothiazide (DELERIUM 11/30/17) niacin (EXTREME FLUSHING FROM IMMEDIATE RELEASE 07/18/16) PT TOLERATES SLOW RELEASE Past History Travel History Traveled to [place] past 21 day No Medical History Neurological: peripheral neuropathy, subdural hematoma EENT: NONE Cardiovascular: AFIB, aortic stenosis, CAD, hypertension, hyperlipidemia, PVD Respiratory: pulmonary embolism Gastrointestinal: constipation, diverticulitis Hepatic: NONE Renal: benign prost hyperplasia, recurrent UTI Musculoskeletal: degen joint disease Psychiatric: NONE Endocrine: NONE Blood Disorders: DVT, PE, POLYCYTHEMIA Cancer(s): NONE 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 spouse (Gutierrez Muñoz (son/POA)), child Services at Home: Home Health Aide, Nursing Primary Language: [place] Living Will? yes Power of Auto Body Technician/HCP? yes Name of POA/HCP: Gutierrez Muñoz (son/POA)[phone] Functional Ability ADLs Needs Assist: dressing, eating, toileting, bathing. Ambulation: non-ambulatory IADLs Needs Assist: shopping, housework, finances, food prep, telephone, transportation, medication admin. Review of Systems Review of Systems Constitutional: Reports: see HPI, malaise, weakness. Denies: chills, fever. EENTM: Denies: blurred vision. Cardiovascular: Denies: chest pain, orthopena, palpitations. Respiratory: Denies: orthopnea, short of breath. GI: Denies: constipation, diarrhea. Genitourinary: Reports: dysuria. Musculoskeletal: Denies: back pain, joint pain. Skin: Denies: change in skin color, change in hair/nails. Neurological/Psychological: Denies: confusion. Hematologic/Endocrine: Denies: bruising. Exam & Diagnostic Data Last 24 Hrs of Vital Signs/I&O Vital Signs Date Time Temp Pulse Resp B/P B/P Pulse O2 O2 Flow FiO2 Mean Ox Delivery Rate 12/28 1345 102.1 68 18 178/78 98 Room Air Room Air 12/28 1340 102.1 12/28 1218 102.5 12/28 1214 102.5 18 12/28 1112 98.6 71 18 187/80 98 Room Air Intake & Output 12/28 1600 12/28 0800 08/ 0000 Intake Total 0 Output Total Balance 0 Intake, Oral 0 Patient 155 lb Weight Weight Reported by Patient Measurement Method Physical Exam General Appearance Alert, Oriented X3, Cooperative, No Acute Distress Skin No Rashes, No Breakdown Skin Temp/Moisture Exam: Warm/Dry Sepsis Skin Exam (color): Normal for Ethnicity, Cyanotic HEENT Atraumatic, PERRLA, EOMI, dry mucous membranes, poor dentition Neck Supple, No JVD, No thryomegaly, +2 Carotid Pulse wo Bruit Lymphatic Axillary nl, Cervical nl Cardiovascular Regular Rate, Normal S1, Normal S2, No Murmurs Lungs Clear to Auscultation, Normal Air Movement Abdomen Normal Bowel Sounds, Soft, No Tenderness, No Hepatospenomegaly, No Masses Neurological Normal Speech, Strength at 5/5 X4 Ext, Normal Tone, Sensation Intact, Cranial Nerves 3-12 NL, Reflexes 2+ Extremities No Clubbing, No Cyanosis, No Edema, BKA LLE, AKA RLE Vascular Pulses Symmetrical Sepsis Peripheral Pulse Location: Dorsalis Pedis Sepsis Peripheral Pulse Exam: Normal Sepsis Cap Refill Exam: <2 Sec Body Front and Back (Adult) 1) amputation 2) sternotomy scars 3) scars from ulcers/biopsy Diagnostic Data EKG Results NSR, NoSTTWI. Assessment/Plan Assessment: Mr. Muñoz is an 87 gentleman with PMHx of HTN, HLD, CAD status post CABG(20 yrs ago) and stent placement(>10 yrs ago), severe PVD status post left BKA and right AKA, history of PE and paroxysmal A. fib on Coumadin, PCV (dx'ed 30 yrs ago tx w/ hydroxyurea), BPH, recurrent UTI who had chronic indwelling catheter removed one year ago, last admission to 09/09/17-09/12/17 for tx of UTI and HTN urgency who was brought to the hospital w/ chief concerns of increasing lethargy , associated w/ chills x 1 day likely secondary to UTI. At the time of admission, temperature 102.5, pulse rate 71, respiration 18, blood pressure 187/80-->178/78-->148/62, 98% on room air. Pertinent lab findings: WBC 9.1, hemoglobin 11.1, MCV 98.6, platelet count 268 Sodium 135, potassium 3.9, bicarbonate 23. BUN 12, creatinine 0.7, lactic acid 1.4. Troponin I0.01. Albumin 3.1., INR 2.77 (on Coumadin), Urinalysis-urine protein > 100, ULE large, WBC pyuria, packed, urine bacteria positive. CAT scan abdomen and pelvis-12/28/17 1. Multiple colonic diverticula are seen, most concentrated in the descending colon and sigmoid colon. No evidence of acute diverticulitis is seen. 2. Small and large bowel loops are otherwise unremarkable with no evidence of bowel obstruction or perforation seen. 3. No evidence of nephrolithiasis or obstructive uropathy. Multiple bilateral renal cysts are again seen, similar to prior exams. 4. Splenomegaly. 5. 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 6. Trace bilateral right greater than left pleural effusions and associated bibasilar atelectatic changes. Chest x-ray reveals signs consistent with obstructive lung disease suspicion of superimposed retrocardiac left lung base pneumonia. Urinalysis reveals pyuria of greater than 5-10 WBCs plus leukocyte esterase plus nitrites. In the absence of nitrites, Pseudomonas, enterococcus, saprophyticus are to be considered. Recent microbiology results: Urine culture: 12/17/17 P. aeruginosa. MRSA P. aeruginosa 11/27/17 K. pneumo 11/15/17 K. pneumo Problem list: 1. Recurrent UTI 2. h/o Hypertension 2. Paroxysmal A. fib 3. h/o CAD s/p CABG and stenting 4. BPH 6. h/o BCC of the scalp status post removal 7. h/o PCV Etiology in this case with dysuria associated with fever, chills is likely from cystitis. Considering pyelonephritis being a clinical diagnosis, radiological evidence of absence of fat stranding is helpful to r/o the diagnosis when he doesnt have any. 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 Predisposing factors such as previus catheterization, and mechanical obstruction with prostatic hypertrophy are to be considered. Differential diagnosis considered prostatitis to be considered. No rashes, or abdominal tenderness, or ulcers or joint erythema r/o other sources of infection. He is alert oriented x3, which rules out any AMS at this time, and no CT scan head is needed at this time. - Admit the patient to general medicine service. -Empiric antibiotics with ceftazidime, and vancomycin pending final culture results. Discussed w/ the pharmacy about the dosing. -Administer lisinopril stat, given his high BP in the ER -Follow blood culture, usually do not correlate with more severe disease. -Monitor vitals closely. He was given NS x 1 bag, which could be changed to iv RL given his dehydration. Monitor BEP daily. -Follow CBCs daily -Treat sepsis with 0.9% saline if he develops any, but at this time he doesnt have any tachycardia, leucocytosis or tachypnea except a source of infection. Lactate is wnl. Monitor for any sepsis, follow blood cultures. -Continue amiodarone. -Dose coumadin 1mg today. INR 2.77. Check INR in the am. -Acetaminophen iv for fever. -There was a concern for pneumonia, which is not very clear at this time; given some radiological e/o would check LRC. He is being tx w/ abx that will cover any respiratory pathogens. Checklist: - DVT prophylaxis- Coumadin - DNR/DNI. - Diet regular diet. - Dr. Crowe notified. Call Pradeep at [phone], for any changes in clinical status. He likes to be updated. As Ranked By This Provider Problem List: 1. Cystitis 2. Skin infection Core Measures/Misc (02/04) Acute Coronary Syndrome ACS Diagnosis: No Congestive Heart Failure Congestive Heart Failure Diagnosis No Cerebrovascular Accident CVA/TIA Diagnosis: No VTE (View Protocol) VTE Risk Factors Acute Medical Illness No Mechanical VTE Prophylaxis d/t N/A MechProphylax Ordered No VTE Pharm Prophylaxis d/t NA PharmProphylax ordered Sepsis (View protocol) Sepsis Present: No If YES complete Sepsis Event Note If YES complete Sepsis Event Note Mulu APPLE,Una 12/28/17 1526: General Information and HPI Allergies/Medications Home Med list Amiodarone (Cordarone) 200 MG TABLET 1 TAB PO QAM AFIB (Reported) Aspirin (Ecotrin*) 81 MG TABLET.DR 1 TAB PO QPM HEART HEALTH (Reported) Atorvastatin Calcium (Lipitor) 20 MG TABLET 1 TAB PO QPM CHOLESTEROL ( Reported) Cranberry Extract (Cranberry) 425 MG CAPSULE 1 TAB PO BID SUPPLEMENT ( Reported) Finasteride 5 MG TABLET 5 MG PO DAILY urinary retention Gabapentin 100 MG CAPSULE 100 MG PO QPM nerve pain Hydroxyurea 500 MG CAPSULE 2 CAP PO QAM POLYCYTHEMIA VERA (Reported) Lactobacillus Acidophilus (Probiotic) 10 BILLION CELL CAPSULE 1 CAP PO DAILY GI (Reported) Lisinopril (Prinivil) 10 MG TABLET 1 TAB PO DAILY BP (Reported) Polyethylene Glycol 3350 (Miralax) 17 GRAM/DOSE POWDER 17 GM PO DAILY NEEDED PRN CONSTIPATION Sennosides (Senna Lax) 8.6 MG TABLET 2 TAB PO QPM CONSTIPATION (Reported) Tamsulosin HCl (Flomax) 0.4 MG CAP.ER.24H 1 CAP PO QPM PROSTATE (Reported) Warfarin Sodium (Coumadin) 1 MG TABLET 1 TAB PO 1700 BLOOD THINNER (Reported) Core Measures/Misc (02/04) Sepsis (View protocol) If YES complete Sepsis Event Note If YES complete Sepsis Event Note Attending MD Review Statement Attending Statement Attending MD Statement: examined this patient, discuss w/resident/PA/RITUAL CIRCUMCISER, agreed w/resident/PA/RITUAL CIRCUMCISER, reviewed EMR data (avail), discussed with nursing, discussed with case mgmt, reviewed images Attending Assessment/Plan: 87-year-old male past medical history of A. 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 He has had multiple recurrent UTIs and has grown Pseudomonas and MRSA in the past. He is here with complaints of abdominal pain, fever of 102 and a grossly positive UA. His CT is pending. At this point we will bring him into GEN med, get blood cultures, urine culture and start him on Vanco and ceftaz empirically. Dr. Crowe is his regular urologist and will have to inform him that he is here. Will hold his HCTZ, cont other meds including warfarin
--- NOTE | 2017-12-28 15:27 | CT SCAN REPORT ---
EXAMINATION: CT ABDOMEN AND PELVIS WITHOUT CONTRAST CLINICAL INFORMATION: Left lower quadrant pain. Presumptive diagnosis of diverticulitis, small bowel obstruction, kidney stones. COMPARISON: Multiple prior CT scans of the abdomen and pelvis, most recent of which is dated 01/01/2017. TECHNIQUE: Multidetector volumetric imaging was performed from the superior aspect of the liver through the pubic symphysis. Sagittal and coronal reformatted images were obtained on the technologist workstation. DLP: 412.56 mGy-cm. FINDINGS: LUNG BASES: Interval development of trace bilateral pleural effusions, slightly larger on the right side than the left with associated dependent atelectatic changes seen in the lung bases bilaterally. Evaluation of the lung bases is limited due to motion artifact. Mild aortic valvular calcifications and severe atherosclerotic calcifications of the left main coronary artery, left anterior descending coronary artery and proximal left circumflex artery seen. Mild atherosclerotic disease is seen in the remaining coronary arteries. Slight prominence of the left heart chambers is seen, likely still within normal limits. LIVER, GALLBLADDER, AND BILIARY TREE: Liver is unchanged in appearance with prominent pneumobilia again seen primarily within the left biliary radicals and the common bile duct, consistent with prior papillotomy. The patient is status post cholecystectomy with several angelita seen in the gallbladder fossa. No focal collection noted in the gallbladder fossa. No discrete liver mass appreciated on noncontrast study. PANCREAS: Mild fatty infiltration of the pancreatic head is seen. Pancreas otherwise unremarkable on noncontrast imaging. SPLEEN: The spleen is enlarged, measuring 14.9 cm longitudinally, similar to the prior exam. ADRENAL GLANDS: There is a 0.9 cm low-attenuation mass in the right adrenal apex, unchanged dating back to at least 05/05/2015, consistent with a small adrenal adenoma. KIDNEYS AND URETERS: The kidneys are normal in size. There are multiple bilateral variably sized cortical and exophytic low-attenuation masses seen in the kidneys, similar to the previous exam. In the left kidney, there is a dominant exophytic 4.5 x 4.7 cm mass with mean attenuation values of 7.3 Hounsfield units, consistent with a large exophytic cyst, similar to prior studies dating back to 2014. In the right kidney, there is a partially exophytic mid right renal cyst, measuring 2.8 x 2.0 cm, similar to prior studies dating back to 05/05/2015. An exophytic lower pole 2.6 x 2.7 cm cyst is also seen, unchanged from the most recent prior exam and and larger compared to 1.4 cm diameter on 05/05/2015). Other smaller presumed cysts are also seen in the mid and upper right kidney, unchanged dating back to 2014. There is a small amount of perinephric stranding seen around the right kidney, extending into the lateral conal fascia, appearing slightly more pronounced than on prior exams. No hydronephrosis, hydroureter, or calculi seen. BLADDER: Suboptimally assessed due to underdistention. The bladder that does appear diffusely thick-walled and there is a left-sided diverticulum again seen arising from the bladder base. Findings are suggestive of bladder wall hypertrophy. PELVIC VISCERA: Unremarkable. GASTROINTESTINAL TRACT: There is chronic distention of the rectum seen, measuring 7.2 cm in diameter, unchanged from prior exam. Mild chronic perirectal stranding and edema is seen, unchanged from prior study, consistent with chronic mild stercoral colitis. There is moderate sigmoid and descending colonic diverticulosis with no evidence of acute diverticulitis. Multiple scattered diverticula are also seen in the remaining colon. No abnormal distention of small bowel loops in the abdomen is seen. There is some fullness at the GE junction, possibly due to small hiatal hernia. ABDOMINAL WALL: No significant hernia is appreciated. LYMPH NODES, VASCULAR: No abdominal or pelvic adenopathy is seen. Dense atherosclerotic calcifications of the aorta and branch vessels, including both renal arteries again seen. No free fluid noted. OSSEOUS STRUCTURES: Diffuse osteopenia is seen with moderate to severe vertebral spondylosis throughout the thoracolumbar spine and moderate facet arthropathy in the mid and lower lumbar spine. Moderate degenerative changes are also seen in both hip joints and at the sacroiliac joints, with partial ankylosis is seen. IMPRESSION: 1. Multiple colonic diverticula are seen, most concentrated in the descending colon and sigmoid colon. No evidence of acute diverticulitis is seen. 2. Small and large bowel loops are otherwise unremarkable with no evidence of bowel obstruction or perforation seen. 3. No evidence of nephrolithiasis or obstructive uropathy. Multiple bilateral renal cysts are again seen, similar to prior exams. 4. Splenomegaly. 5. 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 6. Trace bilateral right greater than left pleural effusions and associated bibasilar atelectatic changes.
[2017-12-28 17:03] VITALS: BP 146/64
[2017-12-28 22:02] VITALS: BP 160/74
[2017-12-29 06:19] VITALS: BP 146/60
--- NOTE | 2017-12-29 09:43 | PN- Housestaff ---
Gordon Morgan 12/29/17 0939: Subjective Follow-up For: UTI Complaints: no complaints Subjective: Patient was seen and examined this morning. He is alert awake and oriented to time place and person. Patient denied any more fever, chills. Denies any abdominal pain or discomfort. He continues to report weakness and lethargy Review of Systems Constitutional: Reports: see HPI. Objective Last 24 Hrs of Vital Signs/I&O Vital Signs Date Time Temp Pulse Resp B/P B/P Pulse O2 O2 Flow FiO2 Mean Ox Delivery Rate 12/29 0830 98.3 68 18 140/60 12/29 0830 98.3 68 18 140/60 12/29 0619 99.6 63 20 146/60 91 Room Air 12/28 2202 97.4 69 20 160/74 93 12/28 2049 69 160/74 12/28 1703 98.9 52 20 146/64 94 12/28 1544 101.0 148/62 12/28 1532 178/78 12/28 1345 102.1 68 18 178/78 98 Room Air Room Air 12/28 1340 102.1 12/28 1218 102.5 12/28 1214 102.5 18 12/28 1112 98.6 71 18 187/80 98 Room Air Intake & Output 12/29 1600 12/29 0800 12/29 0000 Intake Total 900 600 Output Total Balance 900 600 Intake, IV 800 400 Intake, Oral 100 200 Number 0 Bowel Movements Patient 74.843 kg Weight Weight Reported by Patient Measurement Method Physical Exam General Appearance: Alert, Oriented X3, Cooperative, No Acute Distress Other Physical Findings: HEENT Atraumatic, PERRLA, EOMI, dry mucous membranes, poor dentition Neck Supple, No JVD, No thryomegaly, +2 Carotid Pulse wo Bruit Lymphatic Axillary nl, Cervical nl Cardiovascular Regular Rate, Normal S1, Normal S2, No Murmurs Lungs Clear to Auscultation, Normal Air Movement Abdomen Normal Bowel Sounds, Soft, No Tenderness, No Hepatospenomegaly, No Masses Neurological Normal Speech, Strength at 5/5 X4 Ext, Normal Tone, Sensation Intact, Cranial Nerves 3-12 NL, Reflexes 2+ Extremities No Clubbing, No Cyanosis, No Edema, BKA LLE, AKA RLE Vascular Pulses Symmetrical Current Medications: Current Medications Sig/Caroline Start time Last Medication Dose Route Stop Time Status Admin Acetaminophen 1,000 MG Q8P PRN 12/28 1600 AC IV Acetaminophen 500 MG DAILY PRN 12/28 1545 AC 12/29 PO 0836 Acetaminophen 0 .STK-MED ONE 12/28 1218 DC IV Acetaminophen 1,000 MG ONCE ONE 12/28 1215 DC 12/28 N/A 1 UNIT IV 12/28 1229 1218 Amiodarone HCl 200 MG QAM 12/29 0900 AC 12/29 PO 0830 Aspirin Buffered 81 MG QPM 12/28 2100 AC 12/28 PO 2048 Atorvastatin Calcium 20 MG QPM 12/28 2100 AC 12/28 PO 2048 Azithromycin 500 MG ONCE ONE 12/28 1445 DC 12/28 Sodium Chloride 250 ML IV 12/28 1544 1529 Ceftazidime 1,000 MG 0400,1600 12/28 1600 AC 12/29 IV 0426 Ceftriaxone Sodium 0 .STK-MED ONE 12/28 1244 DC .ROUTE Ceftriaxone Sodium 1,000 MG ONCE ONE 12/28 1215 DC 12/28 IV 12/28 1216 1257 Finasteride 5 MG DAILY 12/29 0900 AC 12/29 PO 0830 Gabapentin 100 MG QPM 12/28 2100 AC 12/28 PO 2048 Hydroxyurea 1,000 MG QAM 12/29 0900 AC 12/29 PO 0829 Lactated Ringer's 1,000 ML Q10H 12/28 1645 DC 12/28 IV 12/29 0244 1744 Lactobacillus 1 CAP BID 12/28 2100 AC 12/29 Acidophilus PO 0830 Lisinopril 0 .STK-MED ONE 12/28 1530 DC PO Lisinopril 10 MG DAILY 12/28 1524 AC 12/29 PO 0830 Morphine Sulfate 2 MG BID PRN 12/28 1600 AC IV Polyethylene Glycol 17 GM DAILY NEEDED PRN 12/28 1600 AC PO Senna/Docusate Sodium 2 TAB DAILY PRN 12/28 1600 AC PO Sodium Chloride 1,000 ML BOLUS ONE 12/28 1215 DC 08 IV 12/28 1314 1218 Tamsulosin HCl 0.4 MG QPM 08 2100 AC 12/28 PO 2049 Tramadol HCl 50 MG Q8P PRN 12/28 1600 AC PO Vancomycin HCl 1,000 MG 0400,1600 12/28 1600 AC 12/29 Sodium Chloride 250 ML IV 0431 Warfarin Sodium 1 MG 1700 12/28 1700 AC 12/28 PO 1736 Last 24 Hrs of Lab/Addy Results Last 24 Hrs of Labs/Mics: Laboratory Tests 12/29/17 0746: Anion Gap 6, Estimated GFR > 60, BUN/Creatinine Ratio 14.3, PT 41.9 H, INR 3.79 H, CBC w Diff Pending, WBC Pending, RBC Pending, Hgb Pending, Hct Pending, MCV Pending, MCH Pending, MCHC Pending, RDW Pending, Plt Count Pending, MPV Pending 12/28/17 1432: Lactic Acid Cancelled 12/28/17 1212: Urinalysis LIGHT H, Urine Color YEL, Urine Clarity HAZY H, Urine pH 6.0, Ur Specific [place] 1.020, Urine Protein 100 H, Urine Ketones NEG, Urine Nitrite NEG, Urine Bilirubin NEG, Urine Urobilinogen 1.0, Ur Leukocyte Esterase LARGE H , Ur Microscopic SEDIMENT EXAMINED, Urine RBC 5-10 H, Urine WBC PACKD H, Ur Epithelial Cells RARE, Urine Bacteria MOD H, Urine Hemoglobin MOD H, Urine Glucose NEG 12/28/17 1200: Anion Gap 8, Estimated GFR > 60, BUN/Creatinine Ratio 17.1, Glucose 96, Lactic Acid 1.4, Calcium 8.6, Total Bilirubin 1.1, AST 18, ALT 29, Alkaline Phosphatase 123, Troponin I 0.01, Total Protein 6.3, Albumin 3.1 L, Globulin 3.2, Albumin/ Globulin Ratio 1.0 L, Lipase 64, PT 30.5 H, INR 2.77 H, APTT 32, CBC w Diff MAN DIFF ORDERED, RBC 3.59 L, MCV 98.6 H, MCH 31.1 H, MCHC 31.5 L, RDW 27.4 H, MPV 8.4, Gran % 88.7 H, Lymphocytes % 5.9 L, Monocytes % 3.1, Eosinophils % 1.5, Basophils % 0.8, Absolute Granulocytes 8.4 H, Segmented Neutrophils 88 H, Band Neutrophils 1, Absolute Lymphocytes 0.6 L, Lymphocytes 6 L, Monocytes 5, Absolute Monocytes 0.3, Absolute Eosinophils 0.1, Absolute Basophils 0.1, Polychromasia 1+, Poikilocytosis 1+, Anisocytosis 1+, Ovalocytes FEW Microbiology 12/28 1655 LOWER RESP: Respiratory Culture - COLB 12/28 1655 LOWER RESP: Gram Stain - COLB 12/28 1254 BLOOD: Blood Culture - RECD 12/28 1250 BLOOD: Blood Culture - RECD 12/28 1139 URINE ROUT: Urine Culture - COLB Assessment/Plan Assessment: Mr. Muñoz is an 87 gentleman with PMHx of HTN, HLD, CAD status post CABG(20 yrs ago) and stent placement(>10 yrs ago), severe PVD status post left BKA and right AKA, history of PE and paroxysmal A. fib on Coumadin, PCV (dx'ed 30 yrs ago tx w/ hydroxyurea), BPH, recurrent UTI who had chronic indwelling catheter removed one year ago, last admission to 09/09/17-09/12/17 for tx of UTI and HTN urgency who was brought to the hospital w/ chief concerns of increasing lethargy , associated w/ chills x 1 day likely secondary to UTI. At the time of admission, temperature 102.5, pulse rate 71, respiration 18, blood pressure 187/80-->178/78-->148/62, 98% on room air. Pertinent lab findings: WBC 9.1, hemoglobin 11.1, MCV 98.6, platelet count 268 Sodium 135, potassium 3.9, bicarbonate 23. BUN 12, creatinine 0.7, lactic acid 1.4. Troponin I0.01. Albumin 3.1., INR 2.77 (on Coumadin), Urinalysis-urine protein > 100, ULE large, WBC pyuria, packed, urine bacteria positive. CAT scan abdomen and pelvis-12/28/17 1. Multiple colonic diverticula are seen, most concentrated in the descending colon and sigmoid colon. No evidence of acute diverticulitis is seen. 2. Small and large bowel loops are otherwise unremarkable with no evidence of bowel obstruction or perforation seen. 3. No evidence of nephrolithiasis or obstructive uropathy. Multiple bilateral renal cysts are again seen, similar to prior exams. 4. Splenomegaly. 5. 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 6. Trace bilateral right greater than left pleural effusions and associated bibasilar atelectatic changes. Chest x-ray reveals signs consistent with obstructive lung disease suspicion of superimposed retrocardiac left lung base pneumonia. Urinalysis reveals pyuria of greater than 5-10 WBCs plus leukocyte esterase plus nitrites. In the absence of nitrites, Pseudomonas, enterococcus, saprophyticus are to be considered. Recent microbiology results: Urine culture: 12/17/17 P. aeruginosa. MRSA P. aeruginosa 11/27/17 K. pneumo 11/15/17 K. pneumo Problem list: 1. Recurrent UTI 2. h/o Hypertension 2. Paroxysmal A. fib 3. h/o CAD s/p CABG and stenting 4. BPH 6. h/o BCC of the scalp status post removal 7. h/o PCV Etiology in this case with dysuria associated with fever, chills is likely from cystitis. Considering pyelonephritis being a clinical diagnosis, radiological evidence of absence of fat stranding is helpful to r/o the diagnosis when he doesnt have any. 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 Predisposing factors such as previus catheterization, and mechanical obstruction with prostatic hypertrophy are to be considered. - Admited the patient to general medicine service. - Empiric antibiotics with ceftazidime, and vancomycin pending final culture results. Discussed w/ the pharmacy about the dosing. Ceftaz 1 g daily and Vanco 1 g daily - Follow blood cultures - Follow urine cultures - Monitor vitals closely. - Monitor BEP daily. - Follow CBCs daily - Continue amiodarone. - INR 3.79. Check INR in the am and dose accordingly. - Acetaminophen iv for fever. Checklist: - DVT prophylaxis- Coumadin - DNR/DNI. - Diet regular diet. - Dr. Crowe notified. Call Pradeep at [phone], for any changes in clinical status. He likes to be updated. Problem List: 1. Fever 2. Cystitis Pain Ratin Pain Location: N/A Pain Goal: Remain pain free Pain Plan: TYLINOL Tomorrow's Labs & Rationales: CBC BEP INR Ziggy APPLE,Amir 12/29/17 1532: Attending Review Statement Attending Statement Attending MD Statement: examined this patient, discuss w/resident/PA/TRANSMITTER SUPERVISOR, agreed w/resident/PA/TRANSMITTER SUPERVISOR, reviewed EMR data (avail), discussed with nursing
[2017-12-29 09:52] LABS: ABSOLUTE BASOPHIL COUNT 0.1 /CUMM (0.0-0.2); ABSOLUTE EOSINOPHIL COUNT 0.1 /CUMM (0.0-0.7); ABSOLUTE GRANULOCYTE CT 6.8 /CUMM (1.4-6.5); ABSOLUTE LYMPH COUNT 0.5 /CUMM (1.2-3.4); ABSOLUTE MONOCYTE COUNT 0.6 /CUMM (0.10-0.60); BASOPHIL % 0.8 % (0.0-2.0); EOSINOPHIL % 0.9 % (0-5); GRANULOCYTE % 84.4 % (42.2-75.2); MEAN CORPUSCULAR HGB 31.4 PG (27.0-31.0); MEAN CORPUSCULAR HGB CONC 31.6 G/DL (33.0-37.0); MEAN CORPUSCULAR VOLUME 99.2 FL (80.0-94.0); MEAN PLATELET VOLUME 8.6 FL (7.4-10.4); PLATELET COUNT 198 /CUMM (130-400); RBC DISTRIBUTION WIDTH 26.7 % (11.5-14.5); RED BLOOD CELL CT 2.98 /CUMM (4.70-6.10)
[2017-12-29 09:57] LABS: PT 41.9 SEC (9.4-12.5)
[2017-12-29 11:18] LABS: HEMATOCRIT 29.6 % (42-52)
[2017-12-29 15:30] VITALS: BP 130/70
[2017-12-29 22:11] VITALS: BP 170/74
[2017-12-30 07:08] VITALS: BP 180/80
[2017-12-30 08:32] LABS: ABSOLUTE BASOPHIL COUNT 0.1 /CUMM (0.0-0.2); ABSOLUTE EOSINOPHIL COUNT 0.2 /CUMM (0.0-0.7); ABSOLUTE GRANULOCYTE CT 7.3 /CUMM (1.4-6.5); ABSOLUTE LYMPH COUNT 0.5 /CUMM (1.2-3.4); ABSOLUTE MONOCYTE COUNT 0.4 /CUMM (0.10-0.60); BASOPHIL % 1.5 % (0.0-2.0); EOSINOPHIL % 2.4 % (0-5); GRANULOCYTE % 84.8 % (42.2-75.2); HEMATOCRIT 30.3 % (42-52); MEAN CORPUSCULAR HGB 31.1 PG (27.0-31.0); MEAN CORPUSCULAR HGB CONC 31.5 G/DL (33.0-37.0); MEAN CORPUSCULAR VOLUME 98.8 FL (80.0-94.0); MEAN PLATELET VOLUME 8.9 FL (7.4-10.4); PLATELET COUNT 213 /CUMM (130-400); RBC DISTRIBUTION WIDTH 26.3 % (11.5-14.5); RED BLOOD CELL CT 3.07 /CUMM (4.70-6.10); WHITE BLOOD CELL COUNT 8.6 /CUMM (4.8-10.8)
[2017-12-30 10:02] VITALS: BP 122/62
--- NOTE | 2017-12-30 12:30 | PN- Att Addend ---
Attending Addendum Attending Brief Note Pt was seen and evaluated. Briefly, Mr. Muñoz is an 87 gentleman with PMHx of HTN, HLD, CAD status post CABG(20 yrs ago) and stent placement(>10 yrs ago), severe PVD status post left BKA and right AKA, history of PE and paroxysmal A. fib on Coumadin, PCV (dx'ed 30 yrs ago tx w/ hydroxyurea), BPH, recurrent UTI who had chronic indwelling catheter removed one year ago, last admission to -09/12/17 for tx of UTI and HTN urgency who was brought to the hospital w/ increasing lethargy, associated w/ chills likely secondary to UTI. Laboratory Tests 12/30/17 0617: Anion Gap 6, Estimated GFR > 60, BUN/Creatinine Ratio 16.7, PT 45.0 *H, INR 4.07 *H, CBC w Diff NO MAN DIFF REQ, RBC 3.07 L, MCV 98.8 H, MCH 31.1 H, MCHC 31.5 L, RDW 26.3 H, MPV 8.9, Gran % 84.8 H, Lymphocytes % 6.3 L, Monocytes % 5.0, Eosinophils % 2.4, Basophils % 1.5, Absolute Granulocytes 7.3 H, Absolute Lymphocytes 0.5 L, Absolute Monocytes 0.4, Absolute Eosinophils 0.2, Absolute Basophils 0.1 Vital Signs Date Time Temp Pulse Resp B/P B/P Pulse O2 O2 Flow FiO2 Mean Ox Delivery Rate 12/30 1002 122/62 12/30 0836 80 190/80 12/30 0835 80 190/80 12/30 0835 80 190/80 12/30 0708 98.4 60 20 180/80 92 12/30 0000 Room Air 12/29 2211 99.2 64 20 170/74 93 12/29 2145 62 190/78 12/29 2009 62 18 200/80 12/29 1530 98.0 58 20 130/70 96 Intake & Output 12/30 1600 12/30 0800 12/30 0000 Intake Total 490 360 Output Total Balance 490 360 Intake, IV 250 Intake, Oral 240 360 Patient 66.678 kg Weight Weight Bed scale Measurement Method A/P: --On Ceftaz and Vanco --cont to hold anticoagulation --cont to monitor
--- NOTE | 2017-12-30 12:55 | PN- Housestaff ---
Subjective Follow-up For: UTI Subjective: Afebrile overnight. Patient had an elevated BP overnight, highest reading as 190 /80. Patient blood pressure normalized around 122/62 after adminstration of blood pressure medications. Patient otherwise denies any symptoms of palpitations, chest pain, dizziness, and headaches. Patient is seen with his family in the room. Patient's son states his father usually runs a blood pressure of 150s systolic. Patient otherwise has no other concerns today. Review of Systems Constitutional: Reports: see HPI. Objective Last 24 Hrs of Vital Signs/I&O Vital Signs Date Time Temp Pulse Resp B/P B/P Pulse O2 O2 Flow FiO2 Mean Ox Delivery Rate 12/30 1600 Room Air 12/30 1537 98.3 57 18 140/80 92 12/30 1002 122/62 12/30 0836 80 190/80 12/30 0835 80 190/80 12/30 0835 80 190/80 12/30 0708 98.4 60 20 180/80 92 12/30 0000 Room Air 12/29 2211 99.2 64 20 170/74 93 12/29 2145 62 190/78 Intake & Output 12/30 1600 12/30 0800 12/30 0000 Intake Total 120 490 360 Output Total Balance 120 490 360 Intake, IV 250 Intake, Oral 120 240 360 Patient 147 lb Weight Weight Bed scale Measurement Method Physical Exam General Appearance: Alert, Oriented X3, Cooperative, No Acute Distress (hearing difficulty) HEENT: Atraumatic Cardiovascular: Regular Rate, Normal S1, Normal S2 Lungs: Clear to Auscultation Abdomen: Soft, No Tenderness Neurological: Normal Speech Extremities: Normal Pulses Assessment/Plan Assessment: Mr. Muñoz is an 87 gentleman with PMHx of HTN, HLD, CAD status post CABG(20 yrs ago) and stent placement(>10 yrs ago), severe PVD status post left BKA and right AKA, history of PE and paroxysmal A. fib on Coumadin, PCV (dx'ed 30 yrs ago tx w/ hydroxyurea), BPH, recurrent UTI who had chronic indwelling catheter removed one year ago, last admission to 09/09/17-09/12/17 for tx of UTI and HTN urgency who was brought to the hospital w/ chief concerns of increasing lethargy , associated w/ chills x 1 day likely secondary to UTI. At the time of admission, temperature 102.5, pulse rate 71, respiration 18, blood pressure 187/80-->178/78-->148/62, 98% on room air. Pertinent lab findings: WBC 9.1, hemoglobin 11.1, MCV 98.6, platelet count 268 Sodium 135, potassium 3.9, bicarbonate 23. BUN 12, creatinine 0.7, lactic acid 1.4. Troponin I0.01. Albumin 3.1., INR 2.77 (on Coumadin), Urinalysis-urine protein > 100, ULE large, WBC pyuria, packed, urine bacteria positive. CAT scan abdomen and pelvis-12/28/17 1. Multiple colonic diverticula are seen, most concentrated in the descending colon and sigmoid colon. No evidence of acute diverticulitis is seen. 2. Small and large bowel loops are otherwise unremarkable with no evidence of bowel obstruction or perforation seen. 3. No evidence of nephrolithiasis or obstructive uropathy. Multiple bilateral renal cysts are again seen, similar to prior exams. 4. Splenomegaly. 5. 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 6. Trace bilateral right greater than left pleural effusions and associated bibasilar atelectatic changes. Chest x-ray reveals signs consistent with obstructive lung disease suspicion of superimposed retrocardiac left lung base pneumonia. Urinalysis reveals pyuria of greater than 5-10 WBCs plus leukocyte esterase plus nitrites. In the absence of nitrites, Pseudomonas, enterococcus, saprophyticus are to be considered. Recent microbiology results: Urine culture: 12/17/17 P. aeruginosa. MRSA P. aeruginosa 11/27/17 K. pneumo 11/15/17 K. pneumo Problem list: 1. Recurrent UTI 2. h/o Hypertension 2. Paroxysmal A. fib 3. h/o CAD s/p CABG and stenting 4. BPH 6. h/o BCC of the scalp status post removal 7. h/o PCV Etiology in this case with dysuria associated with fever, chills is likely from cystitis. Considering pyelonephritis being a clinical diagnosis, radiological evidence of absence of fat stranding is helpful to r/o the diagnosis when he doesnt have any. 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 Predisposing factors such as previus catheterization, and mechanical obstruction with prostatic hypertrophy are to be considered. - Admited patient to general medicine - Empiric antibiotics with ceftazidime, and vancomycin pending final culture results. Discussed w/ the pharmacy about the dosing. Ceftaz 1 g daily and Vanco 1 g daily - Monitor vitals closely. - Monitor BEP daily. - Follow CBCs daily - Continue amiodarone. - INR 4.07. Check INR in the am and dose accordingly. - Acetaminophen iv for fever. DVT prophylaxis- Coumadin DNR/DNI. Diet: regular Dr. Crowe notified. Call Pradeep at [phone] for any changes in clinical status. He likes to be updated. Problem List: 1. Fever 2. Cystitis Pain Ratin Pain Location: na Pain Goal: Remain pain free Pain Plan: na Tomorrow's Labs & Rationales: na
[2017-12-30 15:37] VITALS: BP 140/80
[2017-12-30 22:30] VITALS: BP 150/70
[2017-12-31 06:24] VITALS: BP 130/64
--- NOTE | 2017-12-31 07:18 | PN- Housestaff ---
Subjective Follow-up For: UTI Subjective: Patient seen and examined. He is sitting in bed eating at the time of interview. His vitals are stable overnight and he is afebrile. MAXIMUM TEMPERATURE on 12/28 was 102.5. The patient denies any shortness of breath or chest pain and is saturating 93% on room air. His blood pressure is stable on lisinopril 10 mg. The patient is found to be growing gram-negative rods, no sensitivities back yet. The patient has no current complaints. Review of Systems Constitutional: Reports: no symptoms. Cardiovascular: Reports: no symptoms. Respiratory: Reports: no symptoms. Gastrointestinal: Reports: no symptoms. Genitourinary: Reports: no symptoms. Musculoskeletal: Reports: no symptoms. Objective Last 24 Hrs of Vital Signs/I&O Vital Signs Date Time Temp Pulse Resp B/P B/P Pulse O2 O2 Flow FiO2 Mean Ox Delivery Rate 12/31 0853 130/64 12/31 0853 130/64 12/31 0624 98.4 57 18 130/64 93 Room Air 12/30 2230 98.2 57 18 150/70 92 Room Air 12/30 2036 57 150/70 12/30 1600 Room Air 12/30 1537 98.3 57 18 140/80 92 Intake & Output 12/31 1600 12/31 0800 12/31 0000 Intake Total 500 340 Output Total Balance 500 340 Intake, IV 300 100 Intake, Oral 200 240 Patient 147 lb 143 lb Weight Physical Exam General Appearance: Alert, Oriented X3, Cooperative, No Acute Distress Skin: No Significant Lesion, patient has multiple cranial skin biopsy scars and bur holes healed over Skin Temp/Moisture Exam: Warm/Dry Sepsis Skin Exam (color): Normal for Ethnicity HEENT: Atraumatic, PERRLA, EOMI, Mucous Membr. moist/pink Neck: No JVD Cardiovascular: Regular Rate, Normal S1, Normal S2, No Murmurs Lungs: Clear to Auscultation, Normal Air Movement Abdomen: Normal Bowel Sounds, Soft, No Tenderness Neurological: Normal Speech Extremities: No Edema, No Tenderness/Swelling, ddouble amputee Current Medications: Current Medications Sig/Caroline Start time Last Medication Dose Route Stop Time Status Admin Acetaminophen 1,000 MG Q8P PRN 12/28 1600 AC IV Acetaminophen 500 MG DAILY PRN 12/28 1545 AC 12/29 PO 0836 Amiodarone HCl 200 MG QAM 12/29 0900 AC 12/31 PO 0853 Aspirin Buffered 81 MG QPM 08 2100 AC 12/30 PO 2036 Atorvastatin Calcium 20 MG QPM 12/28 2100 AC 12/30 PO 2034 Ceftazidime 1,000 MG 0400,1600 12/28 1600 AC 12/31 IV 0416 Finasteride 5 MG DAILY 12/29 0900 AC 12/31 PO 0853 Gabapentin 100 MG QPM 12/28 2100 AC 12/30 PO 2034 Hydroxyurea 1,000 MG QAM 12/29 0900 AC 12/31 PO 0853 Lactobacillus 1 CAP BID 12/28 2099 AC 12/31 Acidophilus PO 0853 Lisinopril 10 MG DAILY 12/28 1524 AC 12/31 PO 0853 Morphine Sulfate 2 MG BID PRN 12/28 1600 AC IV Polyethylene Glycol 17 GM DAILY NEEDED PRN 12/28 1600 AC 12/31 PO 53 Senna/Docusate Sodium 2 TAB DAILY PRN 12/28 1600 AC 12/30 PO 0836 Tamsulosin HCl 0.4 MG QPM 12/28 2099 AC 12/30 PO 2035 Tramadol HCl 50 MG Q8P PRN 12/28 1600 AC PO Vancomycin HCl 1,000 MG 0400,1600 12/28 1600 DC 12/31 Sodium Chloride 250 ML IV 0416 Last 24 Hrs of Lab/Addy Results Last 24 Hrs of Labs/Mics: Laboratory Tests 12/31/17 0950: Anion Gap 8, Estimated GFR > 60, BUN/Creatinine Ratio 15.7, PT 45.8 *H, INR 4.14 *H, CBC w Diff NO MAN DIFF REQ, RBC 3.35 L, MCV 99.9 H, MCH 31.4 H, MCHC 31.4 L, RDW 26.3 H, MPV 9.2, Gran % 86.4 H, Lymphocytes % 5.9 L, Monocytes % 4.7, Eosinophils % 2.8, Basophils % 0.2, Absolute Granulocytes 9.4 H, Absolute Lymphocytes 0.6 L, Absolute Monocytes 0.5, Absolute Eosinophils 0.3, Absolute Basophils 0 Assessment/Plan Assessment: Mr. Muñoz is an 87 gentleman with PMHx of HTN, HLD, CAD status post CABG(20 yrs ago) and stent placement(>10 yrs ago), severe PVD status post left BKA and right AKA, history of PE and paroxysmal A. fib on Coumadin, PCV (dx'ed 30 yrs ago tx w/ hydroxyurea), BPH, recurrent UTI who had chronic indwelling catheter removed one year ago, last admission to 09/09/17-09/12/17 for tx of UTI and HTN urgency who was brought to the hospital w/ chief concerns of increasing lethargy , associated w/ chills x 1 day likely secondary to UTI. At the time of admission, temperature 102.5, pulse rate 71, respiration 18, blood pressure 187/80-->178/78-->148/62, 98% on room air. Pertinent lab findings: WBC 9.1, hemoglobin 11.1, MCV 98.6, platelet count 268 Sodium 135, potassium 3.9, bicarbonate 23. BUN 12, creatinine 0.7, lactic acid 1.4. Troponin I0.01. Albumin 3.1., INR 2.77 (on Coumadin), Urinalysis-urine protein > 100, ULE large, WBC pyuria, packed, urine bacteria positive. CAT scan abdomen and pelvis-12/28/17 1. Multiple colonic diverticula are seen, most concentrated in the descending colon and sigmoid colon. No evidence of acute diverticulitis is seen. 2. Small and large bowel loops are otherwise unremarkable with no evidence of bowel obstruction or perforation seen. 3. No evidence of nephrolithiasis or obstructive uropathy. Multiple bilateral renal cysts are again seen, similar to prior exams. 4. Splenomegaly. 5. 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 6. Trace bilateral right greater than left pleural effusions and associated bibasilar atelectatic changes. Chest x-ray reveals signs consistent with obstructive lung disease suspicion of superimposed retrocardiac left lung base pneumonia. Urinalysis reveals pyuria of greater than 5-10 WBCs plus leukocyte esterase plus nitrites. In the absence of nitrites, Pseudomonas, enterococcus, saprophyticus are to be considered. Recent microbiology results: Urine culture: 12/17/17 P. aeruginosa. MRSA P. aeruginosa 11/27/17 K. pneumo 11/15/17 K. pneumo Problem list: 1. Recurrent UTI 2. h/o Hypertension 2. Paroxysmal A. fib 3. h/o CAD s/p CABG and stenting 4. BPH 6. h/o BCC of the scalp status post removal 7. h/o PCV 8. 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 Predisposing factors such as previus catheterization, and mechanical obstruction with prostatic hypertrophy are to be considered. Plan - Admitted to general medicine - This morning patient is on empiric antibiotics with ceftazidime, and vancomycin pending final culture results. Previous team discussed w/ the pharmacy about the dosing. Ceftaz 1 g daily and Vanco 1 g daily. However, this morning he is growing Pseudomonas which is only sensitive to Ceftaz again, tobramycin, meropenem so we will stop vancomycin and continue the ceftaz. -Patient will likely need PICC line for antibiotics - Monitor vitals closely. - Continue amiodarone. -INR this morning is still over 4 so we will continue to hold Coumadin. - Acetaminophen iv for fever when necessary. -Repleted potassium DVT prophylaxis- Coumadin DNR/DNI. Diet: regular Dr. Crowe notified as he has previously treated Mr. Muñoz. Call Pradeep at [phone] for any changes in clinical status. Problem List: 1. UTI (urinary tract infection) Pain Ratin Pain Location: na Pain Goal: Remain pain free Pain Plan: na Tomorrow's Labs & Rationales: na
[2017-12-31 10:43] LABS: PT 45.8 SEC (9.4-12.5)
[2017-12-31 10:57] LABS: ABSOLUTE BASOPHIL COUNT 0 /CUMM (0.0-0.2); ABSOLUTE EOSINOPHIL COUNT 0.3 /CUMM (0.0-0.7); ABSOLUTE GRANULOCYTE CT 9.4 /CUMM (1.4-6.5); ABSOLUTE LYMPH COUNT 0.6 /CUMM (1.2-3.4); ABSOLUTE MONOCYTE COUNT 0.5 /CUMM (0.10-0.60); BASOPHIL % 0.2 % (0.0-2.0); EOSINOPHIL % 2.8 % (0-5); HEMATOCRIT 33.4 % (42-52); MEAN CORPUSCULAR HGB 31.4 PG (27.0-31.0); MEAN CORPUSCULAR HGB CONC 31.4 G/DL (33.0-37.0); MEAN CORPUSCULAR VOLUME 99.9 FL (80.0-94.0); MEAN PLATELET VOLUME 9.2 FL (7.4-10.4); PLATELET COUNT 229 /CUMM (130-400); RBC DISTRIBUTION WIDTH 26.3 % (11.5-14.5); RED BLOOD CELL CT 3.35 /CUMM (4.70-6.10); WHITE BLOOD CELL COUNT 10.9 /CUMM (4.8-10.8)
--- NOTE | 2017-12-31 12:23 | PN- Att Addend ---
Attending Addendum Attending Brief Note Patient seen and examined, denies any complaints this morning. He is not complaining of any pain. No other acute events overnight. Patient is afebrile. Vital Signs Date Time Temp Pulse Resp B/P B/P Pulse O2 O2 Flow FiO2 Mean Ox Delivery Rate 12/31 0853 130/64 12/31 0853 130/64 12/31 0624 98.4 57 18 130/64 93 Room Air 12/30 2230 98.2 57 18 150/70 92 Room Air 12/30 2036 57 150/70 12/30 1600 Room Air 12/30 1537 98.3 57 18 140/80 92 on exam; awake, nad. cv; s1,s2, rrr resp: clear abd; soft, nt, bs+ ext; no edema Laboratory Tests 12/31 0950 Chemistry Sodium (137 - 145 mmol/L) 135 L Potassium (3.5 - 5.1 mmol/L) 3.5 Chloride (98 - 107 mmol/L) 110 H Carbon Dioxide (22 - 30 mmol/L) 17 L Anion Gap (5 - 16) 8 BUN (9 - 20 mg/dL) 11 Creatinine (0.7 - 1.2 mg/dL) 0.7 Estimated GFR (>60 ml/min) > 60 BUN/Creatinine Ratio (7 - 25 %) 15.7 Coagulation PT (9.4 - 12.5 SEC) 45.8 *H INR (0.90 - 1.17) 4.14 *H Hematology CBC w Diff Pending WBC Pending RBC Pending Hgb Pending Hct Pending MCV Pending MCH Pending MCHC Pending RDW Pending Plt Count Pending MPV Pending Gran % Pending Lymphocytes % Pending Monocytes % Pending Eosinophils % Pending Basophils % Pending Absolute Granulocytes Pending Absolute Lymphocytes Pending Absolute Monocytes Pending Absolute Eosinophils Pending Absolute Basophils Pending A/P; 87 y/o M with pmh sig for HTN, HLD, CAD status post CABG(20 yrs ago) and stent placement(>10 yrs ago), severe PVD status post left BKA and right AKA, history of PE and paroxysmal A. 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 Patient likely has upper urinary tract infection as he was febrile to 102. Urine culture growing Pseudomonas which is sensitive to ceftaz but unfortunately resistant to Cipro. At this point will continue the ceftaz and discontinue the vancomycin. Patient does not have any shortness of breath or coughing at this time. Pneumonia is less likely. Heart rate and blood pressure stable on current regimen. Patient will ultimately need a PICC line once the INR is within the range. Continue the rest of the management. Patient's INR is supratherapeutic for DVT prophylaxis. D/W family at bedside.
[2017-12-31 12:33] LABS: GRANULOCYTE % 86.4 % (42.2-75.2)
[2017-12-31 15:11] VITALS: BP 180/60
[2017-12-31 16:12] VITALS: BP 158/80
--- NOTE | 2017-12-31 17:59 | Discharge Summary ---
Hospital Course Allergies: Coded Allergies: amlodipine (Severe, ANAPHYLAXIS 07/29/16) hydrochlorothiazide (DELERIUM 11/30/17) niacin (EXTREME FLUSHING FROM IMMEDIATE RELEASE 07/18/16) PT TOLERATES SLOW RELEASE
--- NOTE | 2017-12-31 18:25 | Patient Discharge Instructions ---
Discharge Instructions General Discharge Information You were seen/treated for: Urinary tract infection Special Instructions: PLEASE FOLLOW UP WITH PCP IN ONE WEEK PLEASE CONTINUE IV ANTIBIOTIC FOR 9 MORE DAYS (18 VIALS HAVE BEEN PRESCRIBED TO BE GIVEN TWICE A DAY) PLEASE RESTART COUMADIN TONIGHT 01/02 Diet Continue normal diet: Yes Activity Full Activity/No Limits: Yes Acute Coronary Syndrome Inclusion Criteria At DC or during hospital stay patient has or had the following: ACS DIAGNOSIS No Discharge Core Measures Meds if any: Prescribed or Continued at Discharge Meds if any: NOT Prescribed or Continued at Discharge Congestive Heart Failure Inclusion Criteria At DC or during hospital stay patient has or had the following: CHF DIAGNOSIS No Discharge Core Measures Meds if any: Prescribed or Continued at Discharge Meds if any: NOT Prescribed or Continued at Discharge Cerebrovascular accident Inclusion Criteria At DC or during hospital stay patient has or had the following: CVA/TIA Diagnosis No Discharge Core Measures Meds if any: Prescribed or Continued at Discharge Meds if any: NOT Prescribed or Continued at Discharge Venous thromboembolism Inclusion Criteria VTE Diagnosis No VTE Type NONE VTE Confirmed by (Test) NONE Discharge Core Measures - Per Current guidelines, there needs to be overlap - treatment for the first 5 days of Warfarin therapy. - If discharged on Warfarin prior to 5 days of - overlap therapy, the patient will need to be - assessed for post discharge needs including - *Post discharge parental anticoagulation - *Warfarin and/or parental anticoagulation education - *Follow up date to check INR post discharge At least 5 days overlap therapy as Inpatient No Meds if any: Prescribed or Continued at Discharge Note: Overlap Therapy is Warfarin and Anticoagulant Meds if any: NOT Prescribed or Continued at Discharge
[2017-12-31 21:14] VITALS: BP 138/76
[2018-01-01 06:10] VITALS: BP 134/70
[2018-01-01 08:27] LABS: PT 28.8 SEC (9.4-12.5)
[2018-01-01 08:33] LABS: ABSOLUTE BASOPHIL COUNT 0 /CUMM (0.0-0.2); ABSOLUTE EOSINOPHIL COUNT 0.3 /CUMM (0.0-0.7); ABSOLUTE GRANULOCYTE CT 8.8 /CUMM (1.4-6.5); ABSOLUTE LYMPH COUNT 0.5 /CUMM (1.2-3.4); ABSOLUTE MONOCYTE COUNT 0.3 /CUMM (0.10-0.60); BASOPHIL % 0.3 % (0.0-2.0); EOSINOPHIL % 3.4 % (0-5); HEMATOCRIT 31.3 % (42-52); MEAN CORPUSCULAR HGB 31.5 PG (27.0-31.0); MEAN CORPUSCULAR HGB CONC 31.6 G/DL (33.0-37.0); MEAN CORPUSCULAR VOLUME 99.5 FL (80.0-94.0); MEAN PLATELET VOLUME 10.1 FL (7.4-10.4); RBC DISTRIBUTION WIDTH 25.7 % (11.5-14.5); RED BLOOD CELL CT 3.14 /CUMM (4.70-6.10)
[2018-01-01 09:15] LABS: PLATELET COUNT 281 /CUMM (130-400)
[2018-01-01 09:16] LABS: GRANULOCYTE % 87.7 % (42.2-75.2)
--- NOTE | 2018-01-01 10:22 | PN- Housestaff ---
Stanley Woodard 01/01/18 1006: Subjective Follow-up For: Recurrent urinary tract infection Elevated INR Complaints: no complaints Tele-Events Since Last Visit: No telemetry MONITORING Subjective: Review the patient lying comfortably on the bed the patient reports that he is not feeling well today is not just a good day and is looking forward wants to go home to sit in his pouch and watch CARS driving in the street. He has not been eating well just ate 50% of his lunch and did not eat his dinner. Review of Systems Constitutional: Denies: chills, fever. Cardiovascular: Denies: chest pain, palpitations. Respiratory: Denies: cough, short of breath. Gastrointestinal: Denies: abdominal pain, nausea, vomiting. Genitourinary: Denies: no symptoms. Musculoskeletal: Denies: no symptoms. Objective Last 24 Hrs of Vital Signs/I&O Vital Signs Date Time Temp Pulse Resp B/P B/P Pulse O2 O2 Flow FiO2 Mean Ox Delivery Rate 01/01 0610 98.0 55 20 134/70 92 Room Air 12/31 2114 97.8 76 18 138/76 94 Room Air 12/31 2000 67 138/76 12/31 1612 158/80 12/31 1511 97.4 64 16 180/60 92 Room Air Intake & Output 01/01 1600 01/01 0800 01/01 0000 Intake Total 120 600 Output Total Balance 120 600 Intake, Oral 120 600 Physical Exam General Appearance: Alert, Oriented X3, Cooperative, No Acute Distress Skin: No Breakdown Skin Temp/Moisture Exam: Warm/Dry Sepsis Skin Exam (color): Normal for Ethnicity HEENT: Atraumatic, dry mucous membranes Neck: Supple, No JVD Cardiovascular: Regular Rate, Normal S1, Normal S2 Lungs: Clear to Auscultation, Normal Air Movement Abdomen: Normal Bowel Sounds, Soft, No Tenderness Neurological: Normal Speech, Normal Tone Extremities: No Clubbing, No Cyanosis, R AKA/L BKA Current Medications: Current Medications Sig/Caroline Start time Last Medication Dose Route Stop Time Status Admin Acetaminophen 1,000 MG Q8P PRN 12/28 1600 AC IV Acetaminophen 500 MG DAILY PRN 12/28 1545 AC 12/29 PO 0836 Amiodarone HCl 200 MG QAM 12/29 0900 AC 12/31 PO 0853 Aspirin Buffered 81 MG QPM 12/28 2100 AC 12/31 PO 2000 Atorvastatin Calcium 20 MG QPM 12/28 2100 AC 12/31 PO 1999 Ceftazidime 1,000 MG 0400,1600 12/28 1600 AC 01/01 IV 0250 Finasteride 5 MG DAILY 12/29 0900 AC 12/31 PO 0853 Gabapentin 100 MG QPM 12/28 2100 AC 12/31 PO 2000 Hydroxyurea 1,000 MG QAM 12/29 0900 AC 12/31 PO 0853 Lactobacillus 1 CAP BID 12/28 2099 AC 12/31 Acidophilus PO 1999 Lisinopril 10 MG DAILY 12/28 1524 AC 12/31 PO 0853 Morphine Sulfate 2 MG BID PRN 12/28 1600 AC IV Polyethylene Glycol 17 GM DAILY NEEDED PRN 12/28 1600 AC 12/31 PO 0853 Senna/Docusate Sodium 2 TAB DAILY PRN 12/28 1600 AC 12/30 PO 0836 Tamsulosin HCl 0.4 MG QPM 12/28 2100 AC 12/31 PO 2000 Tramadol HCl 50 MG Q8P PRN 12/28 1600 AC PO Vancomycin HCl 1,000 MG 0400,1600 12/28 1600 DC 12/31 Sodium Chloride 250 ML IV 0416 Last 24 Hrs of Lab/Addy Results Last 24 Hrs of Labs/Mics: Laboratory Tests 01/01/18 0615: Anion Gap 7, Estimated GFR > 60, BUN/Creatinine Ratio 18.6, PT 28.8 H, INR 2.62 H, CBC w Diff NO MAN DIFF REQ, RBC 3.14 L, MCV 99.5 H, MCH 31.5 H, MCHC 31.6 L, RDW 25.7 H, MPV 10.1, Gran % 87.7 H, Lymphocytes % 5.4 L, Monocytes % 3.2 , Eosinophils % 3.4, Basophils % 0.3, Absolute Granulocytes 8.8 H, Absolute Lymphocytes 0.5 L, Absolute Monocytes 0.3, Absolute Eosinophils 0.3, Absolute Basophils 0 Assessment/Plan Assessment: This is 87 gentleman with PMHx of HTN, HLD, CAD status post CABG(20 yrs ago) and stent placement(>10 yrs ago), severe PVD status post left BKA and right AKA, history of PE and paroxysmal A. 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 Patient urine grew Pseudomonas which is multiresistant and on the sensitive to Keflex has been which the patient has been started on. He has remained afebrile for the past 3 days. Urinary tract infection Patient on Ceftazidine and is responding well because has remained afebrile. We have no oral antibiotic we can transition the patient for discharge and because of that would require PICC line to continue to get antibiotic as outpatient. Continue with Ceftazidine. Supratherapeutic INR Patient on presentation had INR of about 4. He takes Coumadin for history of PE. Coumadin has been on hold and this patient needs to get a PICC line inserted. Spoke with IR and they reported that we will need INR to be 2 or less. Continue to hold Coumadin and follow daily INR. Problem List: 1. UTI (urinary tract infection) 2. Supratherapeutic INR Pain Ratin Pain Location: none Pain Goal: Remain pain free Pain Plan: tylenol prn Tomorrow's Labs & Rationales: PT to monitor INR DVT/Prophylaxis: pharmacological Patient's Concerns: Wants to go home Discharge Plan Stable for Discharge? No Anticipated Discharge (Day): tomorrow Aravind APPLE,[facility] 01/01/18 1051: Attending MD Review Statement Attending Statement Attending MD Statement: examined this patient, discuss w/resident/PA/DATA WAREHOUSE ANALYST, agreed w/resident/PA/DATA WAREHOUSE ANALYST, discussed with family, reviewed EMR data (avail), discussed with nursing, discussed with case mgmt, reviewed images, amended to note Attending Assessment/Plan: Patient seen and examined, he said that he is just feeling down. He was not happy this morning. He otherwise denies any aches or pains. He remained afebrile. Vital Signs Date Time Temp Pulse Resp B/P B/P Pulse O2 O2 Flow FiO2 Mean Ox Delivery Rate 01/01 0610 98.0 55 20 134/70 92 Room Air 12/31 2114 97.8 76 18 138/76 94 Room Air 12/31 2000 67 138/76 12/31 1612 158/80 12/31 1511 97.4 64 16 180/60 92 Room Air on exam: awake, nad. cv; s1,s2, rrr resp: clear abd; soft, nt, bs+ ext; no edema. Laboratory Tests 01/01 0615 Chemistry Sodium (137 - 145 mmol/L) 136 L Potassium (3.5 - 5.1 mmol/L) 3.8 Chloride (98 - 107 mmol/L) 107 Carbon Dioxide (22 - 30 mmol/L) 21 L Anion Gap (5 - 16) 7 BUN (9 - 20 mg/dL) 13 Creatinine (0.7 - 1.2 mg/dL) 0.7 Estimated GFR (>60 ml/min) > 60 BUN/Creatinine Ratio (7 - 25 %) 18.6 Coagulation PT (9.4 - 12.5 SEC) 28.8 H INR (0.90 - 1.17) 2.62 H Hematology CBC w Diff NO MAN DIFF REQ WBC (4.8 - 10.8 /CUMM) 10.0 RBC (4.70 - 6.10 /CUMM) 3.14 L Hgb (14.0 - 18.0 G/DL) 9.9 L Hct (42 - 52 %) 31.3 L MCV (80.0 - 94.0 FL) 99.5 H MCH (27.0 - 31.0 PG) 31.5 H MCHC (33.0 - 37.0 G/DL) 31.6 L RDW (11.5 - 14.5 %) 25.7 H Plt Count (130 - 400 /CUMM) 281 MPV (7.4 - 10.4 FL) 10.1 Gran % (42.2 - 75.2 %) 87.7 H Lymphocytes % (20.5 - 51.1 %) 5.4 L Monocytes % (1.7 - 9.3 %) 3.2 Eosinophils % (0 - 5 %) 3.4 Basophils % (0.0 - 2.0 %) 0.3 Absolute Granulocytes (1.4 - 6.5 /CUMM) 8.8 H Absolute Lymphocytes (1.2 - 3.4 /CUMM) 0.5 L Absolute Monocytes (0.10 - 0.60 /CUMM) 0.3 Absolute Eosinophils (0.0 - 0.7 /CUMM) 0.3 Absolute Basophils (0.0 - 0.2 /CUMM) 0 A/P: 87 y/o M with pmh sig for HTN, HLD, CAD status post CABG(20 yrs ago) and stent placement(>10 yrs ago), severe PVD status post left BKA and right AKA, history of PE and paroxysmal A. 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 INR is still above 2. It has to be 2 or below for the PICC line. Once INR is 2 or below then PICC line will be inserted. Patient will be going home on IV antibiotic ceftaz. He needs a total of 14 day course. Continue all other current management. DVT Px: INR is in the therapeutic range.
[2018-01-01 14:03] VITALS: BP 138/58
[2018-01-01 21:42] VITALS: BP 150/70
[2018-01-02 05:57] VITALS: BP 122/80; BP 160/60
[2018-01-02 08:18] LABS: PT 22.3 SEC (9.4-12.5)
--- NOTE | 2018-01-02 08:19 | PN- Housestaff ---
Bryan APPLE,Chhaya 01/02/18 0818: Subjective Follow-up For: uti Subjective: Patient seen and examined. He says that he feels good and has no complaints. His vitals overnight are stable with a somewhat lower heart rate of 52, no symptoms. Today we placed a PICC line in the patient's left arm, right arm was attempted unsuccessfully. Review of Systems Constitutional: Reports: no symptoms. EENTM: Reports: no symptoms. Cardiovascular: Reports: no symptoms. Respiratory: Reports: no symptoms. Gastrointestinal: Reports: no symptoms. Genitourinary: Reports: no symptoms. Musculoskeletal: Reports: no symptoms. Objective Last 24 Hrs of Vital Signs/I&O Vital Signs Date Time Temp Pulse Resp B/P B/P Pulse O2 O2 Flow FiO2 Mean Ox Delivery Rate 01/02 1427 97.8 53 20 136/60 93 01/02 0915 60 160/66 01/02 0915 60 160/66 01/02 0557 97.5 52 16 160/60 95 01/01 2142 97.7 65 20 150/70 92 01/01 2005 65 150/70 Intake & Output 01/02 1600 01/02 0800 01/02 0000 Intake Total 120 600 Output Total Balance 120 600 Intake, Oral 120 600 Number 3 Bowel Movements Physical Exam General Appearance: Alert, Oriented X3, Cooperative, No Acute Distress Skin: multiple skin biopsy lesions taken from scalp, arnav holes. Skin Temp/Moisture Exam: Warm/Dry Sepsis Skin Exam (color): Normal for Ethnicity HEENT: Atraumatic, EOMI, Mucous Membr. moist/pink Neck: Supple, No JVD Cardiovascular: Regular Rate, Normal S1, Normal S2, No Murmurs Lungs: Clear to Auscultation, Normal Air Movement Abdomen: Normal Bowel Sounds, Soft, No Tenderness Neurological: Normal Speech Extremities: right aka and left bka Current Medications: Current Medications Sig/Caroline Start time Last Medication Dose Route Stop Time Status Admin Acetaminophen 1,000 MG Q8P PRN 12/28 1600 AC IV Acetaminophen 500 MG DAILY PRN 12/28 1545 AC 12/29 PO 0836 Amiodarone HCl 200 MG QAM 12/29 0900 AC 01/02 PO 0915 Aspirin Buffered 81 MG QPM 12/28 2100 AC 01/01 PO 2004 Atorvastatin Calcium 20 MG QPM 12/28 2100 AC 01/01 PO 2004 Ceftazidime 1,000 MG 0400,1600 12/28 1600 AC 01/02 IV 0430 Finasteride 5 MG DAILY 12/29 0900 AC 01/02 PO 09 Gabapentin 100 MG QPM 12/28 2100 AC 01/01 PO 2004 Hydroxyurea 1,000 MG QAM 12/29 0900 AC 01/02 PO 0915 Lactobacillus 1 CAP BID 12/28 2100 AC 01/02 Acidophilus PO 914 Lisinopril 10 MG DAILY 12/28 1524 AC 01/02 PO 914 Morphine Sulfate 2 MG BID PRN 12/28 1600 AC IV Patient Medication 1 ED ONE ONE 01/01 1515 DC 01/01 Teaching ED 01/01 1516 1534 Polyethylene Glycol 17 GM DAILY NEEDED PRN 12/28 1600 AC 01/02 PO 0430 Senna/Docusate Sodium 2 TAB DAILY PRN 12/28 1600 AC 01/02 PO 0430 Tamsulosin HCl 0.4 MG QPM 12/28 2100 AC 01/01 PO 2004 Tramadol HCl 50 MG Q8P PRN 12/28 1600 AC PO Last 24 Hrs of Lab/Addy Results Last 24 Hrs of Labs/Mics: Laboratory Tests 01/02/18 0610: Anion Gap 6, Estimated GFR > 60, BUN/Creatinine Ratio 20.0, PT 22.3 H, INR 2.03 H Assessment/Plan Assessment: Mr. Muñoz is an 87 gentleman with PMHx of HTN, HLD, CAD status post CABG(20 yrs ago) and stent placement(>10 yrs ago), severe PVD status post left BKA and right AKA, history of PE and paroxysmal A. fib on Coumadin, PCV (dx'ed 30 yrs ago tx w/ hydroxyurea), BPH, recurrent UTI who had chronic indwelling catheter removed one year ago, last admission to 09/09/17-09/12/17 for tx of UTI and HTN urgency who was brought to the hospital w/ chief concerns of increasing lethargy , associated w/ chills x 1 day likely secondary to UTI. At the time of admission, temperature 102.5, pulse rate 71, respiration 18, blood pressure 187/80-->178/78-->148/62, 98% on room air. Pertinent lab findings: WBC 9.1, hemoglobin 11.1, MCV 98.6, platelet count 268 Sodium 135, potassium 3.9, bicarbonate 23. BUN 12, creatinine 0.7, lactic acid 1.4. Troponin I0.01. Albumin 3.1., INR 2.77 (on Coumadin), Urinalysis-urine protein > 100, ULE large, WBC pyuria, packed, urine bacteria positive. CAT scan abdomen and pelvis-12/28/17 1. Multiple colonic diverticula are seen, most concentrated in the descending colon and sigmoid colon. No evidence of acute diverticulitis is seen. 2. Small and large bowel loops are otherwise unremarkable with no evidence of bowel obstruction or perforation seen. 3. No evidence of nephrolithiasis or obstructive uropathy. Multiple bilateral renal cysts are again seen, similar to prior exams. 4. Splenomegaly. 5. 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 6. Trace bilateral right greater than left pleural effusions and associated bibasilar atelectatic changes. Chest x-ray reveals signs consistent with obstructive lung disease suspicion of superimposed retrocardiac left lung base pneumonia. Urinalysis reveals pyuria of greater than 5-10 WBCs plus leukocyte esterase plus nitrites. In the absence of nitrites, Pseudomonas, enterococcus, saprophyticus are to be considered. Recent microbiology results: Urine culture: 12/17/17 P. aeruginosa. MRSA P. aeruginosa 11/27/17 K. pneumo 11/15/17 K. pneumo Problem list: 1. Recurrent UTI 2. h/o Hypertension 2. Paroxysmal A. fib 3. h/o CAD s/p CABG and stenting 4. BPH 6. h/o BCC of the scalp status post removal 7. h/o PCV 8. 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 Predisposing factors such as previus catheterization, and mechanical obstruction with prostatic hypertrophy are to be considered. Plan - Admitted to general medicine - This morning patient is currently on ceftazidime, growing Pseudomonas in the urine with susceptibility only to ceftaz. Patient is requiring PICC line pending subtherapeutic INR today. Patient's INR today is 2.03 so Mallika has placed a PICC line in the left arm, right arm attempted and unsuccessful. Patient will be discharged today with 9 days left of antibiotics for a total 14 day course. Patient's warfarin has been held but on discharge he is to resume. - Monitor vitals closely. - Continue amiodarone for A. fib and lisinopril for hypertension. - Acetaminophen iv for fever when necessary. -Repleted potassium DVT prophylaxis- Coumadin DNR/DNI. Diet: regular Dr. Crowe notified as he has previously treated Mr. Muñoz, nothing to add. Call Pradeep at [phone] for any changes in clinical status. Problem List: 1. UTI (urinary tract infection) Pain Ratin Pain Location: na Pain Goal: Remain pain free Pain Plan: na Tomorrow's Labs & Rationales: Kian Varghese 01/02/18 1053: Attending MD Review Statement Attending Statement Attending MD Statement: examined this patient, discuss w/resident/PA/CONTROL CABINET ASSEMBLER, agreed w/resident/PA/CONTROL CABINET ASSEMBLER, reviewed EMR data (avail), discussed with nursing, discussed with case mgmt Attending Assessment/Plan: Laboratory Tests 01/02/18 0610: Anion Gap 6, Estimated GFR > 60, BUN/Creatinine Ratio 20.0, PT 22.3 H, INR 2.03 H Vital Signs Date Time Temp Pulse Resp B/P B/P Pulse O2 O2 Flow FiO2 Mean Ox Delivery Rate 01/02 0915 60 160/66 01/02 0915 60 160/66 01/02 0557 97.5 52 16 160/60 95 01/01 2142 97.7 65 20 150/70 92 01/01 2005 65 150/70 01/01 1403 98.2 68 20 138/58 90 Room Air 01/01 1102 60 136/58 01/01 1101 60 136/58 87 y/o M with pmh sig for HTN, HLD, CAD status post CABG(20 yrs ago) and stent placement(>10 yrs ago), severe PVD status post left BKA and right AKA, history of PE and paroxysmal A. fib on Coumadin, PCV (dx'ed 30 yrs ago tx w/ hydroxyurea ), recurrent UTI who had chronic indwelling catheter removed one year ago, admissions for UTI in the past, admitted this time also with lethargy and UTI which is likely an upper tract infection as patient was febrile to 102 and had leukocytosis. Complicated UTI with psudomonas senstive to ceftazidime- plan is to get PICC line today. Spoke with the PICC nurse. Plan dc home today with 9 more days of abx to complete 14 days course. d/w pt the care plan.
[2018-01-02] MEDS ORDERED: CEFTAZIDIME1 G2 IV (12:59)
[2018-01-02 14:27] VITALS: BP 136/60
--- NOTE | 2018-01-02 16:49 | RADIOLOGY REPORT ---
EXAMINATION: XR PORTABLE CHEST CLINICAL INFORMATION: PICC placement. COMPARISON: Chest x-ray dated 12/28/2017. TECHNIQUE: Portable AP semierect view of the chest was obtained. FINDINGS: The patient is status post median sternotomy and CABG surgery. A left subclavian PICC line is in place with tip in the distal SVC. No pneumothorax is seen. The cardiomediastinal silhouette is borderline enlarged. Calcification of the aortic arch is seen. Lungs bilaterally are symmetrically expanded with mild left basilar subsegmental atelectasis seen. No focal consolidation, effusion or pneumothorax is seen. Bony structures are unremarkable. IMPRESSION: 1. Left subclavian PICC line tip is in the distal SVC. No pneumothorax. 2. Borderline enlarged cardiac silhouette. 3. Mild left basilar subsegmental atelectasis.
== END 2018-01-02 17:00 | disposition home health service (06) | DRG 690 ==
LOC: ERH 11:08 → 2NA 13:36 → ERHI 13:36 → 2NA 13:36 → ENRESERV 14:47 → ENTRNSPT 15:57 → EDTRNSPTSTS 16:18 → EDTRNSPT 16:18 → 2NA 16:23 → CMPTRNSPT 16:40 → 2NA 12-31 07:46
PROVIDERS: Hospitalist; Internal Medicine Endocrinology, Diabetes & Metabolism; Physician Assistant Medical; Preventive Medicine Public Health & General Preventive Medicine; Student in an Organized Health Care Education/Training Program
PROC: 02HV33Z Insertion of Infusion Device into Superior Vena Cava, Percutaneous Approach (ICD-10-PCS; principal; 2018-01-02)
DX: N39.0 Urinary tract infection, site not specified (principal); I10 Essential (primary) hypertension; E78.5 Hyperlipidemia, unspecified; N40.0 Benign prostatic hyperplasia without lower urinary tract symptoms; I25.10 Atherosclerotic heart disease of native coronary artery without angina pectoris; Z95.1 Presence of aortocoronary bypass graft; I73.9 Peripheral vascular disease, unspecified; G62.9 Polyneuropathy, unspecified; D45 Polycythemia vera; E87.6 Hypokalemia; Z79.01 Long term (current) use of anticoagulants; L89.152 Pressure ulcer of sacral region, stage 2; Z86.711 Personal history of pulmonary embolism; Z86.718 Personal history of other venous thrombosis and embolism; Z89.611 Acquired absence of right leg above knee; Z89.512 Acquired absence of left leg below knee; I48.0 Paroxysmal atrial fibrillation; Z95.5 Presence of coronary angioplasty implant and graft; B96.5 Pseudomonas (aeruginosa) (mallei) (pseudomallei) as the cause of diseases classified elsewhere
CPT/HCPCS: 2NAP; 36592; 71045; 74176; 81001; 82436; 87040; 87070; 87086; 93005; 93010; 96365; 96375; 99291; C1769; J0131; J0456; J0696; J0713; J3370; J7040; J7120